=== PATIENT | male | born 1960 | race Caucasian/White ===

== ENCOUNTER 2023-01-01 00:26 | Inpatient (IN) ==
[2023-01-01] MEDS ORDERED: NITROGLYCERIN SL 0.4 MG/TAB TAB SL STA (01:04)
[2023-01-01] MEDS ORDERED: ACETAMINOPHEN 325 MG TAB PO PRN (01:05)
[2023-01-01] MEDS ORDERED: PROMETHAZINE HCL 12.5 MG in SODIUM CHLORIDE 0.9% 50 ML IV PRN (01:07)
[2023-01-01] MEDS ORDERED: NITROGLYCERIN SL 0.4 MG/TAB TAB SL PRN (01:07)
[2023-01-01] MEDS ORDERED: MoRPHine SULFATE 4 MG/ML 1 ML CARP\\VIAL IV PRN (01:07)
[2023-01-01] MEDS ORDERED: LORazepam 0.5 MG TAB PO PRN (01:07)
[2023-01-01] MEDS ORDERED: Heparin IV Adult Wt-Based Standard *NO* Bolus Protocol IV ONE ×2 (01:51→04:26)
[2023-01-01] MEDS ORDERED: METOPROLOL TARTRATE 25 MG TAB PO STA (01:52)
[2023-01-01] MEDS ORDERED: HEPARIN SODIUM/DEXTROSE 25,000 UNITS/500 ML BAG IV SCH (02:15)
[2023-01-01 03:35] LABS: Basophils # (auto) 0.07 K/uL (0-0.2); Basophils % (auto) 0.8 %; Eosinophils # (auto) 0.22 K/uL (0-0.50); Eosinophils % (auto) 2.6 %; Hematocrit (blood only) 37.1 % (42.0-52.0); Hemoglobin 12.6 g/dl (14.0-18.0); Immature Granulocytes # (auto) 0.02 K/uL (0.01-0.20); Immature Granulocytes % (auto) 0.2 %; Lymphocytes # (auto) 3.02 K/uL (1.2-3.4); Lymphocytes % (auto) 36.3 %; Mean Corpuscular Hemoglobin 29.4 pg (25.0-34.0); Mean Corpuscular Volume 86.5 fL (80.0-100.0); Monocytes # (auto) 0.67 K/uL (0.11-0.59); Neutrophils # (auto) 4.33 K/uL (1.40-6.50); Neutrophils % (auto) 52.1 %; Platelet Count 246 K/uL (130-400); RDW Coefficient of Variation 13.3 % (11.5-14.5); RDW Standard Deviation 41.2 fL (36.4-46.3); Red Blood Count 4.29 M/uL (4.70-6.10); Reticulocytes # 0.08 10^6/uL (0.02-0.10); White Blood Count 8.33 K/ul (4.8-10.8)
[2023-01-01 03:51] LABS: BUN Creatinine Ratio 14.7 (10-20); Calcium 8.7 mg/dl (8.6-10.3); Chol HDL Ratio 2.8 (0-5); Creatinine Clr Calc Pharmacy 88.1 ml/min; Est GFR (African American) 91.5 ml/min; Potassium 3.9 mmol/L (3.5-5.1)
[2023-01-01 04:03] LABS: Troponin I High Sensitivity 5445.9 pg/ml (0-20)
[2023-01-01 04:05] LABS: Partial Thromboplastin Ratio 0.9; Partial Thromboplastin Time 25.4 Seconds (21.0-31.0)
[2023-01-01 04:10] LABS: Ferritin 80.4 ng/ml (8-388)
[2023-01-01] MEDS: oxyCODONE HCL IR 5 MG TAB (IMMEDIATE RELEASE) PO PRN ×2 (04:25→10:46)
[2023-01-01] MEDS ORDERED: LACTATED RINGER'S 1,000 ML IV ONE (04:29)
--- NOTE | 2023-01-01 04:37 | History & Physical Report ---
Date of Service January 01, 2023 Assessment & Plan (1) NSTEMI (non-ST elevated myocardial infarction): Plan: hx nonobstructive CAD HTN, slightly elevated New onset anemia, FOBT done at bedside negative valvular heart disease (congenital bicuspid aortic valve/moderate , mild MR/TR from TTE 2021) hx aortic root/proximal ascending aorta enlargement hyperlipidemia, on statin Rx DM2 diet-controlled, well-controlled as of recent hemoglobin A1c of 6.3 last May 2022 GERD/Bradley's esophagus on PPI tobacco abuse PCU Continue home aspirin, statin; IV heparin initiated at [facility] Initiate beta-arnoldo TTE, Cardiology consult Re: NSTEMI N.p.o. until patient seen by Cardiology in anticipation of diagnostic cardiac catheterization. ISS BG goal 1 10-1 40, carb count coverage, update hemoglobin A1c Anemia work-up Nicotine replacement therapy as needed DVT prophylaxis with IV heparin Full code Text document was generated using [employer] voice recognition software. It may contain grammatical or spelling errors. Kindly contact undersigned for clarification of any documentation item in question. Admission and Anticipated Discharge Date Admission Date: January 01, 2023 History of Present Illness Chief Complaint: chest pain Primary Care Provider: Luciana Leung, History obtained from patient and records. Medical history significant for nonobstructive CAD, valvular heart disease (congenital bicuspid aortic valve/moderate , mild MR/TR), aortic root/proximal ascending aorta enlargement, hypertension, hyperlipidemia, DM2 diet-controlled, GERD/Bradley's esophagus, tobacco abuse. 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 Patient denies abdominal pain/black/bloody stools, hematuria. Patient took aspirin at home without improvement in symptoms. Patient brought to [facility] ER by family due to persistent symptoms. No ryder ST elevation on EKG last night as per ER provider. Abnormal labs last night as follows : troponin noted to be 1254. Hemoglobin noted to be 12.6. IV heparin started at [facility] for NSTEMI. Patient transferred [facility] for cardiology services. Patient currently complaining of chest discomfort described as heartburn-like. Chest discomfort relieved by nitroglycerin administration. Patient complaining of headache post nitro administration. 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 Allergies Allergy/AdvReac Type Severity Reaction Status Date / Time simvastatin AdvReac Severe ELEVATED Verified 01/01/23 00:22 LIVER FUNCTIONS nitroglycerin AdvReac Mild Headache Verified 01/01/23 06:37 Home Medications Medication Instructions Recorded Confirmed Type lisinopril 20 mg tablet 20 mg PO HS 07/16/21 01/01/23 History pantoprazole 40 mg tablet,delayed 40 mg PO HS 07/16/21 01/01/23 History release amlodipine 2.5 mg tablet 2.5 mg PO HS 01/01/23 01/01/23 History aspirin 81 mg tablet,delayed 81 mg PO HS 01/01/23 01/01/23 History release atorvastatin 40 mg tablet 40 mg PO HS 01/01/23 01/01/23 History multivitamin with minerals 1 tab PO HS 01/01/23 01/01/23 History Past Med/Surg History Social History Smoking Status: Current every day smoker Second Hand Exposure: No; Do You Dip or Chew Tobacco: Yes; Tobacco Cessation Education Requested by Patient: No Hx Alcohol Use: Yes Alcohol type: beer Hx Substance Use: No Preferred Language: Qatari Communication Ability: Effective Airline Radio Operator Required: No Beliefs That Will Affect Care: None Current Living Situation: Spouse Other Information That Helps Us Care for You: No Feels Safe at Home: Yes Safety Concerns: Feels Safe At This Time Assistive Devices: None Review of Systems Review of Systems: As per HPI, all other systems reviewed and negative Physical Exam Physical Exam: GENERAL: Comfortable, obese, no respiratory distress SKIN: Normal color, warm HEENT: [place] palpebral conjunctivae, no ptosis, dry buccal mucosa NECK : Supple, no tenderness CHEST : CTA, no tenderness HEART : RRR, systolic murmur ABDOMEN: Some distention, nontender RECTAL : Intact sphincter, brown stool (FOBT negative) EXTREMITIES : No LE swelling/tenderness, no other conspicuous deformities noted NEUROLOGIC : Coherent, no facial asymmetry, no other gross focality Results & Data Results & Data Vital Signs (Past 12 Hours) Vital Signs Temp Pulse Resp BP Pulse Ox O2 Del Method 01/01/23 00:42 36.5 C 67 17 160/97 H 98 Room Air Laboratory Results Laboratory Results WBC 8.33 K/ul (4.8-10.8) 01/01/23 03:10 RBC 4.29 M/uL (4.70-6.10) L 01/01/23 03:10 Hgb 12.6 g/dl (14.0-18.0) L 01/01/23 03:10 Hct 37.1 % (42.0-52.0) L 01/01/23 03:10 MCV 86.5 fL (80.0-100.0) 01/01/23 03:10 MCH 29.4 pg (25.0-34.0) 01/01/23 03:10 MCHC 34.0 g/dL (32.0-36.0) 01/01/23 03:10 RDW Std Deviation 41.2 fL (36.4-46.3) 01/01/23 03:10 RDW Coeff of Vikas 13.3 % (11.5-14.5) 01/01/23 03:10 Plt Count 246 K/uL (130-400) 01/01/23 03:10 MPV 10.0 fL (9.4-12.4) 01/01/23 03:10 Immature Gran % (Auto) 0.2 % 01/01/23 03:10 Neut % (Auto) 52.1 % 01/01/23 03:10 Lymph % (Auto) 36.3 % 01/01/23 03:10 [place] % (Auto) 8.0 % 01/01/23 03:10 Eos % (Auto) 2.6 % 01/01/23 03:10 Baso % (Auto) 0.8 % 01/01/23 03:10 Reticulocyte % (Auto) 2.0 % (0.5-2.0) 01/01/23 03:10 Neut # (Auto) 4.33 K/uL (1.40-6.50) 01/01/23 03:10 Lymph # (Auto) 3.02 K/uL (1.2-3.4) 01/01/23 03:10 [place] # (Auto) 0.67 K/uL (0.11-0.59) H 01/01/23 03:10 Eos # (Auto) 0.22 K/uL (0-0.50) 01/01/23 03:10 Baso # (Auto) 0.07 K/uL (0-0.2) 01/01/23 03:10 Reticulocyte # 0.08 10^6/uL (0.02-0.10) 01/01/23 03:10 Immature Gran # (Auto) 0.02 K/uL (0.01-0.20) 01/01/23 03:10 APTT 25.4 Seconds (21.0-31.0) 01/01/23 03:10 PTT Ratio 0.9 01/01/23 03:10 Sodium 140 mmol/L (136-145) 01/01/23 03:10 Potassium 3.9 mmol/L (3.5-5.1) 01/01/23 03:10 Chloride 108 mmol/L (98-107) H 01/01/23 03:10 Carbon Dioxide 26 mmol/L (21-32) 01/01/23 03:10 Anion Gap 6 (3-11) 01/01/23 03:10 BUN 15 mg/dl (6-23) 01/01/23 03:10 Creatinine 1.02 mg/dl (0.6-1.4) 01/01/23 03:10 Est Cr Clr Drug Dosing 88.1 ml/min 01/01/23 03:10 Est GFR ( Amer) 91.5 ml/min 01/01/23 03:10 Est GFR (Non-Af Amer) 79.0 ml/min 01/01/23 03:10 BUN/Creatinine Ratio 14.7 (10-20) 01/01/23 03:10 Glucose 96 mg/dl (70-99(Fasting)) 01/01/23 03:10 Calcium 8.7 mg/dl (8.6-10.3) 01/01/23 03:10 Iron 68 mcg/dl (35-175) 01/01/23 03:10 Transferrin 232 mg/dl (200-360) 01/01/23 03:10 Ferritin 80.4 ng/ml (8-388) 01/01/23 03:10 Troponin I High Sens 5445.9 pg/ml (0-20) H* 01/01/23 03:10 Triglycerides 98 mg/dl (0-150) 01/01/23 03:10 Cholesterol 129 mg/dl (0-200) 01/01/23 03:10 LDL Cholesterol, Calc 63 mg/dl 01/01/23 03:10 VLDL Cholesterol, Calc 20 mg/dl (0-30) 01/01/23 03:10 HDL Cholesterol 46 mg/dl 01/01/23 03:10 Cholesterol/HDL Ratio 2.8 (0-5) 01/01/23 03:10 TSH 0.801 uIu/ml (0.300-4.500) 01/01/23 03:10 Blood Type AB Positive 01/01/23 03:10 Antibody Screen NEGATIVE 01/01/23 03:10 Diagnostic Findings Chest x-ray (done at [facility] 12/31/22 and scanned into [facility] Synapse) as per my interpretation: Cardiomegaly, atelectasis EKG as per my interpretation : Rate 55, sinus bradycardia, normal axis, 1 AVB, T wave abnormalities inferior leads
[2023-01-01 04:45] LABS: Vitamin B12 338 pg/ml (180-914)
[2023-01-01] MEDS: HEPARIN SODIUM/DEXTROSE 25,000 UNITS/500 ML BAG IV SCH (05:29)
[2023-01-01] MEDS: ATORVASTATIN 40 MG TAB PO SCH ×2 (05:51→20:19)
[2023-01-01] MEDS: PANTOprazole 40 MG TAB PO SCH ×2 (05:51→20:19)
[2023-01-01] MEDS ORDERED: CARBOHYDRATES FOR HYPOGLYCEMIA PO PRN (06:27)
[2023-01-01] MEDS ORDERED: GLUCAGON FOR INJ 1 MG VIAL SQ PRN (06:27)
[2023-01-01] MEDS ORDERED: GLUCOSE 40% GEL 15 GM TUBE PO PRN (06:27)
[2023-01-01] MEDS ORDERED: DEXTROSE 50% 50 ML SYRINGE IV PRN (06:27)
[2023-01-01] MEDS ORDERED: GLUCOSE 10 TAB/TUBE PO PRN (06:27)
[2023-01-01] MEDS ORDERED: Nursing to Pharmacy Communication SCH (07:00)
[2023-01-01 07:39] LABS: Estimated Average Glucose 140 mg/dl; Hemoglobin A1C 6.5 % (4.5-5.6)
[2023-01-01] MEDS: INSULIN ASPART PER UNIT CHARGE SC SCH ×2 (08:32→12:38)
--- NOTE | 2023-01-01 10:51 | Cardiology Consultation ---
Date of Consultation January 01, 2023 Assessment & Plan (1) NSTEMI (non-ST elevated myocardial infarction): (2) Bicuspid aortic valve: (3) Aortic stenosis: (4) Familial hyperlipidemia: (5) Tobacco abuse: (6) Ascending aorta enlargement: (7) Anemia: (8) HTN (hypertension): Plan 62-year-old patient presents with NSTEMI. Currently pain-free. Echocardiogram demonstrating small apical wall motion abnormality. Prior cardiac catheterization images reviewed demonstrating moderate nonobstructive coronary disease, however, distal coronary arteries, particular the LAD, are small caliber vessels. Continue IV heparin at this time. Recommend cardiac catheterization. Risk, benefits, and alternatives to procedure discussed. Patient agreeable. Continue other medications including amlodipine, aspirin, atorvastatin, metoprolol, and lisinopril. Further evaluation of anemia as per internal medicine. History of Present Illness Reason for Consultation: ACS Requesting Physician: Dr. Ching Attending Physician: Teresa Seals MD History of Present Illness 62-year-old male presents as a transfer from [facility] due to NSTEMI. 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 Discomfort initially 8/10. He did not immediately seek medical attention. Discomfort gradually reduced to 3/10 after drinking water. Due to persistent symptoms, he proceeded to the local emergency department for further evaluation. Due to elevated troponin, patient transferred to [facility] for cardiac evaluation. Currently chest pain free. Carries history of moderate nonobstructive coronary disease with small coronary vessels and presumed underlying vasospasm. Intolerant to long-acting nitrates. Also carries history of a bicuspid aortic valve with moderate aortic valve stenosis, mild aortic root and ascending aortic enlargement, and familial dyslipidemia with LDL 63 mg/dL on admission. Prior to the current event patient denies any exertional chest pain or unusual shortness of breath. Lungs capacity is stable. Unfortunately, continues to smoke 2-3 cigarettes daily and chews snuff. Denies any orthopnea, PND, or lower extremity edema. No palpitations, lightheadedness, dizziness, syncope, or near syncope. Allergies Allergy/AdvReac Type Severity Reaction Status Date / Time simvastatin AdvReac Severe ELEVATED Verified 01/01/23 00:22 LIVER FUNCTIONS nitroglycerin AdvReac Mild Headache Verified 01/01/23 06:37 Home Medications Medication Instructions Recorded Confirmed Type lisinopril 20 mg tablet 20 mg PO HS 07/16/21 01/01/23 History pantoprazole 40 mg tablet,delayed 40 mg PO HS 07/16/21 01/01/23 History release amlodipine 2.5 mg tablet 2.5 mg PO HS 01/01/23 01/01/23 History aspirin 81 mg tablet,delayed 81 mg PO HS 01/01/23 01/01/23 History release atorvastatin 40 mg tablet 40 mg PO HS 01/01/23 01/01/23 History multivitamin with minerals 1 tab PO HS 01/01/23 01/01/23 History Patient History Social History Smoking Status: Current every day smoker Second Hand Exposure: No; Do You Dip or Chew Tobacco: Yes; Tobacco Cessation Education Requested by Patient: No Hx Alcohol Use: Yes Alcohol type: beer Hx Substance Use: No Preferred Language: Georgian Communication Ability: Effective 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 Beliefs That Will Affect Care: None Current Living Situation: Spouse Other Information That Helps Us Care for You: No Feels Safe at Home: Yes Safety Concerns: Feels Safe At This Time Assistive Devices: None Review of Systems Review of Systems: All systems reviewed & are unremarkable except as noted in Subjective Physical Exam Constitutional: well nourished; no acute distress Respiratory: no respiratory distress, no labored breathing and no retractions Auscultation: no crackles, no rales, no rhonchi and no wheezes Cardiovascular: Rate/Rhythm: regular rate and regular rhythm Heart Sounds: normal S1, normal S2 and + murmur (3/6 mid to late peaking systolic ejection murmur heard best at the base) Vessels: radial pulses present; no JVD and no carotid bruit Extremities: no edema Gastrointestinal (Abdomen): Inspection/Auscultation: normal bowel sounds; abdomen not distended Percussion/Palpation: abdomen soft; abdomen nontender, no guarding and abdomen not rigid Neurologic: CN's II-XI intact bilaterally and moves all extremities; no focal motor deficits Psychiatric: A+Ox3, euthymic affect Results & Data Vital Signs (Past 12 Hours) Vital Signs Temp Pulse Pulse Resp BP Pulse Ox O2 Del Method 01/01/23 08:18 36.3 C L 58 L 18 148/90 H 97 Room Air 01/01/23 07:05 64 05/12/23 03:33 36.5 C 61 20 148/79 H 96 Room Air 01/01/23 02:23 64 01/01/23 01:28 36.5 C 67 20 160/97 H 98 Room Air 01/01/23 00:56 36.5 C 67 20 160/97 H 98 Room Air 01/01/23 00:42 36.5 C 67 17 160/97 H 98 Room Air Laboratory Results Cardiac Enzymes 01/01/23 Range/Units 03:10 Troponin I High Sens 5445.9 H* (0-20) pg/ml Coagulation 01/01/23 Range/Units 03:10 APTT 25.4 (21.0-31.0) Seconds Lipids 01/01/23 Range/Units 03:10 Triglycerides 98 (0-150) mg/dl Cholesterol 129 (0-200) mg/dl HDL Cholesterol 46 mg/dl Cholesterol/HDL Ratio 2.8 (0-5) CBC 01/01/23 Range/Units 03:10 WBC 8.33 (4.8-10.8) K/ul RBC 4.29 L (4.70-6.10) M/uL Hgb 12.6 L (14.0-18.0) g/dl Hct 37.1 L (42.0-52.0) % Plt Count 246 (130-400) K/uL Neut # (Auto) 4.33 (1.40-6.50) K/uL Lymph # (Auto) 3.02 (1.2-3.4) K/uL [place] # (Auto) 0.67 H (0.11-0.59) K/uL Eos # (Auto) 0.22 (0-0.50) K/uL Baso # (Auto) 0.07 (0-0.2) K/uL Comprehensive Metabolic Panel 01/01/23 Range/Units 03:10 Sodium 140 (136-145) mmol/L Potassium 3.9 (3.5-5.1) mmol/L Chloride 108 H (98-107) mmol/L Carbon Dioxide 26 (21-32) mmol/L BUN 15 (6-23) mg/dl Creatinine 1.02 (0.6-1.4) mg/dl Glucose 96 (70-99(Fasting)) mg/dl Calcium 8.7 (8.6-10.3) mg/dl Intake and Output 12/31/22 01/01/23 01/01/23 22:59 06:59 14:59 Intake Total 45.433 / 45.433 Balance 45.433 / 45.433 Intake: IV 45.433 / 45.433 Heparin Sodium/Dextrose 25,000 45.433 / 45.433 units In 500 ml @ 1,450 UNITS/ HR 29 mls/hr IV .[id number] [facility] Rx #:[id number] Other: Other Intake Source NPO # Unmeasured Voids 1 Weight 95.2 kg Weight Measurement Method Built in [facility] Diagnostic Findings Preliminary review of 2D transthoracic echocardiogram: Preserved LV systolic function, left ventricular ejection fraction 60-65%. There is a small apical anterior, and apical septal wall motion abnormality. Aortic valve is calcified and bicuspid. There is moderate aortic valve stenosis.
[2023-01-01 12:59] LABS: Partial Thromboplastin Ratio 1.8
[2023-01-01 13:06] LABS: Partial Thromboplastin Time 51.2 Seconds (21.0-31.0)
--- NOTE | 2023-01-01 13:21 | Pre Anesthesia Assessment ---
Date of Service January 01, 2023 Pre Sedation Assessment Vital Signs Temp Pulse Pulse Resp BP BP Pulse Ox 01/01/23 16:04 62 01/01/23 15:37 49 L 20 125/81 92 01/01/23 15:07 56 L 20 150/85 H 95 01/01/23 14:52 59 L 18 143/93 H 96 01/01/23 14:51 36.8 C 55 L 18 149/92 H 95 01/01/23 13:17 57 L 18 149/92 H 97 01/01/23 12:00 36.9 C 63 18 149/93 H 96 01/01/23 08:18 36.3 C L 58 L 18 148/90 H 97 01/01/23 07:05 64 01/01/23 03:33 36.5 C 61 20 148/79 H 96 01/01/23 02:23 64 01/01/23 01:28 36.5 C 67 20 160/97 H 98 01/01/23 00:56 36.5 C 67 20 160/97 H 98 01/01/23 00:42 36.5 C 67 17 160/97 H 98 O2 Del Method 01/01/23 16:04 01/01/23 15:37 Room Air 01/01/23 15:07 Room Air 01/01/23 14:52 Room Air 01/01/23 14:51 Room Air 01/01/23 13:17 Room Air 01/01/23 12:00 Room Air 01/01/23 08:18 Room Air 01/01/23 07:05 01/01/23 03:33 Room Air 01/01/23 02:23 01/01/23 01:28 Room Air 01/01/23 00:56 Room Air 01/01/23 00:42 Room Air Cardiovascular + regular rate and + regular rhythm + S1 normal, + S2 normal and + murmur + femoral pulses present and + radial pulses present; no JVD and no carotid bruit no edema Respiratory + respiratory effort normal; no respiratory distress and no labored breathing no crackles, no rales, no rhonchi and no wheezes Pre-Sedation Airway Assessment Smoking Status: Current every day smoker Mallampati Class: III ASA: ASA4 NPO Status Date of Last Intake of Fluids: 12/31/22 Date of Last Intake of Solid Food: 12/31/22 Procedure Planning Contraindications for Sedation: none Current Medications Reviewed: Yes Notes The planned sedation has been discussed with the patient. Informed Consent was obtained. I have identified the patient, determined the appropriateness of sedation and have assessed the patient immediately prior to the procedure. All medicine(s) and interventions are by my order.
[2023-01-01] MEDS ORDERED: niCARdipine HCL INJ 2.5 MG/ML 10 ML AMP ONE (13:31)
[2023-01-01] MEDS ORDERED: fentaNYL citrate PF 100 MCG/2 ML VIAL ONE (13:31)
[2023-01-01] MEDS ORDERED: HEPARIN (PORCINE) 1000 UNIT/ML 10 ML (CATH LAB USE ONLY) ONE (13:31)
[2023-01-01] MEDS ORDERED: MIDAZOLAM HCL 1 MG/ML 2ML VIAL ONE (13:31)
[2023-01-01] MEDS ORDERED: NITROGLYCERIN/D5W 100MCG/ML 20ML SYR ONE (13:32)
--- NOTE | 2023-01-01 14:49 | Post Anesthesia Assessment ---
Date of Service January 01, 2023 Post Sedation Assessment Vital Signs Temp Pulse Pulse Resp BP BP Pulse Ox 01/01/23 16:04 62 01/01/23 15:37 49 L 20 125/81 92 01/01/23 15:07 56 L 20 150/85 H 95 01/01/23 14:52 59 L 18 143/93 H 96 01/01/23 14:51 36.8 C 55 L 18 149/92 H 95 01/01/23 13:17 57 L 18 149/92 H 97 01/01/23 12:00 36.9 C 63 18 149/93 H 96 01/01/23 08:18 36.3 C L 58 L 18 148/90 H 97 01/01/23 07:05 64 01/01/23 03:33 36.5 C 61 20 148/79 H 96 01/01/23 02:23 64 01/01/23 01:28 36.5 C 67 20 160/97 H 98 01/01/23 00:56 36.5 C 67 20 160/97 H 98 01/01/23 00:42 36.5 C 67 17 160/97 H 98 O2 Del Method 01/01/23 16:04 01/01/23 15:37 Room Air 01/01/23 15:07 Room Air 01/01/23 14:52 Room Air 01/01/23 14:51 Room Air 01/01/23 13:17 Room Air 01/01/23 12:00 Room Air 01/01/23 08:18 Room Air 01/01/23 07:05 01/01/23 03:33 Room Air 01/01/23 02:23 01/01/23 01:28 Room Air 01/01/23 00:56 Room Air 01/01/23 00:42 Room Air Recovery Score Respiration: Deep Breath/Cough Circulation: +/-20% PreAnes Value Consciousness: Arouseable (by name) Oxygen Saturation: > 92% On Room Air Discharge Sedation Level of Care: Fast Track Phase II Post Sedation Plan On clinical assessment, the patient appears to have tolerated the sedation without complications. Patient is recovering as anticipated. Patient will continue to be monitored by nursing and may be discharged when sedation discharge criteria are met per below protocol. Upon Completions of procedure up to 15 minutes continue every 5 minute vital signs and the P.A.R. score; then discharge to a Phase I or Fast Track to Phase II per the following guidelines: * Discharge Patient to appropriate Phase II area if PAR is 8 or greater or return to pre- procedure baseline. The post - procedure orders will be as directed. * If PAR score is less than 8 or not return to pre-procedure baseline then patient will follow Phase I monitoring till PAR is reached for Phase II. The Phase I may be done in procedure room or may call to secure a Phase I area. * If naloxone or flumazenil are used for reversal, hold in Phase I for continued monitoring from when last reversal dose was given for a minimum of 60 minutes or longer pending the nurse and/or physician discretion of patient condition before discharge to Phase II. Please call the Sedation Physician to re-evaluate and complete post-note for discharge to Phase II area. Do NOT discharge from procedure sedation or Phase 1 until post- sedation evaluation note is complete by procedure /sedation MD Sedation Discharge Instructions to be given to the patient at discharge to home.
--- NOTE | 2023-01-01 14:52 | Cardiac Catheterization ---
Cardiac Cath Procedure Full Procedure Date January 01, 2023 Pre-Procedure Diagnosis Pre-Procedure Diagnosis: Non STEMI AUC Score AUC Score: 7 Post-Procedure Diagnosis Post-Procedure Diagnosis: Moderate CAD Procedure(s) Performed Procedure(s) Performed: Coronary Angiography Inventory Manager Hero Monique DO Dial Mounter(s) Bartolome BERKOWITZ Estimated Blood Loss Estimated Blood Loss: 5cc Medication(s) Medication(s): Fentanyl, Heparin, Lidocaine 1% and Nicardipine Summary of Findings Nonobstructive coronary artery disease. No significant change compared to prior angiogram 07/16/2021. Right dominant coronary anatomy. The left main is a large vessel which bifurcates into the left anterior descending and left circumflex arteries. The left anterior descending artery is a type III vessel which wraps around left ventricular apex. There is mild, 20% stenosis in the proximal segment. Mild luminal irregularities, 10% noted in the mid segment. The apical segment is small, less than 1 mm with HOWARD II flow. No discrete obstruction visualized however the vessel is diffusely disease and small caliber. The LAD gives rise to 2 large caliber diagonal branch vessels that are free of obstructive disease. The left circumflex is a large nondominant vessel giving rise to a small first obtuse marginal, large second obtuse marginal, 3rd small obtuse marginal,moderate caliber left posterior lateral branch artery, and a second small posterior lateral branch artery. The right coronary artery is a large dominant vessel giving rise to acute marginal and posterior descending artery. There is a 30% proximal RCA stenosis. The posterior descending artery tapers down to a small, 1 mm vessel near the apex. There are mild luminal irregularities in the mid to distal vessel with 10% stenosis. The JR4 catheter was removed due to deep engagement. No significant epicardial coronary artery stenosis amenable to PCI, however, apical perfusion may be compromised due to coronary vasospasm and small caliber of the distal LAD and distal posterior descending artery. Hemodynamics Rest Ao:: 124/69/92 Final Ao: 135/74/99 LV: N/A Recommendations Recommendations: Medical Therapy and/or Counseling (IV heparin for an additional 24 hours, add clopidogrel) Radiation Exposure (mGy) 1786 Contrast (mls) 80 Fluids (cc crystalloids) Fluids (cc crystalloids): 100 Nss Drains Drains: N/A Anesthesia Moderate sedation. Start 1347. End 1420. Sedation monitor: Keegan VIEIRA Procedural Complication(s) None I attest to the content of the Intraoperative Record and any orders documented therein. Any exceptions are noted below. 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 Diagnosed with NSTEMI. Echocardiogram with mild apical septal, and anterior apical hypokinesis. CAD Presenation: Non STEMI Diagnostic Physicians Name: Hero Monique DO Closure Device Closure Device: Radial Band Recommendations: Medical Therapy and/or Counseling (IV heparin for an additional 24 hours, add clopidogrel) Intraprocedure Events Significant Disection: No Perforation: No
[2023-01-01] MEDS ORDERED: CLOPIDOGREL BISULFATE 300 MG TAB PO STA (14:56)
--- NOTE | 2023-01-01 15:30 | Communication Note ---
Date of Service: January 01, 2023 Patient seen on return from Cardiac cath Denied any chest pain. Reports some headache which he attributed to the nitro Denied other complaints on ROS Being managed for NSTEMI Cardiac cath noted 30% proximal RCA stenosis Continue hep gtt for another 24h per cards Started on plavix Continue ASA Counseled on smoking cessation Continue atorvastatin 40mg HS Other plans as detailed in H&P this morning
[2023-01-01] MEDS: METOPROLOL TARTRATE 25 MG TAB PO SCH (20:18)
[2023-01-01 20:59] LABS: Appearance Urine Clear (Clear); Bilirubin Urine Negative (Negative); Blood Urine Negative (Negative); Color Urine Yellow; Glucose Urine UA Negative (Negative); Ketones Urine Negative (Negative); Leukocyte Esterase Urine Negative (Negative); Nitrite Urine Negative (Negative); Protein Urine Negative (Negative); Specific Gravity Urine 1.016 (1.000-1.030); Urobilinogen Urine Negative (Negative)
[2023-01-01] MEDS ORDERED: ATORVASTATIN 40 MG TAB PO SCH (21:00)
[2023-01-01] MEDS ORDERED: ASPIRIN 81 MG ECTAB PO SCH (21:00)
[2023-01-01] MEDS ORDERED: lisinopril 20 MG TAB PO SCH (21:00)
[2023-01-01] MEDS ORDERED: CEROVITE ADV FORMULA TAB PO SCH (21:00)
[2023-01-01] MEDS ORDERED: PANTOprazole 40 MG TAB PO SCH (21:00)
[2023-01-01 23:36] LABS: Partial Thromboplastin Time 57.5 Seconds (21.0-31.0)
[2023-01-02] MEDS: HEPARIN SODIUM/DEXTROSE 25,000 UNITS/500 ML BAG IV SCH (01:05)
[2023-01-02 06:02] LABS: Hematocrit (blood only) 38.3 % (42.0-52.0); Hemoglobin 12.8 g/dl (14.0-18.0); Mean Corpuscular Hemoglobin 29.2 pg (25.0-34.0); Mean Corpuscular Hgb Conc 33.4 g/dL (32.0-36.0); Mean Corpuscular Volume 87.4 fL (80.0-100.0); Mean Platelet Volume 10.2 fL (9.4-12.4); Platelet Count 247 K/uL (130-400); RDW Coefficient of Variation 13.1 % (11.5-14.5); Red Blood Count 4.38 M/uL (4.70-6.10); White Blood Count 8.27 K/ul (4.8-10.8)
[2023-01-02 06:14] LABS: BUN Creatinine Ratio 13.8 (10-20); Calcium 8.9 mg/dl (8.6-10.3); Creatinine Clr Calc Pharmacy 82.7 ml/min; Est GFR (African American) 84.5 ml/min; Est GFR (Non-African American) 72.9 ml/min; Phosphorus 3.2 mg/dl (2.5-4.9); Potassium 4.1 mmol/L (3.5-5.1)
--- NOTE | 2023-01-02 06:26 | Electrocardiogram Report ---
Test Reason : Blood Pressure : / mmHG Vent. Rate : 056 BPM Atrial Rate : 056 BPM P-R Int : 248 ms QRS Dur : 086 ms QT Int : 414 ms P-R-T Axes : 041 -08 -10 degrees QTc Int : 399 ms Sinus bradycardia with 1st degree A-V block Possible Inferior infarct , age undetermined Abnormal ECG No previous ECGs available Confirmed by Jose Esteban ([id number]) on 01/02/2023 6:25:28 AM Referred By: Bahman Ching Confirmed By:Jose Esteban
[2023-01-02] MEDS: METOPROLOL TARTRATE 25 MG TAB PO SCH (08:06)
[2023-01-02] MEDS ORDERED: CLOPIDOGREL BISULFATE 75 MG TAB PO SCH (09:00)
--- NOTE | 2023-01-02 11:25 | Cardiology Progress Note ---
Date of Service January 02, 2023 Assessment & Plan (1) NSTEMI (non-ST elevated myocardial infarction): (2) Bicuspid aortic valve: (3) Aortic stenosis: (4) Familial hyperlipidemia: (5) Tobacco abuse: (6) Ascending aorta enlargement: (7) Anemia: (8) HTN (hypertension): Plan Switching the patient over to long-acting metoprolol. Otherwise his current medications should be continued after discharge. The patient should have follow- up with our clinic in the next 1 to 2 weeks. Admission and Anticipated Discharge Date Admission Date: January 01, 2023 Subjective The patient had an uneventful night. Review of Systems Review of Systems: Review of Systems: See HPI for pertinent positives. All other 10 point review of systems are negative. Physical Exam Physical Exam: General: no acute distress and stated age Head: normocephalic, no masses, lesions, tenderness or abnormalities Eyes: conjunctiva are pink and non-injected, sclera clear Neck: supple, no adenopathy, no bruits, normal jugular venous pulse, no hepatojugular reflux Chest: normal shape and normal respiratory effort Lungs: clear to auscultation and percussion Cardiac Exam: - regular rate & rhythm, no murmurs gallops or rubs - normal S1, normal S2 Pulses: 2(+) throughout Abdomen: abdomen soft, non-tender, no abnormal masses and no hepatosplenomegaly Musculoskeletal: no gait disturbance, no joint inflammation, no deforming arthritis Extremities: no edema and no cyanosis Neuro: grossly normal exam Results & Data Vital Signs (Past 12 Hours) Vital Signs Temp Pulse Pulse Resp BP BP Pulse Ox 01/02/23 08:19 50 L 01/02/23 08:08 36.6 C 61 18 125/77 97 01/02/23 03:41 36.7 C 68 18 108/70 98 O2 Del Method 01/02/23 08:19 01/02/23 08:08 Room Air 01/02/23 03:41 Room Air Laboratory Results Laboratory Results - last 24 hr 01/01/23 01/01/23 01/01/23 11:35 22:27 Unknown WBC RBC Hgb Hct MCV MCH MCHC RDW Std Deviation RDW Coeff of Vikas Plt Count MPV APTT 51.2 H* 57.5 H* PTT Ratio 1.8 2.0 Sodium Potassium Chloride Carbon Dioxide Anion Gap BUN Creatinine Est Cr Clr Drug Dosing Est GFR ( Amer) Est GFR (Non-Af Amer) BUN/Creatinine Ratio Glucose Calcium Phosphorus Magnesium Urine Color Yellow Urine Appearance Clear Urine pH 8.0 H Ur Specific [place] 1.016 Urine Protein Negative Urine Glucose (UA) Negative Urine Ketones Negative Urine Blood Negative Urine Nitrite Negative Urine Bilirubin Negative Urine Urobilinogen Negative Ur Leukocyte Esterase Negative 01/02/23 01/02/23 05:32 05:32 WBC 8.27 RBC 4.38 L Hgb 12.8 L Hct 38.3 L MCV 87.4 MCH 29.2 MCHC 33.4 RDW Std Deviation 42.0 RDW Coeff of Vikas 13.1 Plt Count 247 MPV 10.2 APTT PTT Ratio Sodium 138 Potassium 4.1 Chloride 105 Carbon Dioxide 26 Anion Gap 7 BUN 15 Creatinine 1.09 Est Cr Clr Drug Dosing 82.7 Est GFR ( Amer) 84.5 Est GFR (Non-Af Amer) 72.9 BUN/Creatinine Ratio 13.8 Glucose 157 H Calcium 8.9 Phosphorus 3.2 Magnesium 2.0 Urine Color Urine Appearance Urine pH Ur Specific [place] Urine Protein Urine Glucose (UA) Urine Ketones Urine Blood Urine Nitrite Urine Bilirubin Urine Urobilinogen Ur Leukocyte Esterase Medications Administered Current Inpatient Medications Acetaminophen (Acetaminophen 325 Mg Tab) 650 mg PO Q6H PRN PRN Reason: Fever/pain Stop: 01/31/23 01:04 Aspirin (Aspirin 81 Mg Ectab) 81 mg PO [facility] Stop: 01/31/23 20:59 Last Admin: 01/01/23 20:19 Dose: 81 mg Atorvastatin Calcium (Atorvastatin 40 Mg Tab) 40 mg PO [facility] Stop: 01/31/23 04:29 Last Admin: 01/01/23 20:19 Dose: 40 mg Clopidogrel Bisulfate (Clopidogrel Bisulfate 75 Mg Tab) [facility] Stop: 02/01/23 08:59 Last Admin: 01/02/23 08:06 Dose: 75 mg Promethazine HCl 12.5 mg/ (Sodium Chloride) 50.5 mls @ 202 mls/hr IV Q6H PRN PRN Reason: Nausea And Vomiting Stop: 01/31/23 01:06 Heparin Sodium/Dextrose (Heparin Sodium/Dextrose) 25,000 units in 500 mls @ 29 mls/hr IV .[id number] [facility]; Protocol Stop: 01/31/23 04:44 Last Admin: 01/02/23 01:05 Dose: 1,450 units/hr, 29 mls/hr Lisinopril (Lisinopril 20 Mg Tab) 20 mg PO [facility] Stop: 01/31/23 20:59 Last Admin: 01/01/23 20:19 Dose: 20 mg Lorazepam (Lorazepam 0.5 Mg Tab) 0.5 mg PO TID PRN PRN Reason: Anxiety Stop: 01/31/23 01:06 Metoprolol Succinate (Metoprolol Succ 25mg Ext Rel Tab) 25 mg PO [facility] Stop: 02/01/23 11:29 Morphine Sulfate (Morphine Sulfate 4 Mg/Ml 1 Ml Carp\Vial) 4 mg IV Q4H PRN PRN Reason: Pain Stop: 01/15/23 01:06 Multivitamins/Minerals (Cerovite Adv Formula Tab) 1 tab PO [facility] Stop: 01/31/23 20:59 Last Admin: 01/01/23 20:18 Dose: 1 tab Nitroglycerin (Nitroglycerin Sl 0.4 Mg/Tab Tab) 0.4 mg SL UD PRN PRN Reason: Chest Pain Stop: 01/31/23 01:06 Oxycodone HCl (Oxycodone Hcl Ir 5 Mg Tab (Immediate Release)) 5 mg PO Q4H PRN PRN Reason: Pain Stop: 01/15/23 01:04 Last Admin: 01/01/23 10:46 Dose: 5 mg Pantoprazole Sodium (Pantoprazole 40 Mg Tab) 40 mg PO [facility] Stop: 01/31/23 04:29 Last Admin: 01/01/23 20:19 Dose: 40 mg
[2023-01-02] MEDS ORDERED: METOPROLOL SUCC 25MG EXT REL TAB PO SCH (11:30)
--- NOTE | 2023-01-02 12:22 | Discharge Summary ---
Date of Service January 02, 2023 Admission HPI Per Admitting Provider History obtained from patient and records. Medical history significant for nonobstructive CAD, valvular heart disease (congenital bicuspid aortic valve/moderate , mild MR/TR), aortic root/proximal ascending aorta enlargement, hypertension, hyperlipidemia, DM2 diet-controlled, GERD/Bradley's esophagus, tobacco abuse. 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 Patient denies abdominal pain/black/bloody stools, hematuria. Patient took aspirin at home without improvement in symptoms. Patient brought to [facility] ER by family due to persistent symptoms. No ryder ST elevation on EKG last night as per ER provider. Abnormal labs last night as follows : troponin noted to be 1254. Hemoglobin noted to be 12.6. IV heparin started at [place] [facility] for NSTEMI. Patient transferred [facility] for cardiology services. Patient currently complaining of chest discomfort described as heartburn-like. Chest discomfort relieved by nitroglycerin administration. Patient complaining of headache post nitro administration. 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 Admission Exam Per Admitting Provider GENERAL: Comfortable, obese, no respiratory distress SKIN: Normal color, warm HEENT: [place] palpebral conjunctivae, no ptosis, dry buccal mucosa NECK : Supple, no tenderness CHEST : CTA, no tenderness HEART : RRR, systolic murmur ABDOMEN: Some distention, nontender RECTAL : Intact sphincter, brown stool (FOBT negative) EXTREMITIES : No LE swelling/tenderness, no other conspicuous deformities noted NEUROLOGIC : Coherent, no facial asymmetry, no other gross focality Principal Diagnosis Chest pain NSTEMI Tobacco use Discharge Exam Constitutional + well hydrated; no acute distress Eyes PERRL, conjunctivae normal, anicteric sclerae ENMT external ear and nose normal, oropharynx normal Respiratory normal respiratory effort, lungs clear to auscultation Cardiovascular Rate/Rhythm: regular rate and regular rhythm S1 S2 Gastrointestinal (Abdomen) normal bowel sounds, soft, nontender, no hepatosplenomegaly Musculoskeletal no cyanosis or clubbing, extremities motor strength 5/5 Neurologic PERRL, EOMI, accommodation nl, no face palsy, no dysarthria Psychiatric A+Ox3, euthymic affect Discharge Data Allergies Allergy/AdvReac Type Severity Reaction Status Date / Time simvastatin AdvReac Severe ELEVATED Verified 01/01/23 00:22 LIVER FUNCTIONS nitroglycerin AdvReac Mild Headache Verified 01/01/23 06:37 Consultations 01/01/23 01:07 Consult Cardiology Routine Procedures Performed Operation Date: 01/01/23 13:30 Actual Procedures s Cineradiography w/Routine Exam - Hero Monique DO p Cath, Coronaries ONLY (no LV) - Hero Monique DO Ordered Studies 01/01/23 08:54 CL Cath Imgs for PACS use only Routine Hospital Course (1) NSTEMI (non-ST elevated myocardial infarction): Has history of nonobstructive CAD, Hypertension, Valvular heart disease (congenital bicuspid aortic valve/moderate , mild MR/TR from [facility] 2021), Diabetes mellitus diet controlled, GERD 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 Troponin was elevated at 5445 Patient had cardiac catheterization which showed 30% proximal RCA stenosis Patient was treated with IV heparin gtt for 48h Chest pain resolved He was started on plavix 75mg daily in addition to his home ASA 81mg Was also started on metoprolol succinate 25mg daily Amlodipine 2.5mg was discontinued Continue atorvastatin 40mg HS and lisinopril 20mg HS Patient to follow up with Cardiology in 1-2 weeks Counseled about tobacco cessation Total Time Total Time Spent Total Time Spent (In Minutes): 40 Total Time Includes: Examination of the Patient, Discharge Planning, Medication Reconciliation and Communication With Other Providers Discharge Plan Discharge Items Patient Disposition: Home - Self-Care Reason For Visit: Chest pain Discharge Diagnosis: NSTEMI (Non ST Elevated Myocardial Infarction) Activity: Resume your previous activity Non-emergency contact: Primary Care Provider and Early Years Teacher Call non-emergency contact if: you have any medication questions Follow-up/Referrals: Luciana Leung DO [Primary Care Provider] - Diet: Heart Healthy Addtl Attending Provider Instructions: Mr Sanchez. You came to the hospital with chest pain. You were evaluated and managed for a heart attack. You had a cardiac catheterization. You are being discharged home with the following medication changes: - You were started on Clopidogrel (plavix) - Stop taking amlodipine - You were started on metoprolol succinate Please continue taking your Aspirin 81mg daily Please ensure follow up with Cardiology in 1-2 weeks Please quit smoking as we discussed It was a pleasure taking care of you. Pending Studies at Discharge: No Stand-Alone Forms: My [facility], Work/School Release, Smoking Cessation Medications and DC Order Prescriptions: New clopidogrel 75 mg Tablet 75 mg PO QAM Qty: 30 0RF metoprolol succinate 25 mg Tablet Extended Release 24 Hr 25 mg PO QAM Qty: 30 0RF Continued lisinopril 20 mg Tablet 20 mg PO HS pantoprazole 40 mg Tablet,Delayed Release (Dr/Ec) 40 mg PO HS atorvastatin 40 mg Tablet 40 mg PO HS aspirin 81 mg Tablet,Delayed Release (Dr/Ec) 81 mg PO HS multivitamin with minerals Tablet 1 tab PO HS Discontinued amlodipine 2.5 mg Tablet 2.5 mg PO HS Discharge Orders: Discharge Order (Routine); Ordered 01/02/23 Ordered By: Teresa Stiles/Other Patient Handouts: A1C, Cardiac Catheterization Dc, ED Cardiac Cath Post Bleed Admission Data Admit Date/Time: 01/01/23 00:26 Attending Provider: Teresa Seals I. Admit Provider: Bahman Ching Primary Care Provider: Luciana Leung Other Providers: Ramya Ch ; Lemuel Butler ; Igor Lunsford ; Hero Monique ; Kayode Hughes ; Sam Womack ; Joan Portillo ; May Garibay ; Ramya Ramirez ; Aroldo Galeana ; Rosio Layne Other Interventions: Discharge Summary Assessment (RN) Last Done: 01/02/23 12:28
--- NOTE | 2023-01-03 20:34 | Electrocardiogram Report ---
Test Reason : Blood Pressure : / mmHG Vent. Rate : 062 BPM Atrial Rate : 062 BPM P-R Int : 216 ms QRS Dur : 088 ms QT Int : 404 ms P-R-T Axes : 025 -15 015 degrees QTc Int : 410 ms Sinus rhythm with 1st degree A-V block Inferior infarct (cited on or before 01-JAN-2023) Abnormal ECG When compared with ECG of 01-JAN-2023 01:23, (unconfirmed) No significant change was found Confirmed by Flynn Denis ([id number]) on 01/03/2023 8:33:55 PM Referred By: Bahman Ching Confirmed By:Flynn Denis
== END 2023-01-02 13:17 | disposition home or self-care (01) | DRG 281 ==
LOC: 4W 00:26
PROC: CLB.CCO (2023-01-01 13:30)

== ENCOUNTER 2023-06-26 07:57 | Inpatient (IN) ==
[2023-06-26] MEDS ORDERED: ASPIRIN CHEW 324 MG PO STA (08:11)
[2023-06-26] MEDS ORDERED: HYDROmorphone INJ 1 MG/ML SYRINGE IV STA (08:11)
[2023-06-26] MEDS ORDERED: ONDANSETRON INJ 2 MG/ML 2 ML VIAL IV STA (08:11)
[2023-06-26 08:28] LABS: iSTAT Creatinine 1.2 mg/dl (0.6-1.3); iSTAT Hemoglobin 12.6 g/dl (14.0-18.0); iSTAT Ionized Calcium 1.2 mmol/l (1.12-1.32)
--- NOTE | 2023-06-26 08:39 | Emergency Department Note ---
History of Present Illness General Chief Complaint: Shortness of Breath/Dyspnea Stated Complaint: DIFFICULTY BREATHING, RIGHT SIDE PAIN Time Seen by Provider: 06/26/23 08:04 History of Present Illness Provider Complaint: shortness of breath and chest pain Onset (ago): day(s) (1) Maximum Pain Intensity: 10 Relieved By: + nothing Exacerbated By: + nothing Context: + other (Aortic valve repair 3 weeks ago at [facility] [address]) Associated symptoms: + chest pain; no pain with inspiration, no fever, no cough, no wheezing, no sputum production, no orthopnea, no lower extremity pain, no paresthesias, no hemoptysis, no abdominal pain or no chest congestion Treatment prior to arrival: none Home Medications Medication Instructions Recorded Confirmed Type pantoprazole 40 mg tablet,delayed 40 mg PO HS 07/16/21 06/26/23 History release aspirin 81 mg tablet,delayed 81 mg PO HS 01/01/23 06/26/23 History release atorvastatin 40 mg tablet 40 mg PO HS 01/01/23 06/26/23 History multivitamin with minerals 1 tab PO HS 01/01/23 06/26/23 History clopidogrel 75 mg tablet 75 mg PO PM 06/26/23 06/26/23 History furosemide 40 mg tablet 40 mg PO QAM 06/26/23 06/26/23 History lisinopril 2.5 mg tablet 2.5 mg PO PM 06/26/23 06/26/23 History metoprolol succinate 25 mg 25 mg PO PM 06/26/23 06/26/23 History tablet,extended release 24 hr potassium chloride 10 mEq 20 meq PO QAM 06/26/23 06/26/23 History tablet,extended release Allergies Allergy/AdvReac Type Severity Reaction Status Date / Time simvastatin AdvReac Severe ELEVATED Verified 01/01/23 00:22 LIVER FUNCTIONS nitroglycerin AdvReac Mild Headache Verified 01/01/23 06:37 Past Med/Surg History Medical History No pertinent family history HTN (hypertension) Anemia Ascending aorta enlargement Aortic stenosis Bicuspid aortic valve Surgical History H/O aortic valve repair Social History Smoking Status: Never smoker Second Hand Exposure: No; Do You Dip or Chew Tobacco: Yes; Hx Alcohol Use: Yes Alcohol type: beer Hx Substance Use: No Preferred Language: Slovak Communication Ability: Effective Fur Examiner Required: No Beliefs That Will Affect Care: None Current Living Situation: Spouse Feels Safe at Home: Yes Assistive Devices: None Physical Exam 2 Vital Signs: Vital Signs - 24 hr 06/26/23 08:01 06/26/23 08:09 06/26/23 08:22 Temperature 36.5 C Temperature Source Oral Pulse Rate 110 H 117 H Respiratory Rate 20 Blood Pressure 166/78 H Blood Pressure Isabelle n 107 Pulse Oximetry 95 Oxygen Delivery Me thod Room Air Room Air Sepsis Recent Feve r Within 48 Hours No Sepsis New/Unexpla ined Change in Men nirmal Status N/A Sepsis Action Take n by Nursing No Action Required Pulse Oximetry Pos t Tiitration 92 06/26/23 08:28 Temperature Temperature Source Pulse Rate Respiratory Rate Blood Pressure Blood Pressure Isabelle n Pulse Oximetry 93 Oxygen Delivery Me thod Room Air Sepsis Recent Feve r Within 48 Hours Sepsis New/Unexpla ined Change in Men nirmal Status Sepsis Action Take n by Nursing Pulse Oximetry Pos t Tiitration Physical Exam: Physical Exam HENT: Exam performed. - Head: Normocephalic and atraumatic. EYES: Conjunctivae and EOM are normal. Right eye exhibits no discharge. Left eye exhibits no discharge. No scleral icterus. NECK: Normal range of motion. Neck supple. No JVD present. CV: Normal rate, irregular rhythm, normal heart sounds and intact distal pulses. There is no peripheral edema. Palpable radial pulses bue. PULM/CHEST: Effort normal and breath sounds normal. No respiratory distress. No stridor. no wheezes. no rales. ABD: The abdomen is soft. There is no tenderness. NEURO: Motor and sensation grossly intact. SKIN: Skin is warm and dry. He is not diaphoretic. PSYCH: normal mood and affect. Behavior is normal. Judgment and thought content normal. Course Course 08: The patient was evaluated in room A11. A complete history and physical exam was performed Cardiac monitoring: An order was placed for continuous cardiac monitoring. The monitor shows a rate of 100 with atrial flutter rhythm interpreted by me 0945: Vital signs stable. Patient remains in atrial flutter. Labs show mildly elevated high-sensitivity troponin. CT of the chest shows multiple bilateral pulmonary emboli. Patient be started on heparin [facility] aware. Administered Medications Discontinued Medications Aspirin (Aspirin Chew 324 Mg) 324 mg PO NOW STA Stop: 06/26/23 08:12 Last Admin: 06/26/23 08:14 Dose: 324 mg Documented By: RAMSES Hydromorphone HCl (Hydromorphone Inj 1 Mg/Ml Syringe) 1 mg IV NOW STA Stop: 06/26/23 08:12 Last Admin: 06/26/23 08:13 Dose: 1 mg Documented By: RAMSES Ioversol (Optiray 320 500ml) 104 ml IV ONCE ONE Stop: 06/26/23 08:55 Last Admin: 06/26/23 08:54 Dose: 104 ml Documented By: MAGALIS Ondansetron HCl (Ondansetron Inj 2 Mg/Ml 2 Ml Vial) 4 mg IV NOW STA Stop: 06/26/23 08:12 Last Admin: 06/26/23 08:14 Dose: 4 mg Documented By: RAMSES Medical Decision Making Laboratory Data Attestation: I reviewed the patient's lab results. 06/26/23 08:11 06/26/23 08:11 Lab Results 06/26/23 06/26/23 Range/Units 08:11 08:15 WBC 16.23 H (4.8-10.8) K/ul RBC 4.23 L (4.70-6.10) M/uL Hgb 12.5 L (14.0-18.0) g/dl POC Hgb 12.6 L (14.0-18.0) g/dl Hct 38.4 L (42.0-52.0) % POC Hct 37 L (42-52) % MCV 90.8 (80.0-100.0) fL MCH 29.6 (25.0-34.0) pg MCHC 32.6 (32.0-36.0) g/dL RDW Std Deviation 46.1 (36.4-46.3) fL RDW Coeff of Vikas 13.9 (11.5-14.5) % Plt Count 364 (130-400) K/uL MPV 9.6 (9.4-12.4) fL Immature Gran % (Auto) 0.6 % Neut % (Auto) 71.7 % Lymph % (Auto) 14.9 % [place] % (Auto) 11.1 % Eos % (Auto) 1.1 % Baso % (Auto) 0.6 % Neut # (Auto) 11.63 H (1.40-6.50) K/uL Lymph # (Auto) 2.42 (1.20-3.40) K/uL [place] # (Auto) 1.80 H (0.11-0.59) K/uL Eos # (Auto) 0.18 (0.00-0.50) K/uL Baso # (Auto) 0.10 (0.00-0.20) K/uL Immature Gran # (Auto) 0.10 (0.01-0.20) K/uL PT 10.7 (9.0-12.0) Seconds INR 1.0 (0.9-1.1) APTT 25.9 (21.0-31.0) Seconds PTT Ratio 0.9 POC Sodium 136 (135-144) mmol/L Sodium 137 (136-145) mmol/L POC Potassium 5.0 (3.3-5.0) mmol/L Potassium 4.6 (3.5-5.1) mmol/L POC Chloride 104 (101-112) mmol/L Chloride 104 (98-107) mmol/L Carbon Dioxide 25 (21-32) mmol/L POC Total CO2 25 (24-31) mmol/L Anion Gap 8 (3-11) POC Anion Gap 14.0 L (16-25) mmol/L POC BUN 30 H (7-18) mg/dl BUN 27 H (6-23) mg/dl Creatinine 1.22 (0.6-1.4) mg/dl POC Creatinine 1.2 (0.6-1.3) mg/dl Est Cr Clr Drug Dosing Not Reportable Est GFR ( Amer) 73.7 ml/min Est GFR (Non-Af Amer) 63.6 ml/min BUN/Creatinine Ratio 22.1 H (10-20) Glucose 135 H (70-99(Fasting)) mg/dl POC Glucose (other) 141 H (70-99) mg/dl Calcium 10.0 (8.6-10.3) mg/dl POC Ioniz Calcium Cornelio 1.20 (1.12-1.32) mmol/l Magnesium 2.1 (1.7-2.4) mg/dl Troponin I High Sens 29.0 H (0-20) pg/ml Lipase 55 (11-82) U/L Imaging Data Attestation: I personally reviewed and interpreted this imaging study as follows: My Impression: Chest x-ray negative. Airway clear. No pneumothorax. No consolidation. No cardiomegaly or cephalization.. No free air under the diaphragm. No fractures of the skeletal structures. Radiologist's Impression: Chest CTA 06/26/23 08:08 CT angio chest PE protocol CLINICAL HISTORY: Chest Pain, eval for PE TECHNIQUE: Multidetector row helical CT of the chest was performed with angiographic protocol. Coronal and sagittal reformations were obtained. Coronal and sagittal MIPS were obtained from the axial data set and were submitted for review. Automated dose lowering techniques and/or adjustment according to patient size were utilized for this exam. CT DOSE: 860.06 mGy.cm Comparison: Comparison is made to chest radiograph 06/26/2023 FINDINGS: Lungs and pleura: Atelectasis versus scarring is seen in the dependent portions of the lungs. Calcified granulomata are seen. Heart and pericardium: Heart size is normal. No pericardial effusion. No right heart strain is seen. Vessels: Numerous filling defects are seen in the segmental and subsegmental branches, a nonocclusive filling defect is also seen in the right middle lobe artery. Mediastinum and deb: Subcentimeter lymph nodes are seen. Chest wall and lower neck: Unremarkable. Abdomen: A hiatal hernia is seen. Bones: Degenerative changes in the thoracic spine. IMPRESSION: 1. Numerous pulmonary emboli are seen, predominantly is subsegmental and subsegmental as above, without evidence of right heart strain. 2. Atelectasis. ACT 112: Negative or not required by law. Electronically signed by: Dimitrios Moser M.D. 06/26/2023 9:14 AM Chest X-Ray 06/26/23 08:08 XR chest 1V portable CLINICAL HISTORY: Chest pain, nonspecific TECHNIQUE: Single frontal radiograph of the chest was obtained. Comparison: None available at the time of this dictation. FINDINGS: Median sternotomy wires are unchanged. The cardiomediastinal silhouette is normal. Lungs are underinflated but clear. No evidence of pleural effusion or pneumothorax. IMPRESSION: No acute chest disease. ACT 112: Negative or not required by law. Electronically signed by: Dimitrios Moser M.D. 06/26/2023 9:20 AM ECG Data Attestation: I personally reviewed and interpreted this ECG as follows: Interpretation: EKG #1 at 0807: Atrial flutter with a rate of 105. QRS [address] elevation or ST depression. PVCs present. There is baseline wander and artifact secondary to patient movement. EKG #2 at 0817: Atrial flutter with a rate of 96. QRS and QTc intervals within normal limits. PVCs present. No ST elevation or ST depression. [facility] Narrative 0804: The patient was evaluated in room A11. A complete history and physical exam was performed Cardiac monitoring: An order was placed for continuous cardiac monitoring. The monitor shows a rate of 100 with atrial flutter rhythm interpreted by me 0945: Vital signs stable. Patient remains in atrial flutter. Labs show mildly elevated high-sensitivity troponin. CT of the chest shows multiple bilateral pulmonary emboli. Patient be started on heparin and [facility] team aware. Impression & Plan Pulmonary embolism, Atrial flutter, Elevated troponin Critical Care Time Critical Care Time: Yes Total Critical Care Time: 61 I have personally spent greater than 61 minutes of critical care time in the direct management of this patient. This includes bedside care, interpretation of diagnostic studies, and testing, discussion with consultants, patient, and family members, and other required patient management activities. This 61 minutes is in excess of all separately billable procedures. Discharge Plan Visit Data Chief Complaint: Shortness of Breath/Dyspnea Stated Complaint: DIFFICULTY BREATHING, RIGHT SIDE PAIN ED Provider: Geoff Del Castillo Discharge Problem: Pulmonary embolism, Atrial flutter, Elevated troponin Patient Disposition: Admitted As Inpatient Forms Stand Alone [facility] Prescriptions Prescriptions: No Action pantoprazole 40 mg Tablet,Delayed Release (Dr/Ec) 40 mg PO HS furosemide 40 mg tablet 40 mg PO QAM potassium chloride 10 mEq tablet extended release 20 meq PO QAM lisinopril 2.5 mg tablet 2.5 mg PO PM clopidogrel 75 mg tablet 75 mg PO PM metoprolol succinate 25 mg tablet extended release 24 hr 25 mg PO PM atorvastatin 40 mg Tablet 40 mg PO HS aspirin 81 mg Tablet,Delayed Release (Dr/Ec) 81 mg PO HS multivitamin with minerals Tablet 1 tab PO HS Referrals Referrals: Luciana Leung, [Primary Care Provider] -
[2023-06-26 08:45] LABS: Basophils % (auto) 0.6 %; Eosinophils # (auto) 0.18 K/uL (0.00-0.50); Eosinophils % (auto) 1.1 %; Hematocrit (blood only) 38.4 % (42.0-52.0); Hemoglobin 12.5 g/dl (14.0-18.0); Immature Granulocytes % (auto) 0.6 %; Lymphocytes # (auto) 2.42 K/uL (1.20-3.40); Lymphocytes % (auto) 14.9 %; Mean Corpuscular Hemoglobin 29.6 pg (25.0-34.0); Mean Corpuscular Hgb Conc 32.6 g/dL (32.0-36.0); Mean Corpuscular Volume 90.8 fL (80.0-100.0); Mean Platelet Volume 9.6 fL (9.4-12.4); Monocytes % (auto) 11.1 %; Neutrophils # (auto) 11.63 K/uL (1.40-6.50); Neutrophils % (auto) 71.7 %; Platelet Count 364 K/uL (130-400); RDW Coefficient of Variation 13.9 % (11.5-14.5); RDW Standard Deviation 46.1 fL (36.4-46.3); Red Blood Count 4.23 M/uL (4.70-6.10); White Blood Count 16.23 K/ul (4.8-10.8)
[2023-06-26] MEDS ORDERED: OPTIRAY 320 500ml IV ONE (08:54)
[2023-06-26 08:58] LABS: Anion Gap 8 (3-11); BUN Creatinine Ratio 22.1 (10-20); Blood Urea Nitrogen 27 mg/dl (6-23); Carbon Dioxide 25 mmol/L (21-32); Chloride 104 mmol/L (98-107); Est GFR (African American) 73.7 ml/min; Est GFR (Non-African American) 63.6 ml/min; Glucose 135 mg/dl (70-99(Fasting)); Lipase 55 U/L (11-82); Magnesium 2.1 mg/dl (1.7-2.4); Potassium 4.6 mmol/L (3.5-5.1); Sodium 137 mmol/L (136-145)
[2023-06-26 09:13] LABS: Partial Thromboplastin Ratio 0.9; Partial Thromboplastin Time 25.9 Seconds (21.0-31.0); Prothrombin Time 10.7 Seconds (9.0-12.0)
--- NOTE | 2023-06-26 09:17 | CT Scan Report ---
CT angio chest PE protocol CLINICAL HISTORY: Chest Pain, eval for PE TECHNIQUE: Multidetector row helical CT of the chest was performed with angiographic protocol. Gilbert l and sagittal reformations were obtained. Coronal and sagittal MIPS were obtained from the axial sol a set and were submitted for review. Automated dose lowering techniques and/or adjustment according to patient size were utilized for this exam. CT DOSE: 860.06 mGy.cm Comparison: Comparison is made to chest radiograph 06/26/2023 FINDINGS: Lungs and pleura: Atelectasis versus scarring is seen in the dependent portions of the lungs. Calcifi ed granulomata are seen. Heart and pericardium: Heart size is normal. No pericardial effusion. No right heart strain is seen. Vessels: Numerous filling defects are seen in the segmental and subsegmental branches, a nonocclusive filling defect is also seen in the right middle lobe artery. Mediastinum and deb: Subcentimeter lymph nodes are seen. Chest wall and lower neck: Unremarkable. Abdomen: A hiatal hernia is seen. Bones: Degenerative changes in the thoracic spine. IMPRESSION: 1. Numerous pulmonary emboli are seen, predominantly is subsegmental and subsegmental as above, with out evidence of right heart strain. 2. Atelectasis. ACT 112: Negative or not required by law. Electronically signed by: Dimitrios Moser M.D. 06/26/2023 9:14 AM
--- NOTE | 2023-06-26 09:22 | XRay Report ---
XR chest 1V portable CLINICAL HISTORY: Chest pain, nonspecific TECHNIQUE: Single frontal radiograph of the chest was obtained. Comparison: None available at the time of this dictation. FINDINGS: Median sternotomy wires are unchanged. The cardiomediastinal silhouette is normal. Lungs are underinf lated but clear. No evidence of pleural effusion or pneumothorax. IMPRESSION: No acute chest disease. ACT 112: Negative or not required by law. Electronically signed by: Dimitrios Moser M.D. 06/26/2023 9:20 AM
[2023-06-26] MEDS ORDERED: Heparin IV Adult Wt-Based Standard WITH Bolus Protocol IV STA (09:31)
[2023-06-26] MEDS ORDERED: HEPARIN SOD (PORCINE) 1000 UNIT/ML IV ONE ×2 (09:47→10:00)
[2023-06-26] MEDS: HEPARIN SODIUM/DEXTROSE 25,000 UNITS/500 ML BAG IV SCH (09:55)
--- NOTE | 2023-06-26 10:35 | History & Physical Report ---
Date of Service June 26, 2023 Assessment & Plan (1) New onset atrial flutter: (2) Pulmonary embolism: (3) S/P AVR (aortic valve replacement): (4) Elevated troponin: (5) NSTEMI (non-ST elevated myocardial infarction): (6) DM II (diabetes mellitus, type II), controlled: Plan This is a 62yo M with a PMH of bioprosthetic aortic valve replacement on 06/07/[address] Parnell at [facility] without complications, DM II, h/o NSTEMI in December 2022, HLD and other medical problems listed below who presents with pain in R side and difficulty breathing since last evening and was found to have new onset A flutter and multiple pulmonary emboli. New onset atrial flutter Presenting with a flutter with RVR, HR 90-120s in setting of recent AV replacement as above No known history of arrhythmia Continue anticoagulation with IV heparin for now Appreciate cards input - increasing Toprol 25mg to BID Echo in ED Pulmonary Emboli CTA chest with numerous pulmonary emboli are seen, predominantly is subsegmental and subsegmental as above, without evidence of right heart strain, atelectasis O2 saturation of 93 % on room air, mildly elevated HS trop 2D echo performed in ED and read by Dr. Lunsford - demonstrates moderate LVH with mild septal dyssynergy consistent with postoperative state. Subtle Lutz sign consistent with pulmonary emboli diagnosis but no evidence of RV overload Continue anticoagulation with IV heparin Pain control, supplemental O2 as needed Bicuspid AV s/p AVR S/p AVR 06/07/2023 at [facility] 2D echo today with normally functioning bioprosthetic valve Continue aspirin Hypertension Hypertensive initially with improvement following pain control. Current BP 100/68 Continue home lisinopril 2.5, given missed AM dose of Lasix given slight hypervolemic appearance, cards increased Toprol to 25mg BID as above May need to up-titrate antihypertensives during admission given recent med changes perioperatively; monitor Elevated troponin Likely demand ischemia 2/2 multiple PEs and A flutter. HS trop downtrending from 29.0 -> 26.6 DM II, diet controlled A1c 6.5 in December 2022, repeat in AM Diabetic diet Will add SSI while admitted BSG AC HS H/o NSTEMI HLD Continue aspirin, plavix, statin, beta arnoldo DVT Ppx: IV heparin Code status: FULL PCP: Xochitl Dispo: Admitted to PCU. Patient seen in collaboration with Dr. Sauceda. Please see addendum. History of Present Illness Chief Complaint: SOB Primary Care Provider: Luciana Leung DO This is a 62yo M with a PMH of bioprosthetic aortic valve replacement on 06/07/[address] Parnell at [facility] without complications, DM II, h/o NSTEMI in December 2022, HLD and other medical problems listed below who presents with pain in R side and difficulty breathing since last evening. Has felt well since AV replacement 3 weeks ago with uncomplicated recovery and went to follow up cardiothoracic surgery appt yesterday without changes. When going to sleep last evening, felt like he couldn't take a deep breath and developed pain on Right side described as aching and constant. Came into ED this morning for further evaluation. Denies any known history of arrhythmia or PEs in the past. Has been taking all medications as prescribed with exception of skipping lasix yesterday as he was driving to [place] and did not want to have to stop for the restroom. No lightheadedness, near syncope or chest pain. Denies any recent sick contacts, F/C, lightheadedness, N/V, abdominal pain, dysuria, diarrhea or constipation. Quit smoking prior to surgery, not drinking etoh, having usual cup of coffee in AM and water otherwise. Allergies Allergy/AdvReac Type Severity Reaction Status Date / Time simvastatin AdvReac Severe ELEVATED Verified 01/01/23 00:22 LIVER FUNCTIONS nitroglycerin AdvReac Mild Headache Verified 01/01/23 06:37 Home Medications Medication Instructions Recorded Confirmed Type pantoprazole 40 mg tablet,delayed 40 mg PO HS 07/16/21 06/26/23 History release aspirin 81 mg tablet,delayed 81 mg PO HS 01/01/23 06/26/23 History release atorvastatin 40 mg tablet 40 mg PO HS 01/01/23 06/26/23 History multivitamin with minerals 1 tab PO HS 01/01/23 06/26/23 History clopidogrel 75 mg tablet 75 mg PO PM 06/26/23 06/26/23 History furosemide 40 mg tablet 40 mg PO QAM 06/26/23 06/26/23 History lisinopril 2.5 mg tablet 2.5 mg PO PM 06/26/23 06/26/23 History metoprolol succinate 25 mg 25 mg PO PM 06/26/23 06/26/23 History tablet,extended release 24 hr potassium chloride 10 mEq 20 meq PO QAM 06/26/23 06/26/23 History tablet,extended release Past Med/Surg History Medical History (Updated 06/26/23 @ 12:00 by Chelsea Hsu PA-C) DM II (diabetes mellitus, type II), controlled No pertinent family history HTN (hypertension) Anemia Ascending aorta enlargement Aortic stenosis Bicuspid aortic valve Surgical History (Updated 06/26/23 @ 12:00 by Chelsea Hsu PA-C) S/P tonsillectomy H/O aortic valve repair 06/07/23 @ [facility] by Dr. Parnell Family History Other Cancer Diabetes Heart disease Social History (Updated 06/26/23 @ 11:57 by Chelsea Hsu PA-C) Smoking Status: Former smoker Second Hand Exposure: No; Do You Dip or Chew Tobacco: Yes; Hx Alcohol Use: Yes Alcohol type: beer Hx Substance Use: No Preferred Language: Venezuelan Communication Ability: Effective Gill Box Operator Required: No Beliefs That Will Affect Care: None Current Living Situation: Spouse Feels Safe at Home: Yes Assistive Devices: None Review of Systems Review of Systems: At least ten systems reviewed and negative except as noted in the HPI. Physical Exam Physical Exam: General Appearance: WD/WN, vitals as above, NAD, sitting up in bed, pleasant, conversing easily Head: normocephalic, atraumatic Eyes: normal inspection, PERRL, conjunctivae normal, anicteric sclerae ENT: external ear and nose normal, oropharynx normal Neck: normal visual inspection, trachea midline, no thyromegaly Respiratory: normal respiratory effort, bibasilar rales. No accessory muscle use Cardiovascular: tachycardic rate, normal peripheral pulses, trace BLE edema. Vessels: no JVD Chest: + healing median sternotomy incision Abdomen/GI: normal bowel sounds, soft, nontender, no hepatosplenomegaly Extremities/Musculoskeletal: no cyanosis or clubbing, extremities motor strength 5/5 Neurologic: PERRL, EOMI, accommodation nl, no face palsy, no dysarthria, CN's II-XI intact bilaterally and moves all extremities Psychiatric: A+Ox3, euthymic affect Skin: no rashes, normal color, warm/dry Results & Data Results & Data Vital Signs (Past 12 Hours) Vital Signs Temp Pulse Resp BP Pulse Ox O2 Del Method 06/26/23 08:28 93 Room Air 06/26/23 08:22 Room Air 06/26/23 08:09 117 H 06/26/23 08:01 36.5 C 110 H 20 166/78 H 95 Room Air Laboratory Results Short CBC 06/26/23 Range/Units 08:11 WBC 16.23 H (4.8-10.8) K/ul Hgb 12.5 L (14.0-18.0) g/dl Hct 38.4 L (42.0-52.0) % Plt Count 364 (130-400) K/uL BMP 06/26/23 08:11 Sodium 137 Potassium 4.6 Chloride 104 Carbon Dioxide 25 BUN 27 H Creatinine 1.22 Glucose 135 H Calcium 10.0 Diagnostic Findings Chest CTA 06/26/23 08:08 CT angio chest PE protocol CLINICAL HISTORY: Chest Pain, eval for PE TECHNIQUE: Multidetector row helical CT of the chest was performed with angiog raphic protocol. Coronal and sagittal reformations were obtained. Coronal and sagittal MIPS were obtained from the axial data set and were submitted for review. Automated dose lowering techniques and/or adjustment according to patient size were utilized for this exam. CT DOSE: 860.06 mGy.cm Comparison: Comparison is made to chest radiograph 06/26/2023 FINDINGS: Lungs and pleura: Atelectasis versus scarring is seen in the dependent portions of the lungs. Calcified granulomata are seen. Heart and pericardium: Heart size is normal. No pericardial effusion. No right heart strain is seen. Vessels: Numerous filling defects are seen in the segmental and subsegmental branches, a nonocclusive filling defect is also seen in the right middle lobe artery. Mediastinum and deb: Subcentimeter lymph nodes are seen. Chest wall and lower neck: Unremarkable. Abdomen: A hiatal hernia is seen. Bones: Degenerative changes in the thoracic spine. IMPRESSION: 1. Numerous pulmonary emboli are seen, predominantly is subsegmental and subsegmental as above, without evidence of right heart strain. 2. Atelectasis. ACT 112: Negative or not required by law. Electronically signed by: Dimitrios Moser M.D. 06/26/2023 9:14 AM Chest X-Ray 06/26/23 08:08 XR chest 1V portable CLINICAL HISTORY: Chest pain, nonspecific TECHNIQUE: Single frontal radiograph of the chest was obtained. Comparison: None available at the time of this dictation. FINDINGS: Median sternotomy wires are unchanged. The cardiomediastinal silhouette is normal. Lungs are underinflated but clear. No evidence of pleural effusion or pneumothorax. IMPRESSION: No acute chest disease. ACT 112: Negative or not required by law. Electronically signed by: Dimitrios Moser M.D. 06/26/2023 9:20 AM ECG Additional Comments: EKG reviewed: Atrial flutter with variable A-V block at 105 bpm Code Status & VTE Plan VTE Prophylaxis Plan VTE Prophylaxis will be ordered: Yes Supervising Physician Co-Signing Physician Notes 62-year-old male with PMH of bioprosthetic aortic valve replacement 06/07/2023 at [facility], T2DM, and NSTEMI December 2022, HLD presented to the ED with complaint of right outer and lower chest pain and difficulty breathing since last evening. Patient reports feeling short of breath, right lower chest pain aggravated with deep breathing and movement. Patient denies headache or dizziness or sore throat or cough or flulike illness or abdominal pain or acute changes in his bowel or bladder habits or acute changes in his appetite. Labs with leukocytosis likely secondary to acute stress. Monitor labs in AM. Patient afebrile. No signs of infection. Troponin minimally elevated at around 29, likely secondary to acute distress, likely demand ischemia. Patient with no substernal or anterior chest pain. Continue telemetry monitoring. Trend troponin. Get echo. Imaging suggestive of PE, nonocclusive filling defect is seen in right middle lobe artery. No evidence of heart strain. Heparin drip. Echo. Telemetry monitoring. Patient has right lateral and inferior chest pain, aggravated with deep breathing, patient with subjective SOB, maintaining saturation around 94% on room air. Pain management with scheduled diclofenac gel and as needed oxycodone. Use scheduled and as needed bowel regimen. Patient also noted to have a flutter which is new for him. Cardiology evaluated. Increasing metoprolol dose. Heart rate in 90s. Recent aortic valve replacement, continue home cardiac medications as able. On examination: GENERAL: Alert and oriented x3. appears in mild distress from rt lower chest pain, on RA. HEENT: No pallor, no icterus. Pupils equal, round and reactive to light. Oral mucosa moist. NECK: No JVD, no neck masses. HEART: S1 and S2 heard. irregular rate and rhythm. tachycardia. No murmur, no gallop. RESPIRATORY SYSTEM: Normal AP diameter. No accessory muscle use. No wheezing, bb crackles. Decreased chest expansion d/t rt lower chest pain w/ deep breathing. ABDOMEN: Soft, bowel sounds present, nontender, no distention. CENTRAL NERVOUS SYSTEM: No facial droop. Speech is clear. Obeys simple commands. Moves extremities. EXTREMITIES: No edema, no erythema seen. I have seen and examined the patient and have discussed the case with the provider above. I agree with the assessment and plan as stated.
--- NOTE | 2023-06-26 10:43 | Cardiology Consultation ---
Date of Consultation June 26, 2023 Assessment & Plan (1) New onset atrial flutter: (2) Elevated troponin: (3) S/P AVR (aortic valve replacement): Plan IMPRESSION: 62-year-old male with known history of bicuspid aortic valve recently underwent AVR at [facility] on 06/07/2023. Presented to the ED this morning with sudden onset of shortness of breath and chest discomfort. Found to be in new onset atrial flutter with rates into the 120s. Multiple pulmonary emboli noted on CTA of the chest HS tropinins mildly elevated-- likely in the setting of demand with new onset A flutter RVR and multiple pulmonary emboli. PLAN: New onset atrial flutter: Rates averaging between 90-120s-- increase metoprolol succinate to 25 mg twice daily Continue anticoagulation with IV heparin Patient examining mildly hypervolemic. Will await echo results prior to restarting Lasix. Pulmonary Emboli: Multiple pulmonary emboli noted on CTA of the chest-- continue AC with IV heparin. Echo pending-- will assess for right heart strain however, no evidence per CTA. Bicuspid AV s/p AVR: S/p AVR 06/07/2023-- gradients to be assess as well as for effusion on echo Continue ASA 81 mg daily Hypertension: Hypertensive on presentation-- asymptomatic. Restart home meds-- lisinopril2.5 mg daily, increasing beta arnoldo as stated above. Case discussed with Dr. Lunsford, will follow. Further recommendations pending echocardiogram results. Supervising Physician Co-Signing Physician Notes Patient was seen and personally examined with evaluation as above. 62-year-old male status post aortic valve replacement with bioprosthetic #27 Avalus with uncomplicated clinical course Last evening patient developed pleuritic pain and shortness of breath and presented to the ER where evaluation demonstrates newly observed atrial flutter and bilateral pulmonary emboli Echocardiogram today demonstrates moderate left hypertrophy with mild septal dyssynergy consistent with postoperative state. Normally functioning bioprosthetic valve. Subtle Lutz sign consistent with pulmonary emboli diagnosis but no evidence of right ventricular overload. Recommendations and plan as above. Anticoagulation initiated with IV heparin for both pulmonary emboli and atrial flutter Will increase medical Toprol all succinate to 25 mg twice per day Patient preoperatively on significantly higher doses of antihypertensive regimen including 20 mg lisinopril and amlodipine. Suspect will need to titrate antihypertensive regimen higher Analgesia warranted given patient's significant pleuritic pain We will follow History of Present Illness Reason for Consultation: Atrial flutter, new onset Requesting Physician: Ladonna mcwilliams History of Present Illness 62-year-old male with past medical history of bicuspid aortic valve who recently underwent AVR on 06/07/2023 presented to [facility] emergency department due to to sudden onset shortness of breath and chest discomfort that started last evening and continued into the morning. Described the pain as a sharp stabbing discomfort or a displaced rib. Noted shortness of breath and fatigue with minimal activity-- prior to last evening he was feeling well and had no exer tional symptoms. Upon arrival patient was found to be in new onset atrial flutter with rates in the low 100s. CTA of the chest was completed showing multiple pulmonary emboli--no evidence of right heart strain. Echocardiogram pending. Labs: CBC stable with a hemoglobin of 12.6. Renal function stable with a serum creatinine of 1.22. Potassium high normal at 5.0. Magnesium normal 2.1. High-sensitivity troponin minimally elevated at 29, repeat pending. Patient is hypertensive. But rates elevated in the 110s to 120s. Upon entrance into the room patient resting in bed. HOB elevated. at bedside. Notes ongoing pleuritic chest pain with inspiration and dyspnea. +cough. + orthopnea. No PND. Mild chest discomfort with activity. No lower extremity edema. No lightheadedness or dizziness. No syncope. Former smoker-- quit 1 week prior to his surgery. Does chew tobacco. Past medical history: Bicuspid aortic valve with severe aortic stenosis and mild aortic insufficiency status post AVR (#27 Avalus bioprosthetic valve), 06/07/[address] Parnell. 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 with prior history of coronary vasospasm per cardiac cath 12/2022--on Plavix Intolerant to long-acting nitrates Noncompliant with calcium channel arnoldo therapy Mild aortic root and ascending aortic enlargement Familial dyslipidemia Hypertension Tobacco use KELSIE, on CPAP Allergies Allergy/AdvReac Type Severity Reaction Status Date / Time simvastatin AdvReac Severe ELEVATED Verified 01/01/23 00:22 LIVER FUNCTIONS nitroglycerin AdvReac Mild Headache Verified 01/01/23 06:37 Home Medications Medication Instructions Recorded Confirmed Type pantoprazole 40 mg tablet,delayed 40 mg PO HS 07/16/21 06/26/23 History release aspirin 81 mg tablet,delayed 81 mg PO HS 01/01/23 06/26/23 History release atorvastatin 40 mg tablet 40 mg PO HS 01/01/23 06/26/23 History multivitamin with minerals 1 tab PO HS 01/01/23 06/26/23 History clopidogrel 75 mg tablet 75 mg PO PM 06/26/23 06/26/23 History furosemide 40 mg tablet 40 mg PO QAM 06/26/23 06/26/23 History lisinopril 2.5 mg tablet 2.5 mg PO PM 06/26/23 06/26/23 History metoprolol succinate 25 mg 25 mg PO PM 06/26/23 06/26/23 History tablet,extended release 24 hr potassium chloride 10 mEq 20 meq PO QAM 06/26/23 06/26/23 History tablet,extended release Patient History Medical History No pertinent family history HTN (hypertension) Anemia Ascending aorta enlargement Aortic stenosis Bicuspid aortic valve Surgical History H/O aortic valve repair Family History (Updated 06/26/23 @ 11:57 by Chelsea Hsu PA-C) Other Cancer Diabetes Heart disease Social History Smoking Status: Former smoker Second Hand Exposure: No; Do You Dip or Chew Tobacco: Yes; Hx Alcohol Use: Yes Alcohol type: beer Hx Substance Use: No Preferred Language: Uzbek Communication Ability: Effective Crew Dispatcher Required: No Beliefs That Will Affect Care: None Current Living Situation: Spouse Feels Safe at Home: Yes Assistive Devices: None Review of Systems Review of Systems: All systems reviewed & are unremarkable except as noted in HPI & below Physical Exam Constitutional: well developed and + ill appearing; no acute distress Eyes: PERRL, conjunctivae normal, anicteric sclerae Neck: normal visual inspection and trachea midline Respiratory: normal respiratory effort, + cough and + tachypneic Auscultation: + rales Cardiovascular: Rate/Rhythm: regular rate and + irregularly irregular Heart Sounds: normal S1, normal S2 and + murmur (+systolic murmur ) Vessels: no JVD Extremities: + edema (trace pedal/ankle edema ) Gastrointestinal (Abdomen): normal bowel sounds, soft, nontender, no hepatosplenomegaly Skin: no rashes, warm and dry Psychiatric: A+Ox3, euthymic affect Results & Data Vital Signs (Past 12 Hours) Vital Signs Temp Pulse Resp BP Pulse Ox O2 Del Method 06/26/23 08:28 93 Room Air 06/26/23 08:22 Room Air 06/26/23 08:09 117 H 06/26/23 08:01 36.5 C 110 H 20 166/78 H 95 Room Air Laboratory Results Cardiac Enzymes 06/26/23 06/26/23 Range/Units 08:11 10:18 Troponin I High Sens 29.0 H 26.6 H (0-20) pg/ml Coagulation 06/26/23 Range/Units 08:11 PT 10.7 (9.0-12.0) Seconds APTT 25.9 (21.0-31.0) Seconds CBC 06/26/23 Range/Units 08:11 WBC 16.23 H (4.8-10.8) K/ul RBC 4.23 L (4.70-6.10) M/uL Hgb 12.5 L (14.0-18.0) g/dl Hct 38.4 L (42.0-52.0) % Plt Count 364 (130-400) K/uL Neut # (Auto) 11.63 H (1.40-6.50) K/uL Lymph # (Auto) 2.42 (1.20-3.40) K/uL [place] # (Auto) 1.80 H (0.11-0.59) K/uL Eos # (Auto) 0.18 (0.00-0.50) K/uL Baso # (Auto) 0.10 (0.00-0.20) K/uL Comprehensive Metabolic Panel 06/26/23 Range/Units 08:11 Sodium 137 (136-145) mmol/L Potassium 4.6 (3.5-5.1) mmol/L Chloride 104 (98-107) mmol/L Carbon Dioxide 25 (21-32) mmol/L BUN 27 H (6-23) mg/dl Creatinine 1.22 (0.6-1.4) mg/dl Glucose 135 H (70-99(Fasting)) mg/dl Calcium 10.0 (8.6-10.3) mg/dl Intake and Output 06/25/23 06/26/23 06/26/23 22:59 06:59 14:59 Other: Weight 96.6 kg Patient Weight 06/27/23 05:59 Weight 96.6 kg Diagnostic Findings Inpatient echocardiogram 06/26/2023: Pending* Intra-Op CONSTANZA dated 06/07/2023 at [facility] Interpretation Summary The primary indication after review was deemed appropriate and the examination was performed. There is an aortic valve bioprosthetic present. Aortic valve prosthesis stenosis is absent. Significant aortic valve prosthesis regurgitation is absent
[2023-06-26] MEDS ORDERED: FUROSEMIDE 40 MG TAB PO ONE (11:31)
[2023-06-26] MEDS ORDERED: POLYETHYLENE (MIRALAX) 17 GM PACK PO PRN ×2 (11:32→11:52)
[2023-06-26] MEDS ORDERED: ONDANSETRON INJ 2 MG/ML 2 ML VIAL IV PRN (11:52)
[2023-06-26] MEDS: oxyCODONE HCL IR 5 MG TAB (IMMEDIATE RELEASE) PO PRN ×2 (12:03→17:56)
[2023-06-26] MEDS ORDERED: DEXTROSE 50% 50 ML SYRINGE IV PRN (12:25)
[2023-06-26] MEDS ORDERED: GLUCOSE 40% GEL 15 GM TUBE PO PRN (12:25)
[2023-06-26] MEDS ORDERED: GLUCOSE 10 TAB/TUBE PO PRN (12:25)
[2023-06-26] MEDS ORDERED: GLUCAGON FOR INJ 1 MG VIAL SQ PRN (12:25)
[2023-06-26] MEDS ORDERED: CARBOHYDRATES FOR HYPOGLYCEMIA PO PRN (12:25)
[2023-06-26] MEDS: METOPROLOL SUCC 25MG EXT REL TAB PO SCH ×2 (14:05→21:11)
[2023-06-26] MEDS: DOCUSATE SODIUM 100 MG CAP PO SCH ×2 (14:05→21:15)
[2023-06-26] MEDS: DICLOFENAC SOD 1% GEL 100 GM TUBE EXT SCH ×2 (14:06→16:59)
[2023-06-26] MEDS: INSULIN ASPART PER UNIT CHARGE SC SCH ×2 (16:58→21:50)
[2023-06-26 17:19] LABS: Partial Thromboplastin Ratio 2.2
[2023-06-26] MEDS: PANTOprazole 40 MG TAB PO SCH (21:10)
[2023-06-26] MEDS: MULTIVITAMIN TAB PO SCH (21:10)
[2023-06-26] MEDS: ASPIRIN 81 MG ECTAB PO SCH (21:10)
[2023-06-26] MEDS: CLOPIDOGREL BISULFATE 75 MG TAB PO SCH (21:11)
[2023-06-26] MEDS: lisinopril 2.5 MG TAB PO SCH (21:11)
[2023-06-26] MEDS: ATORVASTATIN 40 MG TAB PO SCH (21:11)
[2023-06-26] MEDS: ACETAMINOPHEN 500 MG TAB PO PRN (21:16)
[2023-06-27] MEDS: DICLOFENAC SOD 1% GEL 100 GM TUBE EXT SCH ×4 (00:14→18:29)
[2023-06-27] MEDS: oxyCODONE HCL IR 5 MG TAB (IMMEDIATE RELEASE) PO PRN ×3 (00:45→14:38)
[2023-06-27] MEDS: HEPARIN SODIUM/DEXTROSE 25,000 UNITS/500 ML BAG IV SCH ×2 (01:40→18:29)
[2023-06-27 06:23] LABS: Hematocrit (blood only) 33.2 % (42.0-52.0); Hemoglobin 11.1 g/dl (14.0-18.0); Mean Corpuscular Hgb Conc 33.4 g/dL (32.0-36.0); Mean Corpuscular Volume 89.7 fL (80.0-100.0); Mean Platelet Volume 9.8 fL (9.4-12.4); Platelet Count 247 K/uL (130-400); RDW Coefficient of Variation 13.8 % (11.5-14.5); RDW Standard Deviation 44.9 fL (36.4-46.3); White Blood Count 12.99 K/ul (4.8-10.8)
[2023-06-27 06:38] LABS: BUN Creatinine Ratio 29.1 (10-20); Calcium 9.5 mg/dl (8.6-10.3); Creatinine Clr Calc Pharmacy 86.8 ml/min; Est GFR (African American) 90.4 ml/min; Potassium 4.1 mmol/L (3.5-5.1)
[2023-06-27 07:02] LABS: Partial Thromboplastin Ratio 2.3
[2023-06-27 07:06] LABS: Partial Thromboplastin Time 65.5 Seconds (21.0-31.0)
[2023-06-27] MEDS: INSULIN ASPART PER UNIT CHARGE SC SCH ×2 (08:09→12:10)
[2023-06-27] MEDS: METOPROLOL SUCC 25MG EXT REL TAB PO SCH ×2 (08:11→21:55)
[2023-06-27] MEDS: FUROSEMIDE 40 MG TAB PO SCH (08:11)
[2023-06-27] MEDS: POTASSIUM CHLORIDE CRTAB 20 MEQ TABCR PO SCH (08:11)
[2023-06-27 08:15] LABS: Estimated Average Glucose 126 mg/dl
[2023-06-27] MEDS: DOCUSATE SODIUM 100 MG CAP PO SCH ×2 (09:29→22:09)
--- NOTE | 2023-06-27 09:38 | Hospitalist Progress Note ---
Date of Service June 27, 2023 Assessment & Plan (1) New onset atrial flutter: (2) Pulmonary embolism: (3) S/P AVR (aortic valve replacement): (4) Elevated troponin: Plan This is a 62yo M with a PMH of bioprosthetic aortic valve replacement on 06/07/[address] Parnell at [facility] [place] without complications, prediabetic with h/o NSTEMI in December 2022, HLD and other medical problems listed below who presents with pain in R side and difficulty breathing since last evening and was found to have new onset A flutter and multiple pulmonary emboli. New onset atrial flutter Presenting with a flutter with RVR, HR 90-120s in setting of recent AV replacement as above No known history of arrhythmia Continue anticoagulation with IV heparin for now Cont Metoprolol 25mg BID Pulmonary Emboli CTA chest with numerous pulmonary emboli are seen, predominantly is subsegmental and subsegmental as above, without evidence of right heart strain, atelectasis oxygenating well on 1LPM via nasal canula but has chest pain 2D echo performed in ED and read by Dr. Lunsford - demonstrates moderate LVH with mild septal dyssynergy consistent with postoperative state. Subtle Lutz sign consistent with pulmonary emboli diagnosis but no evidence of RV overload Continue anticoagulation with IV heparin and will transition to NOAC when pain is improved and he is off the oxygen Added Toradol for additional pain control, minimize use given bleeding risk, but may use as an alternative to narcotics which are suboptimal, especially when pain becomes severe very quickly, supplemental O2 as needed Consult pulmonology given possible pulmonary infarction Bicuspid AV s/p AVR S/p AVR 06/07/2023 at [facility] [place] 2D echo today with normally functioning bioprosthetic valve cont aspirin per cardiology Hypertension Hypertensive initially with improvement following pain control. Current BP 100/68 Continue home lisinopril 2.5, given missed AM dose of Lasix given slight hypervolemic appearance, cards increased Toprol to 25mg BID as above May need to up-titrate antihypertensives during admission given recent med changes perioperatively; monitor Elevated troponin Likely demand ischemia 2/2 multiple PEs and A flutter. HS trop downtrending from 29.0 -> 26.6 DM II, diet controlled A1c 6.5 in December 2022, repeat in AM Diabetic diet Will add SSI while admitted BSG AC HS H/o NSTEMI HLD Continue aspirin, plavix, statin, beta arnoldo DVT Ppx: IV heparin Code status: FULL PCP: Xochitl Dispo: Admitted to PCU. I spent a total of60 minutes coordinating, documenting, and providing care for this patient excluding time spent in the performance of separately billed services [facility] Admission and Anticipated Discharge Date Admission Date: June 26, 2023 Subjective 62-year-old man with history of bioprosthetic aortic valve replacement on 06/07/2023 at [facility] [place] presented with shortness of breath and chest pain found to have multi lobar pulmonary emboli. He was also found to be in new onset atrial flutter with rates into the 120s and spontaneously converted overnight. He remains on metoprolol for rate control. We discussed his diagnosis of prediabetes. Given his stability in glucose during the hospitalization so far we are stopping diabetic diet, blood sugar glucose checks and any carb coverage with insulin. Patient and were updated at bedside regarding close follow- up with primary care doctor to keep an eye on this. Lifestyle changes are recommended in an effort to decrease the hemoglobin A1c. Patient verbalized understanding with intent to comply. Patient reports his chest pain is in the lateral right lower side and feels like a rib pain. Physical Exam Physical Exam: CONSTITUTIONAL: WNWD, vitals as above, generally well-appearing, NAD EYES: normal conjunctivae, no scleral icterus ENT: external ear and nose normal, MMM NECK: trachea midline RESPIRATORY: clear to auscultation bilaterally, no crackles, rales or wheezes, normal respiratory effort CARDIOVASCULAR: regular rate and rhythm, S1 and 2 heard without murmurs, gallops or rubs, no JVD, no peripheral edema, CHEST: +vertical sternal incision, closed and healing well. GASTROINTESTINAL: soft, nontender, ND, no guarding MUSCULOSKELETAL: strength 5/5 throughout, head is normocephalic and atraumatic SKIN: warm and dry NEUROLOGIC: CN 2-12 grossly intact, no sensory deficit, normal cognition, normal speech, no tremor PSYCHIATRIC: alert cooperative and oriented to person, place and time. Euthymic mood, makes good eye contact, language grossly intact, recent and remote memory grossly intact. Results & Data Results & Data Vital Signs (Past 12 Hours) Vital Signs Temp Pulse Pulse Resp BP Pulse Ox O2 Del Method 06/27/23 07:51 36.7 C 81 18 127/80 97 Nasal Cannula 06/27/23 07:17 75 06/27/23 03:00 36.5 C 75 16 128/85 98 Nasal Cannula 06/27/23 00:00 78 06/26/23 22:41 36.6 C 85 20 113/73 95 Nasal Cannula O2 Flow Rate 06/27/23 07:51 1.0 06/27/23 07:17 06/27/23 03:00 1 06/27/23 00:00 06/26/23 22:41 1 Laboratory Results Short CBC 06/27/23 Range/Units 05:56 WBC 12.99 H (4.8-10.8) K/ul Hgb 11.1 L (14.0-18.0) g/dl Hct 33.2 L (42.0-52.0) % Plt Count 247 (130-400) K/uL [facility] 06/27/23 05:56 Sodium 133 L Potassium 4.1 Chloride 100 Carbon Dioxide 26 BUN 30 H Creatinine 1.03 Glucose 139 H Calcium 9.5 Medications Administered Short CBC 06/27/23 Range/Units 05:56 WBC 12.99 H (4.8-10.8) K/ul Hgb 11.1 L (14.0-18.0) g/dl Hct 33.2 L (42.0-52.0) % Plt Count 247 (130-400) K/uL [facility] 06/27/23 05:56 Sodium 133 L Potassium 4.1 Chloride 100 Carbon Dioxide 26 BUN 30 H Creatinine 1.03 Glucose 139 H Calcium 9.5
--- NOTE | 2023-06-27 11:33 | Cardiology Progress Note ---
Date of Service June 27, 2023 Assessment & Plan (1) New onset atrial flutter: (2) Elevated troponin: (3) S/P AVR (aortic valve replacement): Plan IMPRESSION: 62-year-old male with known history of bicuspid aortic valve recently [place] [facility] [place] Presented to the ED this morning with sudden onset of shortness of breath and chest discomfort. Found to be in new onset atrial flutter with rates into the 120s. Multiple pulmonary emboli noted on CTA of the chest HS tropinins mildly elevated-- likely in the setting of demand with new onset A flutter RVR and multiple pulmonary emboli. PLAN: New onset atrial flutter: Rates averaging between 90-120s-- increase metoprolol succinate to 25 mg twice daily Continue anticoagulation with IV heparin Pulmonary Emboli: Multiple pulmonary emboli noted on CTA of the chest-- continue AC with IV heparin. Bicuspid AV s/p AVR: S/p AVR 06/07/2023--normal prosthetic function on echo no pericardial effusion, normal heart function Continue ASA 81 mg daily Hypertension: Hypertensive on presentation-- asymptomatic. Restart home meds-- lisinopril2.5 mg daily, increasing beta arnoldo as stated above. 06/27/2023 Patient reverted back to sinus rhythm with first-degree AV block overnight. Will warrant anticoagulation from pulmonary embolus standpoint. Can reassess indications from cardiac standpoint at the end of treatment Would continue current dosing of metoprolol succinate Maintain telemetry additional 24 hours Admission and Anticipated Discharge Date Admission Date: June 26, 2023 Subjective Patient was seen and examined, chart, medications, telemetry reviewed Still with pleuritic pain but slowly improving. No hemoptysis. No fevers or chills. Converted to sinus rhythm yesterday and remains in sinus rhythm with first- degree AV block no pauses no arrhythmia Physical Exam Constitutional: well developed; no acute distress Eyes: PERRL, conjunctivae normal, anicteric sclerae Neck: normal visual inspection and trachea midline Respiratory: normal respiratory effort and + cough Auscultation: no pleural rub Cardiovascular: Rate/Rhythm: regular rate and regular rhythm Heart Sounds: normal S1, normal S2 and + murmur (+systolic murmur ) Vessels: no JVD Extremities: + edema (trace pedal/ankle edema ) Chest (Breasts): Additional Comments: Midline incision healing well Gastrointestinal (Abdomen): normal bowel sounds, soft, nontender, no hepatosplenomegaly Skin: no rashes, warm and dry Psychiatric: A+Ox3, euthymic affect Results & Data Vital Signs (Past 12 Hours) Vital Signs Temp Pulse Pulse Resp BP BP Pulse Ox 06/27/23 11:29 36.6 C 72 16 120/72 98 06/27/23 07:51 36.7 C 81 18 127/80 97 06/27/23 07:17 75 06/27/23 03:00 36.5 C 75 16 128/85 98 O2 Del Method O2 Flow Rate 06/27/23 11:29 Nasal Cannula 1 06/27/23 07:51 Nasal Cannula 1.0 06/27/23 07:17 06/27/23 03:00 Nasal Cannula 1 Laboratory Results Laboratory Results - last 24 hr 06/26/23 06/26/23 06/26/23 12:40 16:07 16:12 WBC RBC Hgb Hct MCV MCH MCHC RDW Std Deviation RDW Coeff of Vikas Plt Count MPV APTT 62.0 H* PTT Ratio 2.2 Sodium Potassium Chloride Carbon Dioxide Anion Gap BUN Creatinine Est Cr Clr Drug Dosing Est GFR ( Amer) Est GFR (Non-Af Amer) BUN/Creatinine Ratio Glucose POC Glucose 114 H 149 H Estimat Average Glucose Hemoglobin A1c Calcium Troponin I High Sens 24.0 H 06/26/23 06/27/23 06/27/23 20:11 05:56 07:22 WBC 12.99 H RBC 3.70 L Hgb 11.1 L Hct 33.2 L MCV 89.7 MCH 30.0 MCHC 33.4 RDW Std Deviation 44.9 RDW Coeff of Viksa 13.8 Plt Count 247 MPV 9.8 APTT 65.5 H* PTT Ratio 2.3 Sodium 133 L Potassium 4.1 Chloride 100 Carbon Dioxide 26 Anion Gap 7 BUN 30 H Creatinine 1.03 Est Cr Clr Drug Dosing 86.8 Est GFR ( Amer) 90.4 Est GFR (Non-Af Amer) 78.0 BUN/Creatinine Ratio 29.1 H Glucose 139 H POC Glucose 127 H 141 H Estimat Average Glucose 126 Hemoglobin A1c 6.0 H Calcium 9.5 Troponin I High Sens
--- NOTE | 2023-06-27 18:12 | Electrocardiogram Report ---
Test Reason : Blood Pressure : / mmHG Vent. Rate : 105 BPM Atrial Rate : 312 BPM P-R Int : 000 ms QRS Dur : 088 ms QT Int : 382 ms P-R-T Axes : 093 -27 -39 degrees QTc Int : 504 ms Atrial flutter with variable A-V block with premature ventricular or aberrantly conducted complexes Septal infarct , age undetermined Inferior infarct (cited on or before 01-JAN-2023) Abnormal ECG When compared with ECG of 02-JAN-2023 05:24, Atrial flutter is now Present Confirmed by Flynn Denis ([id number]) on 06/27/2023 6:11:31 PM Referred By: REFERRED SELF Confirmed By:Flynn Denis
[2023-06-27] MEDS: KETOROLAC TROMETHAMINE 15 MG/ML VIAL IV PRN (18:30)
--- NOTE | 2023-06-27 19:10 | Electrocardiogram Report ---
Test Reason : Blood Pressure : / mmHG Vent. Rate : 093 BPM Atrial Rate : 093 BPM P-R Int : 246 ms QRS Dur : 080 ms QT Int : 338 ms P-R-T Axes : 024 -19 065 degrees QTc Int : 420 ms Sinus rhythm with 1st degree A-V block Inferior infarct (cited on or before 01-JAN-2023) Abnormal ECG When compared with ECG of 26-JUN-2023 08:07, (unconfirmed) Sinus rhythm has replaced Atrial flutter Confirmed by Flynn Denis ([id number]) on 06/27/2023 7:10:24 PM Referred By: REFERRED SELF Confirmed By:Flynn Denis
[2023-06-27] MEDS: MULTIVITAMIN TAB PO SCH (21:55)
[2023-06-27] MEDS: CLOPIDOGREL BISULFATE 75 MG TAB PO SCH (21:55)
[2023-06-27] MEDS: ATORVASTATIN 40 MG TAB PO SCH (21:56)
[2023-06-27] MEDS: lisinopril 2.5 MG TAB PO SCH (21:56)
[2023-06-27] MEDS: PANTOprazole 40 MG TAB PO SCH (21:56)
[2023-06-27] MEDS: ASPIRIN 81 MG ECTAB PO SCH (21:56)
--- NOTE | 2023-06-27 22:26 | Electrocardiogram Report ---
Test Reason : Blood Pressure : / mmHG Vent. Rate : 080 BPM Atrial Rate : 080 BPM P-R Int : 250 ms QRS Dur : 092 ms QT Int : 382 ms P-R-T Axes : 032 038 047 degrees QTc Int : 440 ms Poor data quality, interpretation may be adversely affected Sinus rhythm with 1st degree A-V block Incomplete right bundle branch block Anterior infarct , age undetermined Abnormal ECG When compared with ECG of 26-JUN-2023 12:25, (unconfirmed) Incomplete right bundle branch block is now Present Anterior infarct is now Present Criteria for Inferior infarct are no longer Present Confirmed by Flynn Denis ([id number]) on 06/27/2023 10:25:40 PM Referred By: REFERRED SELF Confirmed By:Flynn Denis
[2023-06-28 07:26] LABS: Basophils # (auto) 0.05 K/uL (0.00-0.20); Basophils % (auto) 0.6 %; Eosinophils # (auto) 0.14 K/uL (0.00-0.50); Eosinophils % (auto) 1.6 %; Hemoglobin 10.3 g/dl (14.0-18.0); Immature Granulocytes # (auto) 0.05 K/uL (0.01-0.20); Immature Granulocytes % (auto) 0.6 %; Lymphocytes # (auto) 1.06 K/uL (1.20-3.40); Lymphocytes % (auto) 12.2 %; Mean Corpuscular Hemoglobin 29.5 pg (25.0-34.0); Mean Corpuscular Hgb Conc 33.2 g/dL (32.0-36.0); Mean Corpuscular Volume 88.8 fL (80.0-100.0); Mean Platelet Volume 9.9 fL (9.4-12.4); Monocytes # (auto) 1.07 K/uL (0.11-0.59); Monocytes % (auto) 12.3 %; Neutrophils # (auto) 6.31 K/uL (1.40-6.50); Neutrophils % (auto) 72.7 %; Platelet Count 243 K/uL (130-400); RDW Coefficient of Variation 13.4 % (11.5-14.5); RDW Standard Deviation 43.8 fL (36.4-46.3); Red Blood Count 3.49 M/uL (4.70-6.10); White Blood Count 8.68 K/ul (4.8-10.8)
[2023-06-28 07:46] LABS: BUN Creatinine Ratio 21.3 (10-20); Calcium 9.4 mg/dl (8.6-10.3); Creatinine Clr Calc Pharmacy 82.7 ml/min; Est GFR (African American) 85.4 ml/min; Est GFR (Non-African American) 73.7 ml/min; Potassium 4.4 mmol/L (3.5-5.1)
[2023-06-28] MEDS: POTASSIUM CHLORIDE CRTAB 20 MEQ TABCR PO SCH (08:16)
[2023-06-28] MEDS: FUROSEMIDE 40 MG TAB PO SCH (08:16)
[2023-06-28] MEDS: METOPROLOL SUCC 25MG EXT REL TAB PO SCH ×2 (08:16→20:07)
[2023-06-28] MEDS: DOCUSATE SODIUM 100 MG CAP PO SCH ×2 (08:16→20:23)
[2023-06-28] MEDS: oxyCODONE HCL IR 5 MG TAB (IMMEDIATE RELEASE) PO PRN ×2 (08:21→15:43)
--- NOTE | 2023-06-28 08:41 | Cardiology Progress Note ---
Date of Service June 28, 2023 Assessment & Plan (1) New onset atrial flutter: (2) Elevated troponin: (3) S/P AVR (aortic valve replacement): Plan IMPRESSION: 62-year-old male with known history of bicuspid aortic valve recently underwent AVR at [facility] [place] on 06/07/2023. Presented to the ED this morning with sudden onset of shortness of breath and chest discomfort. Found to be in new onset atrial flutter with rates into the 120s. Multiple pulmonary emboli noted on CTA of the chest HS troponin mildly elevated-- likely in the setting of demand with new onset A flutter RVR and multiple pulmonary emboli. PLAN: New onset atrial flutter: Rates averaging between 90-120s-- increase metoprolol succinate to 25 mg twice daily Continue anticoagulation with IV heparin Pulmonary Emboli: Multiple pulmonary emboli noted on CTA of the chest-- continue AC with IV heparin. Bicuspid AV s/p AVR: S/p AVR 06/07/2023--normal prosthetic function on echo no pericardial effusion, normal heart function Continue ASA 81 mg daily Hypertension: Hypertensive on presentation-- asymptomatic. Restart home meds-- lisinopril2.5 mg daily, increasing beta arnoldo as stated above. 06/27/2023 Patient reverted back to sinus rhythm with first-degree AV block overnight. Will warrant anticoagulation from pulmonary embolus standpoint. Can reassess indications from cardiac standpoint at the end of treatment Would continue current dosing of metoprolol succinate Maintain telemetry additional 24 hours 06/28/23: Remains in NSR overnight. Continue metoprolol succinate 25 mg BID BP remains controlled. Continue home meds and higher dose metoprolol. Will need to transition from IV heparin to Coumadin for anticoagulation. Given his newly implanted bioprosthetic valve and atrial flutter, Coumadin is anticoagulant of choice Pulmonary consult was placed by hospitalist given multiple PE's and any further recommendations. Pleuritic pain improving. When starting Coumadin, will discontinue plavix. Continue ASA 81 mg daily Case discussed with Dr. Jnon Hamm spent a total of 40 minutes on the date of service in preparation, delivery, and documentation of the care provided to this patient, excluding any time spent in the performance of separately billed services. Joan Portillo PA-C Department of Cardiology, [facility] This chart was completed in part utilizing Speech Voice Recognition Software. Grammatical errors, random word insertions, pronoun errors, and incomplete sentences are an occasional consequence of this system due to software limitations, ambient noise, and hardware issues. Any formal questions or concerns about the content, text, or information contained within the body of this dictation should be directly addressed to the provider for clarification. Admission and Anticipated Discharge Date Admission Date: June 26, 2023 Supervising Physician Co-Signing Physician Notes Patient seen and personally examined. Clinically improved from day prior less pleuritic pain. Assessment and plan as above. No audible rub. Chest incision healing well. We will require anticoagulation for pulmonary emboli. Given recent bioprosthetic aortic valve warfarin would be optimal choice Subjective Patient reprots feeling better this morning. Pleuritic pain controlled. No chest pain this morning. No SOB. Resting comfortably. Denies SOB. Review of Systems Review of Systems: All systems reviewed & are unremarkable except as noted in HPI & below Physical Exam Constitutional: well developed; no acute distress Eyes: PERRL, conjunctivae normal, anicteric sclerae Neck: normal visual inspection and trachea midline Respiratory: normal respiratory effort Auscultation: lungs clear to auscultation bilaterally; no pleural rub Cardiovascular: Rate/Rhythm: regular rate and regular rhythm Heart Sounds: normal S1, normal S2 and + murmur (+systolic murmur ) Vessels: no JVD Extremities: + edema (trace pedal/ankle edema ) Gastrointestinal (Abdomen): normal bowel sounds, soft, nontender, no hepatosp lenomegaly Skin: no rashes, warm and dry Psychiatric: A+Ox3, euthymic affect Results & Data Vital Signs (Past 12 Hours) Vital Signs Temp Pulse Pulse Resp BP BP Pulse Ox 06/28/23 08:19 37.3 C 90 20 132/83 95 06/28/23 07:00 80 06/28/23 02:45 37.1 C 83 20 104/72 97 06/28/23 00:00 84 06/27/23 23:09 36.4 C L 81 20 117/75 98 06/27/23 21:50 O2 Del Method O2 Flow Rate 06/28/23 08:19 Room Air 06/28/23 07:00 06/28/23 02:45 Nasal Cannula 1 06/28/23 00:00 06/27/23 23:09 Nasal Cannula 1 06/27/23 21:50 Nasal Cannula, CPAP 1.5 Laboratory Results Coagulation 06/28/23 Range/Units 06:31 APTT 56.0 H* (21.0-31.0) Seconds CBC 06/28/23 Range/Units 06:31 WBC 8.68 (4.8-10.8) K/ul RBC 3.49 L (4.70-6.10) M/uL Hgb 10.3 L (14.0-18.0) g/dl Hct 31.0 L (42.0-52.0) % Plt Count 243 (130-400) K/uL Neut # (Auto) 6.31 (1.40-6.50) K/uL Lymph # (Auto) 1.06 L (1.20-3.40) K/uL Dane # (Auto) 1.07 H (0.11-0.59) K/uL Eos # (Auto) 0.14 (0.00-0.50) K/uL Baso # (Auto) 0.05 (0.00-0.20) K/uL Comprehensive Metabolic Panel 06/28/23 Range/Units 06:31 Sodium 134 L (136-145) mmol/L Potassium 4.4 (3.5-5.1) mmol/L Chloride 100 (98-107) mmol/L Carbon Dioxide 28 (21-32) mmol/L BUN 23 (6-23) mg/dl Creatinine 1.08 (0.6-1.4) mg/dl Glucose 124 H (70-99(Fasting)) mg/dl Calcium 9.4 (8.6-10.3) mg/dl Intake and Output 06/27/23 06/28/23 06/28/23 22:59 06:59 14:59 Intake Total 454 / 1270 140 / 1270 382.5 / 382.5 Output Total 375 / 1150 Balance 79 / 120 140 / 120 382.5 / 382.5 Intake: IV 304 / 500 382.5 / 382.5 Heparin Sodium/Dextrose 25,000 304 / 500 382.5 / 382.5 units In 500 ml @ 1,500 UNITS/ HR 30 mls/hr IV .[id number] [facility] Rx #:[id number] Oral 150 / 770 140 / 770 Output: Urine 375 / 1150 Diagnostic Findings Telemetry reviewed: NSR in the 70-90's Medications Administered Current Inpatient Medications Acetaminophen (Acetaminophen 500 Mg Tab) 1,000 mg PO Q8H PRN PRN Reason: pain Stop: 07/26/23 11:29 Last Admin: 06/26/23 21:16 Dose: 1,000 mg Aspirin (Aspirin 81 Mg Ectab) 81 mg PO HS [facility] Stop: 07/26/23 20:59 Last Admin: 06/27/23 21:56 Dose: 81 mg Atorvastatin Calcium (Atorvastatin 40 Mg Tab) 40 mg PO HS [facility] Stop: 07/26/23 20:59 Last Admin: 06/27/23 21:56 Dose: 40 mg Clopidogrel Bisulfate (Clopidogrel Bisulfate 75 Mg Tab) 75 mg PO PM [facility] Stop: 07/26/23 20:59 Last Admin: 06/27/23 21:55 Dose: 75 mg Docusate Sodium (Docusate Sodium 100 Mg Cap) 100 mg PO BID [facility] Stop: 07/26/23 11:44 Last Admin: 06/28/23 08:16 Dose: 100 mg Furosemide (Furosemide 40 Mg Tab) 40 mg PO QAM [facility] Stop: 07/27/23 08:59 Last Admin: 06/28/23 08:16 Dose: 40 mg Heparin Sodium/Dextrose (Heparin Sodium/Dextrose) 25,000 units in 500 mls @ 30 mls/hr IV .[id number] [facility]; Protocol Stop: 07/26/23 09:59 Last Titration: 06/28/23 07:14 Dose: 1,500 units/hr, 30 mls/hr Ketorolac Tromethamine (Ketorolac Tromethamine 15 Mg/Ml Vial) 15 mg IV Q6H PRN PRN Reason: Severe Pain (Scale 7, 8, 9,10) Stop: 07/02/23 15:38 Last Admin: 06/27/23 18:30 Dose: 15 mg Lisinopril (Lisinopril 2.5 Mg Tab) 2.5 mg PO PM [facility] Stop: 07/26/23 20:59 Last Admin: 06/27/23 21:56 Dose: 2.5 mg Metoprolol Succinate (Metoprolol Succ 25mg Ext Rel Tab) 25 mg PO BID [facility] Stop: 07/26/23 10:59 Last Admin: 06/28/23 08:16 Dose: 25 mg Multivitamins (Multivitamin Tab) 1 tab PO [facility] Stop: 07/26/23 20:59 Last Admin: 06/27/23 21:55 Dose: 1 tab Ondansetron HCl (Ondansetron Inj 2 Mg/Ml 2 Ml Vial) 4 mg IV Q6H PRN PRN Reason: Nausea Stop: 07/26/23 11:51 Oxycodone HCl (Oxycodone Hcl Ir 5 Mg Tab (Immediate Release)) 5 mg PO Q6H PRN PRN Reason: Pain Stop: 07/10/23 11:28 Last Admin: 06/28/23 08:21 Dose: 5 mg Pantoprazole Sodium (Pantoprazole 40 Mg Tab) 40 mg PO HS [facility] Stop: 07/26/23 20:59 Last Admin: 06/27/23 21:56 Dose: 40 mg Polyethylene Glycol (Polyethylene (Miralax) 17 Gm Pack) 17 gm PO DAILY PRN PRN Reason: Constipation Stop: 07/26/23 11:51 Potassium Chloride (Potassium Chloride Crtab 20 Meq Tabcr) 20 [facility] [place] [place] Stop: 07/27/23 08:59 Last Admin: 06/28/23 08:16 Dose: 20 meq
--- NOTE | 2023-06-28 10:06 | Hospitalist Progress Note ---
Date of Service June 28, 2023 Assessment & Plan (1) New onset atrial flutter: (2) Pulmonary embolism: (3) S/P AVR (aortic valve replacement): (4) Elevated troponin: Plan This is a 62yo M with a PMH of bioprosthetic aortic valve replacement on 06/07/[address] [place] [facility] [place], prediabetic with h/o NSTEMI in December 2022, HLD and other medical problems listed below who presents with pain in R side and difficulty breathing since last evening and was found to have new onset A flutter and multiple pulmonary emboli. New onset atrial flutter Presenting with a flutter with RVR, HR 90-120s in setting of recent AV replacement as above No known history of arrhythmia Continue anticoagulation with IV heparin for now Cont Metoprolol 25mg BID, remains in sinus rhythm overnight on telemetry Pulmonary Emboli CTA chest with numerous pulmonary emboli are seen, predominantly is subsegmental and subsegmental as above, without evidence of right heart strain, atelectasis oxygenating well on 1LPM via nasal canula but has chest pain 2D echo performed in ED and read by Dr. Lunsford - demonstrates moderate LVH with mild septal dyssynergy consistent with postoperative state. Subtle Lutz sign consistent with pulmonary emboli diagnosis but no evidence of RV overload Continue anticoagulation with IV heparin and will transition to NOAC when pain is improved and he is off the oxygen Added Toradol for additional pain control, minimize use given bleeding risk, but may use as an alternative to narcotics which are suboptimal, especially when pain becomes severe very quickly, supplemental O2 as needed Consult pulmonology given possible pulmonary infarction Given family history of unexplained DVT/PE, outpatient hypercoagulable work-up with hematology follow-up was recommended. Ongoing anticoagulation with warfarin recommended for at least 6 months. We will start warfarin this evening and stop Plavix, continue aspirin Bicuspid AV s/p AVR S/[place]R [place]/2023 [place] [facility] [place] with normally functioning bioprosthetic valve cont aspirin per cardiology Hypertension Chronic, stable, continue current therapy Elevated troponin Likely demand ischemia 2/2 multiple PEs and A flutter. HS trop downtrending from 29.0 -> 26.6 DM II, diet controlled A1c 6.5 in December 2022, repeat in AM Diabetic diet Will add SSI while admitted BSG AC HS H/o NSTEMI HLD Continue aspirin, statin, beta arnoldo DVT Ppx: IV heparin Code status: FULL PCP: Xochitl Dispo: Admitted to PCU. I spent a total of60 minutes coordinating, documenting, and providing care for this patient excluding time spent in the performance of separately billed services DO [facility] Hospitalist Admission and Anticipated Discharge Date Admission Date: June 26, 2023 Subjective 62-year-old man with history of bioprosthetic aortic valve [place]23 [place] [facility] [place] with shortness of breath and chest pain found to have multi lobar pulmonary emboli. He was also found to be in new onset atrial flutter with rates into the 120s and spontaneously converted overnight. He remains on metoprolol for rate control and remains in sinus rhythm. He still has some right-sided chest pain but this is improving. Leukocytosis has resolved. He is oxygenating well on room air today. Coordinated with pulmonology and cardiology and will start warfarin and stop Plavix. Pulmonology recommendations noted postdischarge. Review of Systems Review of Systems: At least ten systems reviewed and negative except as noted in the HPI. Physical Exam Physical Exam: CONSTITUTIONAL: WNWD, vitals as above, generally well-appearing, NAD EYES: normal conjunctivae, no scleral icterus ENT: external ear and nose normal, MMM NECK: trachea midline RESPIRATORY: clear to auscultation bilaterally, no crackles, rales or wheezes, normal respiratory effort CARDIOVASCULAR: regular rate and rhythm, S1 and 2 heard without murmurs, gallops or rubs, no JVD, no peripheral edema, CHEST: +vertical sternal incision, closed and healing well. GASTROINTESTINAL: soft, nontender, ND, no guarding MUSCULOSKELETAL: strength 5/5 throughout, head is normocephalic and atraumatic SKIN: warm and dry NEUROLOGIC: CN 2-12 grossly intact, no sensory deficit, normal cognition, normal speech, no tremor PSYCHIATRIC: alert cooperative and oriented to person, place and time. Euthymic mood, makes good eye contact, language grossly intact, recent and remote memory grossly intact. Results & Data Results & Data Vital Signs (Past 12 Hours) Vital Signs Temp Pulse Pulse Resp BP BP Pulse Ox 06/28/23 08:19 37.3 C 90 20 132/83 95 06/28/23 07:00 80 06/28/23 02:45 37.1 C 83 20 104/72 97 06/28/23 00:00 84 06/27/23 23:09 36.4 C L 81 20 117/75 98 O2 Del Method O2 Flow Rate 06/28/23 08:19 Room Air 06/28/23 07:00 06/28/23 02:45 Nasal Cannula 1 06/28/23 00:00 06/27/23 23:09 Nasal Cannula 1 Laboratory Results Short CBC 06/28/23 Range/Units 06:31 WBC 8.68 (4.8-10.8) K/ul Hgb 10.3 L (14.0-18.0) g/dl Hct 31.0 L (42.0-52.0) % Plt Count 243 (130-400) K/uL BMP 06/28/23 06:31 Sodium 134 L Potassium 4.4 Chloride 100 Carbon Dioxide 28 BUN 23 Creatinine 1.08 Glucose 124 H Calcium 9.4 Medications Administered Current Inpatient Medications Acetaminophen (Acetaminophen 500 Mg Tab) 1,000 mg PO Q8H PRN PRN Reason: pain Stop: 07/26/23 11:29 Last Admin: 06/26/23 21:16 Dose: 1,000 mg Aspirin (Aspirin 81 Mg Ectab) 81 mg PO HS [facility] Stop: 07/26/23 20:59 Last Admin: 06/27/23 21:56 Dose: 81 mg Atorvastatin Calcium (Atorvastatin 40 Mg Tab) 40 mg PO HS [facility] Stop: 07/26/23 20:59 Last Admin: 06/27/23 21:56 Dose: 40 mg Clopidogrel Bisulfate (Clopidogrel Bisulfate 75 Mg Tab) 75 mg PO PM [facility] Stop: 07/26/23 20:59 Last Admin: 06/27/23 21:55 Dose: 75 mg Docusate Sodium (Docusate Sodium 100 Mg Cap) 100 mg PO BID [facility] Stop: 07/26/23 11:44 Last Admin: 06/28/23 08:16 Dose: 100 mg Furosemide (Furosemide 40 Mg Tab) 40 mg PO QAM [facility] Stop: 07/27/23 08:59 Last Admin: 06/28/23 08:16 Dose: 40 mg Heparin Sodium/Dextrose (Heparin Sodium/Dextrose) 25,000 units in 500 mls @ 30 mls/hr IV .[id number] [facility]; Protocol Stop: 07/26/23 09:59 Last Titration: 06/28/23 07:14 Dose: 1,500 units/hr, 30 mls/hr Ketorolac Tromethamine (Ketorolac Tromethamine 15 Mg/Ml Vial) 15 mg IV Q6H PRN PRN Reason: Severe Pain (Scale 7, 8, 9,10) Stop: 07/02/23 15:38 Last Admin: 06/27/23 18:30 Dose: 15 mg Lisinopril (Lisinopril 2.5 Mg Tab) 2.5 mg PO PM [facility] Stop: 07/26/23 20:59 Last Admin: 06/27/23 21:56 Dose: 2.5 mg Metoprolol Succinate (Metoprolol Succ 25mg Ext Rel Tab) 25 mg PO BID [facility] Stop: 07/26/23 10:59 Last Admin: 06/28/23 08:16 Dose: 25 mg Multivitamins (Multivitamin Tab) 1 tab PO HS [facility] Stop: 07/26/23 20:59 Last Admin: 06/27/23 21:55 Dose: 1 tab Ondansetron HCl (Ondansetron Inj 2 Mg/Ml 2 Ml Vial) 4 mg IV Q6H PRN PRN Reason: Nausea Stop: 07/26/23 11:51 Oxycodone HCl (Oxycodone Hcl Ir 5 Mg Tab (Immediate Release)) 5 mg PO Q6H PRN PRN Reason: Pain Stop: 07/10/23 11:28 Last Admin: 06/28/23 08:21 Dose: 5 mg Pantoprazole Sodium (Pantoprazole 40 Mg Tab) 40 mg PO HS [facility] Stop: 07/26/23 20:59 Last Admin: 06/27/23 21:56 Dose: 40 mg Polyethylene Glycol (Polyethylene (Miralax) 17 Gm Pack) 17 gm PO DAILY PRN PRN Reason: Constipation Stop: 07/26/23 11:51 Potassium Chloride (Potassium Chloride Crtab 20 Meq Tabcr) 20 meq PO QAM [facility] Stop: 07/27/23 08:59 Last Admin: 06/28/23 08:16 Dose: 20 meq
[2023-06-28] MEDS: HEPARIN SODIUM/DEXTROSE 25,000 UNITS/500 ML BAG IV SCH (10:24)
--- NOTE | 2023-06-28 13:14 | Pulmonary Consultation ---
Date of Consultation June 28, 2023 Assessment & Plan (1) New onset atrial flutter: (2) Elevated troponin: (3) Atrial flutter: (4) Pulmonary embolism: (5) S/P AVR (aortic valve replacement): Plan Tobi Sanchez is a 62 year-old male with past medical history of type 2 diabetes mellitus, hypertension, hyperlipidemia, s/p AVR who presented to the hospital due to chest/rib discomfort and was admitted for pulmonary emboli. Pulmonary Emboli -CTA: Numerous pulmonary emboli are seen, predominantly is subsegmental and subsegmental as above, without evidence of right heart strain. -Multiple pulmonary emboli, likely provoked in setting of recent AVR. Troponin mildly elevated on admission likely in the setting of demand with new onset A flutter RVR and multiple pulmonary emboli. -As above likely provoked, but could consider hypercoagulability workup as outpatient. -Continue with anticoagulation per cardiology/hospitalist Questionable Pulmonary Infarct vs. Atelectasis -No definitive infarct visualized on CTA -Normotensive and stable at 97% on RA -Treat as above for current pulmonary emboli, otherwise treat symptomatically with pain medication. Remainder of care per primary team/cardiology. Thank you for allowing us to be part of this patient's care. Please refer to Dr. Canas's documentation for any further recommendations. Supervising Physician Co-Signing Physician Notes Patient seen and examined. Agree with the assessment plan as above by the resident physician unless otherwise noted. Agree with anticoagulation for at least 6 months. Recommend transitioning to oral anticoagulation per cardiology recommendations given his aortic valve replacement. He does have a family history of unexplained DVT and PE. Recommend hypercoagulable work-up as an outpatient and hematology follow-up. With respect to the possible pulmonary infarct, recommend supportive management such as NSAIDs, warm compresses and incentive spirometer. No further recommendations at this time. Thank you for allowing me to participate in the care of the patient. Please call questions. History of Present Illness Reason for Consultation: Pulmonary Emboli, concern of pulmonary infarct Attending Physician: Jaylin Chavez, DO History of Present Illness Tobi is a 62 year-old male with past medical history of type 2 diabetes mellitus, hypertension, hyperlipidemia, s/p AVR who presented to the hospital due to chest/rib discomfort. On admission he was found to have multiple pulmonary emboli. He notes that he had his aortic valve replacement in mid May and had been doing well since his procedure- had a follow up with his surgeon on Wednesday and was told everything went well. He was anticipating starting Cardiac Rehab soon. Later on Wednesday evening he began to notice right sided rib discomfort and overall fatigue/felt "run down". These symptoms worsened overnight and he presented to the ER on Wednesday morning. This morning patient was seen and examined at bedside, his was present during the encounter. He states he is feeling better today, still has some right sided pain which worsens when laying flat however this improves with pain medication. He had 1L NC last night but states he took it off because he didn't need it and it was was uncomfortable. He denies any current chest pressure or shortness of breath, has not had a productive cough. He denies any recent lower extremity/calf pain or swelling, has no history of any prior blood clots. Allergies Allergy/AdvReac Type Severity Reaction Status Date / Time simvastatin AdvReac Severe ELEVATED Verified 01/01/23 00:22 LIVER FUNCTIONS nitroglycerin AdvReac Mild Headache Verified 01/01/23 06:37 Home Medications Medication Instructions Recorded Confirmed Type pantoprazole 40 mg tablet,delayed 40 mg PO HS 07/16/21 06/26/23 History release aspirin 81 mg tablet,delayed 81 mg PO HS 01/01/23 06/26/23 History release atorvastatin 40 mg tablet 40 mg PO HS 01/01/23 06/26/23 History multivitamin with minerals 1 tab PO HS 01/01/23 06/26/23 History clopidogrel 75 mg tablet 75 mg PO PM 06/26/23 06/26/23 History furosemide 40 mg tablet 40 mg PO QAM 06/26/23 06/26/23 History lisinopril 2.5 mg tablet 2.5 mg PO PM 06/26/23 06/26/23 History metoprolol succinate 25 mg 25 mg PO PM 06/26/23 06/26/23 History tablet,extended release 24 hr potassium chloride 10 mEq 20 meq PO QAM 06/26/23 06/26/23 History tablet,extended release Patient History Medical History (Updated 06/26/23 @ 12:00 by Chelsea Hsu PA-C) DM II (diabetes mellitus, type II), controlled No pertinent family history HTN (hypertension) Anemia Ascending aorta enlargement Aortic stenosis Bicuspid aortic valve Surgical History (Updated 06/26/23 @ 12:00 by Chelsea Hsu PA-C) S/P tonsillectomy H/O aortic valve repair 06/07/23 @ [facility] [place]. 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 Beliefs That Will Affect Care: None Current Living Situation: Spouse Feels Safe at Home: Yes Safety Concerns: Feels Safe At This Time Assistive Devices: CPAP Review of Systems Review of Systems: All systems reviewed & are unremarkable except as noted in HPI & below Physical Exam Constitutional: WD/WN, vitals as above Eyes: + anicteric sclerae; no conjunctival abn ormality ENMT: Ears: no external ear abnormality Nose: no external nose abnormality Moist mucous membranes Respiratory: normal respiratory effort, lungs clear to auscultation no respiratory distress, does not use accessory muscles and no cough Cardiovascular: Rate/Rhythm: regular rate and regular rhythm No lower extremity edema Musculoskeletal: Moves all limbs independently Skin: no rashes, warm and dry Psychiatric: A+Ox3, euthymic affect Results & Data Results & Data Vital Signs (Past 12 Hours) Vital Signs Temp Pulse Pulse Resp BP BP Pulse Ox 06/28/23 11:52 36.7 C 91 H 19 129/84 97 06/28/23 10:30 06/28/23 08:19 37.3 C 90 20 132/83 95 06/28/23 07:00 80 06/28/23 02:45 37.1 C 83 20 104/72 97 O2 Del Method O2 Flow Rate 06/28/23 11:52 Room Air 06/28/23 10:30 Room Air 06/28/23 08:19 Room Air 06/28/23 07:00 06/28/23 02:45 Nasal Cannula 1 Diagnostic Findings Chest CTA 06/26/23 08:08 CT angio chest PE protocol CLINICAL HISTORY: Chest Pain, eval for PE TECHNIQUE: Multidetector row helical CT of the chest was performed with angiogra [facility] protocol. Coronal and sagittal reformations were obtained. Coronal and sagittal MIPS were obtained from the axial data set and were submitted for review. Automated dose lowering techniques and/or adjustment according to patient size were utilized for this exam. CT DOSE: 860.06 mGy.cm Comparison: Comparison is made to chest radiograph 06/26/2023 FINDINGS: Lungs and pleura: Atelectasis versus scarring is seen in the dependent portions of the lungs. Calcified granulomata are seen. Heart and pericardium: Heart size is normal. No pericardial effusion. No right heart strain is seen. Vessels: Numerous filling defects are seen in the segmental and subsegmental branches, a nonocclusive filling defect is also seen in the right middle lobe artery. Mediastinum and deb: Subcentimeter lymph nodes are seen. Chest wall and lower neck: Unremarkable. Abdomen: A hiatal hernia is seen. Bones: Degenerative changes in the thoracic spine. IMPRESSION: 1. Numerous pulmonary emboli are seen, predominantly is subsegmental and subsegmental as above, without evidence of right heart strain. 2. Atelectasis. ACT 112: Negative or not required by law. Electronically signed by: Dimitrios Moser M.D. 06/26/2023 9:14 AM Chest X-Ray 06/26/23 08:08 XR chest 1V portable CLINICAL HISTORY: Chest pain, nonspecific TECHNIQUE: Single frontal radiograph of the chest was obtained. Comparison: None available at the time of this dictation. FINDINGS: Median sternotomy wires are unchanged. The cardiomediastinal silhouette is normal. Lungs are underinflated but clear. No evidence of pleural effusion or pneumothorax. IMPRESSION: No acute chest disease. ACT 112: Negative or not required by law. Electronically signed by: Dimitrios Moser M.D. 06/26/2023 9:20 AM Resident Activity Tracking Resident Involvement: Resident Care Provided Care Provided: Adult [facility] Medicine
--- NOTE | 2023-06-28 14:23 | Billing Data ---
Date of Service June 28, 2023 Coding Level of Care Code 47805 IN/OBS CONSULT LVL 3,45M
[2023-06-28] MEDS ORDERED: WARFARIN SOD 5 MG TAB PO STA (19:39)
[2023-06-28] MEDS: MULTIVITAMIN TAB PO SCH (20:07)
[2023-06-28] MEDS: ASPIRIN 81 MG ECTAB PO SCH (20:07)
[2023-06-28] MEDS: lisinopril 2.5 MG TAB PO SCH (20:07)
[2023-06-28] MEDS: ATORVASTATIN 40 MG TAB PO SCH (20:08)
[2023-06-28] MEDS: PANTOprazole 40 MG TAB PO SCH (20:08)
[2023-06-28] MEDS: KETOROLAC TROMETHAMINE 15 MG/ML VIAL IV PRN (21:59)
[2023-06-29] MEDS: HEPARIN SODIUM/DEXTROSE 25,000 UNITS/500 ML BAG IV SCH (03:58)
[2023-06-29 07:06] LABS: Hematocrit (blood only) 29.1 % (42.0-52.0); Hemoglobin 9.6 g/dl (14.0-18.0); Mean Corpuscular Hemoglobin 29.2 pg (25.0-34.0); Mean Corpuscular Volume 88.4 fL (80.0-100.0); Mean Platelet Volume 9.9 fL (9.4-12.4); Platelet Count 232 K/uL (130-400); RDW Coefficient of Variation 13.3 % (11.5-14.5); RDW Standard Deviation 43.8 fL (36.4-46.3); Red Blood Count 3.29 M/uL (4.70-6.10); White Blood Count 7.83 K/ul (4.8-10.8)
[2023-06-29 07:38] LABS: Calcium 9.2 mg/dl (8.6-10.3); Creatinine Clr Calc Pharmacy 73.4 ml/min; Est GFR (African American) 73.7 ml/min; Est GFR (Non-African American) 63.6 ml/min; Potassium 4.1 mmol/L (3.5-5.1)
[2023-06-29 08:02] LABS: Partial Thromboplastin Ratio 1.9; Prothrombin Time 11.4 Seconds (9.0-12.0)
[2023-06-29 08:03] LABS: Partial Thromboplastin Time 54.2 Seconds (21.0-31.0)
[2023-06-29] MEDS: FUROSEMIDE 40 MG TAB PO SCH (08:27)
[2023-06-29] MEDS: METOPROLOL SUCC 25MG EXT REL TAB PO SCH ×2 (08:27→20:12)
[2023-06-29] MEDS: POTASSIUM CHLORIDE CRTAB 20 MEQ TABCR PO SCH (08:28)
[2023-06-29] MEDS: DOCUSATE SODIUM 100 MG CAP PO SCH ×2 (08:29→20:16)
--- NOTE | 2023-06-29 09:57 | Hospitalist Progress Note ---
Date of Service June 29, 2023 Assessment & Plan (1) New onset atrial flutter: (2) Pulmonary embolism: (3) S/P AVR (aortic valve replacement): (4) Elevated troponin: Plan This is a 62yo M with a PMH of bioprosthetic aortic valve replacement on 06/07/[address] Parnell at [facility] [place] without complications, prediabetic with h/o NSTEMI in December 2022, HLD and other medical problems listed below who presents with pain in R side and difficulty breathing since last evening and was found to have new onset A flutter and multiple pulmonary emboli. New onset atrial flutter Presenting with a flutter with RVR, HR 90-120s in setting of recent AV replacement as above No known history of arrhythmia Continue anticoagulation with IV heparin for now--transition to Lovenox bridge tonight cont warfarin 5mg daily and trend INR daily for goal 2-3, coumadin clinic [place] later this week. Cont Metoprolol 25mg BID, remains in sinus rhythm overnight on telemetry Pulmonary Emboli CTA chest with numerous pulmonary emboli are seen, predominantly is subsegmental and subsegmental as above, without evidence of right heart strain, atelectasis oxygenating well on 1LPM via nasal canula but has chest pain 2D echo performed in ED and read by Dr. Lunsford - demonstrates moderate LVH with mild septal dyssynergy consistent with postoperative state. Subtle Lutz sign consistent with pulmonary emboli diagnosis but no evidence of RV overload Continue anticoagulation with IV heparin and will transition to NOAC when pain is improved and he is off the oxygen Added Toradol for additional pain control, minimize use given bleeding risk, but may use as an alternative to narcotics which are suboptimal, especially when pain becomes severe very quickly, supplemental O2 as needed Consult pulmonology given possible pulmonary infarction Given family history of unexplained DVT/PE, outpatient hypercoagulable work-up with hematology follow-up was recommended. Ongoing anticoagulation with warfarin recommended for at least 6 months. Cont warfarin/ASA, plavix was stopped Bicuspid AV s/p AVR S/p AVR 06/07/2023 at [facility] [place] 2D echo with normally functioning bioprosthetic valve cont aspirin per cardiology Hypertension Chronic, stable, continue current therapy Elevated troponin Likely demand ischemia 2/2 multiple PEs and A flutter. HS trop downtrending from 29.0 -> 26.6 DM II, diet controlled A1c 6.5 in December 2022, repeat in AM Diabetic diet Will add SSI while admitted BSG AC HS H/o NSTEMI HLD Continue aspirin, statin, beta arnoldo DVT Ppx: IV heparin Code status: FULL PCP: Xochitl Dispo: Admitted to PCU. Plan for dc to home in next 1-2 days. I spent a total of60 minutes coordinating, documenting, and providing care for this patient excluding time spent in the performance of separately billed services DO [facility] Hospitalist Admission and Anticipated Discharge Date Admission Date: June 26, 2023 Subjective 62-year-old man with history of bioprosthetic aortic valve replacement on 06/07/2023 at [facility] [place] presented with shortness of breath and chest pain found to have multi lobar pulmonary emboli. He was also found to be in new onset atrial flutter with rates into the 120s and spontaneously converted overnight. He remains on metoprolol for rate control and remains in sinus rhythm. today pain is almost completely gone he is breathing well at baseline and with minimal ambulation in the room encouraged to walk the hallways with assistance we discussed his AC regimen and that we would transition him to bridge with [facility] outpatient followup [facility] coumadin clinic. Physical Exam Physical Exam: CONSTITUTIONAL: WNWD, vitals as above, generally well-appearing, NAD EYES: normal conjunctivae, no scleral icterus ENT: external ear and nose normal, MMM NECK: trachea midline RESPIRATORY: clear to auscultation bilaterally, no crackles, rales or wheezes, normal respiratory effort CARDIOVASCULAR: regular rate and rhythm, S1 and 2 heard without murmurs, gallops or rubs, no JVD, no peripheral edema, CHEST: +vertical sternal incision, closed and healing well. GASTROINTESTINAL: soft, nontender, ND, no guarding MUSCULOSKELETAL: strength 5/5 throughout, head is normocephalic and atraumatic SKIN: warm and dry NEUROLOGIC: CN 2-12 grossly intact, no sensory deficit, normal cognition, normal speech, no tremor PSYCHIATRIC: alert cooperative and oriented to person, place and time. Euthymic mood, makes good eye contact, language grossly intact, recent and remote memory grossly intact. Results & Data Results & Data Vital Signs (Past 12 Hours) Vital Signs Temp Pulse Pulse Resp BP Pulse Ox O2 Del Method 06/29/23 07:53 Room Air 06/29/23 07:45 36.7 C 82 16 132/84 95 Room Air 06/29/23 03:00 36.6 C 78 14 109/76 94 Room Air 06/28/23 22:20 37.3 C 86 20 134/75 93 Room Air 06/28/23 21:58 98 H Laboratory Results Short CBC 06/29/23 Range/Units 06:35 WBC 7.83 (4.8-10.8) K/ul Hgb 9.6 L (14.0-18.0) g/dl Hct 29.1 L (42.0-52.0) % Plt Count 232 (130-400) K/uL BMP 06/29/23 06:35 Sodium 134 L Potassium 4.1 Chloride 98 Carbon Dioxide 28 BUN 22 Creatinine 1.22 Glucose 142 H Calcium 9.2 Medications Administered Current Inpatient Medications Acetaminophen (Acetaminophen 500 Mg Tab) 1,000 mg PO Q8H PRN PRN Reason: pain Stop: 07/26/23 11:29 Last Admin: 06/26/23 21:16 Dose: 1,000 mg Aspirin (Aspirin 81 Mg Ectab) 81 mg PO HS [facility] Stop: 07/26/23 20:59 Last Admin: 06/28/23 20:07 Dose: 81 mg Atorvastatin Calcium (Atorvastatin 40 Mg Tab) 40 mg PO HS [facility] Stop: 07/26/23 20:59 Last Admin: 06/28/23 20:08 Dose: 40 mg Docusate Sodium (Docusate Sodium 100 Mg Cap) 100 mg PO BID [facility] Stop: 07/26/23 11:44 Last Admin: 06/29/23 08:29 Dose: 100 mg Furosemide (Furosemide 40 Mg Tab) 40 mg PO QAM [facility] Stop: 07/27/23 08:59 Last Admin: 06/29/23 08:27 Dose: 40 mg Heparin Sodium/Dextrose (Heparin Sodium/Dextrose) 25,000 units in 500 mls @ 30 mls/hr IV .[id number] [facility]; Protocol Stop: 07/26/23 09:59 Last Titration: 06/29/23 07:15 Dose: 1,500 units/hr, 30 mls/hr Ketorolac Tromethamine (Ketorolac Tromethamine 15 Mg/Ml Vial) 15 mg IV Q6H PRN PRN Reason: Severe Pain (Scale 7, 8, 9,10) Stop: 07/02/23 15:38 Last Admin: 06/28/23 21:59 Dose: 15 mg Lisinopril (Lisinopril 2.5 Mg Tab) 2.5 mg PO PM [facility] Stop: 07/26/23 20:59 Last Admin: 06/28/23 20:07 Dose: 2.5 mg Metoprolol Succinate (Metoprolol Succ 25mg Ext Rel Tab) 25 mg PO BID [facility] Stop: 07/26/23 10:59 Last Admin: 06/29/23 08:27 Dose: 25 mg Multivitamins (Multivitamin Tab) 1 tab PO HS [facility] Stop: 07/26/23 20:59 Last Admin: 06/28/23 20:07 Dose: 1 tab Ondansetron HCl (Ondansetron Inj 2 Mg/Ml 2 Ml Vial) 4 mg IV Q6H PRN PRN Reason: Nausea Stop: 07/26/23 11:51 Oxycodone HCl (Oxycodone Hcl Ir 5 Mg Tab (Immediate Release)) 5 mg PO Q6H PRN PRN Reason: Pain Stop: 07/10/23 11:28 Last Admin: 06/28/23 15:43 Dose: 5 mg Pantoprazole Sodium (Pantoprazole 40 Mg Tab) 40 mg PO HS [facility] Stop: 07/26/23 20:59 Last Admin: 06/28/23 20:08 Dose: 40 mg Polyethylene Glycol (Polyethylene (Miralax) 17 Gm Pack) 17 gm PO DAILY PRN PRN Reason: Constipation Stop: 07/26/23 11:51 Potassium Chloride (Potassium Chloride Crtab 20 Meq Tabcr) 20 meq PO QAM [facility] Stop: 07/27/23 08:59 Last Admin: 06/29/23 08:28 Dose: 20 meq Warfarin Sodium (Warfarin Sod 5 Mg Tab) 5 mg PO DAILY@1600 [facility] Stop: 07/29/23 15:59
--- NOTE | 2023-06-29 10:56 | Cardiology Progress Note ---
Date of Service June 29, 2023 Assessment & Plan (1) New onset atrial flutter: (2) Elevated troponin: (3) S/P AVR (aortic valve replacement): (4) Pulmonary embolism: Plan IMPRESSION: 62-year-old male with known history of bicuspid aortic valve recently underwent AVR at [facility] on 06/07/2023. Presented to the ED this morning with sudden onset of shortness of breath and chest discomfort. Found to be in new onset atrial flutter with rates into the 120s. Multiple pulmonary emboli noted on CTA of the chest HS troponin mildly elevated-- likely in the setting of demand with new onset A flutter RVR and multiple pulmonary emboli. PLAN: New onset atrial flutter: Rates averaging between 90-120s-- increase metoprolol succinate to 25 mg twice daily Continue anticoagulation with IV heparin Pulmonary Emboli: Multiple pulmonary emboli noted on CTA of the chest-- continue AC with IV heparin. Bicuspid AV s/p AVR: S/p AVR 06/07/2023--normal prosthetic function on echo no pericardial effusion, normal heart function Continue ASA 81 mg daily Hypertension: Hypertensive on presentation-- asymptomatic. Restart home meds-- lisinopril2.5 mg daily, increasing beta arnoldo as stated above. 06/27/2023 Patient reverted back to sinus rhythm with first-degree AV block overnight. Will warrant anticoagulation from pulmonary embolus standpoint. Can reassess indications from cardiac standpoint at the end of treatment Would continue current dosing of metoprolol succinate Maintain telemetry additional 24 hours 06/28/23: Remains in NSR overnight. Continue metoprolol succinate 25 mg BID BP remains controlled. Continue home meds and higher dose metoprolol. Will need to transition from IV heparin to Coumadin for anticoagulation. Given his newly implanted bioprosthetic valve and atrial flutter, Coumadin is anticoagulant of choice Pulmonary consult was placed by hospitalist given multiple PE's and any further recommendations. Pleuritic pain improving. When starting Coumadin, will discontinue plavix. Continue ASA 81 mg daily 06/29/23: Improved pleuritic chest pain. Remains NSR Continue metoprolol succinate 25 mg BID Coumadin initiated last night. Continue IV heparin until INR >2.0. Plavix discontinued. Continue ASA. Continue statin, furosemide, lisinopril. BP controlled. room to titrate lisinopril if needed. Case discussed with Dr. Jonn Hamm spent a total of 30 minutes on the date of service in preparation, delivery, and documentation of the care provided to this patient, excluding any time spent in the performance of separately billed services. Joan Portillo PA-C Department of Cardiology, [facility] This chart was completed in part utilizing Speech Voice Recognition Software. Grammatical errors, random word insertions, pronoun errors, and incomplete sentences are an occasional consequence of this system due to software limitations, ambient noise, and hardware issues. Any formal questions or concerns about the content, text, or information contained within the body of this dictation should be directly addressed to the provider for clarification. Admission and Anticipated Discharge Date Admission Date: June 26, 2023 Supervising Physician Co-Signing Physician Notes Patient seen and examined, chart, telemetry reviewed. Clinically improved less dyspneic and less pleuritic pain Plan as outlined above Transition from IV heparin to oral warfarin No other changes or medication adjustments made Patient tolerated increased dose of metoprolol succinate and no further atrial flutter arrhythmias likely incited by recent surgery and pulmonary emboli Subjective Patient resting in bed comfortably. Denies acute complaints. No recurrent chest pain or pleuritic pain. No SOB. Remains NSR on telemetry. Ambulating in room/hallways without issues. Review of Systems Review of Systems: All systems reviewed & are unremarkable except as noted in HPI & below Physical Exam Constitutional: well developed; no acute distress Eyes: PERRL, conjunctivae normal, anicteric sclerae Neck: normal visual inspection and trachea midline Respiratory: normal respiratory effort and + cough Auscultation: lungs clear to auscultation bilaterally; no pleural rub Cardiovascular: Rate/Rhythm: regular rate and regular rhythm Heart Sounds: normal S1, normal S2 and + murmur (+systolic murmur ) Vessels: no JVD Extremities: no edema (trace pedal/ankle edema ) Gastrointestinal (Abdomen): normal bowel sounds, soft, nontender, no hepatosplenomegaly Skin: no rashes, warm and dry Psychiatric: A+Ox3, euthymic affect Results & Data Vital Signs (Past 12 Hours) Vital Signs Temp Pulse Pulse Resp BP Pulse Ox O2 Del Method 06/29/23 09:57 69 06/29/23 07:53 Room Air 06/29/23 07:45 36.7 C 82 16 132/84 95 Room Air 06/29/23 03:00 36.6 C 78 14 109/76 94 Room Air Laboratory Results Coagulation 06/29/23 Range/Units 06:35 PT 11.4 (9.0-12.0) Seconds APTT 54.2 H* (21.0-31.0) Seconds CBC 06/29/23 Range/Units 06:35 WBC 7.83 (4.8-10.8) K/ul RBC 3.29 L (4.70-6.10) M/uL Hgb 9.6 L (14.0-18.0) g/dl Hct 29.1 L (42.0-52.0) % Plt Count 232 (130-400) K/uL Comprehensive Metabolic Panel 06/29/23 Range/Units 06:35 Sodium 134 L (136-145) mmol/L Potassium 4.1 (3.5-5.1) mmol/L Chloride 98 (98-107) mmol/L Carbon Dioxide 28 (21-32) mmol/L BUN 22 (6-23) mg/dl Creatinine 1.22 (0.6-1.4) mg/dl Glucose 142 H (70-99(Fasting)) mg/dl Calcium 9.2 (8.6-10.3) mg/dl Intake and Output 06/28/23 06/29/23 06/29/23 22:59 06:59 14:59 Intake Total 361 / 1927.5 239 / 1927.5 98.5 / 98.5 Output Total 650 / 1775 200 / 1775 125 / 125 Balance -289 / 152.5 39 / 152.5 -26.5 / -26.5 Intake: IV 261 / 977.5 239 / 977.5 98.5 / 98.5 Heparin Sodium/Dextrose 25,000 261 / 977.5 239 / 977.5 98.5 / 98.5 units In 500 ml @ 1,500 UNITS/ HR 30 mls/hr IV .[id number] [facility] Rx #:[id number] Oral 100 / 950 Output: Urine 650 / 1775 200 / 1775 125 / 125 Other: Weight 94.6 kg Weight Measurement Method Built in [facility] Diagnostic Findings Telemetry reviewed: NSR, in the 70-90 bmp range. No atrial fib/flutter. Medications Administered Current Inpatient Medications Acetaminophen (Acetaminophen 500 Mg Tab) 1,000 mg PO Q8H PRN PRN Reason: pain Stop: 07/26/23 11:29 Last Admin: 06/26/23 21:16 Dose: 1,000 mg Aspirin (Aspirin 81 Mg Ectab) 81 mg PO HS [facility] Stop: 07/26/23 20:59 Last Admin: 06/28/23 20:07 Dose: 81 mg Atorvastatin Calcium (Atorvastatin 40 Mg Tab) 40 mg PO HS [facility] Stop: 07/26/23 20:59 Last Admin: 06/28/23 20:08 Dose: 40 mg Docusate Sodium (Docusate Sodium 100 Mg Cap) 100 mg PO BID [facility] Stop: 07/26/23 11:44 Last Admin: 06/29/23 08:29 Dose: 100 mg Furosemide (Furosemide 40 Mg Tab) 40 mg PO QAM [facility] Stop: 07/27/23 08:59 Last Admin: 06/29/23 08:27 Dose: 40 mg Heparin Sodium/Dextrose (Heparin Sodium/Dextrose) 25,000 units in 500 mls @ 30 mls/hr IV .[id number] [facility]; Protocol Stop: 07/26/23 09:59 Last Titration: 06/29/23 07:15 Dose: 1,500 units/hr, 30 mls/hr Ketorolac Tromethamine (Ketorolac Tromethamine 15 Mg/Ml Vial) 15 mg IV Q6H PRN PRN Reason: Severe Pain (Scale 7, 8, 9,10) Stop: 07/02/23 15:38 Last Admin: 06/28/23 21:59 Dose: 15 mg Lisinopril (Lisinopril 2.5 Mg Tab) 2.5 mg PO PM [facility] Stop: 07/26/23 20:59 Last Admin: 06/28/23 20:07 Dose: 2.5 mg Metoprolol Succinate (Metoprolol Succ 25mg Ext Rel Tab) 25 mg PO BID [facility] Stop: 07/26/23 10:59 Last Admin: 06/29/23 08:27 Dose: 25 mg Multivitamins (Multivitamin Tab) 1 tab PO HS [facility] Stop: 07/26/23 20:59 Last Admin: 06/28/23 20:07 Dose: 1 tab Ondansetron HCl (Ondansetron Inj 2 Mg/Ml 2 Ml Vial) 4 mg IV Q6H PRN PRN Reason: Nausea Stop: 07/26/23 11:51 Oxycodone HCl (Oxycodone Hcl Ir 5 Mg Tab (Immediate Release)) 5 mg PO Q6H PRN PRN Reason: Pain Stop: 07/10/23 11:28 Last Admin: 06/28/23 15:43 Dose: 5 mg Pantoprazole Sodium (Pantoprazole 40 Mg Tab) 40 mg PO HS [facility] Stop: 07/26/23 20:59 Last Admin: 06/28/23 20:08 Dose: 40 mg Polyethylene Glycol (Polyethylene (Miralax) 17 Gm Pack) 17 gm PO DAILY PRN PRN Reason: Constipation Stop: 07/26/23 11:51 Potassium Chloride (Potassium Chloride Crtab 20 Meq Tabcr) 20 meq PO QAM [facility] Stop: 07/27/23 08:59 Last Admin: 06/29/23 08:28 Dose: 20 meq Warfarin Sodium (Warfarin Sod 5 Mg Tab) 5 mg PO DAILY@1600 [facility] Stop: 07/29/23 15:59
[2023-06-29] MEDS: ACETAMINOPHEN 500 MG TAB PO PRN (14:10)
[2023-06-29] MEDS ORDERED: WARFARIN SOD 5 MG TAB PO SCH (16:00)
[2023-06-29] MEDS: ASPIRIN 81 MG ECTAB PO SCH (20:12)
[2023-06-29] MEDS: ATORVASTATIN 40 MG TAB PO SCH (20:12)
[2023-06-29] MEDS: lisinopril 2.5 MG TAB PO SCH (20:12)
[2023-06-29] MEDS: PANTOprazole 40 MG TAB PO SCH (20:12)
[2023-06-29] MEDS: MULTIVITAMIN TAB PO SCH (20:12)
[2023-06-29] MEDS: ENOXAPARIN 100 MG/1ML SYR SQ SCH (20:13)
[2023-06-29] MEDS: oxyCODONE HCL IR 5 MG TAB (IMMEDIATE RELEASE) PO PRN (20:16)
[2023-06-30 07:27] LABS: Basophils # (auto) 0.07 K/uL (0.00-0.20); Eosinophils # (auto) 0.29 K/uL (0.00-0.50); Eosinophils % (auto) 4.1 %; Hematocrit (blood only) 29.2 % (42.0-52.0); Hemoglobin 9.6 g/dl (14.0-18.0); Immature Granulocytes # (auto) 0.04 K/uL (0.01-0.20); Immature Granulocytes % (auto) 0.6 %; Lymphocytes # (auto) 1.57 K/uL (1.20-3.40); Lymphocytes % (auto) 22.1 %; Mean Corpuscular Hemoglobin 28.9 pg (25.0-34.0); Mean Corpuscular Hgb Conc 32.9 g/dL (32.0-36.0); Mean Platelet Volume 9.9 fL (9.4-12.4); Monocytes # (auto) 0.85 K/uL (0.11-0.59); Neutrophils # (auto) 4.27 K/uL (1.40-6.50); Neutrophils % (auto) 60.2 %; Platelet Count 259 K/uL (130-400); RDW Coefficient of Variation 13.4 % (11.5-14.5); RDW Standard Deviation 43.3 fL (36.4-46.3); Red Blood Count 3.32 M/uL (4.70-6.10); White Blood Count 7.09 K/ul (4.8-10.8)
[2023-06-30 08:06] LABS: Calcium 9.5 mg/dl (8.6-10.3); Potassium 4.5 mmol/L (3.5-5.1)
[2023-06-30 08:11] LABS: BUN Creatinine Ratio 17.7 (10-20); Creatinine Clr Calc Pharmacy 78.8 ml/min; Est GFR (African American) 80.9 ml/min; Est GFR (Non-African American) 69.8 ml/min
[2023-06-30 08:27] LABS: Partial Thromboplastin Ratio 1.1; Partial Thromboplastin Time 30.9 Seconds (21.0-31.0); Prothrombin Time 11.4 Seconds (9.0-12.0)
[2023-06-30] MEDS: DOCUSATE SODIUM 100 MG CAP PO SCH ×2 (09:38→20:05)
[2023-06-30] MEDS: ENOXAPARIN 100 MG/1ML SYR SQ SCH ×2 (09:38→20:06)
[2023-06-30] MEDS: ACETAMINOPHEN 500 MG TAB PO PRN ×2 (09:39→20:07)
[2023-06-30] MEDS: POTASSIUM CHLORIDE CRTAB 20 MEQ TABCR PO SCH (09:39)
[2023-06-30] MEDS: FUROSEMIDE 40 MG TAB PO SCH (09:39)
[2023-06-30] MEDS: METOPROLOL SUCC 25MG EXT REL TAB PO SCH ×2 (09:39→20:06)
--- NOTE | 2023-06-30 09:40 | Cardiology Progress Note ---
Date of Service June 30, 2023 Assessment & Plan (1) New onset atrial flutter: (2) Elevated troponin: (3) S/P AVR (aortic valve replacement): (4) Pulmonary embolism: Plan IMPRESSION: 62-year-old male with known history of bicuspid aortic valve recently underwent AVR at [facility] on 06/07/2023. Presented to the ED this morning with sudden onset of shortness of breath and chest discomfort. Found to be in new onset atrial flutter with rates into the 120s. Multiple pulmonary emboli noted on CTA of the chest HS troponin mildly elevated-- likely in the setting of demand with new onset A flutter RVR and multiple pulmonary emboli. PLAN: New onset atrial flutter: Rates averaging between 90-120s-- increase metoprolol succinate to 25 mg twice daily Continue anticoagulation with IV heparin Pulmonary Emboli: Multiple pulmonary emboli noted on CTA of the chest-- continue AC with IV heparin. Bicuspid AV s/p AVR: S/p AVR 06/07/2023--normal prosthetic function on echo no pericardial effusion, normal heart function Continue ASA 81 mg daily Hypertension: Hypertensive on presentation-- asymptomatic. Restart home meds-- lisinopril2.5 mg daily, increasing beta arnoldo as stated above. 06/27/2023 Patient reverted back to sinus rhythm with first-degree AV block overnight. Will warrant anticoagulation from pulmonary embolus standpoint. Can reassess indications from cardiac standpoint at the end of treatment Would continue current dosing of metoprolol succinate Maintain telemetry additional 24 hours 06/28/23: Remains in NSR overnight. Continue metoprolol succinate 25 mg BID BP remains controlled. Continue home meds and higher dose metoprolol. Will need to transition from IV heparin to Coumadin for anticoagulation. Given his newly implanted bioprosthetic valve and atrial flutter, Coumadin is anticoagulant of choice Pulmonary consult was placed by hospitalist given multiple PE's and any further recommendations. Pleuritic pain improving. When starting Coumadin, will discontinue plavix. Continue ASA 81 mg daily 06/29/23: Improved pleuritic chest pain. Remains NSR Continue metoprolol succinate 25 mg BID Coumadin initiated last night. Continue IV heparin until INR >2.0. Plavix discontinued. Continue ASA. Continue statin, furosemide, lisinopril. BP controlled. room to titrate lisinopril if needed. 06/30/23. Remains NSR Continue metoprolol succinate 25 mg BID Recommend keeping patient until INR therapeutic with hep to Coumadin bridge. He has limited transportation to get to [facility] clinic frequently for PT/INR as he cannot yet drive and will be working. Continue ASA, statin, lisinopril. Otherwise stable cardiac symptoms. Will sign off. Please notify labor relations teacher provider with any additional questions/concerns. Case discussed with Dr. Jonn Hamm spent a total of 30 minutes on the date of service in preparation, delivery, and documentation of the care provided to this patient, excluding any time spent in the performance of separately billed services. Joan Portillo PA-C Department of Cardiology, [facility] This chart was completed in part utilizing Speech Voice Recognition Software. Grammatical errors, random word insertions, pronoun errors, and incomplete sentences are an occasional consequence of this system due to software limitations, ambient noise, and hardware issues. Any formal questions or concerns about the content, text, or information contained within the body of this dictation should be directly addressed to the provider for clarification. Admission and Anticipated Discharge Date Admission Date: June 26, 2023 Supervising Physician Co-Signing Physician Notes Chart and assessment as above. Cardiac issues stable. Requires anticoagulation for pulmonary emboli Subjective Patient resting in bed comfortably. Only has had several "twinges" of chest discomfort, sharp in nature over night. Much improved from admission. No SOB. No palpitations, tachypalpitations. He admits he is not comfortable going home until INR is therapeutic. He is still not able to drive yet and will have difficulty getting to [facility] clinic to monitor INR frequently. He is requesting to stay for bridge therapy. Review of Systems Review of Systems: All systems reviewed & are unremarkable except as noted in HPI & below Physical Exam Constitutional: well developed; no acute distress Eyes: PERRL, conjunctivae normal, anicteric sclerae Neck: normal visual inspection and trachea midline Respiratory: normal respiratory effort and + cough Auscultation: lungs clear to auscultation bilaterally; no pleural rub Cardiovascular: Rate/Rhythm: regular rate and regular rhythm Heart Sounds: normal S1, normal S2 and + murmur (+systolic murmur ) Vessels: no JVD Extremities: no edema (trace pedal/ankle edema ) Gastrointestinal (Abdomen): normal bowel sounds, soft, nontender, no hepatosplenomegaly Skin: no rashes, warm and dry Psychiatric: A+Ox3, euthymic affect Results & Data Vital Signs (Past 12 Hours) Vital Signs Temp Pulse Pulse Resp BP Pulse Ox O2 Del Method 06/30/23 08:00 36.5 C 81 16 124/71 97 Room Air 06/30/23 07:31 82 06/30/23 03:04 36.5 C 75 18 117/74 96 Room Air 06/29/23 23:00 75 06/29/23 22:39 36.8 C 75 18 112/74 96 Room Air Laboratory Results Coagulation 06/30/23 Range/Units 06:43 PT 11.4 (9.0-12.0) Seconds APTT 30.9 (21.0-31.0) Seconds CBC 06/30/23 Range/Units 06:43 WBC 7.09 (4.8-10.8) K/ul RBC 3.32 L (4.70-6.10) M/uL Hgb 9.6 L (14.0-18.0) g/dl Hct 29.2 L (42.0-52.0) % Plt Count 259 (130-400) K/uL Neut # (Auto) 4.27 (1.40-6.50) K/uL Lymph # (Auto) 1.57 (1.20-3.40) K/uL Perry # (Auto) 0.85 H (0.11-0.59) K/uL Eos # (Auto) 0.29 (0.00-0.50) K/uL Baso # (Auto) 0.07 (0.00-0.20) K/uL Comprehensive Metabolic Panel 06/30/23 Range/Units 06:43 Sodium 136 (136-145) mmol/L Potassium 4.5 (3.5-5.1) mmol/L Chloride 100 (98-107) mmol/L Carbon Dioxide 29 (21-32) mmol/L BUN 20 (6-23) mg/dl Creatinine 1.13 (0.6-1.4) mg/dl Glucose 107 H (70-99(Fasting)) mg/dl Calcium 9.5 (8.6-10.3) mg/dl Intake and Output 06/29/23 06/30/23 06/30/23 22:59 06:59 14:59 Intake Total 593 / 1301.5 150 / 1301.5 Output Total 1450 / 3050 400 / 3050 Balance -857 / -1748.5 -250 / -1748.5 Intake: IV 393 / 491.5 Heparin Sodium/Dextrose 25,000 393 / 491.5 units In 500 ml @ 1,500 UNITS/ HR 30 mls/hr IV .[id number] [facility] Rx #:[id number] Oral 200 / 810 150 / 810 Output: Urine 1450 / 3050 400 / 3050 Other: Weight 93.3 kg Diagnostic Findings Telemetry reviewed: NSR in the 70's. No recurrent atrial arrhythmias. Medications Administered Current Inpatient Medications Acetaminophen (Acetaminophen 500 Mg Tab) 1,000 mg PO Q8H PRN PRN Reason: pain Stop: 07/26/23 11:29 Last Admin: 06/30/23 09:39 Dose: 1,000 mg Aspirin (Aspirin 81 Mg Ectab) 81 mg PO HS [facility] Stop: 07/26/23 20:59 Last Admin: 06/29/23 20:12 Dose: 81 mg Atorvastatin Calcium (Atorvastatin 40 Mg Tab) 40 mg PO HS [facility] Stop: 07/26/23 20:59 Last Admin: 06/29/23 20:12 Dose: 40 mg Docusate Sodium (Docusate Sodium 100 Mg Cap) 100 mg PO BID [facility] Stop: 07/26/23 11:44 Last Admin: 06/30/23 09:38 Dose: Not Given Enoxaparin Sodium (Enoxaparin 100 Mg/1ml Syr) 90 mg SQ Q12H [facility] Stop: 07/29/23 20:59 Last Admin: 06/30/23 09:38 Dose: 90 mg Furosemide (Furosemide 40 Mg Tab) 40 mg PO QAM [facility] Stop: 07/27/23 08:59 Last Admin: 06/30/23 09:39 Dose: 40 mg Lisinopril (Lisinopril 2.5 Mg Tab) 2.5 mg PO PM [facility] Stop: 07/26/23 20:59 Last Admin: 06/29/23 20:12 Dose: 2.5 mg Metoprolol Succinate (Metoprolol Succ 25mg Ext Rel Tab) 25 mg PO BID [facility] Stop: 07/26/23 10:59 Last Admin: 06/30/23 09:39 Dose: 25 mg Multivitamins (Multivitamin Tab) 1 tab PO HS [facility] Stop: 07/26/23 20:59 Last Admin: 06/29/23 20:12 Dose: 1 tab Ondansetron HCl (Ondansetron Inj 2 Mg/Ml 2 Ml Vial) 4 mg IV Q6H PRN PRN Reason: Nausea Stop: 07/26/23 11:51 Oxycodone HCl (Oxycodone Hcl Ir 5 Mg Tab (Immediate Release)) 5 mg PO Q6H PRN PRN Reason: Pain Stop: 07/10/23 11:28 Last Admin: 06/29/23 20:16 Dose: 5 mg Pantoprazole Sodium (Pantoprazole 40 Mg Tab) 40 mg PO HS [facility] Stop: 07/26/23 20:59 Last Admin: 06/29/23 20:12 Dose: 40 mg Polyethylene Glycol (Polyethylene (Miralax) 17 Gm Pack) 17 gm PO DAILY PRN PRN Reason: Constipation Stop: 07/26/23 11:51 Last Admin: 06/30/23 09:40 Dose: 17 gm Potassium Chloride (Potassium Chloride Crtab 20 Meq Tabcr) 20 meq PO QAM [facility] Stop: 07/27/23 08:59 Last Admin: 06/30/23 09:39 Dose: 20 meq Warfarin Sodium (Warfarin Sod 5 Mg Tab) 5 mg PO DAILY@1600 [facility] Stop: 07/29/23 15:59 Last Admin: 06/29/23 16:20 Dose: 5 mg
--- NOTE | 2023-06-30 13:57 | Hospitalist Progress Note ---
Date of Service June 30, 2023 Assessment & Plan (1) New onset atrial flutter: (2) Pulmonary embolism: (3) S/P AVR (aortic valve replacement): (4) Elevated troponin: Plan This is a 62yo M with a PMH of bioprosthetic aortic valve replacement on 06/07/[address] Parnell [place] [facility] [place], prediabetic with h/o NSTEMI in December 2022, HLD and other medical problems listed below who presents with pain in R side and difficulty breathing since last evening and was found to have new onset A flutter and multiple pulmonary emboli. #New onset atrial flutter Presenting with a flutter with RVR, HR 90-120s in setting of recent AV replacement as above No known history of arrhythmia Continue anticoagulation with IV heparin for now--transition to Lovenox bridge tonight cont warfarin 5mg daily and trend INR daily for goal 2-3, coumadin clinic followup later this week. Cont Metoprolol 25mg BID, remains in sinus rhythm overnight on telemetry #Multiple Pulmonary Emboli CTA chest with numerous pulmonary emboli are seen, predominantly is subsegmental and subsegmental as above, without evidence of right heart strain, atelectasis oxygenating well on 1LPM via nasal canula but has chest pain 2D echo performed in ED and read by Dr. Lunsford - demonstrates moderate LVH with mild septal dyssynergy consistent with postoperative state. Subtle Lutz sign consistent with pulmonary emboli diagnosis but no evidence of RV overload Continue anticoagulation with IV heparin and will transition to NOAC when pain is improved and he is off the oxygen Added Toradol for additional pain control, minimize use given bleeding risk, but may use as an alternative to narcotics which are suboptimal, especially when pain becomes severe very quickly, supplemental O2 as needed Consult pulmonology given possible pulmonary infarction Given family history of unexplained DVT/PE, outpatient hypercoagulable work-up with hematology follow-up was recommended. Ongoing anticoagulation with warfarin recommended for at least 6 months. Cont warfarin/ASA Discontinue plavix #Bicuspid AV s/p AVR S/p AVR 06/07/2023 [place] [facility] 2[place] with normally functioning bioprosthetic valve cont aspirin per cardiology #Hypertension Chronic, stable, continue current therapy #Elevated troponin Likely demand ischemia 2/2 multiple PEs and A flutter. HS trop downtrending from 29.0 -> 26.6 #DM II, diet controlled A1c 6.5 in December 2022, repeat in AM Diabetic diet Will add SSI while admitted BSG AC HS #H/o NSTEMI HLD Continue aspirin, statin, beta arnoldo DVT Ppx: IV heparin Code status: FULL PCP: Xochitl Dispo: Admitted to PCU. Plan for dc to home in next 1-2 days. I spent a total of60 minutes coordinating, documenting, and providing care for this patient excluding time spent in the performance of separately billed services Admission and Anticipated Discharge Date Admission Date: June 26, 2023 Subjective Patient reports hesitancy to leaving with bridge and would like to trial a "couple" more doses of warfarin and uptrend in INR prior to dispo Review of Systems Review of Systems: All systems reviewed & are unremarkable except as noted in Subjective Physical Exam Constitutional: WD/WN, vitals as above Respiratory: normal respiratory effort, lungs clear to auscultation Cardiovascular: RRR, no murmur, no edema Results & Data Results & Data Vital Signs (Past 12 Hours) Vital Signs Temp Pulse Pulse Resp BP Pulse Ox O2 Del Method 06/30/23 12:00 36.8 C 70 18 134/69 97 Room Air 06/30/23 10:37 Room Air 06/30/23 08:00 36.5 C 81 16 124/71 97 Room Air 06/30/23 07:31 82 06/30/23 03:04 36.5 C 75 18 117/74 96 Room Air Laboratory Results Short CBC 06/30/23 Range/Units 06:43 WBC 7.09 (4.8-10.8) K/ul Hgb 9.6 L (14.0-18.0) g/dl Hct 29.2 L (42.0-52.0) % Plt Count 259 (130-400) K/uL BMP 06/30/23 06:43 Sodium 136 Potassium 4.5 Chloride 100 Carbon Dioxide 29 BUN 20 Creatinine 1.13 Glucose 107 H Calcium 9.5 Medications Administered Home Medications Medication Instructions Recorded Confirmed Last Taken pantoprazole 40 mg tablet,delayed 40 mg PO HS 07/16/21 06/26/23 06/25/23 release aspirin 81 mg tablet,delayed 81 mg PO HS 01/01/23 06/26/23 06/25/23 release atorvastatin 40 mg tablet 40 mg PO HS 01/01/23 06/26/23 06/25/23 multivitamin with minerals 1 tab PO HS 01/01/23 06/26/23 06/25/23 furosemide 40 mg tablet 40 mg PO QAM 06/26/23 06/26/23 06/25/23 lisinopril 2.5 mg tablet 2.5 mg PO PM 06/26/23 06/26/23 06/25/23 potassium chloride 10 mEq 20 meq PO QAM 06/26/23 06/26/23 06/25/23 tablet,extended release enoxaparin 100 mg/mL subcutaneous 90 mg (0.9 mL) subcut Q12H 4 days 06/30/23 Unknown syringe #7.2 mL metoprolol succinate 25 mg 25 mg PO BID 30 days #60 tabs 06/30/23 Unknown tablet,extended release 24 hr warfarin 5 mg tablet 5 mg PO DAILY@1600 30 days #30 tabs 06/30/23 Unknown Active Medications Generic Name Dose Route Start Last Admin Trade Name Freq PRN Reason Stop Dose Admin Acetaminophen 1,000 mg 06/26/23 11:30 06/30/23 09:39 Acetaminophen 500 Mg Tab PO 07/26/23 11:29 1,000 mg Q8H PRN Administration pain Aspirin 81 mg 06/26/23 21:00 06/29/23 20:12 Aspirin 81 Mg Ectab PO 07/26/23 20:59 81 mg HS [facility] Administration Atorvastatin Calcium 40 mg 06/26/23 21:00 06/29/23 20:12 Atorvastatin 40 Mg Tab PO 07/26/23 20:59 40 mg HS [facility] Administration Docusate Sodium 100 mg 06/26/23 11:45 06/30/23 09:38 Docusate Sodium 100 Mg Cap PO 07/26/23 11:44 Not Given BID [facility] Enoxaparin Sodium 90 mg 06/29/23 21:00 06/30/23 09:38 Enoxaparin 100 Mg/1ml Syr SQ 07/29/23 20:59 90 mg Q12H [facility] Administration Furosemide 40 mg 06/27/23 09:00 06/30/23 09:39 Furosemide 40 Mg Tab PO 07/27/23 08:59 40 mg QAM [facility] Administration Lisinopril 2.5 mg 06/26/23 21:00 06/29/23 20:12 Lisinopril 2.5 Mg Tab PO 07/26/23 20:59 2.5 mg PM [facility] Administration Metoprolol Succinate 25 mg 06/26/23 11:00 06/30/23 09:39 Metoprolol Succ 25mg Ext Rel Tab PO 07/26/23 10:59 25 mg BID [facility] Administration Multivitamins 1 tab 06/26/23 21:00 06/29/23 20:12 Multivitamin Tab PO 07/26/23 20:59 1 tab HS [facility] Administration Oxycodone HCl 5 mg 06/26/23 11:29 06/29/23 20:16 Oxycodone Hcl Ir 5 Mg Tab (Immediate Release) PO 07/10/23 11:28 5 mg Q6H PRN Administration Pain Pantoprazole Sodium 40 mg 06/26/23 21:00 06/29/23 20:12 Pantoprazole 40 Mg Tab PO 07/26/23 20:59 40 mg HS [facility] Administration Polyethylene Glycol 17 gm 06/26/23 11:52 06/30/23 09:40 Polyethylene (Miralax) 17 Gm Pack PO 07/26/23 11:51 17 gm DAILY PRN Administration Constipation Potassium Chloride 20 meq 06/27/23 09:00 06/30/23 09:39 Potassium Chloride Crtab 20 Meq Tabcr PO 07/27/23 08:59 20 meq QAM [facility] Administration
[2023-06-30] MEDS ORDERED: WARFARIN SOD 10 MG TAB PO SCH (16:00)
[2023-06-30] MEDS ORDERED: WARFARIN SOD 5 MG TAB PO SCH (16:00)
[2023-06-30] MEDS: ASPIRIN 81 MG ECTAB PO SCH (20:05)
[2023-06-30] MEDS: PANTOprazole 40 MG TAB PO SCH (20:05)
[2023-06-30] MEDS: MULTIVITAMIN TAB PO SCH (20:05)
[2023-06-30] MEDS: lisinopril 2.5 MG TAB PO SCH (20:06)
[2023-06-30] MEDS: ATORVASTATIN 40 MG TAB PO SCH (20:06)
[2023-07-01 07:15] LABS: INR 1.2 (0.9-1.1); Partial Thromboplastin Ratio 1.1; Partial Thromboplastin Time 31.9 Seconds (21.0-31.0); Prothrombin Time 12.6 Seconds (9.0-12.0)
[2023-07-01] MEDS: POTASSIUM CHLORIDE CRTAB 20 MEQ TABCR PO SCH (08:14)
[2023-07-01] MEDS: ENOXAPARIN 100 MG/1ML SYR SQ SCH (08:14)
[2023-07-01] MEDS: METOPROLOL SUCC 25MG EXT REL TAB PO SCH (08:14)
[2023-07-01] MEDS: FUROSEMIDE 40 MG TAB PO SCH (08:15)
[2023-07-01] MEDS: ACETAMINOPHEN 500 MG TAB PO PRN (08:21)
[2023-07-01] MEDS: DOCUSATE SODIUM 100 MG CAP PO SCH (10:11)
[2023-07-01] MEDS: oxyCODONE HCL IR 5 MG TAB (IMMEDIATE RELEASE) PO PRN (10:40)
[2023-07-01] MEDS ORDERED: HYDROCORTISONE HC 2.5% CRM 30GM TUBE EXT ONE (12:45)
[2023-07-01] MEDS ORDERED: WARFARIN SOD 10 MG TAB PO SCH (16:00)
--- NOTE | 2023-07-01 17:37 | Discharge Summary ---
Discharge Summary Date of Service July 01, 2023 Notes For Next Care Provider Medication Changes From Visit -Lovenox bridge with plans for AC clinic on 07/05 -Warfarin 5mg daily -Oxycodone prn pain Admission HPI Per Admitting Provider This is a 62yo M with a PMH of bioprosthetic aortic valve replacement on 06/07/[address] Parnell [place] [facility] [place] complications, DM II, h/o NSTEMI in December 2022, HLD and other medical problems listed below who presents with pain in R side and difficulty breathing since last evening. Has felt well since AV replacement 3 weeks ago with uncomplicated recovery and went to follow up cardiothoracic surgery appt yesterday without changes. When going to sleep last evening, felt like he couldn't take a deep breath and developed pain on Right side described as aching and constant. Came into ED this morning for further evaluation. Denies any known history of arrhythmia or PEs in the past. Has been taking all medications as prescribed with exception of skipping lasix yesterday as he was driving to [place] and did not want to have to stop for the restroom. No lightheadedness, near syncope or chest pain. Denies any recent sick contacts, F/C, lightheadedness, N/V, abdominal pain, dysuria, diarrhea or constipation. Quit smoking prior to surgery, not drinking etoh, having usual cup of coffee in AM and water otherwise. Admission Exam Per Admitting Provider General Appearance: WD/WN, vitals as above, NAD, sitting up in bed, pleasant, conversing easily Head: normocephalic, atraumatic Eyes: normal inspection, PERRL, conjunctivae normal, anicteric sclerae ENT: external ear and nose normal, oropharynx normal Neck: normal visual inspection, trachea midline, no thyromegaly Respiratory: normal respiratory effort, bibasilar rales. No accessory muscle use Cardiovascular: tachycardic rate, normal peripheral pulses, trace BLE edema. Vessels: no JVD Chest: + healing median sternotomy incision Abdomen/GI: normal bowel sounds, soft, nontender, no hepatosplenomegaly Extremities/Musculoskeletal: no cyanosis or clubbing, extremities motor strength 5/5 Neurologic: PERRL, EOMI, accommodation nl, no face palsy, no dysarthria, CN's II-XI intact bilaterally and moves all extremities Psychiatric: A+Ox3, euthymic affect Skin: no rashes, normal color, warm/dry Principal Dx & Hospital Course #1 = Principal Diagnosis (1) New onset atrial flutter: (2) Pulmonary embolism: (3) S/P AVR (aortic valve replacement): (4) Elevated troponin: Plan This is a 62yo M with a PMH of bioprosthetic aortic valve replacement on 06/07/[address] Parnell [place] [facility] [place] complications, prediabetic with h/o NSTEMI in December 2022, HLD and other medical problems listed below who presents with pain in R side and difficulty breathing since last evening and was found to have new onset A flutter and multiple pulmonary emboli. #New onset atrial flutter Presenting with a flutter with RVR, HR 90-120s in setting of recent AV replacement as above No known history of arrhythmia , NSR on discharge Home lovenox bridge with warfarin 5mg Cont Metoprolol 25mg BID #Multiple Pulmonary Emboli CTA chest with numerous pulmonary emboli are seen, predominantly is subsegmental and subsegmental as above, without evidence of right heart strain, atelectasis oxygenating well on 1LPM via nasal canula but has chest pain 2D echo performed in ED and read by Dr. Lunsford - demonstrates moderate LVH with mild septal dyssynergy consistent with postoperative state. Subtle Lutz sign consistent with pulmonary emboli diagnosis but no evidence of RV overload Continue anticoagulation with IV heparin and will transition to NOAC when pain is improved and he is off the oxygen Added Toradol for additional pain control, minimize use given bleeding risk, but may use as an alternative to narcotics which are suboptimal, especially when pain becomes severe very quickly, supplemental O2 as needed Consult pulmonology given possible pulmonary infarction Given family history of unexplained DVT/PE, outpatient hypercoagulable work-up with hematology follow-up was recommended. Ongoing anticoagulation with warfarin recommended for at least 6 months. Cont warfarin/ASA Discontinue plavix #Bicuspid AV s/p AVR S/p AVR 06/07/2023 [place] [facility] [place] 2[place] echo with normally functioning bioprosthetic valve cont aspirin per cardiology #Hemorrhoids -Discussed home care and bowel regimen for hemorrhoids #Hypertension Chronic, stable, continue current therapy #Elevated troponin *downtrended Likely demand ischemia 2/2 multiple PEs and A flutter. HS trop downtrending from 29.0 -> 26.6 #DM II, diet controlled A1c 6.5 in December 2022, repeat in AM Diabetic diet Will add SSI while admitted BSG AC HS #H/o NSTEMI HLD Continue aspirin, statin, beta arnoldo On day of discharge, patient was ambulating without difficuly, endorsed pain well controlled, and denied any chest pain or acute concerns. Discharge Exam Constitutional WD/WN, vitals as above Respiratory normal respiratory effort, lungs clear to auscultation Cardiovascular RRR, no murmur, no edema Updated Medication List Medication Instructions Recorded Confirmed Type pantoprazole 40 mg tablet,delayed 40 mg PO HS 07/16/21 06/26/23 History release aspirin 81 mg tablet,delayed 81 mg PO HS 01/01/23 06/26/23 History release atorvastatin 40 mg tablet 40 mg PO HS 01/01/23 06/26/23 History multivitamin with minerals 1 tab PO HS 01/01/23 06/26/23 History furosemide 40 mg tablet 40 mg PO QAM 06/26/23 06/26/23 History lisinopril 2.5 mg tablet 2.5 mg PO PM 06/26/23 06/26/23 History potassium chloride 10 mEq 20 meq PO QAM 06/26/23 06/26/23 History tablet,extended release enoxaparin 100 mg/mL subcutaneous 90 mg (0.9 mL) subcut Q12H 4 days 06/30/23 Rx syringe #7.2 mL metoprolol succinate 25 mg 25 mg PO BID 30 days #60 tabs 06/30/23 Rx tablet,extended release 24 hr warfarin 5 mg tablet 5 mg PO DAILY@1600 30 days #30 tabs 06/30/23 Rx oxycodone 5 mg capsule 5 mg PO Q8H #20 caps 07/01/23 Rx Hospital Stay Data Consultations 06/26/23 09:33 ED Decision to Admit Stat 06/26/23 10:58 Consult Cardiology Routine 06/27/23 19:21 Consult Pulmonology Routine Diagnostic Imagining Performed 06/26/23 08:08 CT angio chest PE protocol Stat Pending Results Patient Have Any Pending Studies at Discharge: No Discharge Instructions Given to Patient (Per Discharging Provider) You were admitted due to chest pain and difficulty breathing. Work up discovered that you experienced multiple lung clots (pulmonary emboli), as well as an abnormal heart rhythm called atrial flutter. Here are the following changes and updates to your regimen: #New onset atrial flutter You converted back into a normal sinus rhythm, but there is always a risk of going back into the abnormal rhythm You will go home with a prescription for Lovenox at home, please given subcutaneous injection every 12 hours (ex: 8am and 8pm) Continue warfarin 5mg daily at home, plan to establish with the Anticoagulation clinic on 07/05/2023 to discuss warfarin plan Continue Metoprolol 25mg twice a day, this medication will help keep your heart rates in a normal range #Multiple Pulmonary Emboli Given family history of unexplained DVT/PE, outpatient hypercoagulable work-up with hematology follow-up is recommended. Ongoing anticoagulation with warfarin recommended for at least 6 months. Continue your daily aspirin Discontinue plavix Continue all other medications as prescribed Total Time Total Time Spent Total Time Spent (In Minutes): 35
--- OUTSIDE RECORDS SUMMARY | 2023-07-02 09:06 | External Medical Summary | Summary of Care ---
Author Name Unknown Organization [facility] Address [address] [place] [address] Phone [phone] Care Team Providers Care Cnc Manager Name Role Phone Luciana Leung DO Primary Care Provider [phone] Reason for Visit * Reason Comments Hospital Follow-Up Encounter Details Date Type Department Care Team (Late st Contact Info) Description 06/25/2023 9:30 AM EDT Office Visit Cardiothoracic Surg [facility] [address] [place] [address] Jonah Chacon PA-C [address] [place] [address] S/P AVR (aortic valve replacement)* Allergies Active Allergy Reactions Criticality Noted Date Comments Simvastatin 11/01/2018 Elevated liver functions documented as of this encounter (statuses as of 06/25/2023) Medications Medication Sig Dispensed Refills Start Date End Date Status aspirin enteric coated 81 MG TBEC Take 1 Tablet by mouth at bedtime. 0 Active metronidazole (METROGEL) 0.75 % gel Apply topically to affected area 2 times a day. Apply to affected area 45 g 11 11/07/2019 Active Pantoprazole Sodium 40 MG Oral Tablet Delayed Release (Protonix)Indications :Bradley's esophagus with dysplasia TAKE 1 TABLET DAILY 90 Tablet 3 09/21/2022 Active Multi-Vitamin Daily Oral Tablet Take 1 Tablet by mouth in the morning. 0 Active Clopidogrel Bisulfate 75 MG Oral Tablet (pLAVix) Take 1 Tablet by mouth in the morning. 100 Tablet 6 01/11/2023 Active Metoprolol Succinate ER 25 MG Oral Tablet Extended Release 24 Hour (toPROL XL)Indications:NSTEMI (non-ST elevation myocardial infarction) (HCC) Take 1 Tablet by mouth in the morning. In the morning.. 90 Tablet 4 01/12/2023 Active Atorvastatin Calcium 40 MG Oral Tablet (Lipitor)Indications: Well adult exam,Familial hypercholesterolemia, HTN, goal below 140/90,Unequal pupils,Bicuspid aortic valve,Aortic stenosis due to bicuspid aortic valve,Overweight (BMI 25.0-29.9) TAKE 1 TABLET IN THE MORNING 90 Tablet 1 02/12/2023 Active CPAP every night at bedtime. 0 Active Lisinopril 2.5 MG Oral Tablet (Prinivil) Take 1 Tablet by mouth in the morning. 30 Tablet 1 06/11/2023 Active Furosemide 40 MG Oral Tablet (Lasix) Take 1 Tablet by mouth in the morning. 30 Tablet 0 06/11/2023 Active oxyCODONE HCl 5 MG Oral Tablet (Oxy IR) Take 1 Tablet by mouth every 4 hours as needed for Pain, Moderate. 30 Tablet 0 06/11/2023 Active Potassium Chloride ER 10 MEQ Oral Tablet Extended Release Take 2 Tablets by mouth in the morning. 30 Tablet 0 06/11/2023 Active Zoster Vac Recomb Adjuvanted 50 MCG/0.5ML Intramuscular Suspension Reconstituted (Shingrix) Inject 0.5 mL into a large muscle now and repeat dose in 60 to 180 days 1 Each 1 06/16/2023 Active amLODIPine Besylate 2.5 MG Oral Tablet (Norvasc) 0 06/11/2023 Active Acetaminophen 500 MG Oral Tablet (Tylenol Extra Strength) Take 1 Tablet by mouth every 6 hours as needed. 0 Active documented as of this encounter (statuses as of 06/25/2023) Active Problems Problem Noted Date Diagnosed Date NSTEMI (non-ST elevation myocardial infarction) 06/07/2023 Overview: NSTEMI in December 2022, suspected coronary spasm Type 2 diabetes mellitus with diabetic neuropath y 09/24/2021 Carpal tunnel syndrome 08/25/2021 Coronary vasospasm 08/25/2021 Dyslipidemia, goal LDL below 70 08/07/2021 Coronary artery disease invo lving prairie band coronary artery of prairie band heart without angina pectoris 08/07/2021 COVID-19 vaccination refused 07/04/2021 Diabetes mellitus without complication 1 Bone cyst of right femur 02/26/2020 Dilated aortic root 10/25/2018 Bradley's esophagus with dysplasia 08/02/2017 Familial hypercholesterolemia 10/03/2016 HTN, goal below 140/90 10/03/2016 Unequal pupils 10/03/2016 Aortic valve stenosis 10/03/2016 Overweight (BMI 25.0-29.9) 10/03/2016 Absent kidney, congenital 10/03/2016 Benign neoplasm of adrenal gland 10/03/2016 Cervical disc herniation 10/03/2016 H/O cervical spine surgery 10/03/2016 Tobacco use disorder 10/03/2016 Chews tobacco 10/03/2016 documented as of this encounter (statuses as of 06/25/2023) Resolved Problems Problem Noted Date Diagnosed Date Resolved Date Trochanteric bursitis of left hip 05/09/2020 06/16/2023 Acute pancreatitis 11/01/2018 9 Bicuspid aortic valve 10/03/20162018 Need for hepatitis C screening test 10/03/2016 08/02/2017 documented as of this encounter (statuses as of 06/25/2023) Immunizations Name Administration Dates Next Due PPD 10/17/2018 Pneumococcal Polysaccharide PPV23 (Pneumovax) 05/09/2020 SEASONAL INFLUENZA, PF, 6 M & Above, IM , (FLULAVAL or FLUZONE) 05/06/2023,05/24/2021,05/09/2020 Seasonal Influenza, Quadriva lent, No Preserve, Mdck 05/26/2019 Seasonal Influenza, Split, I IV3, With Preserve, Inj 06/09/2018,06/06/2017,06/03/2016,06/12 TDAP (age 11 and older)(Adacel) 06/12/2015 Zoster Vaccine Recombinant (Shingrix) 05/09/2020 documented as of this encounter Social History Tobacco Use Types Packs/Day Years Used Date Smoking Tobacco: Former Cigarettes 20 Smokeless Tobacco: Current Chew Comments:1 cigarette a day x 20 years; 1 can/week x 40 years Hasn't had any cigarettes since the surgery and has had 1 chew since the surgery Alcohol Use Standard Drinks/Week Comments Yes 0 (1 standard drink = 0.6 oz pure alcohol) Occassional - 1 beer every 4 months or so PHQ-2 Answer Date Recorded PHQ-2 Score 0 05/09/2020 Hunger Vital Sign Answer Date Recorded Worried About Running Out of Food in the Last Ye ar Never true 12/07/2019 Ran Out of Food in the Last Year Never true 12/07/2019 Sex and Gender Information Value Date Recorded Sex Assigned at Male 05/01/2023 8:53 PM EDT Gender Identity Male 05/01/2023 8:53 PM EDT Sexual Orientation Straight 05/01/2023 8: 53 PM EDT Job Start Date Occupation Industry Not on file Not on file Not on file documented as of this encounter Last Filed Vital Signs Vital Sign Reading Time Taken Comments Blood Pressure 114/74 06/25/2023 9:13 AM EDT Pulse 84 06/25/2023 9:13 AM EDT Temperature - - Respiratory Rate - - Oxygen Saturation 96% 06/25/2023 9:13 AM EDT Inhaled Oxygen Concentration - - Weight 95.4 kg (210 lb 6.4 oz) 06/25/2023 9:13 A M EDT Height 177.8 cm (5' 10") 06/25/2023 9:13 AM EDT Body Mass Index 30.19 06/25/2023 9:13 AM EDT documented in this encounter Functional Status Functional Status Response Date of Assess ment Are you deaf or do you have serious difficulty h earing? No 06/07/2023 Are you blind or do you have serious difficulty seeing, even when wearing glasses? No 06/07/2023 Do you have serious difficul ty walking or climbing stairs? (5 years old or older) No 06/08/2023 Do you have difficulty dress ing or bathing? (5 years old or older) No 06/07/2023 Because of a physical, menta l, or emotional condition, do you have difficulty doing errands alone such as visiting a doctor s office or shopping? (15 years old or older) No 06/07/20 23 Cognitive Status Response Date of Assessm ent Because of a physical, menta l, or emotional condition, do you have serious difficulty concentrating, remembering, or making decisions? (5 years old or older No 06/07/2023 documented as of this encounter Plan of Treatment Upcoming Encounters Date Type Department Care Team (Late st Contact Info) Description 07/06/2023 10:00 AM EST Office Visit Nephrology, [facility] [address] [facility] [place], [place] [address] Tavo Kuo MD [address] [facility] [place] [address] 07/12/2023 3:00 PM EST Office Visit Cardiology, [facility] [address] [place] [address] Joan Portillo PA-C [address] [place] [address] 07/22/2023 11:45 AM EST Office Visit [facility] [place] [address], [place] [id number] Kayode Parnell MD [address], [place] [id number] 07/29/2023 9:00 AM EST Telemedicine Endocrinology, [place] [address] [place] [address] Hailey Peña MD [address], [place] [id number] 09/21/2023 2:30 PM EST Office Visit Cardiology, [place] [address] [place] [address] [place] [address] Hero Monique, DO [address] [place] [address] 09/30/2023 8:00 AM EST Office Visit Gastroenterology, [facility] [address] [place] [address] Stacey Bland CRNP [address] [place] [address] Health Maintenance Due Date Last Done Comments Bradley's Esophagus Surveilance 1961 COVID-19 Vaccine (#1) 03/11/1962 Diabetic Eye Exam 1979 Diabetic Foot Exam 1979 Cologuard 2006 Fecal Occult Blood Test 2006 Sigmoidoscopy 2006 Zoster Vaccines (2 of 2) 07/04/2020 05/09/2020 Depression Screening 05/09/2021 05/09/2020 Pneumococcal Vaccine: Pediatrics (0 to 5 Years) and At-Risk Patients (6 to 64 Years) (2 - PCV) 05/09/2021 05/09/2020 Hepatitis B (1 of 3 - Risk 3-dose series) 2021 HbA1c 11/04/2023 05/06/2023, 05/23, 07/04/2021, Additional history exists Albumin/Creatinine Ratio 06/16/2024 023, 06/01/2022, 07/04/2021 GFR 06/16/2024 06/16/2023, 05/24, 06/10/2023, Additional history exists DTaP,Tdap,and Td Vaccines (2 - Td or Tdap) 06/12/2025 06/12/2015 Colonoscopy 10/21/2028 10/21/2018, 06/26/2015 Colorectal Cancer Screening 10/21/2028 Influenza Vaccine (FLU shot) Completed , 05/24/2021, 05/09/2020, Additional history exists GARDASIL-HPV IMMUNIZATION SERIES Aged Out No longer eligible based on patient's age to complete this topic MENINGOCOCCAL (MENACTRA/MENVEO) Aged Out No longer eligible based on patient's age to complete this topic documented as of this encounter Medical Devices Implanted Type Area Nib Adjuster Device Identifier Shelf Expiration Date Model / Serial / Lot Valve Aortic Avalus 27mm - [id number] - [id number] Implanted:Qty: 1 on 06/07/2023 by Kayode Parnell MD at OR [facility] N/A: [employer] 01/19/2026 [id number] / [id number] / [id number] documented as of this encounter Visit Diagnoses Diagnosis S/P AVR (aortic valve replacement)- Primary Heart valve replaced by other means documented in this encounter Advance Directives Latest Code Status on File Code Status Date Activated Date Inactivated Comments Full Code 06/07/2023 12:13 PM 06/11/2023 2:31 PM Th is order reflects the patients wishes and were consensually agreed upon. Question Answer Comments Discussion of Advance Directives occurred with: Patient Care Teams Cnc Manager Relationship Specialty Start Date End Date Luciana Leung DO [address] [facility] [place] [address] PCP - General Family Medicine 10/02/16 documented as of this encounter
--- OUTSIDE RECORDS SUMMARY | 2023-07-02 09:06 | External Medical Summary | Summary of Care ---
Author Name Unknown Organization [facility] Address [address] [place] [place] [address] Phone [phone] Care Team Providers Care Spouting Installer Name Role Phone Luciana Leung DO Primary Care Provider [phone] [phone] Reason for Visit * Reason Comments Outpatient Testing Encounter Details Date Type Department Care Team (Late st Contact Info) Description 06/16/2023 1:20 PM EDT [facility] [address] [place] [address] [place] [address] [place] [address] Type 2 diabetes mellitus with diabetic neuropathy, unspecified whether jail insulin use (HCC); Familial hypercholesterolemia; Dyslipidemia, goal LDL below 70; Diabetes mellitus without complication (HCC); Dilated aortic root (HCC); NSTEMI (non-ST elevation myocardial infarction) ([facility]); Aortic valve stenosis, etiology of cardiac valve disease unspecified; Coronary artery disease involving [place] coronary artery of [place] heart without angina pectoris; Absent kidney, congenital; Unequal pupils; Overweight (BMI 25.0-29.9); H/O cervical spine surgery; Tobacco use disorder; Chews tobacco; COVID-19 vaccination refused; Coronary vasospasm (HCC); Bradley's esophagus with dysplasia; Scrotal pain Allergies Active Allergy Reactions Criticality Noted Date Comments Simvastatin 11/01/2018 Elevated liver functions documented as of this encounter (statuses as of 06/16/2023) Medications Medication Sig Dispensed Refills Start Date End Date Status aspirin enteric coated 81 MG TBEC Take 1 Tablet by mouth in the morning. 0 Active metronidazole (METROGEL) 0.75 % gel [...] 180 days 1 Each 1 06/16/2023 Active documented as of this encounter (statuses as of 06/16/2023) Active Problems Problem Noted Date Diagnosed Date NSTEMI (non-ST elevation myocardial infarction) 06/07/2023 Overview: NSTEMI in December 2022, suspected coronary spasm Type 2 diabetes mellitus with diabetic neuropath y 09/24/2021 Carpal tunnel syndrome 08/25/2021 Coronary vasospasm 08/25/2021 Dyslipidemia, goal LDL below 70 08/07/2021 Coronary artery disease invo lving [place] coronary artery of [place] heart without angina pectoris 08/07/2021 COVID-19 vaccination [...] as of this encounter (statuses as of 06/16/2023) Resolved Problems Problem Noted Date Diagnosed Date Resolved Date Trochanteric bursitis of left hip 05/09/2020 06/16/2023 Acute pancreatitis 11/01/2018 9 Bicuspid aortic valve 10/03/20162018 Need for hepatitis C screening test 10/03/2016 08/02/2017 documented as of this encounter (statuses as of 06/16/2023) Immunizations Name Administration Dates Next Due PPD [...] Types Packs/Day Years Used Date Smoking Tobacco: Every Day Cigarettes 20 Smokeless Tobacco: Current Chew Comments:1 cigarette a day x 20 years; 1 can/week x 40 years Alcohol Use Standard Drinks/Week Comments Yes 0 (1 standard drink = 0.6 oz pur e alcohol) occ PHQ-2 Answer Date Recorded PHQ-2 Score 0 [...] on file documented as of this encounter Functional Status Functional Status Response [...] 9:30 AM EDT Office Visit Cardiothoracic Surg [facility] [address] [place] [address] Jonah Chacon PA-C [address] [place] [address] 07/06/2023 10:00 AM EST Office Visit Nephrology, [facility] [address] [facility] [place] [address] Tavo Kuo MD [address] [facility] [place] [address] 07/12/2023 3:00 PM EST Office Visit Cardiology, [facility] [address] [facility] [place] [address] Joan Portillo PA-C [address] [facility] [place] [address] 07/22/2023 11:45 AM EST Office Visit [facility] [place] [address], [place] [id number] Kayode Parnell MD [address], [place] [id number] 07/29/2023 9:00 AM EST Telemedicine Endocrinology, [place] [address], [place] [id number] Hailey Peña MD [address] [place] [address] 09/21/2023 2:30 PM EST Office Visit Cardiology, [place] [address] [place] [address] [place] [address] Hero Monique, DO [address] [facility] [place] [address] 09/30/2023 8:00 AM EST Office Visit Gastroenterology, [facility] [address] [facility] [place] [address] Stacey Bland CRNP [address] [place] [address] Pending Results Name Type Priority Associated Diagnoses Date /Time CBC WITH WBC DIFFERENTIAL Lab Routine Type 2 diabetes mellitus with diabetic neuropathy, unspecified whether termite treater insulin use (HCC) Familial hypercholesterolemia Dyslipidemia, goal LDL below 70 Diabetes mellitus without complication (HCC) Dilated aortic root (HCC) NSTEMI (non-ST elevation myocardial infarction) (HCC) Aortic valve stenosis, etiology of cardiac valve disease unspecified Coronary artery disease involving [place] coronary artery of [place] heart without angina pectoris Absent kidney, congenital Unequal pupils Overweight (BMI 25.0-29.9) H/O cervical spine surgery Tobacco use disorder Chews tobacco COVID-19 vaccination refused Coronary vasospasm (HCC) Bradley's esophagus with dysplasia 06/16/2023 12:18 PM EDT COMPREHENSIVE METABOLIC PANEL Lab Routine Type 2 diabetes mellitus with diabetic neuropathy, unspecified whether termite treater insulin use (HCC) Familial hypercholesterolemia Dyslipidemia, goal LDL below 70 Diabetes mellitus without complication (HCC) Dilated aortic root (HCC) NSTEMI (non-ST elevation myocardial infarction) (HCC) Aortic valve stenosis, etiology of cardiac valve disease unspecified Coronary artery disease involving [place] coronary artery of [place] heart without angina pectoris Absent kidney, congenital Unequal pupils Overweight (BMI 25.0-29.9) H/O cervical spine surgery Tobacco use disorder Chews tobacco COVID-19 vaccination refused Coronary vasospasm (HCC) Bradley's esophagus with dysplasia 06/16/2023 12:18 PM EDT LIPID PANEL WITH DIRECT LDL IF TG IS HIGH Lab Routine Type 2 diabetes mellitus with diabetic neuropathy, unspecified whether termite treater insulin use (HCC) Familial hypercholesterolemia Dyslipidemia, goal LDL below 70 Diabetes mellitus without complication (HCC) Dilated aortic root (HCC) NSTEMI (non-ST elevation myocardial infarction) (HCC) Aortic valve stenosis, etiology of cardiac valve disease unspecified Coronary artery disease involving [place] coronary artery of [place] heart without angina pectoris Absent kidney, congenital Unequal pupils Overweight (BMI 25.0-29.9) H/O cervical spine surgery Tobacco use disorder Chews tobacco COVID-19 vaccination refused Coronary vasospasm (HCC) Bradley's esophagus with dysplasia 06/16/2023 12:18 PM EDT TSH WITH FREE T4 IF INDICATED Lab Routine Type 2 diabetes mellitus with diabetic neuropathy, unspecified whether termite treater insulin use (HCC) Familial hypercholesterolemia Dyslipidemia, goal LDL below 70 Diabetes mellitus without complication (HCC) Dilated aortic root (HCC) NSTEMI (non-ST elevation myocardial infarction) (HCC) Aortic valve stenosis, etiology of cardiac valve disease unspecified Coronary artery disease involving [place] coronary artery of [place] heart without angina pectoris Absent kidney, congenital Unequal pupils Overweight (BMI 25.0-29.9) H/O cervical spine surgery Tobacco use disorder Chews tobacco COVID-19 vaccination refused Coronary vasospasm (HCC) Bradley's esophagus with dysplasia 06/16/2023 12:18 PM EDT ALBUMIN / CREATININE RATIO, URINE Lab Routine Type 2 diabetes mellitus with diabetic neuropathy, unspecified whether jail insulin use (HCC) Familial hypercholesterolemia Dyslipidemia, goal LDL below 70 Diabetes mellitus without complication (HCC) Dilated aortic root (HCC) NSTEMI (non-ST elevation myocardial infarction) (HCC) Aortic valve stenosis, etiology of cardiac valve disease unspecified Coronary artery disease involving [place] coronary artery of [place] heart without angina pectoris Absent kidney, congenital Unequal pupils Overweight (BMI 25.0-29.9) H/O cervical spine surgery Tobacco use disorder Chews tobacco COVID-19 vaccination refused Coronary vasospasm (HCC) Bradley's esophagus with dysplasia 06/16/2023 12:18 PM EDT PSA Lab Routine Type 2 diabetes mellitus with diabetic neuropathy, unspecified whether termite treater insulin use (HCC) Familial hypercholesterolemia Dyslipidemia, goal LDL below 70 Diabetes mellitus without complication (HCC) Dilated aortic root (HCC) NSTEMI (non-ST elevation myocardial infarction) (HCC) Aortic valve stenosis, etiology of cardiac valve disease unspecified Coronary artery disease involving [place] coronary artery of [place] heart without angina pectoris Absent kidney, congenital Unequal pupils Overweight (BMI 25.0-29.9) H/O cervical spine surgery Tobacco use disorder Chews tobacco COVID-19 vaccination refused Coronary vasospasm (HCC) Bradley's esophagus with dysplasia 06/16/2023 12:18 PM EDT URINALYSIS, REFLEX TO CULTURE (NOT FOR NEUTROPENIC PATIENTS) Lab Routine Scrotal pain 06/16/2023 12:18 PM EDT CHLAMYDIA TRACHOMATIS AND NEISSERIA GONORRHOEAE, AMPLIFIED PROBE Lab Routine Scrotal pain 06/16/2023 12:18 PM EDT CBC Lab Routine Type 2 diabetes mellitus with diabetic neuropathy, unspecified whether jail insulin use (HCC) Familial hypercholesterolemia Dyslipidemia, goal LDL below 70 Diabetes mellitus without complication (HCC) Dilated aortic root (HCC) NSTEMI (non-ST elevation myocardial infarction) (HCC) Aortic valve stenosis, etiology of cardiac valve disease unspecified Coronary artery disease involving [place] coronary artery of [place] heart without angina pectoris Absent kidney, congenital Unequal pupils Overweight (BMI 25.0-29.9) H/O cervical spine surgery Tobacco use disorder Chews tobacco COVID-19 vaccination refused Coronary vasospasm (HCC) Bradley's esophagus with dysplasia 06/16/2023 12:18 PM EDT DIFFERENTIAL, AUTOMATED Lab Routine Type 2 diabetes mellitus with diabetic neuropathy, unspecified whether jail insulin use (HCC) Familial hypercholesterolemia Dyslipidemia, goal LDL below 70 Diabetes mellitus without complication (HCC) Dilated aortic root (HCC) NSTEMI (non-ST elevation myocardial infarction) (HCC) Aortic valve stenosis, etiology of cardiac valve disease unspecified Coronary artery disease involving [place] coronary artery of [place] heart without angina pectoris Absent kidney, congenital Unequal pupils Overweight (BMI 25.0-29.9) H/O cervical spine surgery Tobacco use disorder Chews tobacco COVID-19 vaccination refused Coronary vasospasm (HCC) Bradley's esophagus with dysplasia 06/16/2023 12:18 PM EDT URINALYSIS, REFLEX TO CULTURE (CUP ONLY) Lab Routine Scrotal pain 06/16/2023 12:18 PM EDT URINALYSIS, REFLEX TO CULTURE Lab Routine Scrotal pain 06/16/2023 12:18 PM EDT Health Maintenance Due Date Last Done Comments Bradley's Esophagus Surveilance 1960 DISCUSS TOBACCO CESSATION (REFER TO SMARTSET #3291) 1960 COVID-19 Vaccine (#1) 03/11/1962 DIABETES-EYE EXAM 1979 Diabetic Foot Exam 1979 Cologuard 2006 Fecal Occult Blood Test 2006 Sigmoidoscopy 2006 Zoster Vaccines (2 of 2) 07/04/2020 05/09/2020 Depression Screening 05/09/2021 05/09/2020 Pneumococcal Vaccine: Pediatrics (0 to 5 Years) and At-Risk Patients (6 to 64 Years) (2 - PCV) 05/09/2021 05/09/2020 Hepatitis B (1 of 3 - Risk 3-dose series) 2021 Albumin/Creatinine Ratio 06/01/2023 06/01/2022, 06/23 HbA1c 11/04/2023 05/06/2023, 05/23, 07/04/2021, Additional history exists GFR 06/11/2024 06/11/2023, 05/23, 06/09/2023, Additional history exists DTaP,Tdap,and Td Vaccines (2 [...] this encounter Medical Devices Implanted Type Area Dentofacial Orthopedics Dentist Device Identifier Shelf Expiration Date Model / Serial / Lot Valve Aortic Avalus 27mm - [id number] - [id number] Implanted:Qty: 1 on 06/07/2023 by Kayode Parnell MD at [place] [facility] [place]/A: Aorta [employer] 01/19/2026 [id number] / [id number] / [id number] documented as of this encounter Visit Diagnoses Diagnosis Type 2 diabetes mellitus with diabetic neuropathy, unspecified whether jail insulin use (HCC) Familial hypercholesterolemia Pure hypercholesterolemia Dyslipidemia, goal LDL below 70 Other and unspecified hyperlipidemia Diabetes mellitus without complication (HCC) Type II or unspecified type diabetes mellitus without mention of complication, not stated as uncontrolled Dilated aortic root (HCC) Thoracic aortic ectasia NSTEMI (non-ST elevation myocardial infarction) (HCC) Acute myocardial infarction, subendocardial infarction, episode of care unspecified Aortic valve stenosis, etiology of cardiac valve disease unspecified Coronary artery disease involving [place] coronary artery of [place] heart without angina pectoris Absent kidney, congenital 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 Question Answer Comments Discussion of Advance Directives occurred with: Patient Care Teams Spouting Installer Relationship Specialty Start Date End Date Luciana Leung DO [address] [facility] [place] [address] PCP - General Family Medicine 10/02/16 documented as of this encounter
--- OUTSIDE RECORDS SUMMARY | 2023-07-02 09:06 | External Medical Summary | Summary of Care ---
Author Name Unknown Organization [facility] Address [address] [place] [address] Phone [phone] Care Team Providers Care Monitor Technician Name Role Phone Luciana Leung DO Primary Care Provider [phone] Reason for Visit * Reason Comments Hospital Follow-Up Encounter Details Date Type Department Care Team (Late st Contact Info) Description 06/25/2023 9:30 AM EDT Office Visit Cardiothoracic Surg [facility] [address] [place] [address] Jonah Chacon PA-C [address] [place] [address] S/P AVR (aortic valve replacement)* [...] 70 08/07/2021 Coronary artery disease invo lving [place] coronary artery of [place] heart without angina pectoris 08/07/2021 COVID-19 vaccination [...] 07/06/2023 10:00 AM EST Office Visit Nephrology, [facility] [address] [facility] [place], [place] [address] Tavo Kuo MD [address] [facility] [place] [address] 07/12/2023 3:00 PM EST Office Visit Cardiology, [facility] [address] [place] [address] Joan Portillo PA-C [address] [place] [address] 07/22/2023 11:45 AM EST Office Visit [facility] [place] [address] [place], [place] [phone] Kayode Parnell MD [address] [place], [place] [phone] 07/29/2023 9:00 AM EST Telemedicine Endocrinology, [place] [address] [place] [address] Hailey Peña MD [address] [place], [place] [id number] 09/21/2023 2:30 PM EST Office Visit Cardiology, [place] [address] [place] [address] [place] [address] Hero Monique, DO [address] [place] [address] 09/30/2023 8:00 AM EST Office Visit Gastroenterology, [facility] [address] [place] [address] Stacey Bland CRNP [address] [place] [address] Health Maintenance Due Date Last Done Comments [...] this encounter Medical Devices Implanted Type Area Operations And Intelligence Assistant Device Identifier Shelf Expiration Date Model / Serial / Lot Valve Aortic Avalus 27mm - [id number] - [id number] Implanted:Qty: 1 on 06/07/2023 by Kayode Parnell MD at [place] [facility] [place] N/A: Aorta [employer] 01/19/2026 [id number] / [id number] / [id number] documented as of this encounter Visit Diagnoses [...] Advance Directives occurred with: Patient Care Teams Monitor Technician Relationship Specialty Start Date End Date Luciana Leung DO [address] [facility] [place] [address] PCP - General Family Medicine 10/02/16 documented as of this encounter
--- OUTSIDE RECORDS SUMMARY | 2023-07-02 09:06 | External Medical Summary | Summary of Care ---
Author Name Unknown Organization [facility] Address [address] [facility] [place] [address] Phone [phone] Care Team Providers Care Drill Operator Automatic Name Role Phone Luciana Leung DO Primary Care Provider [phone] [phone] Encounter Details Date Type Department Care Team (Late st Contact Info) Description 06/21/2023 [facility] [address] [place] [address] Luciana Leung DO [address] [place] [address] Allergies Active Allergy Reactions Criticality Noted Date Comments Simvastatin 11/01/2018 Elevated liver functions documented as of this encounter (statuses as of 06/21/2023) Medications Medication Sig Dispensed Refills Start Date [...] as of this encounter (statuses as of 06/21/2023) Active Problems Problem Noted Date Diagnosed Date NSTEMI (non-ST elevation myocardial infarction) 06/07/2023 Overview: NSTEMI in December 2022, suspected coronary spasm Type 2 diabetes mellitus with diabetic neuropath y 09/24/2021 Carpal tunnel syndrome 08/25/2021 Coronary vasospasm 08/25/2021 Dyslipidemia, goal LDL below 70 08/07/2021 Coronary artery disease invo lving [place] coronary artery of [place] heart without angina pectoris 08/07/2021 COVID-19 vaccination [...] as of this encounter (statuses as of 06/21/2023) Resolved Problems Problem Noted Date Diagnosed Date Resolved Date Trochanteric bursitis of left hip 05/09/2020 06/16/2023 Acute pancreatitis 11/01/2018 9 Bicuspid aortic valve 10/03/20162018 Need for hepatitis C screening test 10/03/2016 08/02/2017 documented as of this encounter (statuses as of 06/21/2023) Immunizations Name Administration Dates Next Due PPD [...] (15 years old or older) No 06/07/20 Cognitive Status Response Date of Assessm ent Because of a physical, menta l, or emotional condition, do you have serious difficulty concentrating, remembering, or making decisions? (5 years old or older No 06/07/2023 documented as of this encounter Miscellaneous Notes * Telephone Encounter - Luciana Leung DO - 06/21/2023 10:10 PM EDT Blood work reviewed Cholesterol controlled. White blood cell count still elevated with mild anemia that is improving. Concern for the elevated white blood cell count with the testicular issues. See how patient is doing. Liver enzymes elevated and alkaline phosphatase elevated. Could be secondary to recent sternotomy. PSA elevated and would like to get patient set up with Urology. Could be secondary to recent surgery? . See how patient is feeling. See if he has any signs of infection with the elevated white blood cell count. Would like to repeat liver enzymes in 1-2 weeks. documented in this encounter Plan of Treatment Upcoming Encounters Date Type Department Care Team (Late st Contact Info) Description 06/25/2023 9:30 AM EDT Office Visit Cardiothoracic Surg [facility] [address] [facility] [id number] Jonah Chacon PA-C [address] [place] [address] 07/06/2023 10:00 AM EST Office Visit [facility]phrology, [facility] [address] [facility] [place] [address] Tavo Kuo MD [address] [place] [address] 07/12/2023 3:00 PM EST Office Visit Cardiology, [facility] [address] [facility] [place] [address] Joan Portillo PA-C [address] [place] [address] 07/22/2023 11:45 AM EST Office [facility] [place] [address] [place] [address] Kayode Parnell MD [address] [place] [address] 07/29/2023 9:00 AM EST Telemedicine Endocrinology, [place] [address] [place] [address] Hailey Peña MD [address] [place] [address] 09/21/2023 2:30 PM EST Office Visit Cardiology, [place] [address] [place] [address] [place] [address] Hero Monique, DO [address] [place] [address] 09/30/2023 8:00 AM EST Office Visit Gastroenterology, [facility] [address] [place] [address] Stacey Bland CRNP [address] [place] [address] Scheduled Orders Name Type Priority Associated Diagnoses Orde r Schedule CBC WITH WBC DIFFERENTIAL AND ANEMIA REFLEX WORKUP Lab Routine Anemia, unspecified type Elevated liver enzymes Expected: 06/21/2023 (Approximate), Expires: 06/21/2024 HEPATIC FUNCTION PANEL Lab Routine Anemia, unspecified type Elevated liver enzymes Expected: 06/21/2023 (Approximate), Expires: 06/20/2024 Health Maintenance Due Date Last Done Comments Bradley's Esophagus Surveilance 1960 DISCUSS TOBACCO CESSATION (REFER TO SMARTSET #8781) 1960 COVID-19 Vaccine (#1) 03/11/1962 Diabetic Eye [...] this encounter Medical Devices Implanted Type Area Conservation Scientist Device Identifier Shelf Expiration Date Model / Serial / Lot Valve Aortic Avalus 27mm - [id number] - [id number] Implanted:Qty: 1 on 06/07/2023 by Kayode Parnell MD at [place] [facility] [place] N/A: Aorta [employer] 01/19/2026 [id number] / [id number] / [id number] documented as of this encounter Visit Diagnoses Diagnosis Anemia, unspecified type- Primary Elevated liver enzymes Nonspecific elevation of levels of transaminase or lactic acid dehydrogenase (LDH) documented in this encounter Advance Directives Latest Code Status on File Code Status Date Activated Date Inactivated Comments Full Code 06/07/2023 12:13 PM 06/11/2023 2:31 PM Th is order reflects the patients wishes and were consensually agreed upon. Question Answer Comments Discussion of Advance Directives occurred with: Patient Care Teams Drill Operator Automatic Relationship Specialty Start Date End Date Luciana Leung DO [address] [facility] [place] [address] PCP - General Family Medicine 10/02/16 documented as of this encounter
--- OUTSIDE RECORDS SUMMARY | 2023-07-02 09:06 | External Medical Summary | Summary of Care ---
Author Name Unknown Organization [facility] Address [address] [facility] [place] [address] Phone [phone] Care Team Providers Care Supervisor Joiners Name Role Phone Luciana Leung DO Primary Care Provider [phone] Reason for Visit * Reason Onset Date Comments Test Results 06/21/202306/25 Encounter Details Date Type Department Care Team (Late st Contact Info) Description 06/21/2023 [facility] [address] [place] [address] Luciana Leung DO [address] [place] [address] Test Results (06/25) Allergies Active Allergy Reactions Criticality Noted Date [...] 70 08/07/2021 Coronary artery disease invo lving [place] coronary artery of [place] heart without angina pectoris 08/07/2021 COVID-19 vaccination refused 07/04/2021 Diabetes mellitus without complication Bone cyst of right femur 02/26/2020 Dilated [...] encounter Miscellaneous Notes * Telephone Encounter - Sherie Klein LPN - 06/25/2023 11:52 AM EDT MyG sent to patient * Telephone Encounter - Luciana Leung DO [...] 07/06/2023 10:00 AM EST Office Visit Nephrology, [facility] [address] [facility] [place] [address] Tavo Kuo MD [address] [facility] [place] [address] 07/12/2023 3:00 PM EST Office Visit Cardiology, [facility] [place] [address] [place] [address] Joan Portillo PA-C [address] [place] [address] 07/22/2023 11:45 AM EST Office Visit [facility] [place] [address] [place] [address] Kayode Parnell MD [address] [place] [address] 07/29/2023 9:00 AM EST Telemedicine Endocrinology, [place] [address] [place], [place] [id number] Hailey Peña MD [address] [place] [address] 09/21/2023 2:30 PM EST Office Visit Cardiology, [place] [address] [place] [address] [place] [address] Hero Monique DO [address] [place] [address] 09/30/2023 8:00 AM EST Office Visit Gastroenterology, [facility] [place] [address] [place] [address] Stacey Bland CRNP [address] [place] [address] Scheduled Orders Name Type Priority Associated Diagnoses [...] this encounter Medical Devices Implanted Type Area Corrosion Prevention Metal Sprayer Device Identifier Shelf Expiration Date Model / Serial / Lot Valve Aortic Avalus 27mm - [id number] - [id number] Implanted:Qty: 1 on 06/07/2023 by Kayode Parnell MD [place] [facility] [place]/A: Aorta [employer] 01/19/2026 [id number] / [id number] / [id number] documented as of this encounter Visit Diagnoses [...] Advance Directives occurred with: Patient Care Teams Supervisor Joiners Relationship Specialty Start Date End Date Luciana Leung DO [address] [facility] [place] [address] PCP - General Family Medicine 10/02/16 documented as of this encounter
--- OUTSIDE RECORDS SUMMARY | 2023-07-02 09:07 | External Medical Summary | Summary of Care ---
Author Name Unknown Organization [facility] Address [address] [facility] [place] [address] Phone [phone] Care Team Providers Care Efficiency Miner Blasting Name Role Phone Luciana Leung DO Primary Care Provider [phone] Reason for Visit * Reason Onset Date Comments Hospital Follow-Up 06/14/2023 Encounter Details Date Type Department Care Team (Late st Contact Info) Description 06/14/2023 Telephone Family Practice [place] [address] [facility] [place] [address] Luciana Leung DO [address] [place] [address] Hospital Follow-Up Allergies Active Allergy Reactions Criticality Noted Date Comments Simvastatin 11/01/2018 Elevated liver functions documented as of this encounter (statuses as of 06/15/2023) Medications Medication Sig Dispensed Refills Start Date End Date Status aspirin enteric coated 81 MG TBEC Take 1 Tablet by mouth in the morning. 0 Active metronidazole (METROGEL) 0.75 % gel Apply topically to affected area 2 times a day. Apply to affected area 45 g 11 11/07/2019 Active Pantoprazole Sodium 40 MG Oral Tablet Delayed Release (Protonix)Indicatio ns:Bradley's esophagus with dysplasia TAKE 1 TABLET DAILY 90 Tablet 3 09/21/2022 Active Multi-Vitamin Daily Oral Tablet Take 1 Tablet by mouth in the morning. 0 Active Clopidogrel Bisulfate 75 MG Oral Tablet (pLAVix) Take 1 Tablet by mouth in the morning. 100 Tablet 6 01/11/2023 Active Metoprolol Succinate ER 25 MG Oral Tablet Extended Release 24 Hour (toPROL XL)Indications:NSTE OR (non-ST elevation myocardial infarction) (HCC) Take 1 Tablet by mouth in the morning. In the morning.. 90 Tablet 4 01/12/2023 Active Atorvastatin Calcium 40 MG Oral Tablet (Lipitor)Indication s:Well adult exam,Familial hypercholesterolemi a,HTN, goal below 140/90,Unequal pupils,Bicuspid aortic valve,Aortic stenosis [...] the morning. 30 Tablet 0 06/11/2023 Active documented as of this encounter (statuses as of 06/15/2023) Active Problems Problem Noted Date Diagnosed Date NSTEMI (non-ST elevation myocardial infarction) 06/07/2023 Overview: NSTEMI in December 2022, suspected coronary spasm Type 2 diabetes mellitus with diabetic neuropath y 09/24/2021 Carpal tunnel syndrome 08/25/2021 Coronary vasospasm 08/25/2021 Dyslipidemia, goal LDL below 70 08/07/2021 Coronary artery disease invo lving [place] coronary artery of [place] heart without angina pectoris 08/07/2021 COVID-19 vaccination refused 07/04/2021 Diabetes mellitus without complication Trochanteric bursitis of left hip 05/09/2020 Bone cyst of right femur 02/26/2020 Dilated [...] as of this encounter (statuses as of 06/15/2023) Resolved Problems Problem Noted Date Diagnosed Date Resolved Date Acute pancreatitis 11/01/2018 9 Bicuspid aortic valve 10/03/20162018 Need for hepatitis C screening test 10/03/2016 08/02/2017 documented as of this encounter (statuses as of 06/15/2023) Immunizations Name Administration Dates Next Due PPD [...] encounter Miscellaneous Notes * Telephone Encounter - Tracy St RN - 06/15/2023 2:01 PM EDT Transitions of Care Note Reason for Referral:Recent Admission Phone visit for follow up: STAN Admitted to: [facility], Date: 06/07/23 Discharged to: Home, Date: 06/11/23 Diagnosis driving hospitalization: Aortic Valve Stenosis Source/Contact: Patient SUBJECTIVE Consent: Verbal consent for review of hospital discharge: Yes REVIEW OF SYSTEMS Patient/Other Reports: Current patient/caregiver problems or concerns: patient doing well at home, states he misses all the [place] people he met during hospital stay CV: Denies problems Pulmonary: Denies problems Chills/Sweats/Fever:Denies chills/sweats Denies fever Appetite:Denies problems such as nausea, vomiting, burning, decreased appetite Current diet: Normal Bowel: hasn't gone "in a while", encouraged use of stool softeners so he doesn't strain Bladder: denies problems Wound (If applicable): chest incision without redness/swelling/drainage per patient Pain:Denies Sleep:Denies problems FUNCTIONAL STATUS: ADL'S: Needs Assistance With:N/A as pt is independent IADL'S: Needs Assistance With:N/A as pt is independent Cognitive and Mental Health: denies problems, alert and oriented x 3, and able to communicate, understand instructions, process information. MEDICATION RECONCILIATION Medications: Discharge med list reviewed with patient or caregiver Reviewed and updated all prescription and OTC medications in Epic New medication(s) filled since hospitalization- lasix, oxy IR, potassium chloride Changed medication(s) since hospitalization lisinopril 2.5 mg Discontinued [facility]) [facility] Reports all medications taken as prescribed. Denies side effects ASSESSMENT Medication Risk Assessment: Taking sedatives/hypnotics/narcotic analgesics and increased fall risk Did patient fail outpatient treatment? No Discharge instructions available for review? Yes PLAN Symptom Monitoring Interventions:Member/caregiver education - signs and symptoms to contact PrimaryCare (DO NOT DELETE-Three johnson symptoms patient is to report to PCP) 1. Uncontrolled pain 2. Fever/Chills 3. Nausea/Vomiting Otm ConsultantWebsite Designer of Care interventions/Action Plan: Medication reconciliation, Develop/confirm action plan for acute exacerbation, and 5 - 7 day follow-up with PCP in place - Date: 06/16/23 Educated on role of STAN completed with patient/caregiver. Educated patient/caregiver on patient right to have input on STAN plan of care. Verification of Home Health/DME if indicated: NO N/A Identified Care Gaps: Yes Care Gaps closed this call: Appointment made or confirmed, Medication adherence, Plan of care optimization, Post discharge appointment, and Transition of Care follow-up communication Re-evaluation of Plan of Care and progress towards goals achievement: Patient education this visit: Verbal, see above Plan to follow-up as previously scheduled, instructed to call Primary Care Provider with change in symptoms or as needed before next follow-up, discharge needs met, verbalizes understanding and agrees with plan. Tracy St RN * Telephone Encounter - Tracy St RN - 06/14/2023 3:22 PM EDT Transitions of Care Note Reason for Referral:Recent Admission Phone visit for follow up: STAN Admitted to: [facility], Date: 06/07/23 Discharged to: Home, Date: 06/11/23 Diagnosis driving hospitalization: Aortic Valve Stenosis Attempted contact for STAN call, no answer. Left message with reason for call and call back number. Will attempt to contact again > 4 hours from now. documented in this encounter Plan of Treatment Upcoming Encounters Date Type Department Care Team (Late st Contact Info) Description 06/16/2023 10:40 AM EDT [facility] Visit [facility] [place] [address] [place] [address] Luciana Leung DO [address] [place] [address] 06/25/2023 9:30 AM EDT Office Visit [facility] [place] [address] [place] [address] Jonah Chacon PA-C [address] [place] [address] 07/12/2023 3:00 PM EST Office Visit Cardiology, [facility] [address] [facility] [address] Joan Portillo PA-C [address] [facility] [place] [address] 07/22/2023 11:45 AM EST Office Visit [facility], [place] [address] [place] [address] Kayode Parnell MD [address] [place] [address] 09/21/2023 2:30 PM EST Office Visit Cardiology [place] [address] [facility] [place] [address] Hero Monique DO [address] [place] [address] Health Maintenance Due Date Last Done Comments Bradley's Esophagus Surveilance 1960 DISCUSS TOBACCO CESSATION (REFER TO SMARTSET #9109) 1960 COVID-19 Vaccine (#1) 03/11/1962 DIABETES-EYE EXAM [...] this encounter Medical Devices Implanted Type Area Medical Assistant Internal Medicine Device Identifier Shelf Expiration Date Model / Serial / Lot Valve Aortic Avalus 27mm - [id number] - [id number] Implanted:Qty: 1 on 06/07/2023 by Kayode Parnell MD at OR [facility] N/A: Aorta [employer] 01/19/2026 [id number] / [id number] / [id number] documented as of this encounter Advance Directives Latest Code Status on File Code Status Date Activated Date Inactivated Comments Full Code 06/07/2023 12:13 PM 06/11/2023 2:31 PM Th is order reflects the patients wishes and were consensually agreed upon. Question Answer Comments Discussion of Advance Directives occurred with: Patient Care Teams Efficiency Miner Blasting Relationship Specialty Start Date End Date Luciana Leung DO [address] [facility] [place] [address] PCP - General Family Medicine 10/02/16 documented as of this encounter
--- OUTSIDE RECORDS SUMMARY | 2023-07-02 09:07 | External Medical Summary ---
Author Name Unknown Address Unknown Organization [id number]:[facility] [place] [address] [facility] [address] Laboratory Report Ordering Provider Test Date Status OSCAR PRICE 06/16/2023 12:18:29 Final Observation Date Value Abnormality Reference (Units ) Status Color of Urine by Auto 06/16/2023 12:18:29 Light Yellow Colorless, Light Yellow, Yellow, Dark Yellow Final Clarity, Urine 06/16/2023 12:18:29 Clear Clear Final Glucose [Mass/volume] in Urine by Automated test strip 06/16/2023 12:18:29 Negative Negative (mg/dL) Final Bilirubin.total [Presence] in Urine by Automated test strip 06/16/2023 12:18:29 Negative Negative Final Ketones [Mass/volume] in Urine by Automated test strip 06/16/2023 12:18:29 Negative Negative (mg/dL) Final Specific gravity, Urine 06/16/2023 12:18:29 1.018 1.003-1.030 Final Hemoglobin [Presence] in Urine by Automated test strip 06/16/2023 12:18:29 Negative Negative Final pH, Urine 06/16/2023 12:18:29 6.5 5.0-7.5 (Units) Final Protein [Mass/volume] in Urine by Automated test strip 06/16/2023 12:18:29 Negative Negative (mg/dL) Final Urobilinogen [Mass/volume] in Urine by Automated test strip 06/16/2023 12:18:29 Normal Normal (mg/dL) Final Nitrite [Presence] in Urine by Automated test strip 06/16/2023 12:18:29 Negative Negative Final Leukocyte esterase [Presence] in Urine by Automated test strip 06/16/2023 12:18:29 Negative Negative Final RBC, Urine 06/16/2023 12:18:29 0-2 0-2 (/HPF) Final WBC, Urine 06/16/2023 12:18:29 0-2 0-2 (/HPF) Final Bacteria [#/area] in Urine sediment by Microscopy high power field 06/16/2023 12:18:29 0-25 0-25 (/HPF) Final CULTURE, URINE - ISINGER 06/16/2023 12:18:29 Final Culture not indicated by uri nalysis results\X09\ Performing Location [facility] [place] [address] [facility] [address]
--- OUTSIDE RECORDS SUMMARY | 2023-07-02 09:07 | External Medical Summary ---
Author Name Unknown Address Unknown Organization [id number]:[facility] [facility] [place] [address] [facility] [address] Laboratory Report Ordering Provider Test Date Status OSCAR PRICE 06/16/2023 12:18:29 Final Observation Date Value Abnormality Reference (Units ) Status BUN 06/16/2023 12:18:29 23 Above high normal 6-20 (mg/dL) Final Creatinine 06/16/2023 12:18:29 1.1 0.6-1.2 (mg/dL) Final Glomerular filtration rate/1.73 sq M.predicted [Volume Rate/Area] in Serum, Plasma or Blood by Creatinine-based formula (CKD-EPI) 06/16/2023 12:18:29 79 >=60 (mL/min) Final eGFR is calculated based on the CKD-EPI 2020 equation SODIUM 06/16/2023 12:18:29 138 135-146 (m mol/L) Final Potassium 06/16/2023 12:18:29 5.1 3.5-5.1 (m mol/L) Final Cl 06/16/2023 12:18:29 99 98-107 (mm ol/L) Final CO2 06/16/2023 12:18:29 24 22-32 (mmo l/L) Final Anion gap 06/16/2023 12:18:29 15 7-15 (mmol /L) Final Glucose 06/16/2023 12:18:29 83 70-120 (mg /dL) Final Albumin 06/16/2023 12:18:29 4.1 3.8-5.0 (g /dL) Final AST (Aspartate aminotransferase) 06/16/2023 12:18:29 38 10-50 (U/L) Fin al Alk Phos 06/16/2023 12:18:29 201 Above high normal 35 -130 (U/L) Final Bilirubin, Total 06/16/2023 12:18:29 0.4 <=1 .2 (mg/dL) Final Calcium 06/16/2023 12:18:29 9.6 8.4-10.2 ( mg/dL) Final Protein 06/16/2023 12:18:29 6.5 6.0-8.3 (g /dL) Final ALT (Alanine aminotransferase) 06/16/2023 12:18:29 89 Above high normal 10-50 (U/L) Final Performing Location [facility] [place] [facility] [place] [address]
--- OUTSIDE RECORDS SUMMARY | 2023-07-02 09:07 | External Medical Summary ---
Author Name Unknown Address Unknown Organization K01:LABORATORY [facility] - [address] [place] [address] Laboratory Report Ordering Provider Test Date Status OSCAR PRICE 06/16/2023 12:18:29 Final Observation Date Value Abnormality Reference (Units ) Status PSA 06/16/2023 12:18:29 4.84 Above high normal <4 .10 (ng/mL) Final Performing Location LABORATORY [facility] - [address] [place] [address]
--- OUTSIDE RECORDS SUMMARY | 2023-07-02 09:07 | External Medical Summary ---
Author Name Unknown Address Unknown Organization K01:LABORATORY [facility] [place] - [facility] [address] [facility] [address] [facility] [address] Laboratory Report Ordering Provider Test Date Status OSCAR PRICE 06/16/2023 12:18:29 Final Observation Date Value Abnormality Reference (Units ) Status TSH 06/16/2023 12:18:29 1.86 0.27-4.20 (uIU/mL) Final Performing Location LABORATORY [facility] [place] - [address] [facility] [address]
--- OUTSIDE RECORDS SUMMARY | 2023-07-02 09:07 | External Medical Summary ---
Author Name Unknown Address Unknown Organization K01:[facility] [place] [address] [place] [address] Laboratory Report Ordering Provider Test Date Status OSCAR PRICE 06/16/2023 12:18:29 Final Normal: <30 mg/g creatinine< br/>High: 30-300 mg/g creatinine
Very High: >300 mg/g creatinine
Nephrotic: >2200 mg/g creatinine Observation Date Value Abnormality Reference (Units ) Status Albumin, Urine 06/16/2023 12:18:29 <1.20 (mg/dL) Final Creatinine, Urine 06/16/2023 12:18:29 88 (mg/dL) Final Albumin/Creatinine [Mass Ratio] in Urine 06/16/2023 12:18:29 <14 <30 (mg/g Creat) Final Performing Location [facility] [place] [address] [place] [address]
--- OUTSIDE RECORDS SUMMARY | 2023-07-02 09:07 | External Medical Summary ---
Author Name Unknown Address Unknown Organization K01:LABORATORY [facility] [place] - [address] [facility] [address] Laboratory Report Ordering Provider Test Date Status OSCAR PRICE 06/16/2023 12:18:29 Final Observation Date Value Abnormality Reference (Units ) Status Triglyceride 06/16/2023 12:18:29 152 <=174 ( mg/dL) Final Triglyceride Reference Range s (mg/dL):
<150 Acceptable
150-174 Borderline high
175-499 High
>=500 Very high Cholesterol 06/16/2023 12:18:29 150 <200 (mg /dL) Final Total Cholesterol Reference Ranges (mg/dL):
<200 Desirable
200-239 Borderline high
>=240 High HDL 06/16/2023 12:18:29 41 >39 (mg/dL ) Final HDL Cholesterol Reference Ra nges (mg/dL):
>=60 High (Desirable)
<50 Low (Undesirable) For Females
<40 Low (Undesirable) For Males NON-HDL CHOLESTEROL 06/16/2023 12:18:29 109 <=159 (mg/dL) Final Non-HDL Cholesterol Referenc e Range (mg/dL):
<100 Target level for high risk ASCVD patient
<130 Optimal for general population
130-159 Near optimal for general population
160-189 Borderline High
190-219 High
>=220 Very High LDL, (calculated) 06/16/2023 12:18:29 79 <= 129 (mg/dL) Final LDL Cholesterol Reference Ra nges (mg/dL):
<70 Target level for high risk ASCVD patient
<100 Optimal for general population
100-129 Near optimal for general population
130-159 Borderline high
160-189 High
>=190 Very high Performing Location LABORATORY [facility] [place] - [address] [facility] [address]
--- OUTSIDE RECORDS SUMMARY | 2023-07-02 09:07 | External Medical Summary ---
Author Name Unknown Address Unknown Organization K01:LABORATORY [place] [address] [address] [place] [facility] [address] Laboratory Report Ordering Provider Test Date Status OSCAR PRICE 06/16/2023 12:18:29 Final Observation Date Value Abnormality Reference (Units ) Status Chlamydia trachomatis rRNA [Presence] in Specimen by LIZ with probe detection 06/16/2023 12:18:29 Negative Negative Final No Chlamydia trachomatis det ected by senior technical business analyst-mediated nucleic acid amplification. Neisseria gonorrhoeae rRNA [ Presence] in Specimen by LIZ with probe detection 06/16/2023 12:18:29 Negative Negative Final No Neisseria gonorrhoeae det ected by senior technical business analyst-mediated nucleic acid amplification. Performing Location [facility]ORY [facility] [place] - [address] [facility] [address]
--- OUTSIDE RECORDS SUMMARY | 2023-07-02 09:07 | External Medical Summary ---
Author Name Unknown Address Unknown Organization K01:LABORATORY [facility] - [address] [facility] [address] Laboratory Report Ordering Provider Test Date Status ALBERTCATMOORE 06/16/2023 12:18:29 Final Observation Date Value Abnormality Reference (Units ) Status SYNC LEUKOCYTES IN BLOOD BY AUTOMATED COUNT 06/16/2023 12:18:29 12.05 Above high normal 4.00-10.80 (K/uL) Final Neutrophils/100 leukocytes in Blood by Manual count 06/16/2023 12:18:29 64.0 40.0-75.0 (%) Final Lymphocytes/100 leukocytes in Blood by Manual count 06/16/2023 12:18:29 19.0 18.0-42.0 (%) Final Monocytes/100 leukocytes in Blood by Manual count 06/16/2023 12:18:29 9.0 1.0-11.0 (%) Final Eosinophils/100 leukocytes in Blood by Manual count 06/16/2023 12:18:29 4.0 0.0-6.0 (%) Final Basophils/100 leukocytes in Blood by Manual count 06/16/2023 12:18:29 1.0 0.0-2.0 (%) Final Metamyelocytes/100 leukocytes in Blood by Manual count 06/16/2023 12:18:29 1.0 Above high normal <=0.0 (%) Final Myelocytes/100 leukocytes in Blood by Manual count 06/16/2023 12:18:29 2.0 Above high normal <=0.0 (%) Final Neutrophils [#/volume] in Blood by Manual count 06/16/2023 12:18:29 7.71 Above high normal 1.80-7.70 (K/uL) Final Lymphocytes [#/volume] in Blood by Manual count 06/16/2023 12:18:29 2.29 1.00-4.80 (K/uL) Final Monocytes [#/volume] in Blood by Manual count 06/16/2023 12:18:29 1.08 0.00-1.10 (K/uL) Final Eosinophils [#/volume] in Blood by Manual count 06/16/2023 12:18:29 0.48 0.00-0.70 (K/uL) Final Basophils [#/volume] in Blood by Manual count 06/16/2023 12:18:29 0.12 0.00-0.20 (K/uL) Final Metamyelocytes [#/volume] in Blood by Manual count 06/16/2023 12:18:29 0.12 Above high normal <=0.00 (K/uL) Final Myelocytes [#/volume] in Blood by Manual count 06/16/2023 12:18:29 0.24 Above high normal <=0.00 (K/uL) Final Ovalocytes [Presence] in Blood by Light microscopy 06/16/2023 12:18:29 Moderate Abnormal None Seen Final Schistocytes 06/16/2023 12:18:29 Few Abnormal None Seen Final Performing Location [place] [facility] [place] [address] [facility] [address]
--- OUTSIDE RECORDS SUMMARY | 2023-07-02 09:07 | External Medical Summary ---
Author Name Unknown Address Unknown Organization K01:LABORATORY [address] [address] Laboratory Report Ordering Provider Test Date Status OSCAR PRICE 06/16/2023 12:18:29 Final Observation Date Value Abnormality Reference (Units ) Status WBC, Total 06/16/2023 12:18:29 12.05 Above high normal 4.00-10.80 (K/uL) Final RBC 06/16/2023 12:18:29 3.57 4.50-5.25 (M/uL) Final Hemoglobin 06/16/2023 12:18:29 10.7 Below low normal 14.0-16.8 (g/dL) Final HCT 06/16/2023 12:18:29 34.6 Below low normal 40.0-48.4 (%) Final MCV 06/16/2023 12:18:29 96.9 82.0-99.5 (fL) Final MCH 06/16/2023 12:18:29 30.0 27.0-34.0 (pg) Final MCHC 06/16/2023 12:18:29 30.9 32.0-36.0 (g/dL) Final RDW 06/16/2023 12:18:29 14.3 11.5-15.5 (%) Final Platelets 06/16/2023 12:18:29 365 140-400 (K/uL) Final MPV 06/16/2023 12:18:29 9.9 6.6-11.1 (fL) Final Nucleated erythrocytes/100 leukocytes [Ratio] in Blood by Automated count 06/16/2023 12:18:29 0 <=0 (/100 WBCs) Final Performing Location LABORATORY [facility] [place] - [facility] [address] [place] [facility] [address]
--- OUTSIDE RECORDS SUMMARY | 2023-07-02 09:07 | External Medical Summary | Summary of Care ---
Author Name Unknown Organization [facility] Address [address] [facility] [place] [address] Phone [phone] Care Team Providers Care Caterers Helper Name Role Phone Luciana Leung DO Primary Care Provider [phone] Reason for Referral * Evaluate & Treat - Unlimited Visits (Within 10 days (routine)) - Pending Review Specialty Diagnoses / Procedures Referred By Etta gill Referred To Contact Urology Diagnoses Scrotal pain Luciana Leung DO [address] [place] [address] Referral ID Status Reason Start Date Expiration Date Visits Requested Visits Authorized [id number] Pending Review Specialty Services Required [phone] Question Answer Referral Priority Within 10 days (routine) Where should this appointment be scheduled? [facility] What is the patient being referred for? Other conditions * Evaluate & Treat - Unlimited Visits (Within 30 days (routine)) - Pending Review Specialty Diagnoses / Procedures Referred By Etta igll Referred To Contact Endocrinology/Metabolism / Endocrinology Diagnoses Benign neoplasm of left adrenal gland Luciana Leung DO [address] [place] [address] Referral ID Status Reason Start Date Expiration Date Visits Requested Visits Authorized [id number] Pending Review Specialty Services Required [phone] Question Answer Referral Priority Within 30 days (routine) Where should this appointment be scheduled? [facility] For what condition is the patient being referred? Adrenal Gland * Evaluate & Treat - Unlimited Visits (Within 30 days (routine)) - Pending Review Specialty Diagnoses / Procedures Referred By Etta gill Referred To Contact Gastroenterology Diagnoses Bradley's esophagus with dysplasia Luciana Leung DO [address] [facility] [place] [address] Referral ID Status Reason Start Date Expiration Date Visits Requested Visits Authorized [id number] Pending Review Specialty Services Required [phone] Question Answer Referral Priority Within 30 days (routine) Where should this appointment be scheduled? [facility] For what condition is the patient being referred? All Gastro Conditions * Evaluate & Treat - Unlimited Visits (Within 30 days (routine)) - Pending Review Specialty Diagnoses / Procedures Referred By Etta gill Referred To Contact Nephrology Diagnoses Absent kidney, congenital Luciana Leung DO [address] [facility] [place] [address] Referral ID Status Reason Start Date Expiration Date Visits Requested Visits Authorized [id number] Pending Review Specialty Services Required [phone] Question Answer Referral Priority Within 30 days (routine) Where should this appointment be scheduled? [facility] What condition is this patient being seen for? Other (please specify) Reason for Visit * Reason Comments Hospital Follow-Up Was admitted to [facility] from 06/07-06/13 for Replacement of Aortic Valve, bypass with prosthetic valve. He has a follow up appt with Cardiology scheduled. He would like to discuss some concerns with Dr Leung Encounter Details Date Type Department Care Team (Late st Contact Info) Description 06/16/2023 10:40 AM EDT Office Visit Family [facility] Disha Meek [address] [place] [address] Luciana Leung DO [address] [facility] [place] [address] Hospital discharge follow-up*; Type 2 diabetes mellitus with diabetic neuropathy, unspecified whether long term care phlebotomist insulin use (HCC); Familial hypercholesterolemia; Dyslipidemia, goal LDL below 70; Diabetes mellitus without complication (HCC); Dilated aortic root (HCC); NSTEMI (non-ST elevation myocardial infarction) (HCC); Aortic valve stenosis, etiology of cardiac valve disease unspecified; Coronary artery disease involving grand ronde tribes coronary artery of grand [place] tribes heart without angina pectoris; Absent kidney, congenital; Unequal pupils; Overweight (BMI 25.0-29.9); H/O cervical spine surgery; Tobacco use disorder; Chews tobacco; COVID-19 vaccination refused; Coronary vasospasm (HCC); Bradley's esophagus with dysplasia; Benign neoplasm of left adrenal gland; Bone cyst of right femur; Carpal tunnel syndrome of left wrist; Cervical disc herniation; HTN, goal below 140/90; Scrotal pain Allergies Active Allergy Reactions Criticality [...] 70 08/07/2021 Coronary artery disease invo lving grand ronde tribes coronary artery of grand [place] tribes heart without angina pectoris 08/07/2021 COVID-19 vaccination [...] Day Cigarettes 20 Smokeless Tobacco: Current Chew Tobacco Cessation:Ready to Q uit: Not Asked; Counseling Given: Not Answered Comments:1 cigarette a day x 20 years; [...] Sign Reading Time Taken Comments Blood Pressure 122/76 06/16/2023 11:02 AM EDT Pulse 80 06/16/2023 11:02 AM EDT Temperature 36.9 C (98.5 F) 06/16/2023 11:02 AM E DT Respiratory Rate 20 06/16/2023 11:02 AM EDT Oxygen Saturation 98% 06/16/2023 11:02 AM EDT Inhaled Oxygen Concentration - - Weight 96 kg (211 lb 9.6 oz) 06/16/2023 11:02 AM EDT Height 177.8 cm (5' 10") 06/16/2023 11:02 AM EDT Body Mass Index 30.36 06/16/2023 11:02 AM EDT documented in this encounter Functional [...] No 06/07/2023 documented as of this encounter Progress Notes * Luciana Leung, DO - 06/16/2023 11:25 AM EDT Images from the original note were not included. Subjective: Tobi Sanchez is a 62 year old male. Chief Complaint Patient presents with Hospital Follow-Up Was admitted to [facility] from 06/07-06/13 for Replacement of Aortic Valve, bypass with prosthetic valve.He has a follow up appt with Cardiology scheduled. He would like to discuss some concerns with Dr Leung HPI: Patient is a 62-year-old male who presents to the office for a hospital follow-up. Patient recently had a hospital stay at [facility] for aortic valve stenosis replacement. He was admitted June 07 and discharged on June 11. He has a history of an NSTEMI in December and he was hospitalized at [facility]. He was started on Plavix. Patient underwent aortic valve replacement with a bioprosthetic valve on June 10. He did well postop. Lisinopril was at a lower dose and Toprol was restarted. Plavix was resumed. They did not restart his amlodipine. He was discharged on Lasix daily for 1 month. He is a follow-up with cardiology pending. He is due for fasting blood work. He had a mild anemia postop in May. He is due for PSA. He hasa history of diabetes and he had wish to try diet and exercise changes. He is overdue for follow-up with Gastroenterology. He has a history of Bradley's esophagus and is due for an EGD. He was referred to sleep medicine for obstructive sleep apnea. He has been complaint with CPAP. He has been referred to Nephrology in the past and has not followed up. Would still encouraged follow-up. He presents to the office with his girlfriend. He declines LDCT screening test. He had been referred to Endcorinology in the past for an adrenal adenoma and thryoid issues. He hasnot follow up. He complains today of right-sided scrotal pain, he feels that he had a piece of glue on the area and it is causing pain? . He does have some swelling in the scrotal area. No epididymal pain. Small looks like blood vessel. PMH: Patient Active Problem List Diagnosis Code Familial hypercholesterolemia E78.01 HTN, goal below 140/90 I10 Unequal pupils H57.02 Aortic valve stenosis I35.0 Overweight (BMI 25.0-29.9) E66.3 Absent kidney, congenital Q60.2 Benign neoplasm of adrenal gland D35.00 Cervical disc herniation M50.20 H/O cervical spine surgery Z98.890 Tobacco use disorder F17.200 Chews tobacco Z72.0 Bradley's esophagus with dysplasia K22.719 Dilated aortic root (HCC) I77.810 Bone cyst of right femur M85.651 Diabetes mellitus without complication (HCC) E11.9 COVID-19 vaccination refused Z28.21 Dyslipidemia, goal LDL below 70 E78.5 Coronary artery disease involving grand ronde tribes coronary artery of grand ronde tribes heart without angina pectoris I25.10 Carpal tunnel syndrome G56.00 Coronary vasospasm (HCC) I20.1 Type 2 diabetes mellitus with diabetic neuropathy (HCC) E11.40 NSTEMI (non-ST elevation myocardial infarction) ([facility]) I21.4 Current Outpatient Medications Medication Sig Dispense Refill aspirin enteric coated 81 MG TBEC Take 1 Tablet by mouth in the morning. metronidazole (METROGEL) 0.75 % gel Apply topically to affected area 2 times a day. Apply to affected area 45 g 11 Pantoprazole Sodium 40 MG Oral Tablet Delayed Release (Protonix) TAKE 1 TABLET DAILY 90 Tablet 3 Multi-Vitamin Daily Oral Tablet Take 1 Tablet by mouth in the morning. Clopidogrel Bisulfate 75 MG Oral Tablet (pLAVix) Take 1 Tablet by mouth in the morning. 100 Tablet 6 Metoprolol Succinate ER 25 MG Oral Tablet Extended Release 24 Hour (toPROL XL) Take 1 Tablet by mouth in the morning. In the morning.. 90 Tablet 4 Atorvastatin Calcium 40 MG Oral Tablet (Lipitor) TAKE 1 TABLET IN THE MORNING 90 Tablet 1 CPAP every night at bedtime. Lisinopril 2.5 MG Oral Tablet (Prinivil) Take 1 Tablet by mouth in the morning. 30 Tablet 1 Furosemide 40 MG Oral Tablet (Lasix) Take 1 Tablet by mouth in the morning. 30 Tablet 0 oxyCODONE HCl 5 MG Oral Tablet (Oxy IR) Take 1 Tablet by mouth every 4 hours as needed for Pain, Moderate. 30 Tablet 0 Potassium Chloride ER 10 MEQ Oral Tablet Extended Release Take 2 Tablets by mouth in the morning. 30 Tablet 0 Zoster Vac Recomb Adjuvanted 50 MCG/0.5ML Intramuscular Suspension Reconstituted (Shingrix) Inject 0.5 mL into a large muscle now and repeat dose in 60 to 180 days 1 Each 1 No current facility-administered medications for this visit. Past Medical History: Diagnosis Date Bradley's esophagus with dysplasia 08/02/2017 Past Surgical History: Procedure Laterality Date DRAIN SKIN ABSCESS, SIMPLE/SINGLE LASIK SURGERY REMOVE TONSILS & ADENOIDS, UNDER 12 REPLACEMENT AORTIC VALVE, BYPASS WITH PROSTHETIC VALVE N/A 06/07/2023 REPLACEMENT AORTIC VALVE, BYPASS WITH PROSTHETIC VALVE performed by Kayode Parnell MD at OR [facility] VASECTOMY Review of patient's allergies indicates: Allergen Reactions Simvastatin Elevated liver functions Family History Problem Relation Age of Onset Heart Disorder Mother Hypertension Mother Hypertension Father Heart Disorder Father Diabetes Father Heart Disorder Brother Diabetes Brother Cancer Grandfather (Maternal) No Known Problems Son Family Status Relation Status Mo Alive Fa Bro MGFA (Not Specified) Bro Alive Blanquita Alive Blanquita Son Alive Social History Socioeconomic History Marital status: Spouse name: Not on file Number of children: Not on file Years of education: Not on file Highest education level: Not on file Occupational History Not on file Tobacco Use Smoking status: Every Day Years: 20 Types: Cigarettes Smokeless tobacco: Current Types: Chew Tobacco comments: 1 cigarette a day x 20 years; 1 can/week x 40 years Vaping Use Vaping Use: Never used Substance and Sexual Activity Alcohol use: Yes Comment: occ Drug use: No Sexual activity: Not on file Other Topics Concern Not on file Social History Narrative Not on file Social Determinants of Health Financial Resource Strain: Not on file Food Insecurity: No Food Insecurity (12/07/2019) Hunger Vital Sign Worried About Running Out of Food in the Last Year: Never true Ran Out of Food in the Last Year: Never true Transportation Needs: Not on file Physical Activity: Not on file Stress: Not on file Social Connections: Not on file Intimate Partner Violence: Not on file Housing Stability: Not on file Review of Systems Constitutional: Negative. HENT: Negative. Eyes: Negative. Respiratory: Negative. Cardiovascular: Negative. Gastrointestinal: Negative. Endocrine: Negative. Genitourinary: Negative. Musculoskeletal: Negative. Skin: Negative. Allergic/Immunologic: Negative. Neurological: Negative. Hematological: Negative. Psychiatric/Behavioral: Negative. Objective: BP 122/76 | Pulse 80 | Temp 36.9 C (98.5 F) (Tympanic) | Resp 20 | Ht 1.778 m (5' 10") | Wt 96 kg (211 lb 9.6 oz) | SpO2 98% | BMI 30.36 kg/m | BSA 2.18 m Physical Exam Vitals and nursing note reviewed. Exam conducted with a day care provider present. Constitutional: Appearance: He is well-developed. HENT: Right Ear: External ear normal. Left Ear: External ear normal. Nose: Nose normal. Eyes: Conjunctiva/sclera: Conjunctivae normal. Pupils: Pupils are equal, round, and reactive to light. Cardiovascular: Rate and Rhythm: Normal rate and regular rhythm. Heart sounds: Normal heart sounds. Pulmonary: Effort: Pulmonary effort is normal. Breath sounds: Normal breath sounds. Abdominal: General: Bowel sounds are normal. Palpations: Abdomen is soft. Genitourinary: Pubic Area: No rash. Testes: Right: Tenderness, swelling and testicular hydrocele present. Mass not present. Left: Testicular hydrocele not present. Epididymis: Right: Tenderness present. Musculoskeletal: General: Normal range of motion. Cervical back: Neck supple. Skin: General: Skin is warm and dry. Neurological: Mental Status: He is alert and oriented to person, place, and time. Psychiatric: Behavior: Behavior normal. Thought Content: Thought content normal. Judgment: Judgment normal. ASSESSMENT: Hospital discharge follow-up (Primary) Type 2 diabetes mellitus with diabetic neuropathy, unspecified whether care home insulin use (HCC) - CBC WITH WBC DIFFERENTIAL; Future; Expected date: 06/16/2023 - COMPREHENSIVE METABOLIC PANEL; Future; Expected date: 06/16/2023 - LIPID PANEL WITH DIRECT LDL IF TG IS HIGH; Future; Expected date: 06/16/2023 - TSH WITH FREE T4 IF INDICATED; Future; Expected date: 06/16/2023 - ALBUMIN / CREATININE RATIO, URINE; Future; Expected date: 06/16/2023 - URINALYSIS, REFLEX TO MICROSCOPIC - PSA; Future; Expected date: 06/16/2023 Familial hypercholesterolemia - CBC WITH WBC DIFFERENTIAL; Future; Expected date: 06/16/2023 - COMPREHENSIVE METABOLIC PANEL; Future; Expected date: 06/16/2023 - LIPID PANEL WITH DIRECT LDL IF TG IS HIGH; Future; Expected date: 06/16/2023 - TSH WITH FREE T4 IF INDICATED; Future; Expected date: 06/16/2023 - ALBUMIN / CREATININE RATIO, URINE; Future; Expected date: 06/16/2023 - URINALYSIS, REFLEX TO MICROSCOPIC - PSA; Future; Expected date: 06/16/2023 Dyslipidemia, goal LDL below 70 - CBC WITH WBC DIFFERENTIAL; Future; Expected date: 06/16/2023 - COMPREHENSIVE METABOLIC PANEL; Future; Expected date: 06/16/2023 - LIPID PANEL WITH DIRECT LDL IF TG IS HIGH; Future; Expected date: 06/16/2023 - TSH WITH FREE T4 IF INDICATED; Future; Expected date: 06/16/2023 - ALBUMIN / CREATININE RATIO, URINE; Future; Expected date: 06/16/2023 - URINALYSIS, REFLEX TO MICROSCOPIC - PSA; Future; Expected date: 06/16/2023 Diabetes mellitus without complication (HCC) - CBC WITH WBC DIFFERENTIAL; Future; Expected date: 06/16/2023 - COMPREHENSIVE METABOLIC PANEL; Future; Expected date: 06/16/2023 - LIPID PANEL WITH DIRECT LDL IF TG IS HIGH; Future; Expected date: 06/16/2023 - TSH WITH FREE T4 IF INDICATED; Future; Expected date: 06/16/2023 - ALBUMIN / CREATININE RATIO, URINE; Future; Expected date: 06/16/2023 - URINALYSIS, REFLEX TO MICROSCOPIC - PSA; Future; Expected date: 06/16/2023 Dilated aortic root (HCC) - CBC WITH WBC DIFFERENTIAL; Future; Expected date: 06/16/2023 - COMPREHENSIVE METABOLIC PANEL; Future; Expected date: 06/16/2023 - LIPID PANEL WITH DIRECT LDL IF TG IS HIGH; Future; Expected date: 06/16/2023 - TSH WITH FREE T4 IF INDICATED; Future; Expected date: 06/16/2023 - ALBUMIN / CREATININE RATIO, URINE; Future; Expected date: 06/16/2023 - URINALYSIS, REFLEX TO MICROSCOPIC - PSA; Future; Expected date: 06/16/2023 NSTEMI (non-ST elevation myocardial infarction) (HCC) - CBC WITH WBC DIFFERENTIAL; Future; Expected date: 06/16/2023 - COMPREHENSIVE METABOLIC PANEL; Future; Expected date: 06/16/2023 - LIPID PANEL WITH DIRECT LDL IF TG IS HIGH; Future; Expected date: 06/16/2023 - TSH WITH FREE T4 IF INDICATED; Future; Expected date: 06/16/2023 - ALBUMIN / CREATININE RATIO, URINE; Future; Expected date: 06/16/2023 - URINALYSIS, REFLEX TO MICROSCOPIC - PSA; Future; Expected date: 06/16/2023 Aortic valve stenosis, etiology of cardiac valve disease unspecified - CBC WITH WBC DIFFERENTIAL; Future; Expected date: 06/16/2023 - COMPREHENSIVE METABOLIC PANEL; Future; Expected date: 06/16/2023 - LIPID PANEL WITH DIRECT LDL IF TG IS HIGH; Future; Expected date: 06/16/2023 - TSH WITH FREE T4 IF INDICATED; Future; Expected date: 06/16/2023 - ALBUMIN / CREATININE RATIO, URINE; Future; Expected date: 06/16/2023 - URINALYSIS, REFLEX TO MICROSCOPIC - PSA; Future; Expected date: 06/16/2023 Coronary artery disease involving grand ronde tribes coronary artery of grand ronde tribes heart without angina pectoris - CBC WITH WBC DIFFERENTIAL; Future; Expected date: 06/16/2023 - COMPREHENSIVE METABOLIC PANEL; Future; Expected date: 06/16/2023 - LIPID PANEL WITH DIRECT LDL IF TG IS HIGH; Future; Expected date: 06/16/2023 - TSH WITH FREE T4 IF INDICATED; Future; Expected date: 06/16/2023 - ALBUMIN / CREATININE RATIO, URINE; Future; Expected date: 06/16/2023 - URINALYSIS, REFLEX TO MICROSCOPIC - PSA; Future; Expected date: 06/16/2023 Absent kidney, congenital - CBC WITH WBC DIFFERENTIAL; Future; Expected date: 06/16/2023 - COMPREHENSIVE METABOLIC PANEL; Future; Expected date: 06/16/2023 - LIPID PANEL WITH DIRECT LDL IF TG IS HIGH; Future; Expected date: 06/16/2023 - TSH WITH FREE T4 IF INDICATED; Future; Expected date: 06/16/2023 - ALBUMIN / CREATININE RATIO, URINE; Future; Expected date: 06/16/2023 - URINALYSIS, REFLEX TO MICROSCOPIC - PSA; Future; Expected date: 06/16/2023 - NEPHROLOGY REFERRAL OP Unequal pupils - CBC WITH WBC DIFFERENTIAL; Future; Expected date: 06/16/2023 - COMPREHENSIVE METABOLIC PANEL; Future; Expected date: 06/16/2023 - LIPID PANEL WITH DIRECT LDL IF TG IS HIGH; Future; Expected date: 06/16/2023 - TSH WITH FREE T4 IF INDICATED; Future; Expected date: 06/16/2023 - ALBUMIN / CREATININE RATIO, URINE; Future; Expected date: 06/16/2023 - URINALYSIS, REFLEX TO MICROSCOPIC - PSA; Future; Expected date: 06/16/2023 Overweight (BMI 25.0-29.9) - CBC WITH WBC DIFFERENTIAL; Future; Expected date: 06/16/2023 - COMPREHENSIVE METABOLIC PANEL; Future; Expected date: 06/16/2023 - LIPID PANEL WITH DIRECT LDL IF TG IS HIGH; Future; Expected date: 06/16/2023 - TSH WITH FREE T4 IF INDICATED; Future; Expected date: 06/16/2023 - ALBUMIN / CREATININE RATIO, URINE; Future; Expected date: 06/16/2023 - URINALYSIS, REFLEX TO MICROSCOPIC - PSA; Future; Expected date: 06/16/2023 H/O cervical spine surgery - CBC WITH WBC DIFFERENTIAL; Future; Expected date: 06/16/2023 - COMPREHENSIVE METABOLIC PANEL; Future; Expected date: 06/16/2023 - LIPID PANEL WITH DIRECT LDL IF TG IS HIGH; Future; Expected date: 06/16/2023 - TSH WITH FREE T4 IF INDICATED; Future; Expected date: 06/16/2023 - ALBUMIN / CREATININE RATIO, URINE; Future; Expected date: 06/16/2023 - URINALYSIS, REFLEX TO MICROSCOPIC - PSA; Future; Expected date: 06/16/2023 Tobacco use disorder - CBC WITH WBC DIFFERENTIAL; Future; Expected date: 06/16/2023 - COMPREHENSIVE METABOLIC PANEL; Future; Expected date: 06/16/2023 - LIPID PANEL WITH DIRECT LDL IF TG IS HIGH; Future; Expected date: 06/16/2023 - TSH WITH FREE T4 IF INDICATED; Future; Expected date: 06/16/2023 - ALBUMIN / CREATININE RATIO, URINE; Future; Expected date: 06/16/2023 - URINALYSIS, REFLEX TO MICROSCOPIC - PSA; Future; Expected date: 06/16/2023 Chews tobacco - CBC WITH WBC DIFFERENTIAL; Future; Expected date: 06/16/2023 - COMPREHENSIVE METABOLIC PANEL; Future; Expected date: 06/16/2023 - LIPID PANEL WITH DIRECT LDL IF TG IS HIGH; Future; Expected date: 06/16/2023 - TSH WITH FREE T4 IF INDICATED; Future; Expected date: 06/16/2023 - ALBUMIN / CREATININE RATIO, URINE; Future; Expected date: 06/16/2023 - URINALYSIS, REFLEX TO MICROSCOPIC - PSA; Future; Expected date: 06/16/2023 COVID-19 vaccination refused - CBC WITH WBC DIFFERENTIAL; Future; Expected date: 06/16/2023 - COMPREHENSIVE METABOLIC PANEL; Future; Expected date: 06/16/2023 - LIPID PANEL WITH DIRECT LDL IF TG IS HIGH; Future; Expected date: 06/16/2023 - TSH WITH FREE T4 IF INDICATED; Future; Expected date: 06/16/2023 - ALBUMIN / CREATININE RATIO, URINE; Future; Expected date: 06/16/2023 - URINALYSIS, REFLEX TO MICROSCOPIC - PSA; Future; Expected date: 06/16/2023 Coronary vasospasm (HCC) - CBC WITH WBC DIFFERENTIAL; Future; Expected date: 06/16/2023 - COMPREHENSIVE METABOLIC PANEL; Future; Expected date: 06/16/2023 - LIPID PANEL WITH DIRECT LDL IF TG IS HIGH; Future; Expected date: 06/16/2023 - TSH WITH FREE T4 IF INDICATED; Future; Expected date: 06/16/2023 - ALBUMIN / CREATININE RATIO, URINE; Future; Expected date: 06/16/2023 - URINALYSIS, REFLEX TO MICROSCOPIC - PSA; Future; Expected date: 06/16/2023 Bradley's esophagus with dysplasia - CBC WITH WBC DIFFERENTIAL; Future; Expected date: 06/16/2023 - COMPREHENSIVE METABOLIC PANEL; Future; Expected date: 06/16/2023 - LIPID PANEL WITH DIRECT LDL IF TG IS HIGH; Future; Expected date: 06/16/2023 - TSH WITH FREE T4 IF INDICATED; Future; Expected date: 06/16/2023 - ALBUMIN / CREATININE RATIO, URINE; Future; Expected date: 06/16/2023 - URINALYSIS, REFLEX TO MICROSCOPIC - PSA; Future; Expected date: 06/16/2023 - GASTROENTEROLOGY REFERRAL OP Benign neoplasm of left adrenal gland - ENDOCRINOLOGY REFERRAL OP Bone cyst of right femur Carpal tunnel syndrome of left wrist Cervical disc herniation HTN, goal below 140/90 Scrotal pain - US SCROTUM/TESTES; Future; Expected date: 06/16/2023 - UROLOGY REFERRAL OP - URINALYSIS, REFLEX TO CULTURE (NOT FOR NEUTROPENIC PATIENTS); Future; Expected date: 06/16/2023 - CHLAMYDIA TRACHOMATIS AND NEISSERIA GONORRHOEAE, AMPLIFIED PROBE; Future; Expected date: 06/16/2023 Other orders - Zoster Vac Recomb Adjuvanted 50 MCG/0.5ML Intramuscular Suspension Reconstituted (Shingrix); Inject 0.5 mL into a large muscle now and repeat dose in 60 to 180 days Follow Up: Return in about 4 months (around 10/17/2023), or if symptoms worsen or fail to improve, for Blood work today. | For: Blood work today Plan CBC with WBC Differential Comprehensive Metabolic Panel Lipid Panel with Direct LDL if TG is High TSH with Free T4 if indicated Albumin / Creatinine Ratio, Urine Urinalysis, Reflex to Microscopic Exam PSA Urinalysis, Reflex to Culture (Not for Neutropenic Patients) Chlamydia Trachomatis and Neisseria Gonorrhoeae, Amplified Probe US Scrotum/Testes NEPHROLOGY REFERRAL OP GASTROENTEROLOGY REFERRAL OP ENDOCRINOLOGY REFERRAL OP UROLOGY REFERRAL OP Zoster Vac Recomb Adjuvanted 50 MCG/0.5ML Intramuscular Suspension Reconstituted (Shingrix) Stable 62-year-old male, but encouraged ER today for scrotal pain for further workup/ultrasound. Risks discussed. He is declining. Recommend follow-up with Nephrology and Gastroenterology. He is overdue for EGD for his Bradley's esophagus para follow up with Urology for scrotal pain. Strongly encouraged the ER. Blood work today. Encouraged follow-up with endocrinology for history of thyroid disease and incidental finding of adrenal adenoma. He is declined in the past. He declines low-dose CT scan of the chest. Return to the office in 4 months or sooner as needed. Follow Up: Return in about 4 months (around 10/17/2023), or if symptoms worsen or fail to improve, for Blood work today. | For: Blood work today Luciana Leung DO documented in this encounter Nursing Notes * Sherie Klein LPN - 06/16/2023 11:02 AM EDT Chief Complaint Patient presents with Hospital Follow-Up Was admitted to [facility] from 06/07-06/13 for Replacement of Aortic Valve, bypass with prosthetic valve.He has a follow up appt with Cardiology scheduled. He would like to discuss some concerns with Dr Leung documented in this encounter Plan of Treatment Upcoming Encounters Date Type Department Care Team (Late st Contact Info) Description 06/16/2023 1:20 PM EDT Laboratory Laboratory [address] [place] [id number] [place] [address] [place] [address] Arrived 06/25/2023 9:30 AM EDT Office Visit Cardiothoracic [facility] [place] [facility] [place] [address] [place] [address] Jonah Chacon PA-C [address] [place] [address] 07/06/2023 10:00 AM EST Office Visit Nephrology, [facility] [address] [place] [address] Tavo Kuo MD [address] [place] [address] 07/12/2023 3:00 PM EST Office Visit Cardiology, [facility] [address] [facility] [place] [address] Joan Portillo PA-C [address] [place] [address] 07/22/2023 11:45 AM EST Office Visit [facility] [place] [address] [place] [address] Kayode Parnell MD [address] [place] [address] 07/29/2023 9:00 AM EST Telemedicine Endocrinology, [place] [address] [place] [address] Hailey Peña MD [address] [place] [address] 09/21/2023 2:30 PM EST Office Visit Cardiology, [place] [address] [place] [address] [place] [address] Hero Monique, DO [address] [place] [address] 09/30/2023 8:00 AM EST Office Visit Gastroenterology, [facility] [address] [place] [address] Stacey Bland CRNP [address] [place] [address] Scheduled Orders Name Type Priority Associated Diagnoses Orde r Schedule CBC WITH WBC DIFFERENTIAL Lab Routine Type 2 diabetes mellitus with diabetic neuropathy, unspecified whether long term care phlebotomist insulin use (HCC) Familial hypercholesterolemia Dyslipidemia, goal LDL below 70 Diabetes mellitus without complication (HCC) Dilated aortic root (HCC) NSTEMI (non-ST elevation myocardial infarction) (HCC) Aortic valve stenosis, etiology of cardiac valve disease unspecified Coronary artery disease involving grand ronde tribes coronary artery of grand r[place] tribes heart without angina pectoris Absent kidney, congenital Unequal pupils Overweight (BMI 25.0-29.9) H/O cervical spine surgery Tobacco use disorder Chews tobacco COVID-19 vaccination refused Coronary vasospasm (HCC) Bradley's esophagus with dysplasia Expected: 06/16/2023 (Approximate), Expires: 06/16/2024 COMPREHENSIVE METABOLIC PANEL Lab Routine Type 2 diabetes mellitus with diabetic neuropathy, unspecified whether long term care phlebotomist insulin use (HCC) Familial hypercholesterolemia Dyslipidemia, goal LDL below 70 Diabetes mellitus without complication (HCC) Dilated aortic root (HCC) NSTEMI (non-ST elevation myocardial infarction) (HCC) Aortic valve stenosis, etiology of cardiac valve disease unspecified Coronary artery disease involving grand [place] tribes coronary artery of grand [place] tribes heart without angina pectoris Absent kidney, congenital Unequal pupils Overweight (BMI 25.0-29.9) H/O cervical spine surgery Tobacco use disorder Chews tobacco COVID-19 vaccination refused Coronary vasospasm (HCC) Bradley's esophagus with dysplasia Expected: 06/16/2023 (Approximate), Expires: 06/15/2024 LIPID PANEL WITH DIRECT LDL IF TG IS HIGH Lab Routine Type 2 diabetes mellitus with diabetic neuropathy, unspecified whether care home insulin use (HCC) Familial hypercholesterolemia Dyslipidemia, goal LDL below 70 Diabetes mellitus without complication (HCC) Dilated aortic root (HCC) NSTEMI (non-ST elevation myocardial infarction) (HCC) Aortic valve stenosis, etiology of cardiac valve disease unspecified Coronary artery disease involving grand [place] tribes coronary artery of grand [place] tribes heart without angina pectoris Absent kidney, congenital Unequal pupils Overweight (BMI 25.0-29.9) H/O cervical spine surgery Tobacco use disorder Chews tobacco COVID-19 vaccination refused Coronary vasospasm (HCC) Bradley's esophagus with dysplasia Expected: 06/16/2023, Expires: 06/16/2024 TSH WITH FREE T4 IF INDICATED Lab Routine Type 2 diabetes mellitus with diabetic neuropathy, unspecified whether care home insulin use (HCC) Familial hypercholesterolemia Dyslipidemia, goal LDL below 70 Diabetes mellitus without complication (HCC) Dilated aortic root (HCC) NSTEMI (non-ST elevation myocardial infarction) (HCC) Aortic valve stenosis, etiology of cardiac valve disease unspecified Coronary artery disease involving grand [place] tribes coronary artery of grand [place] tribes heart without angina pectoris Absent kidney, congenital Unequal pupils Overweight (BMI 25.0-29.9) H/O cervical spine surgery Tobacco use disorder Chews tobacco COVID-19 vaccination refused Coronary vasospasm (HCC) Bradley's esophagus with dysplasia Expected: 06/16/2023 (Approximate), Expires: 06/15/2024 ALBUMIN / CREATININE RATIO, URINE Lab Routine Type 2 diabetes mellitus with diabetic neuropathy, unspecified whether care home insulin use (HCC) Familial hypercholesterolemia Dyslipidemia, goal LDL below 70 Diabetes mellitus without complication (HCC) Dilated aortic root (HCC) NSTEMI (non-ST elevation myocardial infarction) (HCC) Aortic valve stenosis, etiology of cardiac valve disease unspecified Coronary artery disease involving grand [place] tribes coronary artery of grand [place] tribes heart without angina pectoris Absent kidney, congenital Unequal pupils Overweight (BMI 25.0-29.9) H/O cervical spine surgery Tobacco use disorder Chews tobacco COVID-19 vaccination refused Coronary vasospasm (HCC) Bradley's esophagus with dysplasia Expected: 06/16/2023 (Approximate), Expires: 06/15/2024 URINALYSIS, REFLEX TO MICROSCOPIC Lab Routine Type 2 diabetes mellitus with diabetic neuropathy, unspecified whether care home insulin use (HCC) Familial hypercholesterolemia Dyslipidemia, goal LDL below 70 Diabetes mellitus without complication (HCC) Dilated aortic root (HCC) NSTEMI (non-ST elevation myocardial infarction) (HCC) Aortic valve stenosis, etiology of cardiac valve disease unspecified Coronary artery disease involving grand [place] tribes coronary artery of grand [place] tribes heart without angina pectoris Absent kidney, congenital Unequal pupils Overweight (BMI 25.0-29.9) H/O cervical spine surgery Tobacco use disorder Chews tobacco COVID-19 vaccination refused Coronary vasospasm (HCC) Bradley's esophagus with dysplasia Ordered: 06/16/2023 PSA Lab Routine Type 2 diabetes mellitus with diabetic neuropathy, unspecified whether long term care phlebotomist insulin use (HCC) Familial hypercholesterolemia Dyslipidemia, goal LDL below 70 Diabetes mellitus without complication (HCC) Dilated aortic root (HCC) NSTEMI (non-ST elevation myocardial infarction) (HCC) Aortic valve stenosis, etiology of cardiac valve disease unspecified Coronary artery disease involving grand [place] tribes coronary artery of grand [place] tribes heart without angina pectoris Absent kidney, congenital Unequal pupils Overweight (BMI 25.0-29.9) H/O cervical spine surgery Tobacco use disorder Chews tobacco COVID-19 vaccination refused Coronary vasospasm (HCC) Bradley's esophagus with dysplasia Expected: 06/16/2023 (Approximate), Expires: 06/15/2024 US SCROTUM/TESTES Medical Imaging STAT Scrotal pain Expected: 06/16/2023, Expires: 07/17/2024 URINALYSIS, REFLEX TO CULTURE (NOT FOR NEUTROPENIC PATIENTS) Lab Routine Scrotal pain Expected: 06/16/2023, Expires: 06/16/2024 CHLAMYDIA TRACHOMATIS AND NEISSERIA GONORRHOEAE, AMPLIFIED PROBE Lab Routine Scrotal pain Expected: 06/16/2023, Expires: 06/16/2024 Scheduled Referrals Name Type Priority Associated Diagnoses Order Schedule NEPHROLOGY REFERRAL OP Referral Within 30 days (routine) Absent kidney, congenital Ordered: 06/16/2023 GASTROENTEROLOGY REFERRAL OP Referral Within 30 days (routine) Bradley's esophagus with dysplasia Ordered: 06/16/2023 ENDOCRINOLOGY REFERRAL OP Referral Within 30 days (routine) Benign neoplasm of left adrenal gland Ordered: 06/16/2023 UROLOGY REFERRAL OP Referral Within 10 da ys (routine) Scrotal pain Ordered: 06/16/2023 Health Maintenance Due Date Last Done Comments Bradley's Esophagus Surveilance 1960 DISCUSS TOBACCO CESSATION (REFER TO SMARTSET #1951) 1960 COVID-19 Vaccine (#1) 03/11/1962 DIABETES-EYE EXAM [...] this encounter Medical Devices Implanted Type Area Insulation Board Head Saw Operator Device Identifier Shelf Expiration Date Model / Serial / Lot Valve Aortic Avalus 27mm - [id number] - [id number] Implanted:Qty: 1 on 06/07/2023 by Kayode Parnell MD at OR [facility] N/A: Aorta [employer] 01/19/2026 [id number] / [id number] / [id number] documented as of this encounter Visit Diagnoses Diagnosis Hospital discharge follow-up- Primary Other follow-up examination Type 2 diabetes mellitus with diabetic neuropathy, unspecified whether care home insulin use (HCC) Familial hypercholesterolemia Pure hypercholesterolemia [...] valve disease unspecified Coronary artery disease involving grand ronde tribes coronary artery of grand ronde tribes heart without angina pectoris Absent kidney, congenital 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 Anisocoria Overweight (BMI 25.0-29.9) Overweight H/O cervical spine surgery Other postprocedural status Tobacco use disorder Chews tobacco Tobacco use disorder COVID-19 vaccination refused Coronary vasospasm (HCC) Prinzmetal angina Bradley's esophagus with dysplasia Bradley's esophagus Benign neoplasm of left adrenal gland Benign neoplasm of adrenal gland Bone cyst of right femur Carpal tunnel syndrome of left wrist Carpal tunnel syndrome 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 Question Answer Comments Discussion of Advance Directives occurred with: Patient Care Teams Caterers Helper Relationship Specialty Start Date End Date Luciana Leung DO [address] [facility] [place] [address] PCP - General Family Medicine 10/02/16 documented as of this encounter
--- OUTSIDE RECORDS SUMMARY | 2023-07-02 09:08 | External Medical Summary ---
Author Name Unknown Address Unknown Organization K01:LABORATORY [facility] - [address] [place] [address] Laboratory Report Ordering Provider Test Date Status JACINTO VARNER 06/10/2023 04:49:00 Final Observation Date Value Abnormality Reference (Units ) Status BUN 06/10/2023 04:49:00 17 6-20 (mg/dL) Final Creatinine 06/10/2023 04:49:00 1.1 0.6-1.2 (mg/dL) Final Glomerular filtration rate/1.73 sq M.predicted [Volume Rate/Area] in Serum, Plasma or Blood by Creatinine-based formula (CKD-EPI) 06/10/2023 04:49:00 74 >=60 (mL/min) Final eGFR is calculated based on the CKD-EPI 2020 equation SODIUM 06/10/2023 04:49:00 135 135-146 (m mol/L) Final Potassium 06/10/2023 04:49:00 4.2 3.5-5.1 (m mol/L) Final Cl 06/10/2023 04:49:00 99 98-107 (mm ol/L) Final CO2 06/10/2023 04:49:00 29 22-32 (mmo l/L) Final Anion gap 06/10/2023 04:49:00 7 7-15 (mmol /L) Final Glucose 06/10/2023 04:49:00 117 70-120 (mg /dL) Final Calcium 06/10/2023 04:49:00 8.8 8.4-10.2 ( mg/dL) Final Performing Location LABORATORY [facility] - [address] [place] [address]
--- OUTSIDE RECORDS SUMMARY | 2023-07-02 09:08 | External Medical Summary ---
Author Name Unknown Address Unknown Organization K01:[facility]ATORY [facility] [place] - [address] [facility] [address] Laboratory Report Ordering Provider Test Date Status JACINTO VARNER 06/09/2023 05:04:00 Final Observation Date Value Abnormality Reference (Units ) Status WBC, Total 06/09/2023 05:04:00 16.83 Above high normal 4.00-10.80 (K/uL) Final RBC 06/09/2023 05:04:00 3.25 4.50-5.25 (M/uL) Final Hemoglobin 06/09/2023 05:04:00 9.9 Below low normal 14.0-16.8 (g/dL) Final HCT 06/09/2023 05:04:00 30.5 Below low normal 40.0-48.4 (%) Final MCV 06/09/2023 05:04:00 93.8 82.0-99.5 (fL) Final MCH 06/09/2023 05:04:00 30.5 27.0-34.0 (pg) Final MCHC 06/09/2023 05:04:00 32.5 32.0-36.0 (g/dL) Final RDW 06/09/2023 05:04:00 13.2 11.5-15.5 (%) Final Platelets 06/09/2023 05:04:00 131 Below low normal 140-400 (K/uL) Final MPV 06/09/2023 05:04:00 10.2 6.6-11.1 (fL) Final Nucleated erythrocytes/100 leukocytes [Ratio] in Blood by Automated count 06/09/2023 05:04:00 0 <=0 (/100 WBCs) Final Performing Location LABORATORY C - [address] [place] [address]
--- OUTSIDE RECORDS SUMMARY | 2023-07-02 09:08 | External Medical Summary ---
Author Name Unknown Address Unknown Organization K01:LABORATORY [facility] - [address] [place] [address] Laboratory Report Ordering Provider Test Date Status JACINTO VARNER 06/10/2023 04:49:00 Final Observation Date Value Abnormality Reference (Units ) Status Magnesium 06/10/2023 04:49:00 2.2 1.5-2.6 (m g/dL) Final Performing Location [facility]ATORY [facility] - [address] [place] [address]
--- OUTSIDE RECORDS SUMMARY | 2023-07-02 09:08 | External Medical Summary ---
Author Name Unknown Address Unknown Organization K01:LABORATORY [facility] [place] - [address] [place] [address] Laboratory Report Ordering Provider Test Date Status JACINTO VARNER 06/11/2023 04:53:00 Final Observation Date Value Abnormality Reference (Units ) Status BUN 06/11/2023 04:53:00 20 6-20 (mg/dL) Final Creatinine 06/11/2023 04:53:00 1.2 0.6-1.2 (mg/dL) Final Glomerular filtration rate/1.73 sq M.predicted [Volume Rate/Area] in Serum, Plasma or Blood by Creatinine-based formula (CKD-EPI) 06/11/2023 04:53:00 71 >=60 (mL/min) Final eGFR is calculated based on the CKD-EPI 2020 equation SODIUM 06/11/2023 04:53:00 137 135-146 (m mol/L) Final Potassium 06/11/2023 04:53:00 4.3 3.5-5.1 (m mol/L) Final Cl 06/11/2023 04:53:00 101 98-107 (mm ol/L) Final CO2 06/11/2023 04:53:00 27 22-32 (mmo l/L) Final Anion gap 06/11/2023 04:53:00 9 7-15 (mmol /L) Final Glucose 06/11/2023 04:53:00 123 Above high normal 70 -120 (mg/dL) Final Calcium 06/11/2023 04:53:00 9.0 8.4-10.2 ( mg/dL) Final Performing Location LABORATORY [facility] [place] - [address] [place] [address]
--- OUTSIDE RECORDS SUMMARY | 2023-07-02 09:08 | External Medical Summary ---
Author Name Unknown Address Unknown Organization : Laboratory Report Ordering Provider Test Date Status SIMON ORANTES 06/08/2023 12:35:42 Final Observation Date Value Abnormality Reference (Units ) Status Glucose Point of Care 06/08/2023 12:35:42 93 70-120 (mg/dL) Final Performing Location
--- OUTSIDE RECORDS SUMMARY | 2023-07-02 09:08 | External Medical Summary ---
Author Name Unknown Address Unknown Organization K01:[facility]ORY [facility] [place] [address] [address] Laboratory Report Ordering Provider Test Date Status JACINTO VARNER 06/11/2023 04:53:00 Final Observation Date Value Abnormality Reference (Units ) Status SYNC LEUKOCYTES IN BLOOD BY AUTOMATED COUNT 06/11/2023 04:53:00 11.41 Above high normal 4.00-10.80 (K/uL) Final Segs 06/11/2023 04:53:00 65.8 40.0-75.0 (%) Final Lymphs % 06/11/2023 04:53:00 18.6 18.0-42.0 (%) Final Monos 06/11/2023 04:53:00 11.5 Above high normal 1.0-11.0 (%) Final Eosinophils 06/11/2023 04:53:00 1.9 0.0-6.0 (%) Final Basos 06/11/2023 04:53:00 0.4 0.0-2.0 (%) Final Immature Granulocyte, Percent 06/11/2023 04:53:00 1.8 0.0-2.0 (%) Final Absolute Segs 06/11/2023 04:53:00 7.50 1.80-7.70 (K/uL) Final Lymphs, absolute 06/11/2023 04:53:00 2.12 1.00-4.80 (K/ul) Final Monos, Abs 06/11/2023 04:53:00 1.31 Above high normal 0.00-1.10 (K/uL) Final Eos, Abs 06/11/2023 04:53:00 0.22 0.00-0.70 (K/uL) Final Basos, Abs 06/11/2023 04:53:00 0.05 0.00-0.20 (K/uL) Final Immature Granulocytes, Number 06/11/2023 04:53:00 0.21 Above high normal 0.00-0.20 (K/uL) Final Performing Location LABORATORY [facility] - [address] [facility] [address]
--- OUTSIDE RECORDS SUMMARY | 2023-07-02 09:08 | External Medical Summary | Summary of Care ---
Author Name Unknown Organization [facility] Address [address] [place] [address] Phone [phone] Care Team Providers Care Manager Customs Name Role Phone Luciana Leung DO Primary Care Provider [phone] Reason for Visit * Auth/Cert Specialty Diagnoses / Procedures Referred By Etta t Referred To Contact Diagnoses Aortic valve stenosis Aortic valve stenosis [I35.0] Procedures REPLACEMENT AORTIC VALVE, BYPASS WITH PROSTHETIC VALVE REPLACEMENT AORTIC VALVE, BYPASS WITH PROSTHETIC VALVE Referral ID Status Reason Start Date Expiration Date Visits Re quested Visits Authorized [id number] Encounter Details Date Type Department Care Team Description 06/07/2023 Hospital Encounter Cardiac Studies [facility] [address] [place] [address] Allergies Active Allergy Reactions Severity Noted Date Comments Simvastatin 11/01/2018 Elevated liver functions documented as of this encounter (statuses as of 06/08/2023) Medications Medication Sig Dispensed Refills Start Date End Date Status aspirin enteric coated 81 MG TBEC Take 1 Tablet by mouth in the morning. 0 Suspended metronidazole (METROGEL) 0.75 % gel Apply topically to affected area 2 times a day. Apply to affected area 45 g 11 11/07/2019 Suspended Additional Information amLODIPine Besylate 2.5 MG Oral Tablet (Norvasc) TAKE 1 TABLET DAILY 90 Tablet 3 09/14/2022 Suspended Additional Information Pantoprazole Sodium 40 MG Oral Tablet Delayed Release (Protonix)Indicat ions:Bradley's esophagus with dysplasia TAKE 1 TABLET DAILY 90 Tablet 3 09/21/2022 Suspended Additional Information Multi-Vitamin Daily Oral Tablet Take 1 Tablet by mouth in the morning. 0 Suspended Clopidogrel Bisulfate 75 MG Oral Tablet (pLAVix) Take 1 Tablet by mouth in the morning. 100 Tablet 6 01/11/2023 Suspended Additional Information Metoprolol Succinate ER 25 MG Oral Tablet Extended Release 24 Hour (toPROL XL)Indications:NS JOSSELIN (non-ST elevation myocardial infarction) (HCC) Take 1 Tablet by mouth in the morning. In the morning.. 90 Tablet 4 01/12/2023 Suspended Additional Information Atorvastatin Calcium 40 MG Oral Tablet (Lipitor)Indicati ons:Well adult exam,Familial hypercholesterole hollie,HTN, goal below 140/90,Unequal pupils,Bicuspid aortic valve,Aortic stenosis due to bicuspid aortic valve,Overweight (BMI 25.0-29.9) TAKE 1 TABLET IN THE MORNING 90 Tablet 1 02/12/2023 Suspended Additional Information Chlorhexidine Gluconate 0.12 % Mouth/Throat Solution (Periogard) Use 2 times a day Use 1/2 oz. after brushing and flossing. Swish for 30 seconds and spit. 473 mL 6 05/07/2023 Suspended Additional Information Patient not taking.Reported on 06/07/2023 Lisinopril 20 MG Oral Tablet (Prinivil)Indicat ions:HTN, goal below 140/90 TAKE 1 TABLET DAILY 90 Tablet 3 05/24/2023 Suspended Additional Information Mupirocin 2 % External Ointment (Bactroban) Apply to both nostrils twice per day 22 g 0 05/31/2023 Suspended Additional Information documented as of this encounter (statuses as of 06/08/2023) Active Problems Problem Noted Date NSTEMI (non-ST elevation myocardial infa rction) 06/07/2023 Overview: NSTEMI in December 2022, suspected coronary spasm 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 09/24/2021 Carpal tunnel syndrome 08/25/2021 Coronary vasospasm 08/25/2021 Dyslipidemia, goal LDL below 70 08/07/20 21 Coronary artery disease invo lving nooksack coronary artery of [place]oksack heart without angina pectoris 08/07/2021 COVID-19 vaccination refused 07/04/2021 Diabetes mellitus without complication 0 11/06/2020 Trochanteric bursitis of left hip 2019 Bone cyst of right femur 02/26/2020 Dilated aortic root 10/25/2018 Bradley's esophagus with dysplasia 08/02 Familial hypercholesterolemia 10/03/2016 HTN, goal below 140/90 10/03/2016 Unequal pupils 10/03/2016 Aortic valve stenosis 10/03/2016 Overweight (BMI 25.0-29.9) 10/03/2016 Absent kidney, congenital 10/03/2016 Benign neoplasm of adrenal gland 017 Cervical disc herniation 10/03/2016 H/O cervical spine surgery 10/03/2016 Tobacco use disorder 10/03/2016 Chews tobacco 10/03/2016 documented as of this encounter (statuses as of 06/08/2023) Resolved Problems Problem Noted Date Resolved Date Acute pancreatitis 11/01/2018 01/26/2019 Bicuspid aortic valve 10/03/2016 01/26/2019 Need for hepatitis C screening test 10/03/2016 08/02/2017 documented as of this encounter (statuses as of 06/08/2023) Immunizations Name Administration Dates Next Due PPD [...] = 0.6 oz pur e alcohol) occ Food Insecurity Answer Date Recorded Within the past 12 months, y ou worried that your food would run out before you got money to buy more. Never true 12/07/2019 Within the past 12 months, t he food you bought just didn't last and you didn't have money to get more. Never true 12/07/2019 Sex Assigned at Date Recorded Male 05/01/2023 8:53 PM E DT Job Start Date Occupation Industry Not on [...] stairs? (5 years old or older) No 06/07/2023 Do you have difficulty dress ing or [...] Plan of Treatment Upcoming Encounters Date Type Specialty Care Team Description 07/12/2023 Office Visit Cardiology Joan Portillo PA-C [address] [place] [address] 07/22/2023 Office Visit Cardiothoracic Surgery Kayode Parnell MD [address], [place] [id number] 09/21/2023 Office Visit Cardiology Hero Monique DO [address] [place] [address] Health Maintenance Due Date Last Done Comments [...] 64 Years) (2 - PCV) 05/09/2021 05/09/2020 Albumin/Creatinine Ratio 06/01/2023 06/01/2022, 06/23 HbA1c 11/04/2023 05/06/2023, 05/23, 07/04/2021, Additional history exists GFR 06/08/2024 06/08/2023, 05/23, 06/07/2023, Additional history exists DTaP,Tdap,and Td Vaccines (2 - Td or Tdap) 06/12/2025 06/12/2015 Colonoscopy 10/21/2028 10/21/2018, 06/26/2015 Colorectal Cancer Screening 10/21/2028 Influenza Vaccine (FLU shot) Completed , 05/24/2021, 05/09/2020, Additional history exists GARDASIL-HPV IMMUNIZATION SERIES Aged Out No longer eligible based on patient's age to complete this topic Hepatitis B Aged Out No longer eligi ble based on patient's age to complete this topic MENINGOCOCCAL (MENACTRA/MENVEO) Aged Out No longer eligible based on patient's age to complete this topic documented as of this encounter Medical Devices Implanted Type Area Mash Preparatory Operator Device Identifier Shelf Expiration Date Model / Serial / Lot Valve Aortic Avalus 27mm - [id number] - [id number] Implanted:Qty: 1 on 06/07/2023 [place]ode P[place] [facility] [place]A: Aorta [employer] 01/19/2026 [id number] / [id number] / [id number] documented as of this encounter Procedures Procedure Name Priority Date/Time Associated Diagnosis Comments HC DOPPLER ECHO COMPLETE Routine 06/07/2023 10:00 AM EDT Valvular heart disease documented in this encounter Results * CV ECHO, CONSTANZA INTRAOPERATIVE (06/07/2023 10:00 AM EDT) LEFT VENTRICULAR EJECTION FRACTION 60 % [facility] 06/07/2023 6:40 AM EDT Lidya Espino PA-C ECHOCARDIOLO [facility] documented in this encounter Advance Directives Latest Code Status on File Code Status Date Activated Date Inactivated Comments Full Code 06/07/2023 12:13 PM This ord er reflects the patients wishes and were consensually agreed upon. Question Answer Comments Discussion of Advance Directives occurred with: Patient Care Teams Manager Customs Relationship Specialty Start Date End Date Luciana Leung DO [address] [facility] [place] [address] PCP - General Family Medicine 10/02/16 documented as of this encounter
--- OUTSIDE RECORDS SUMMARY | 2023-07-02 09:08 | External Medical Summary ---
Author Name Unknown Address Unknown Organization [id number]:LABORATORY [facility] [place] - [address] [facility] [place]. [place] [address] Laboratory Report Ordering Provider Test Date Status JACINTO VARNER 06/09/2023 05:04:00 Final Observation Date Value Abnormality Reference (Units ) Status BUN 06/09/2023 05:04:00 16 6-20 (mg/dL) Final Creatinine 06/09/2023 05:04:00 1.2 0.6-1.2 (mg/dL) Final Glomerular filtration rate/1.73 sq M.predicted [Volume Rate/Area] in Serum, Plasma or Blood by Creatinine-based formula (CKD-EPI) 06/09/2023 05:04:00 71 >=60 (mL/min) Final eGFR is calculated based on the CKD-EPI 2020 equation SODIUM 06/09/2023 05:04:00 136 135-146 (m mol/L) Final Potassium 06/09/2023 05:04:00 4.8 3.5-5.1 (m mol/L) Final Cl 06/09/2023 05:04:00 99 98-107 (mm ol/L) Final CO2 06/09/2023 05:04:00 28 22-32 (mmo l/L) Final Anion gap 06/09/2023 05:04:00 9 7-15 (mmol /L) Final Glucose 06/09/2023 05:04:00 146 Above high normal 70 -120 (mg/dL) Final Calcium 06/09/2023 05:04:00 8.7 8.4-10.2 ( mg/dL) Final Performing Location LABORATORY [facility] [place] - [address] [place] [address]
--- OUTSIDE RECORDS SUMMARY | 2023-07-02 09:08 | External Medical Summary ---
Author Name Unknown Address Unknown Organization [id number]:LABORATORY [facility] [place] - [address] [address] Laboratory Report Ordering Provider Test Date Status JACINTO VARNER 06/09/2023 05:04:00 Final Observation Date Value Abnormality Reference (Units ) Status SYNC LEUKOCYTES IN BLOOD BY AUTOMATED COUNT 06/09/2023 05:04:00 16.83 Above high normal 4.00-10.80 (K/uL) Final Segs 06/09/2023 05:04:00 75.3 Above high normal 40.0-75.0 (%) Final Lymphs % 06/09/2023 05:04:00 9.2 Below low normal 18.0-42.0 (%) Final Monos 06/09/2023 05:04:00 14.0 Above high normal 1.0-11.0 (%) Final Eosinophils 06/09/2023 05:04:00 0.4 0.0-6.0 (%) Final Basos 06/09/2023 05:04:00 0.3 0.0-2.0 (%) Final Immature Granulocyte, Percent 06/09/2023 05:04:00 0.8 0.0-2.0 (%) Final Absolute Segs 06/09/2023 05:04:00 12.68 Above high normal 1.80-7.70 (K/uL) Final Lymphs, absolute 06/09/2023 05:04:00 1.54 1.00-4.80 (K/ul) Final Monos, Abs 06/09/2023 05:04:00 2.35 Above high normal 0.00-1.10 (K/uL) Final Eos, Abs 06/09/2023 05:04:00 0.07 0.00-0.70 (K/uL) Final Basos, Abs 06/09/2023 05:04:00 0.05 0.00-0.20 (K/uL) Final Immature Granulocytes, Number 06/09/2023 05:04:00 0.14 0.00-0.20 (K/uL) Final Performing Location LABORATORY [facility] [place] - [facility] [address] [facility] [id number]
--- OUTSIDE RECORDS SUMMARY | 2023-07-02 09:08 | External Medical Summary | Summary of Care ---
Author Name Unknown Organization [facility] Address [address] [place] [address] Phone [phone] Care Team Providers Care Supervisor Paint Department Name Role Phone Luciana Leung DO Primary Care Provider [phone] Reason for Referral * Evaluate & Treat - Unlimited Visits (Within 30 days (routine)) - Pending Review Specialty Diagnoses / Procedures Referred By Etta igll Referred To Contact CARDIAC REHAB / Cardiology Diagnoses Aortic valve stenosis, etiology of cardiac valve disease unspecified S/P AVR (aortic valve replacement) Rebeca Samaniego PA-C [address] [place] [address] Referral ID Status Reason Start Date Expiration Date Visits Requested Visits Authorized [id number] Pending Review Specialty Services Required 3 [phone] Question Answer Referral Priority Within 30 days (routine) Where should this appointment be scheduled? [facility] Comments Discharge Order Reason for Visit * Auth/Cert Specialty Diagnoses / Procedures Referred By Etta gill Referred To Contact Diagnoses Aortic valve stenosis Aortic valve stenosis [I35.0] Procedures REPLACEMENT AORTIC VALVE, BYPASS WITH PROSTHETIC VALVE REPLACEMENT AORTIC VALVE, BYPASS WITH PROSTHETIC VALVE Referral ID Status Reason Start Date Expiration Date Visits Re quested Visits Authorized [id number] [phone] Encounter Details Date Type Department Care Team Description 06/07/2023 - 06/11/2023 Hospital Encounter CICU, Cardiac Intensive Care Unit [facility] 7TH Floor [address] [facility] [place], [place] [id number] Kayode Parnell MD [address] [place] [address] Diagnostic Clarification Allergies Active Allergy Reactions Severity Noted Date Comments Simvastatin 11/01/2018 Elevated liver functions documented as of this encounter (statuses as of 06/11/2023) Medications Medication Sig Dispensed Refills Start Date End Date Status aspirin enteric coated 81 MG TBEC Take 1 Tablet by mouth in the morning. 0 Active metronidazole (METROGEL) 0.75 % gel Apply topically to affected area 2 times a day. Apply to affected area 45 g 11 11/07/2019 Active Pantoprazole Sodium 40 MG Oral Tablet Delayed Release (Protonix)Indica tions:Bradley's esophagus with dysplasia TAKE 1 TABLET DAILY 90 Tablet 3 09/21/2022 Active Multi-Vitamin Daily Oral Tablet Take 1 Tablet by mouth in the morning. 0 Active Clopidogrel Bisulfate 75 MG Oral Tablet (pLAVix) Take 1 Tablet by mouth in the morning. 100 Tablet 6 01/11/2023 Active Metoprolol Succinate ER 25 MG Oral Tablet Extended Release 24 Hour (toPROL XL)Indications:N STEMI (non-ST elevation myocardial infarction) (HCC) Take 1 Tablet by mouth in the morning. In the morning.. 90 Tablet 4 01/12/2023 Active Atorvastatin Calcium 40 MG Oral Tablet (Lipitor)Indicat ions:Well adult exam,Familial hypercholesterol emia,HTN, goal below 140/90,Unequal pupils,Bicuspid aortic valve,Aortic stenosis [...] the morning. 30 Tablet 0 06/11/2023 Active amLODIPine Besylate 2.5 MG Oral Tablet (Norvasc) TAKE 1 TABLET DAILY 90 Tablet 3 09/14/2022 3 Discontinued Mupirocin 2 % External Ointment (Bactroban) Apply to both nostrils twice per day 22 g 0 05/31/2023 3 Discontinued documented as of this encounter (statuses as of 06/11/2023) Active Problems Problem Noted Date NSTEMI (non-ST elevation myocardial infa rction) 06/07/2023 Overview: NSTEMI in December 2022, suspected coronary spasm 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 09/24/2021 Carpal tunnel syndrome 08/25/2021 Coronary vasospasm 08/25/2021 Dyslipidemia, goal LDL below 70 08/07/20 21 Coronary artery disease invo lving [place] coronary artery of [place] heart without angina pectoris 08/07/2021 COVID-19 vaccination [...] as of this encounter (statuses as of 06/11/2023) Resolved Problems Problem Noted Date Resolved Date Acute pancreatitis 11/01/2018 01/26/2019 Bicuspid aortic valve 10/03/2016 01/26/2019 Need for hepatitis C screening test 10/03/2016 08/02/2017 documented as of this encounter (statuses as of 06/11/2023) Immunizations Name Administration Dates Next Due PPD [...] Sign Reading Time Taken Comments Blood Pressure 140/91 06/11/2023 7:00 AM EDT Pulse 81 06/11/2023 7:39 AM EDT Temperature 36.1 C (97 F) 06/11/2023 7:00 AM EDT Respiratory Rate 18 06/11/2023 7:00 AM EDT Oxygen Saturation 95% 06/11/2023 8:00 AM EDT Inhaled Oxygen Concentration - - Weight 96.4 kg (212 lb 8.4 oz) 06/11/2023 6:00 A M EDT Height 177.8 cm (5' 10") 06/07/2023 5:29 AM EDT Body Mass Index 30.49 06/07/2023 5:29 AM EDT documented in this encounter Functional [...] No 06/07/2023 documented as of this encounter Discharge Instructions * Discharge Instr - AVS* Althea Browning PA-C - 06/10/2023 7:13 AM EDT Discharge Date: 06/11/23 You may call of the department of Cardiothoracic Surgery at [phone] during businesshours for any questions or test results. After hours emergencies: Call [phone] and have the Cardiothoracic Surgery service paged. The information below provides you with the instructions and the list of medications you need to betaking following discharge from the hospital. If you have any questions, please ask before leaving.Please carry this letter with you when you see your doctor in the clinic. If you have questions, you can reach us at the numbers above. Brief summary of your inpatient care: you underwent aortic valve replacement surgery for aortic stenosis Your doctors during this hospitalization included: Your primary diagnosis at discharge was aortic stenosis. Inpatient test results pending: None Operations & Procedures: Aortic valve replacement with #27 Avalus bioprosthetic valve Complications: none significant Advance Directive Documented: Advance Directive Does the Patient have an Advance Directive? No Diet: Heart healthy diet Activity: No strenuous activity for 8 weeks and No lifting or pushing or pulling more than 10 lbs for 8 weeks Driving: Do not resume driving until after your next follow up appointment with Dr. Parnell in 1 month. Date you may return to work or school: Based on further instruction reviewed by surgeon after follow up visit. See your primary care physician (Luciana Leung DO) in 1 week Follow-up with: PCP in 1 week, cardiac surgery in 1 week and 1 month, and cardiology in 1 month Routine wound/surgical site care: Soap and water, open to air. If skin glue present, some will peeloff on its own- you may peel it off completely in 1 week. Continue to wash over it daily. Remove any Band-Aids or dressing and CHANGE daily if needed. Watch for signs of infections: including increased redness, swelling, drainage, opening of either your sternal incision or leg incision, fever or chills. If this occurs call the office number above immediately and a surgeon or PA will see you immediately. Wear your AUDRA stockings or GENE wraps during the day and remove at night. This helps to prevent tension on your incisions and prevents swelling. Weigh Yourself daily: You should SHOWER daily. Use soap and water on your incisions. DO NOT take tub baths. Medications: Prescriptions that are given without refills are only required for 30 days. Other Special Instructions: Home: No special instructions needed. You will receive a call from the Cardiac Rehab to schedule your Consultation. If not arranged by the time of your post-op follow-up visit, please let your surgical team know and this can be arranged. If you feel suicidal or homicidal, please call the crisis hotline at [phone]). documented in this encounter H&P Notes * Rebeca Samaniego PA-C - 06/07/2023 6:44 AM EDT HISTORY & PHYSICAL [place]VAL [place] [facility] [id number] History and Physical Update: Name: Tobi Sanhcez [place] [facility] [place] Date: 06/07/2023 Time: 6:45 AM DATE OF HISTORY AND PHYSICAL: 05/31/23 BP: 152 mmHg/76 mmHg (06/07/23 0600) Pulse: 59 (06/07/23 0600) Temp: 36.5 C (10/16/23 0600) Resp: 13 (06/07/23 0600) SpO2: 97 % (06/07/23 06) Does patient take a beta sebastian? Yes - medication: Metoprolol; date and time of last dose: eveningof 06/06/23 Did patient stop anticoagulants? Yes Heart Exam: regular rate and rhythm Lung Exam: clear to auscultation bilaterally Other Pertinent Physical Exam: None I have reviewed the H&P previously performed and examined the patient today. There are no new findings noted. * Lidya Espino PA-C - 05/31/2023 5:05 AM EDT HISTORY AND PHYSICAL EXAMINATION - [facility] Name: Tobi Sanchez Date: 05/06/2023 Time: 8:30AM REFERRING PHYSICIAN: Hero Monique DO PCP: Luciana Leung DO PULLER OUT: Hero Monique DO Preference [place] [facility] [place] up with telephone or video visit at one week. HPI: Tobi Sanchez is a 62 year old male who presents with progressive aortic valve disease /stenosis with bicuspid aortic valve and non obstructive CAD. He denies any shortness of breath, chest pains, palpitations, or syncope. He admits to vertigo for several years that was evaluated by ENT. 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 He states that he had an NSTEMI in December, hospitalized at [facility], and at that time was started on Plavix. He had episode of substernal chest pain radiating to the left shoulder with no other symptoms. He had no significantCAD on cath. He states that he is not taking his amlodipine since December. He reports that he only has a right kidney, but normal kidney functions. Patient has PMH of: aortic stenosis,smoking,DLD,htn [place] Heart Failure Classification: Class II (Mild) Current Outpatient Medications Medication Sig Dispense Refill aspirin enteric coated 81 MG TBEC Take 1 Tablet by mouth in the morning. metronidazole (METROGEL) 0.75 % gel Apply topically to affected area 2 times a day. Apply to affected area 45 g 11 Lisinopril 20 MG Oral Tablet (Prinivil) TAKE 1 TABLET DAILY 90 Tablet 3 Pantoprazole Sodium 40 MG Oral Tablet Delayed [...] TABLET IN THE MORNING 90 Tablet 1 amLODIPine Besylate 2.5 MG Oral Tablet (Norvasc) TAKE 1 TABLET DAILY 90 Tablet 3 No current facility-administered medications for this visit. ALLERGIES: Simvastatin PAST MEDICAL HISTORY: Past Medical History: Diagnosis Date Bradley's esophagus with dysplasia 08/02/2017 PAST SURGICAL HISTORY: Past Surgical History: Procedure Laterality Date DRAIN SKIN ABSCESS, SIMPLE/SINGLE LASIK SURGERY REMOVE TONSILS & ADENOIDS, UNDER 12 VASECTOMY Hx of vein harvest or stripping?: no SOCIAL HISTORY: Drug Use: never Social History Tobacco Use Smoking status: Every Day Types: Cigarettes Smokeless tobacco: Current Types: Chew Tobacco comments: 1 cigarette a day Substance Use Topics Alcohol use: Yes Comment: occ Drug use: No FAMILY HISTORY: Family History Problem Relation Age of Onset Heart Disorder Mother Hypertension Mother Hypertension Father Heart Disorder Father Diabetes Father Heart Disorder Brother Diabetes Brother Cancer Grandfather (Maternal) No Known Problems Son Family History of premature CAD: yes. Mother had NC in 30's. REVIEW OF SYSTEMS: Constitutional: denies weight loss, denies fever, denies shaking chills Eyes: denies double vision , denies blurred vision , denies amaurosis fugax, denies cataracts, denies visual spots Ear, nose and throat: admits to occasional vertigo, denies decreased hearing, denies trouble swallowing, denies epistaxis Dental: poor dentition Cardiac: see HPI Vascular: no claudication Respiratory: denies shortness of breath, denies dyspnea on exertion (FARIA), denies cough, denies snoring loudly, denies feeling tired, fatigued, or sleepy during daytime, denies others have observed patient stop breathing during sleep Gastrointestinal: admits to acid reflux, denies dysphagia, denies nausea, denies vomiting, denies abdominal pain, denies constipation, denies diarrhea Genitourinary: denies dysuria, denies nocturia, denies hematuria, denies diminished stream, denies frequency Musculoskeletal: admits to joint pain in his left thumb, denies joint deformities, denies chronic muscle pain Psychiatric: denies depression, denies anxiety, was never formerly hospitalized Skin: denies rash, denies non-healing ulcers, denies jaundice Neurologic: denies trouble speaking, denies amaurosis fugax, denies syncope, denies weakness, denies paralysis Endocrine: admits to having one kidney, denies constant thirst, denies constant hunger, denies constant urinating Hematologic / Lymphatic: denies blood clotting problems, denies anemia, denies bruising Immunologic: denies trouble fighting infections CARDIOTHORACIC COMPLETE PHYSICAL EXAM: Most Recent Vital Signs: BP 140/84 (BP Site: Right Arm, BP Position: Sitting, BP Cuff Size: Regular) | Pulse 63 | Ht 1.778 m(5' 10") | Wt 95.8 kg (211 lb 4.8 oz) | SpO2 98% | BMI 30.32 kg/m | BSA 2.18 m PHYSICAL EXAM: General: no acute distress and alert and oriented Head: normocephalic, no masses, lesions, tenderness or abnormalities Eyes: conjunctiva are pink and non-injected, sclera clear Nose: normal, no epistaxis, no mucosal erythema Teeth: teeth present without obvious periodontal disease Neck: supple, no adenopathy, no bruits, thyroid normal size, non-tender, without nodularity, normaljugular venous pulse, no hepatojugular reflux Chest: normal shape and normal respiratory effort Lungs: lungs clear to auscultation Cardiac Exam: regular rate & rhythm Systolic ejection murmur Pulses: The following pulses are normal: carotids, radials, dorsalis pedis pulses, and posterior tibials Abdomen: abdomen soft, non-tender, no abnormal masses, and no hepatosplenomegaly Extremities: no edema and no cyanosis Neuro: grossly normal exam Veins GSV appears adequate bilaterally STUDIES: Cardiac Cath Data: 01/01/2023 No significant CAD Echocardiogram:04/27/2023 Interpretation Summary The qualitative LV ejection fraction is 60-64% (normal). The LV wall thickness is moderately increased (concentric). The aortic valve is congenitally bicuspid. The aortic valve is severely calcified. Severe aortic valve stenosis is present. Mild mitral regurgitation is present. The aortic root is mildly enlarged. The proximal ascending thoracic aorta is mildly enlarged. Compared to last available study changes are noted as follows: Severe aortic valve stenosis now present. Ao Root 4.1 cm, Asc Ao 4 cm, AoV2 max 420.6, Ao PG max 70.7 ,LYLA 0.85 cm2 Society of Thoracic Surgeons' Risk Score: STS site Operative Mortality 0.698% Morbidity & Mortality 3.89% Stroke 0.473% Renal Failure 0.62% Reoperation 1.98% Prolonged Ventilation 1.83% Deep Sternal Wound Infection 0.077% Long Hospital Stay (>14 days) 0.998% Short Hospital Stay (<6 days)* 70.2% IMPRESSION: 62 y/o male with bicuspid aortic valve /,NSTEMI, smoking and chewing tobacco,DLD,htn PLAN: Per Dr Parnell. Pre-op studies ordered. Will need dental clearance. D/C plavix 7 days prior to surgery. Amy Peterson PA-C Pediatric and Adult Congenital Cardiac Surgery 05/06/2023 CARDIAC SURGERY I have seen and examined the patient with Amy. I am seeing Tobi Sanchez as an evaluation for aortic stenosis, referred by Dr. Monique. Tobi reports no symptoms, but admits that he gets more winded with activity this year than previously. He also notes occasional chest pressure with activity. He was hospitalized in December for NC (chestpain). There was question in 06/2021 on cath for vasospasm. No family history of aneurysm/dissection. ROS notable for no syncope or limitations of breathing. Occasional pressure when he pushes himself. Comorbidities include smoker (one cig per day in am), smokeless tobacco, solitary kidney, hypertension. PE demonstrates systolic murmur, clear lungs. STS risk is <1% for mortality for AVR. 04/27/2023 TTE reviewed, which demonstrates -- severe (velocity 4.2 m/s) -- bicuspid AV, no significant AI 12/2022 Cardiac cath images reviewed, shows no obstructive CAD 02/10/2023 CTA reviewed -- aortic root maximum dimension 43.6 mm (on echo in 2019 4.1 cm) -- ascending aorta maximum dimension 39.7 mm -- no prohibitive ascending calcification IMPRESSION Tobi Sanchez has severe with symptoms. We discussed the natural history of . We discussed therisks and benefits of both surgical and transcatheter aortic valve replacement. We discussed that complication rate is fairly similar in low/intermediate risk patients for both procedures, but recovery is faster with TAVR if there are no complications. We discussed that the rate and time to structural valve deterioration is unknown with TAVR, but performance has been generally good out to 8-10 years. We also discussed that in patient's with a life expectancy of over 20 years who are younger than 65, surgery is recommended, due to concerns about future replacement options in the setting of a failing TAVR. TAVR is recommended in patient's over 80 or with a life expectancy of less than 10 yrs and no contraindication to transfemoral approach. Surgery is preferred in the setting of bicuspid aortic valve due to increased risk of moderate paravalvular leak. Risks and benefits of TAVR, as opposed to traditional surgery, were discussed this Included, but not limited to stroke, , vascular injury, limb loss, pacemaker, and uncertainties associated withthe new technology and the possibility of accelerated valve failure. We also discussed that there are difficulties/uncertainties managing a failing TAVR because of poor performance of "TAVR in TAVR" and increased surgical risk in the TAVR population. The patient expressed understanding. The following people were present for the discussion: his The patient prefers surgical valve replacement with tissue valve, in line with the 2022 ACC/AHA guidelines. We discussed the risks, benefits, and alternatives to surgery. I discussed that the risks specifically include, but aren't limited to, , bleeding (which could require blood transfusion and we discussed risks of blood transfusion, additional incisions, or additional surgery), endocarditis, heart block requiring pacemaker, infection of the sternum, stroke, heart failure, myocardial infarction, pneumonia, arrhythmia, injury to the phrenic nerve leading to dyspnea, need for mechanical ventilation, and other imponderables associated with major surgery like renal failure, limb loss, DVT /PE, etc. We discussed the expected pain and estimated recovery time for the operation. I pointed out the effect that the various complications can have on the recovery and quoted a major complication rate of %, after reviewing the STS risk distribution estimator. All questions were answered. The patient expressed understanding, provided consent, and signed the permit. 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 We discussed the lifestyle changes associated with warfarin. He would like to have a tissue valve, which I agree with, and accepts the risk of valve deterioration and need for another surgery. We discussed that the patient has a higher than average risk of the following complications: none . PLAN AVR with tissue valve (he requests bovine) on 06/04/2023 Kayode Parnell M.D. Associate, Thoracic and Cardiac Surgery [place] [id number] Office [phone] documented in this encounter Consult Notes * Francy Ayers, OTR/L - 06/08/2023 12:00 PM EDTAssociated Order(s): ADULT OCCUPATIONAL THERAPY CONSULT IP GENERAL EVALUATION - Occupational Therapy [address] [address] Name: Tobi Sanchez [place] [facility] [id number] Date: 06/08/2023 Time: 1:00 PM Tobi Sanchez is a 62 year old male. Patient Status: Inpatient Insurance: Payor: [employer] ([employer]) Plan: SELECT GetSet Product Type: *No Product type* Patient Seen: at bedside, nursing cleared patient for therapy Patient Identified By: Name, ID Band and Date Diagnosis: s/p AVR (06/08/231199) Status of treatment: Evaluation completed (06/08/231199) Orders: OT evaluation and treatment (06/08/231199) Weight Bearing Status: Weight bearing as tolerated (06/08/231199) Precautions: Alarms;Central line;Chest tube;External pacer;Falls;Sams;Oxygen;Safety;Sternal (06/08/231199) Total Treatment Time: 16 (06/08/231199) Past Medical History: Past Medical History: Diagnosis Date Bradley's esophagus with dysplasia 08/02/2017 Past Surgical History: Past Surgical History: Procedure Laterality Date DRAIN SKIN ABSCESS, SIMPLE/SINGLE LASIK SURGERY REMOVE TONSILS & ADENOIDS, UNDER 12 REPLACEMENT AORTIC VALVE, BYPASS WITH PROSTHETIC VALVE N/A 06/07/2023 REPLACEMENT AORTIC VALVE, BYPASS WITH PROSTHETIC VALVE performed by Kayode Parnell MD [place] [facility] [place] Social History/Disposition Lives with: Spouse (06/08/231199) Assistance available: Yes (06/08/231199) Dwelling type: Single story home (06/08/231199) Entry steps: 1 (06/08/231199) Inside steps: None (06/08/231199) Bedroom location: 1st floor (06/08/231199) Bath location: 1st floor full bath (06/08/231199) Prior Level of Function Reported by: Patient (06/08/231199) Ambulation: Ambulatory without device (06/08/231199) Grooming: Independent (06/08/231199) Bathing: Independent (06/08/231199) Dressing: Independent (06/08/231199) Feeding: Independent (06/08/231199) Toileting: Independent (06/08/231199) Meal Prep: Independent (06/08/231199) Homemaking: Independent (06/08/231199) Shopping: Independent (06/08/231199) Medication Management: Independent (06/08/231199) Money Management: Independent (06/08/231199) Occupation/Leisure Skills: Employed (06/08/231199) Driving: Yes (06/08/231199) Durable Medical Equipment at home: No device (06/08/231199) Subjective: Patient met OOB in chair, agreeable to OT evaluation Pain: Patient has complaints of pain. Pain located sternum. Observations Consciousness: Alert (06/08/231199) Orientation: Oriented times 4 (06/08/231199) Psychosocial: Patient can communicate basic needs;Patient can converse in a social setting (06/08/231199) Sitting posture: Forward head;Rounded shoulders (06/08/231199) Standing posture: Forward head;Rounded shoulders (06/08/231199) Safety awareness: The Patient verbalizes insight of current deficits.;The Patient demonstrates carryover of insight during functional tasks. (06/08/231199) Other Findings Endurance: Fair (06/08/231199) Light touch sensation: LUE;RUE;Intact (06/08/231199) Current Functional Status: Bilateral Upper Extremity Range of Motion: WFL (06/08/231199) Strength Assessment: (not formally tested due to sternal precautions) (06/08/231199) Dressing Upper Body: Moderate Assistance (simulated due to lines) (06/08/231199) Lower Body: Maximal Assistance (socks) (06/08/231199) Functional Ambulation Assistive Device: Rolling walker (06/08/231199) Distance in feet:: 250 (06/08/231199) Level of Assistance: Supervision (Please Comment) (06/08/231199) OT Transfers Sit-Stand: Supervision (Please comment) (06/08/231199) Stand-Sit: Supervision (Please comment) (06/08/231199) Balance Sit (Static): Fair (06/08/231199) Sit (Dynamic): Fair (06/08/231199) Stand (Static): Fair (06/08/231199) Stand (Dynamic): Fair (06/08/231199) Alarm Status Patient positioned in: Chair (06/08/231199) With: Call grajeda in reach (no alarm present on entry) (06/08/231199) Patient and Family Goals: to get well and to return home Patient Education Education Topic: Role of OT (06/08/231199) Review of Precautions: Safety;Fall;Sternal (06/08/231199) Method of Education: Verbalized to patient (06/08/231199) Education Provided to: Patient (06/08/231199) Response to Education: Receptive and agreeable to education (06/08/231199) Barriers to learning: Medical status (06/08/231199) Preferred learning method: Combination (06/08/231199) Treatment Provided: Evaluation Moderate Complexity 16 minutes - [id number]: Patient was cooperative during treatment session. Moderate complexity evaluation performed and 3-5 activity limitations were identified, including ADL deficit, functional mobility deficit, bed mobility deficit, decreased endurance, and impaired balance. Minimal or moderate modification of the functional task was necessary to complete the evaluation. Deficits Requiring O.T. Treatment: Deficits requiring O.T. treatment needs: ADL/self-care;Balance;Endurance;Functional mobility;Safety (06/08/231199) Goals: Patient will complete UB ADLs with modified independence using appropriate AE prn Patient will complete LB ADLs with modified independence using appropriate AE prn Patient will complete toileting with modified independence using appropriate AE/DME prn Patient will complete grooming with modified independence using appropriate AE/DME prn Patient will complete bed mobility with modified independence in order to access their environment to complete ADLs Patient will complete functional transfers with modified independence using appropriate DME prn to increase independence with ADLs Patient will complete functional ambulation with modified independence using appropriate DME prn toincrease independence with ADLs Patient will increase standing endurance to 10 minutes with appropriate DME prn to increase independence with ADLs Patient will demonstrate fair+ static/dynamic standing balance with appropriate DME prn to increaseindependence with ADLs Patient will demonstrate fair+ static/dynamic sitting balance with appropriate DME prn to increase independence with ADLs Patient will increase safety with ADLs and mobility by demonstrating understanding and carryover ofprecautions without cueing Goal Time Frame: 8 visits Assessment: Patient is a 62 y.o. male admitted with aortic valve stenosis now s/p AVR. 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 Educated patient on sternal precautions; patient verbalized understanding. Patient simulated UB dressing due to lines with moderate assistance due to sternal discomfort. Patient required maximal assistance for LB dressing due to impaired functional reach towards BLEs. Patient completed sit<>stand transfers with supervision and functional ambulation with supervision with use of RW. Patient demonstrated decreased functional endurance, impaired balance, and decreased activity tole arti, impacting participation in functional tasks. They would benefit from continued skilled OT services to maximize functional independence with ADLs and functional mobility. Patient reported having assistance at home upon discharge. Please consider home with post-acute care services which may include home health or outpatient therapy. The level of care will be determined in collaboration with the patient, family/caregiver and care team members. Treatment Plan: Accuracy with Precautions, Energy Conservation, Safety, Bed mobility training, Functional Ambulation, Transfer training, Balance activities, ADL training, and Endurance Anticipated Frequency (on eval): 1 to 3 times per week (06/08/23 1200) AM-PAC Help From Another Person Eating Meals: None (06/08/231199) Help From Another Person Taking Care of Personal Grooming: A little (06/08/231199) Help From Another Person To Put On/Take Off Upper Body Clothing: A lot (06/08/231199) Help From Another Person To Put On/Take Off Lower Body Clothing: A lot (06/08/231199) Help From Another Person Toileting: A lot (06/08/231199) Help From Another Person Bathing: A lot (06/08/231199) OT AM-PAC Score: 15 (06/08/231199) OT AM-PAC t-Scale Score: 34.69 (06/08/231199) HLM (Highest Level of Mobility) Goal: Level 6 walk 10 steps or more (06/08/23 0845) A portion of this AM-PAC assessment not scored based on functional assessment; rather clinical decision making utilized based on current findings and/or prior level of function. Please refer to future AM-PAC calculations of functional ability as they become available. * DEE DEE SharifT - 06/08/2023 12:00 PM EDTAssociated Order(s): ADULT PHYSICAL THERAPY CONSULT IP GENERAL EVALUATION - Physical Therapy [address] [address] Name: Tobi Sanchez [place] [facility] [place] [facility] Date: 06/08/2023 Time: 1:49 PM Tobi Sanchez is a/an 62 year old male. Patient Status: Inpatient Insurance: Payor: [employer] ([employer]) Plan: [employer] [facility] Product Type: *No Product type* Patient Seen: at bedside, nursing cleared patient for therapy Patient Identified By: Name, ID Band and Date Subjective: Pt sitting in recliner chair upon arrival. Pt agreeable to therapy at this time. Pain: Patient has complaints of pain. Pain located chest. 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 Past Surgical History: Past Surgical History: Procedure Laterality Date DRAIN SKIN ABSCESS, SIMPLE/SINGLE LASIK SURGERY REMOVE TONSILS & ADENOIDS, UNDER 12 REPLACEMENT AORTIC VALVE, BYPASS WITH PROSTHETIC VALVE N/A 06/07/2023 REPLACEMENT AORTIC VALVE, BYPASS WITH PROSTHETIC VALVE performed by Kayode Parnell MD [place] [facility] [place] Social History/Disposition Lives with: Spouse (06/08/231199) Assistance available: Yes (06/08/231199) Dwelling type: Single story home (06/08/231199) Entry steps: 1 (06/08/231199) Inside steps: None (06/08/231199) Bedroom location: 1st floor (06/08/231199) Bath location: 1st floor full bath (06/08/231199) Prior Level of Function Reported by: Patient (06/08/231199) Ambulation: Ambulatory without device (06/08/231199) Devices at home: No device (06/08/231199) Observations Consciousness: Alert (06/08/231199) Orientation: Oriented times 4 (06/08/231199) Psychosocial: Patient can communicate basic needs;Patient can converse in a social setting (06/08/231199) Other Findings: Yes (06/08/231199) Findings: Light touch sensation (06/08/231199) Light Touch Sensation Results: Intact;LLE;RLE (06/08/231199) Sitting Posture: Rounded shoulders (06/08/231199) Standing Posture: Rounded shoulders (06/08/231199) Range of Motion Range of Motion: WFL (06/08/231199) Strength Assessment Strength Assessment: WNL (06/08/231199) Transfers Sit-Stand: Supervision (06/08/231199) Stand-Sit: Supervision (06/08/231199) Ambulation: Ambulation Assist: Supervision (06/08/231199) Distance Ambulated (feet): 250 (06/08/231199) Assistive Device: Rolling walker (06/08/231199) Noted gait deviations: decreased gait speed. (06/08/231199) Ambulatory safety: Patient verbalizes insight of current deficits (06/08/231199) Balance: Balance Sit (Static): Fair (06/08/231199) Sit (Dynamic): Fair (06/08/231199) Stand (Static): Fair (06/08/231199) Stand (Dynamic): Fair (06/08/231199) AM PAC Score with Stairs: Mobility Assessment (AM-PAC) - Completed Daily - Assess your patient "How much help do you currently need..." Turning from your back to your side while in a flat bed without using bedrails?: None (06/08/231199) Moving from lying on your back to sitting on the side of a flat bed without using bedrails?: A little (06/08/231199) Moving to and from a bed to a chair (including a wheelchair)?: A little (06/08/231199) Standing up from a chair using your arms (e.g., wheelchair, or bedside chair)?: A little (06/08/231199) To walk in hospital room?: A little (06/08/231199) Climbing 3-5 steps with a railing?: A lot (06/08/231199) AM-PAC Score With Stairs : 18 (06/08/231199) AM-PAC t-Scale Score: 43.63 (06/08/231199) JH HLM (Highest Level of Mobility) Goal: Level 6 walk 10 steps or more (06/08/231199) A portion of this AM-PAC assessment not scored based on functional assessment; rather clinical decision making utilized based on current findings and/or prior level of function. Please refer to future AM-PAC calculations of functional ability as they become available. Patient and or Family Goal(s): to get well Patient Education Review of Precautions: Safety;Sternal (06/08/231199) Safety Awareness: Patient verbalizes insight of current deficits;Patient can communicate basic needs (06/08/231199) Preferred learning method: Combination (06/08/231199) Barriers to learning: None (06/08/231199) Method of Education: Verbalized to patient (06/08/231199) Topic of Education: Safety with mobility and Goals/plan of care Method of Education: Verbal discussion and explanation provided to patient: verbalized understanding and or agreement of this information Treatment Provided: Evaluation Moderate Complexity 16 minutes - 56482: Patient was cooperative during treatment session. Moderate complexity evaluation performed and 1-2 personal factors or comorbidities were identified that will impact plan of care, including cardiac history. Patient presents withlimitations in bed mobility, transfers, gait, elevations, balance, endurance, and safety, which will impact plan of care. These limitations will be addressed by the goals set for this patient. Alarm Status Patient positioned in: Chair (06/08/231199) With: Call grajeda in reach (06/08/231199) Treatment Status: Treatment at bedside (06/08/231199) Assessment: Pt is a/an 62 y/o male who presents s/p aortic valve replacement. Pt has intact sensation through the bilateral LE and has 5/5 strength through the bilateral LE. Pt demonstrates transfersand ambulation with supervision assist and ambulates 250' with use of rolling walker. Pt has fair gait pattern with decreased gait speed. Pt returns to room and sits to recliner chair to end therapy at this time; pt understanding of current plan of care and sternal precautions. Pt is appropriate for further therapy at this time to address current deficits as listed below. Please consider home with post-acute care services which may include home health or outpatient therapy. The level of care will be determined in collaboration with the patient, family/caregiver and care team members. Deficits requiring P.T. treatment needs: Safety;Mobility;Balance;Endurance (06/08/231199) Equipment Needs: Equipment needs: No device (06/08/231199) Time Frame: 8 visits Anticipated Frequency (on eval): 1 to 3 times per week (06/08/231199) Treatment Plan: Bed mobility training, Transfer training, Gait training, Elevation training, Strengthening exercises, and Balance activities Goals: Demonstrate Bed Mobility with: Supine to Sit: modified independent (with device or slow) Sit to supine: modified independent (with device or slow) Demonstrate Transfers with: Sit to stand: modified independent (with device or slow) Stand to sit: modified independent (with device or slow) Demonstrate Ambulation: Least Restrictive Assistive Device distance in feet: 800 level of assistance on level surface: supervision (with cues) Demonstrate Stairclimbing: Number of steps: 1 Increase Strength of: 1/2 MMT grade through bilateral LE where deficits noted. Increase Balance: fair dynamic standing balance grade. * Luciana Davison RN - 06/08/2023 10:27 AM EDTAssociated Order(s): CARE MANAGEMENT CONSULT IP Please see ancillary tab for note from care management. * Porfirio St RN - 06/08/2023 8:14 AM EDTAssociated Order(s): BLOOD MANAGEMENT CONSULT IP FOLLOW UP - Patient Blood Management [address] [address] Name: Tobi Sanchez [place] [facility] [place] [facility] Date: 06/08/2023 Time: 8:15 AM Follow up inpatient - Hgb less than 10, active bleeding, or bloodless Tobi Sanchez is a 62 year old male admitted on 06/07/2023 with POD#1 AVR . Identification of patient was done by: N BLOOD PRODUCTS IN THE LAST 24 HOURS: none LABS: Labs reviewed as indicated below: Latest Reference Range & Units 06/07/23 12:22 06/07/23 13:15 06/07/23 15:56 06/07/23 18:01 06/07/23 18:27 06/08/23 03:54 HGB 14.0 - 16.8 g/dL 10.6 (L) 10.3 (L) 9.8 (L) Hemoglobin, Whole Blood 14.0 - 16.8 g/dL 10.7 (L) 11.1 (L) 10.6 (L) 10.4 (L) HCT 40.0 - 48.4 % 32.4 (L) 32.2 (L) 30.3 (L) (L): Data is abnormally low PLAN OF CARE/RECOMMENDATION: Venofer 300mg IVPB daily x 2 days B12 1mg daily Continue vitamin daily x 2 months on D/C for ABLA Spoke with Nam VASQUEZ in regards to current recommendations, agreeable to same. * Porfirio St RN - 06/07/2023 8:06 AM EDTAssociated Order(s): BLOOD MANAGEMENT CONSULT IP REQUESTING SERVICE: [facility] REASON FOR CONSULT: new evaluation inpatient, pre-op Latest Reference Range & Units 05/06/23 12:55 HGB 14.0 - 16.8 g/dL 13.9 (L) HCT 40.0 - 48.4 % 43.3 (L): Data is abnormally low Chart reviewed. In absence of severe anemia, hemorrhage, or personal beliefs that prohibit blood transfusion would not recommend urgent therapy with iron, vitamins, or erythroid stimulating agents atthis time. If no active hemorrhage, consider PRBC transfusion only for severe anemia and use a 1 unit PRBC dose followed by a repeat clinical assessment. For reversal of anticoagulation therapy, use Reversal of Anticoagulation order set. Please recommend outpatient follow up that includes repeat assessment of hemoglobin when stable fordischarge. Please call with questions. Thank you for allowing Blood Management to participate in the care of this patient. documented in this encounter Nursing Notes * Mehnaz Palmer RN - 06/11/2023 8:38 AM EDT Discharge instructions reviewed with patient. Patient verbalized understanding of instructions and all questions were answered. 06/11/23 8:39 AM Mehnaz Palmer RN * Cherry Dunlap RN - 06/07/2023 4:41 PM EDT Patient tolerated 30 min of SBT. Althea Browning PA-C in to assess pt. Order received to extubate. Myself and MALTHOUSE LABORER at bedside, positive cuff leak heard, and patient extubated to 6L NC at 1420. Pt tolerated it well and resting comfortably. * Cherry Dunlap RN - 06/07/2023 4:39 PM EDT Dual Licensed Skin Assessment completed by Cherry Dunlap RN and Jennie Luo RN. The patient is/has a N/A Skin Breakdown (includes non blanchable erythema): No * Tricia Alves RN - 06/07/2023 6:33 AM EDT Dual Licensed Skin Assessment completed by Tricia Alves RN and Ariadna Chung RN. The patient is/has a N/A Skin Breakdown (includes non blanchable erythema): No documented in this encounter OR Notes * OR Surgeon - Kayode Parnell MD - 06/07/2023 11:17 AM EDT OPERATIVE RECORD [place] [address] NAME: Tobi Sanchez MR# [id number] SERVICE: CARDIAC SURGERY DATE: 06/07/2023 PRE-OP DIAGNOSIS: Severe aortic stenosis POST-OP DIAGNOSIS: Same. SURGEON: Kayode Parnell MD. ASSISTANTS: Symone Willson and Rebeca Samaniego PA-C assisted with retraction/closure ANESTHESIA: General. OPERATION: Aortic valve replacement with #27 Avalus bioprosthetic valve FINDINGS: The aortic valve was bicuspid with fusion of the LCC/RCC and also RCC/NCC (Lenny 2). There was a very thin membrane the LVOT from the RVOT under the RCC/NCC commissure. The annulus accepted a #27 sizer and valve. The patient weaned from bypass on the following infusions: none. The rhythm was sinus. Post-op Echo demonstrated no change in LV function, normal prosthetic valve function with no paravalvular leak, and intact ventricular septum ESTIMATED BLOOD LOSS: 500 mL. DRAINS/IMPLANTS: 2 mediastinal tubes and 2 ventricular pacing wires. FLUIDS: Adequate. URINE OUTPUT: Adequate. SPECIMEN: None. COMPLICATIONS: None. CONDITION: Critical. INDICATIONS AND HISTORY: Tobi Sanchez is a 62 yo man with severe aortic stenosis by echocardiogram, who presented with dyspnea and chest pain. Risks and benefits were discussed with the patient. The patient understands and wishes to proceed with surgery. We selected a bioprosthetic valve based onpreoperative discussions. DESCRIPTION OF OPERATION: The patient was identified, and the procedure was verified. After uneventful general anesthesia obtained, the patient's abdomen, chest, and groins were prepped and draped instandard fashion. Time out performed. An incision was made and sternotomy performed. The pericardium was opened and suspended. Epiaortic ultrasound was performed with the findings noted above. Heparin was administered to an ACT over 400 seconds. Routine aortic and right atrial cannulation with an antegrade coronary cardioplegia catheter were undertaken through pursestring sutures. Cardiopulmonary bypass was begun with appropriate flow. Carbon dioxide insufflation was used in the surgical field throughout the case. The patient was cooled, and the aortic cross-clamp was applied. A left ventricular vent was placed through a 3-0 Prolene pursestring in the right superior pulmonary vein. The myocardial temperature probe was placed. Myocardial protection was 1200 ml antegrade cardioplegia to a myocardial temperature of below 10 degrees celsius. The aorta was opened obliquely and extended into the noncoronary cusp. The aortic valve was excisedsharply with scissors and the annulus was debrided of calcium. Copious irrigation was undertaken tocleanse any residual debris. Interrupted 2-0 pledgeted sutures were placed from the ventricular to the aortic side in a horizontal mattress fashion. The annulus was sized and accepted a #27 Avalus sizer. The sutures were passed through the sewing cuff and the valve was secured in place without difficulty using the Cork[place]. The right and left main coronary arteries were noted to be clear of obstruction. The aorta was closed in 2 layers with running 4-0. Thorough de-airing was performed and the cross clamp removed, restoring flow to the heart. Ventricular pacing wires were placed. Sinus rhythm resumed. The patient weaned from bypass on no infusion and decannulated. CONSTANZA was satisfactory. Protamine was administered. Hemostasis was obtained. The chest was closed in my routine fashion over 2 chest tubes. The patient tolerated procedure well, was in the operating room at this time. Kayode Parnell M.D. Associate, Thoracic and [place] [address] Office [phone] Was there a qualified resident that took part in the case? No - The skilled assistance of the advanced practitioner/physician was necessary for the successful completion of this case. Physician Compensation Analyst name: see above Physician Compensation Analyst role: The advanced practitioner/physician was essential for retraction and wound closure I understand that section 1842 (b)(7)(D) of the Social Security Act generally prohibits Medicare physician fee schedule payment for the services of [id number] in teaching hospitals when qualified residents are available to furnish such services. I certify that the services for which [facility] is claimed were medically necessary, and that no qualified resident was available to perform theservices. I further understand that these services are subject to post-payment review by the Medicare carrier. documented in this encounter Miscellaneous Notes * Ancillary Progress Note - Henry Hernandez RRT - 06/11/2023 9:24 AM EDT PDP RE-EVALUATION NOTE - Respiratory Care Services [facility] [address] Name: Tobi Sanchez [place] [facility] [place] [facility] Date: 06/11/2023 Time: 9:24 AM Patient Driven Protocol Summary: Re-evaluation . This Treatment Plan and medications will be reviewed by the Primary Care Team for any contraindications. Respiratory Care Treatment Plan Pulmonary Volume Expansion Therapy: Incentive Spirometry PRN to prevent or treat alveolar consolidation and atelectasis. . Secretion Management Treatment: Flutter TherapyPRN to enhance mobilization of secretions. .. The patient will be re-evaluated: No re-evaluation needed. Indications for treatment met. The Triage Level is: (Assessment Score = 6 -10) Level 4. Triage Level Definitions: Level 1 Severe Respiratory/Airway Compromise Level 2 Moderate Respiratory/Airway Compromise or high risk for pulmonary complications Level 3 Mild Respiratory/Airway Compromise or moderate risk for pulmonary complications Level 4 Episodic Respiratory/Airway Compromise or low risk for pulmonary complications Level 5 No Respiratory/Airway Compromise Triage 1 Triage 2 Triage 3 Triage 4 Triage 5 greater than 20 16 - 20 11 - 15 6 - 10 0 - 5 Medical Record Assessment Clinical Findings Pulmonary Status: 1 - Smoking less than 1 pack/day or quit less than 5 years ago Surgical Status: 3 - Thoracic or Upper Abdominal Chest X-Ray: 1 - CXR Pending Assessment Score: 5 Patient Assessment Clinical Findings Respiratory Pattern: 0 - RR 12 - 20; Patient only gets breathless with strenuous exercise. Breath Sounds: 0 - Clear to auscultation Cough Effectiveness: 0 - Strong non-productive Sputum Production 0 - No sputum production Level of Activity: 1 - Ambulatory with assist O2 needed to keep SpO2 greater than or equal to 92%: 0 - Room Air Assessment Score: 1 Total Assessment Score: 6 Breath Sounds: Inspiratory and expiratory diminished bilaterally.. Cough and Sputum: An ineffective cough was present.. Vital Signs: Resp: 18 (06/11/23699) Pulse: 81 (06/11/23738) Temp: 36.1 C (97 F) (06/11/23699) BP: 140/91 (06/11/23699) SpO2: 95 % (06/11/23799) Primary Service: Cardiac Surgery. Admitting Diagnosis: Aortic valve stenosis [I35.0] Aortic stenosis [I35.0] Pulmonary Diagnosis: KELSIE and Pulmonary HTN. * Ancillary Progress Note - Luciana Davison RN - 06/11/2023 8:58 AM EDT ADULT CARE MANAGEMENT - DISCHARGE NOTE [facility] [address] Name: Tobi Sanchez [place] [facility] [place] [facility] Date: 06/11/2023 Time: 8:58 AM The following coordination of care and discharge plan has been coordinated with the care team, patient, family and/or caregiver according to the patients needs and preferences. Discharge Discharge Insurance considerations verified and completed: Yes (06/11/23857) Second Notice Important Message from Medicare delivered: Not Applicable (06/11/23857) Was Caregiver/Family/Facility contacted regarding discharge: Yes (06/11/23836) Discharge Transportation: Family/Friends drive (06/11/23857) Final D/C Plan - Complete at time of D/C Final Discharge Plan (Complete only at time of Discharge): Home with Services (06/11/23857) Destination - Admitted Since 06/07/2023 No services have been selected for the patient. Home Medical Care - Admitted Since 06/07/2023 Service Provider Selected Services Address Phone Fax Patient Preferred Last Updated [facility] [address] [facility], [facility] [address] -- Luciana Davison RN 06/10/2023 0903 Narrative: Pt discharging to home. [facility] aware of pt's discharge. Family/friends anticipated to provide discharge transportation. Please contact CM with any concerns. * Care Plan - Mehnaz Palmer RN - 06/11/2023 7:41 AM EDT Clinical Goal(s): Patient will remain free from falls (06/11/23 0700) Possible barriers to meeting goal(s)/advancing plan of care: Recent surgery, Pain. Stability of the patient: Moderately stable - low risk of patient condition declining or worsening Summary regarding today's goal(s): Met: Patient remained free from falls Recommendations: Continue mobility as tolerated * Hospital Course - JOSSUE Hodgson - 06/11/2023 6:47 AM EDT {Hospital Course documentation can easily be pulled into the Discharge Summary by documenting here and using the smartlink in the Discharge Summary template:[id number]} * Care Plan - Vipul Mancuso RN - 06/11/2023 6:17 AM EDT Clinical Goal(s): Pt will remain free from falls this shift (06/10/231999) Possible barriers to meeting goal(s)/advancing plan of care: Recent cardiac surgery. Stability of the patient: Moderately stable - low risk of patient condition declining or worsening Summary regarding today's goal(s): Met: Pt remained free from falls this shift. Recommendations: Continue to use rolling walker when ambulating out of bed. * Progress Notes - Post-Op Global - Kayode Nichols MD - 06/11/2023 12:16 AM EDT PROGRESS NOTE - CARDIAC [place]GERY [facility] [address] Name: Tobi Sanchez [place] [facility] [place] [facility] Date: 06/11/2023, 12:24 AM OPERATION: Aortic valve replacement with #27 Avalus bioprosthetic valve SURGEON: Kayode Parnell MD POD#: 4 PATIENT ISSUES/EVENTS: stable interval PHYSICAL EXAM: General: no acute distress Heart Exam: regular rate and rhythm and no murmur, gallops, or rubs Lungs: normal respirations, clear to auscultation, and lungs well expanded by exam Abdominal Exam: abdomen soft, non-tender, and no abnormal masses Extremities: warm, dry, and well perfused Incision: sternotomy - clean, dry and intact and no drainage Neurological: alert and EOMI Pulses: radial and dorsalis pedis CURRENT CORE CARDIAC MEDICATIONS: Beta Sebastian: yes ASA: yes Statin: yes GENE-Inhibitor / ARB: yes POSTOPERATIVE COMPLICATIONS: acute blood loss anemia expected in setting of cardiovascular surgery. ADDITIONAL PROCEDURES: none ASSESSMENT/PLAN: Cardiovascular: Pre-op EF 60% Hx of HTN, coronary vasospasm, NSTEMI Toprol 25, lisinopril 2.5 Diltiazem gtt for previous vasospasm. - stopped Currently in SR. Central Line(s): No Pacer Wires: no Adger - no MANAGER DISASTER RECOVERY: norvasc, lisinopril, toprol. Pulmonary: CXR reviewed KELSIE on CPAP pre op. EZpap, Pulmonary toilet Chest Tubes/Rudolph Drains: No GI: Reg diet. GI prophylaxis /Renal: Creatine/BUN, stable Normal pre op renal function No electrolyte abnormalities Sams: No Hematology: Hemoglobin stable Aspirin 81mg heparin sq for DVT prophylaxis Plavix for NSTEMI in December. Neuro/P.T./O.T.: neurologically intact PT/OT consulted Infectious Disease: Vancomycin for indeterminate nasal swab Endo: No previous hx of diabetes A1C preop 6.3 Plan: Diuresis Plavix for NSTEMI Toprol 25 and lisinopril 2.5 Home soon. Stable Ambulating on room air Plavix Plan home today * Progress Notes - Post-Op Global - Kayode Parnell MD - 06/10/2023 12:16 AM EDT PROGRESS NOTE - CARDIAC [place] [facility] [address] Name: Tobi Sanchez [place] [facility] [place] [facility] Date: 06/10/2023, 12:24 AM OPERATION: Aortic valve replacement with #27 Avalus bioprosthetic valve SURGEON: Kayode Parnell MD POD#: 3 PATIENT ISSUES/EVENTS: walking, pain under control PHYSICAL EXAM: General: no acute distress Heart Exam: regular rate and rhythm and no murmur, gallops, or rubs Lungs: normal respirations, clear to auscultation, and lungs well expanded by exam Abdominal Exam: abdomen soft, non-tender, and no abnormal masses Extremities: warm, dry, and well perfused Incision: sternotomy - clean, dry and intact and no drainage Neurological: alert and EOMI Pulses: radial and dorsalis pedis CURRENT CORE CARDIAC MEDICATIONS: Beta Sebastian: yes ASA: yes Statin: yes GENE-Inhibitor / ARB: no, explain -- normal LVEF POSTOPERATIVE COMPLICATIONS: acute blood loss anemia expected in setting of cardiovascular surgery. ADDITIONAL PROCEDURES: none ASSESSMENT/PLAN: Cardiovascular: Pre-op EF 60% Hx of HTN, coronary vasospasm, NSTEMI Lopressor 25 Will transition to MANAGER DISASTER RECOVERY toprol and add lisinopril 2.5 Diltiazem gtt for previous vasospasm. - stopped Currently in SR. Central Line(s): Yes, reason: Hemodynamic monitoring Pacer Wires: no Adger - no Post op EKG with SB. MANAGER DISASTER RECOVERY: norvasc, lisinopril, toprol. Pulmonary: CXR reviewed KELSIE on CPAP pre op. EZpap, Pulmonary toilet Chest Tubes/Rudolph Drains: No GI: Reg diet. GI prophylaxis /Renal: Creatine/BUN, stable Normal pre op renal function No electrolyte abnormalities Sams: No Hematology: Hemoglobin stable Aspirin 81mg heparin sq for DVT prophylaxis Plavix for NSTEMI in December. Neuro/P.T./O.T.: neurologically intact PT/OT consulted Infectious Disease: Vancomycin for indeterminate nasal swab Endo: No previous hx of diabetes A1C preop 6.3 Plan: Diuresis Plavix for NSTEMI OOB and ambulate in AM. Toprol 25 and lisinopril 2.5 in AM. ATTENDING STAFF I have seen and examined the patient. Doing well. Remove central line. Ambulate. Home soon. * Ancillary Progress Note - JAYCEE Andre/Leticia - 06/09/2023 3:04 PM EDT PROGRESS NOTE - Occupational Therapy [facility] [address] Name: Tobi Sanchez [place] [facility] [place] [facility] Date: 06/09/2023 Time: 3:04 PM Tobi Sanchez is a 62 year old male. Patient Status: Inpatient Insurance: Payor: [employer]) Plan: SELECT GetSet Product Type: *No Product type* Patient Seen: at bedside, nursing cleared patient for therapy Patient Identified By: Name, ID Band and Date Diagnosis: s/p AVR (06/09/231348) Status of treatment: Treatment completed (06/09/231348) Orders: OT evaluation and treatment (06/09/231348) Weight Bearing Status: Weight bearing as tolerated (06/09/231348) Precautions: Central line;Falls;Safety;Sternal (06/09/231348) Total Treatment Time: 16 (06/09/231348) Subjective: agreeable Pain: Patient has complaints of pain. Pain located incision site. Did not rate Observations Consciousness: Alert (06/09/231348) Orientation: Oriented times 4 (06/09/231348) Psychosocial: Patient can communicate basic needs;Patient can converse in a social setting (06/09/231348) Sitting posture: Forward head;Rounded shoulders (06/09/231348) Standing posture: Forward head;Rounded shoulders (06/09/231348) Safety awareness: The Patient verbalizes insight of current deficits.;The Patient demonstrates carryover of insight during functional tasks. (06/09/231348) Other Findings Endurance: Fair (06/08/231199) Light touch sensation: LUE;RUE;Intact (06/08/231199) Current Functional Status: Activities of Daily Living: Self Care Grooming: Supervision (Please comment) (06/09/231348) Dressing Upper Body: supervision (06/09/231199) Lower Body: dependent (socks) (06/09/23 1200) Functional Ambulation Assistive Device: Rolling walker (06/09/231348) Distance in feet:: 150 (06/09/231348) Level of Assistance: Supervision (Please Comment) (06/09/231348) OT Transfers Sit-Stand: Contact Guard (06/09/231348) Stand-Sit: Supervision (Please comment) (06/09/231348) Toilet: Contact Guard (06/09/231348) Balance Sit (Static): Fair (06/09/231348) Sit (Dynamic): Fair (06/09/231348) Stand (Static): Fair (06/09/231348) Stand (Dynamic): Fair (06/09/231348) Patient Education Education Topic: Role of OT (06/09/231348) Review of Precautions: Safety;Cardiac;Fall;Sternal (06/09/231348) Method of Education: Verbalized to patient (06/09/231348) Education Provided to: Patient (06/09/231348) Response to Education: Receptive and agreeable to education (06/09/231348) Barriers to learning: Medical status (06/09/231348) Preferred learning method: Combination (06/09/231348) Alarm Status Patient positioned in: Bed (06/09/231348) With: Call grajeda in reach (06/09/231348) Treatment Provided: Therapeutic Activity: 16 minutes Deficits requiring O.T. treatment needs: ADL/self- care;Balance;Endurance;Functional mobility;Safety(06/08/231199) Assessment: patient in recliner upon entering room. Reviewed and educated on sternal and cardiac precautions. Contact guard assistance for functional transfer from recliner. Functional mobility with rolling walker supervision. Dependent to adams/doff socks. Please consider home with post-acute care services which may include home health or outpatient therapy. The level of care will be determined in collaboration with the patient, family/caregiver and care team members. Would benefit from continued OT to maximize functional capabilities. Plan: Continue to follow as per plan. Anticipated Frequency (on eval): 1 to 3 times per week (06/08/23 1200) Equipment Equipment used in Therapy: Rolling walker (06/09/23 134) Equipment Needs Equipment needs: Rolling walker (06/09/23 134) AM-PAC Help From Another Person Eating Meals: None (06/09/231348) Help From Another Person Taking Care of Personal Grooming: A little (06/09/231348) Help From Another Person To Put On/Take Off Upper Body Clothing: A lot (06/09/231348) Help From Another Person To Put On/Take Off Lower Body Clothing: A lot (06/09/231348) Help From Another Person Toileting: A lot (06/09/231348) Help From Another Person Bathing: A lot (06/09/23 134) OT AM-PAC Score: 15 (06/09/231348) OT AM-PAC t-Scale Score: 34.69 (06/09/231348) HLM (Highest Level of Mobility) Goal: Level 6 walk 10 steps or more (06/09/23 0800) A portion of this AM-PAC assessment not scored based on functional assessment ; rather clinical decision making utilized based on current findings and/or prior level of function. Please refer to future AM-PAC calculations of functional ability as they become available. * Ancillary Progress Note - Chuy Anthony RRT - 06/09/2023 1:42 PM EDT PATIENT DRIVEN PROTOCOL - Respiratory Care Services [address] [address] Name: Tobi Sanchez [place] [facility] [place] [facility] Date: 06/09/2023 Time: 1:42 PM Patient Driven Protocol Summary: Re-evaluation . This Treatment Plan and medications will be reviewed by the Primary Care Team for any contraindications. Respiratory Care Treatment Plan Pulmonary Volume Expansion Therapy: Incentive Spirometry PRN to prevent or treat alveolar consolidation and atelectasis. Additional Pulmonary Volume Expansions: EzPAP Treatment: BID to prevent or treat alveolar consolidation and atelectasis. Secretion Management Treatment: Flutter TherapyPRN to enhance mobilization of secretions. The patient will be re-evaluated: within 48 hours. The Triage Level is: (Assessment Score = 6 -10) Level 4. Triage Level Definitions: Level 1 Severe Respiratory/Airway Compromise Level 2 Moderate Respiratory/Airway Compromise or high risk for pulmonary complications Level 3 Mild Respiratory/Airway Compromise or moderate risk for pulmonary complications Level 4 Episodic Respiratory/Airway Compromise or low risk for pulmonary complications Level 5 No Respiratory/Airway Compromise Triage 1 Triage 2 Triage 3 Triage 4 Triage 5 greater than 20 16 - 20 11 - 15 6 - 10 0 - 5 Medical Record Assessment Clinical Findings Pulmonary Status: 1 - Smoking less than 1 pack/day or quit less than 5 years ago Surgical Status: 3 - Thoracic or Upper Abdominal Chest X-Ray: 2 - Infiltrates and/or Atelectasis Assessment Score: 6 Patient Assessment Clinical Findings Respiratory Pattern: 0 - RR 12 - 20; Patient only gets breathless with strenuous exercise. Breath Sounds: 2 - Diminished bilaterally Cough Effectiveness: 0 - Strong non-productive Sputum Production: 0 - No sputum production Level of Activity: 1 - Ambulatory with assist O2 needed to keep SpO2 greater than or equal to 92%: 0 - Room Air Assessment Score: 3 Total Assessment Score: 9 Breath Sounds: Inspiratory and expiratory diminished bilaterally.. Cough and Sputum: An effective cough produced no sputum... CXR: Scattered subsegmental atelectasis . Vital Signs: Resp: 15 (06/09/23 0600) Pulse: 88 (06/09/23 1200) Temp: 36.6 C (97.9 F) (06/09/23 1200) BP: 131/71 (06/09/23 1200) SpO2: 91 % (06/09/23 1200) PFT: Minimal Predicted IC: 1.11 L. Inspiratory capacity: 1.25L. Primary Service: Cardiac Surgery. Admitting Diagnosis: Aortic valve stenosis [I35.0] Aortic stenosis [I35.0] Pulmonary Diagnosis: Hypertension and KELSIE. Prescriptions/Home Medications/Durable Medical Equipment: none. * Ancillary Progress Note - Luciana Davison RN - 06/09/2023 11:16 AM EDT CARE MANAGEMENT - ADULT TRANSITION NOTE [facility] [address] Name: Tobi Sanchez [place] [facility] [place] [facility] Date: 06/09/2023 Time: 11:16 AM Prescription Coverage: Yes (06/08/23 1028) RX Plan and Comment[facility] [place] [facility] (06/08/23 102) Risk Stratification Risk Stratification Medical and Behavioral Health Concerns Identified: Post Intensive Care (06/08/23 102) Psycho Social/Care Gaps concerns identified upon admission:: Adjustment to illness/injury () Readmission Risk Score: 12.72 (06/09/23 08) AM-PAC Score With Stairs : 18 (06/09/23 08) Caregiver Information Patient Contacts Name Relation Home Work Mobile Marika Sanchez Spouse [phone] Transition of Care Checklist Transition of Care Checklist (aka Readmission Risk Score) Readmission Risk Score: 12.72 (06/09/23 08) Discharge Disposition: Home w/Home Health (06/08/23 1029) Home or Home w/Home Health: Moderate (12-17%) (06/08/23 1029) Outpatient Trap Puller: No, not applicable (06/08/23 102) Narrative: Chart reviewed, pt not medically ready for discharge. POD #2 Aortic valve replacement. Spoke with Peggy from [facility] - per Peggy, they will not review pt until discharge date is known. Pt will be discussed further in IDT rounds. CM will continue to follow. 1340 - Called and spoke with Peggy to give update on probable discharge Monday 06/11. [facility] will review patient and call us back. 1422 - Received call from Zoey at [facility] who states they are able to accept patient forskilled nursing and PT. Will provide start of care date closer to discharge. Anticipated Transportation at Discharge: family Patient/Family Expectations: home with home health Transition Planning Transition Planning Transition Plan/Considerations: Needs uncertain at this time - Continue monitoring for needs (06/08/23 1029) Additional Considerations: none Care Management will continue to monitor and assist with discharge planning needs * Progress Notes - Post-Op Global - Kayode Parnell MD - 06/09/2023 1:33 AM EDT PROGRESS NOTE - CARDIAC SURGERY [facility] [address] Name: Tobi Sanchez [place] [facility] [place] [facility] Date: 06/09/2023, 12:24 AM OPERATION: Aortic valve replacement with #27 Avalus bioprosthetic valve SURGEON: Kayode Parnell MD POD#: 2 PATIENT ISSUES/EVENTS: stable interval, increased ambulation. PHYSICAL EXAM: General: no acute distress Heart Exam: regular rate and rhythm and no murmur, gallops, or rubs Lungs: normal respirations, clear to auscultation, and lungs well expanded by exam Abdominal Exam: abdomen soft, non-tender, and no abnormal masses Extremities: warm, dry, and well perfused Incision: sternotomy - clean, dry and intact and no drainage Neurological: alert and EOMI Pulses: radial and dorsalis pedis CURRENT CORE CARDIAC MEDICATIONS: Beta Sebastian: yes ASA: yes Statin: yes GENE-Inhibitor / ARB: no, explain -- normal LVEF POSTOPERATIVE COMPLICATIONS: acute blood loss anemia expected in setting of cardiovascular surgery. ADDITIONAL PROCEDURES: none ASSESSMENT/PLAN: Cardiovascular: Pre-op EF 60% Hx of HTN, coronary vasospasm, NSTEMI Lopressor 12.5 Diltiazem gtt for previous vasospasm. - stopped Previous levophed. Currently in SR. Central Line(s): Yes, reason: Hemodynamic monitoring Pacer Wires: yes Adger - no Post op EKG with SB. MANAGER DISASTER RECOVERY: norvasc, lisinopril, toprol. Pulmonary: CXR reviewed KELSIE on CPAP pre op. EZpap, Pulmonary toilet Chest Tubes/Rudolph Drains: Yes: on suction and no air leak GI: Reg diet. GI prophylaxis /Renal: Creatine/BUN, stable Normal pre op renal function No electrolyte abnormalities Sams: Yes, reason: fluid monitoring Hematology: Hemoglobin stable Aspirin 81mg heparin sq for DVT prophylaxis Plavix for NSTEMI in December. Neuro/P.T./O.T.: neurologically intact PT/OT consulted Infectious Disease: Vancomycin for indeterminate nasal swab Endo: No previous hx of diabetes A1C preop 6.3 Plan: Delete chest tubes and wires in AM Plavix for NSTEMI OOB and ambulate in AM. ATTENDING STAFF I have seen and examined the patient. Doing well. Ambulating. Remove chest tubes and pacing wires. * Ancillary Progress Note - Luciana Davison RN - 06/08/2023 10:29 AM EDT CARE MANAGEMENT - ADULT INITIAL [place]CREENING [facility] [place] [address] Name: Tobi Sanchez [place] [facility] [place] [facility] Date: 06/08/2023 Time: 10:29 AM Patient Class: Inpatient (06/08/231027) Discussed patient with the interdisciplinary care team. This Technical Solutions Engineer performed a chart review and met with patient at bedside to complete admission screen and assessed needs for transition planning. The hospice home care coordinator role and services were explained and emotional support was provided. 30 Day Readmission Screening 30 Day Readmission Readmission within 30 days?: No (06/08/231027) Chief Complaint: No chief complaint on file. Prior Living Arrangements What was your living situation prior to admission/observation?: Independently;With Spouse () Do you have any children, pets, or other dependents that you are currently caring for?: No (06/08/231027) Living Quarters: House (06/08/231027) How many stories is the dwelling?: One Story (06/08/231027) Number of steps to enter living quarters:: 0 (06/08/231027) Do you have serious difficulty walking or climbing stairs? (5 years old or older): No (06/08/231027) History of falling: No (06/08/23 08) Prior Level of Functioning Describe the patient's ability prior to admission/observation to perform ADLs: Performs independently (06/08/231027) Describe the patient's mobility status prior to admission: Patient ambulates independently (06/08/231027) Patient uses assistive device: No (06/08/231027) Caregiver Information Patient Contacts Name Relation Home Work Mobile Marika Sanchez Spouse [phone] Risk Stratification/Psychosocial/Care Gaps Risk Stratification Medical and Behavioral Health Concerns Identified: Post Intensive Care (06/08/231027) Psycho Social/Care Gaps concerns identified upon admission:: Adjustment to illness/injury () Readmission Risk Score: 13 (06/08/231027) AM-PAC Score With Stairs : 20 (06/08/2313) Comments: Met with patient for CM assessment. Pt lives with his in a one story home with a ramp to enter. He is independent with ADL's and he does not use any DME equipment. 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 He uses a CPAP at night through [facility]. Pt uses [facility] or [facility]. He denies difficulty obtaining his medications. He does not have a designated POA, but wouldlike his to be his decision maker if needed. Pt is not currently active with any home health agencies and denies prior SNF stays. Pt and requesting home health at discharge. No agency preference. PT/OT consult pending. Referral sent to [facility] home health. CM will continue to follow for developing needs. Prior to Admission Services Services Prior to Admission MANAGER DISASTER RECOVERY Services (Services received within the last 30 days with exception, Psych within last two years): N/A (06/08/231027) MANAGER DISASTER RECOVERY Transportation (Services received within the last 30 days): Patient drives self (06/08/231027) Outpatient Technical Solutions Engineer: no, not applicable Patient/Family Expectations: home with home health Anticipated Disposition Plan & Post Acute Needs Anticipated Plan Anticipated Post-Acute Care needs identified: Home Care Services (06/08/231027) For further screening information, please refer to the Care Management flow document. * Ancillary Progress Note - Luciana Davison RN - 06/08/2023 10:26 AM EDT HOME HEALTH/HOSPICE REFERRAL FORM CARE MANAGEMENT [address] [address] Referred By: Luciana Davison RN Admission Date: 06/07/2023 Discharge Date: Discharge Time: Start Date: Within 24-48 hours of discharge Agency Referred To: [facility] PATIENT INFORMATION: Name: Tobi Sanchez [address]: [address] [place] [id number] : 1960 Phone: There is no home phone number on file. SSN: (Not on file) County: [place] Emergency Contacts: Extended Emergency Contact Information Primary Emergency Contact: Marika Sanchez [address]: [address] [place] [address] Relation: Spouse MEDICAL INFORMATION: Principal Diagnosis: Aortic Valve Stenosis Other Diagnosis: See attached History and Physical Surgery and Dates: Past Surgical History: Procedure Laterality Date DRAIN SKIN ABSCESS, SIMPLE/SINGLE LASIK SURGERY REMOVE TONSILS & ADENOIDS, UNDER 12 VASECTOMY Diet: Adults: As tolerated Allergies: Simvastatin Isolation Type: None Activity Restrictions: Per discharge instructions Isolation For: None HOME CARE ORDERS: (Discipline and Frequency): Overall health assessment and vital signs Medication management and teaching Disease management and teaching Home safety evaluation Assess for services PT/OT evaluation as indicated Labwork as indicated Medications Dose, Frequency, & Route: See patient copy of discharge instructions Equipment and Supplies: N/A Ordering Physician and Contact Information: Kayode Parnell MD Comments: PCP: PCP: LUCIANA LEUNG [address] [facility] [place] [address] [phone] D/C Physician: Kayode Parnell MD Insurance: See attached facesheet. * Diagnostic Clarification - Althea Browning PA-C - 06/08/2023 9:28 AM EDT The patient has been diagnosed with acute blood loss anemia expected in setting of cardiovascular surgery. * Progress Notes - Post-Op Global - Kayode Parnell MD - 06/08/2023 12:24 AM EDT PROGRESS NOTE - CARDIAC SURGERY [facility] [address] [facility] [place] [place] [address] Name: Tobi Sanchez [place] [facility] [place] [facility] Date: 06/08/2023, 12:24 AM OPERATION: Aortic valve replacement with #27 Avalus bioprosthetic valve SURGEON: Kayode Parnell MD POD#: 1 PATIENT ISSUES/EVENTS: extubated routinely, diltiazem IV for previous vasospasm. PHYSICAL EXAM: General: no acute distress Heart Exam: regular rate and rhythm and no murmur, gallops, or rubs Lungs: normal respirations, clear to auscultation, and lungs well expanded by exam Abdominal Exam: abdomen soft, non-tender, and no abnormal masses Extremities: warm, dry, and well perfused Incision: sternotomy - clean, dry and intact and no drainage Neurological: alert and EOMI Pulses: radial and dorsalis pedis CURRENT CORE CARDIAC MEDICATIONS: Beta Sebastian: no, explain -- low BP do not allow ASA: yes Statin: yes GENE-Inhibitor / ARB: no, explain -- normal LVEF POSTOPERATIVE COMPLICATIONS: none ADDITIONAL PROCEDURES: none ASSESSMENT/PLAN: Cardiovascular: Pre-op EF 60% Hx of HTN, coronary vasospasm, NSTEMI CI 2.5, SVO2 60s Diltiazem gtt for previous vasospasm. Previous levophed. Currently in SR. Central Line(s): Yes, reason: Hemodynamic monitoring Pacer Wires: yes Adger - yes Post op EKG with SB. MANAGER DISASTER RECOVERY: norvasc, lisinopril, toprol. Pulmonary: CXR reviewed KELSIE on CPAP pre op. EZpap, Pulmonary toilet Chest Tubes/Rudolph Drains: Yes: on suction and no air leak GI: Reg diet. GI prophylaxis /Renal: Creatine/BUN, stable Normal pre op renal function No electrolyte abnormalities Sams: Yes, reason: fluid monitoring Hematology: Hemoglobin stable Aspirin 81mg heparin sq for DVT prophylaxis Plavix for NSTEMI in December. Neuro/P.T./O.T.: neurologically intact PT/OT consulted Infectious Disease: Vancomycin for indeterminate nasal swab Endo: Insulin drip A1C preop 6.3 Plan: Will d/c swan and a line in AM pending labs. Plavix for NSTEMI, will consider transitioning diltiazem gtt to PO in AM. OOB and ambulate in AM. ATTENDING STAFF I have seen and examined the patient. Doing well. Hemodynamics good. Resume plavix. Stop diltiazem.Remove PA cath and art line. * Respiratory Progress Note - Lucia Garcia, MALTHOUSE LABORER - 06/07/2023 2:30 PM EDT PATIENT DRIVEN PROTOCOL - Respiratory Care Services [address] [address] Name: Tobi Sanchez [place] [facility] [place] [facility] Date: 06/07/2023 Time: 2:31 PM Patient Driven Protocol Summary: Initial evaluation performed. This Treatment Plan and medications will be reviewed by the Primary Care Team for any contraindications. Respiratory Care Treatment Plan Pulmonary Volume Expansion Therapy: Incentive Spirometry Q12H to prevent or treat alveolar consolidation and atelectasis. Additional Pulmonary Volume Expansions: EzPAP Treatment: QID Total Performed: 30 with prevent or treat alveolar consolidation and atelectasis. . Secretion Management Treatment: Flutter Therapy QID to enhance mobilization of secretions and prevent or treat alveolar consolidation and atelectasis. . The patient will be re-evaluated: within 48 hours. The Triage Level is: (Assessment Score = 6 -10) Level 4. Triage Level Definitions: Level 1 Severe Respiratory/Airway Compromise Level 2 Moderate Respiratory/Airway Compromise or high risk for pulmonary complications Level 3 Mild Respiratory/Airway Compromise or moderate risk for pulmonary complications Level 4 Episodic Respiratory/Airway Compromise or low risk for pulmonary complications Level 5 No Respiratory/Airway Compromise Triage 1 Triage 2 Triage 3 Triage 4 Triage 5 greater than 20 16 - 20 11 - 15 6 - 10 0 - 5 Medical Record Assessment Clinical Findings Pulmonary Status: 1 - Smoking less than 1 pack/day or quit less than 5 years ago Surgical Status: 3 - Thoracic or Upper Abdominal Chest X-Ray: 2 - Infiltrates and/or Atelectasis Assessment Score: 6 Patient Assessment Clinical Findings Respiratory Pattern: 0 - RR 12 - 20; Patient only gets breathless with strenuous exercise. Breath Sounds: 0 - Clear to auscultation Cough Effectiveness: 0 - Strong non-productive Sputum Production: 0 - No sputum production Level of Activity: 2 - Temporarily non-ambulatory O2 needed to keep SpO2 greater than or equal to 92%: 2 - Oxygen 4-6 LPM or FiO2 35-50% Assessment Score: 4 Total Assessment Score: 10 Breath Sounds: Inspiratory and expiratory clear bilaterally.. Cough and Sputum: No cough was present.. CXR: EXAM Chest 1 View - 06/07/2023 12:50 pm HISTORY basline initial xray after open heart surgery COMPARISON 07/10/2021 TECHNIQUE Portable semi-upright AP view of the chest was obtained. FINDINGS Lines and Tubes: Endotracheal tube terminates 4.6 cm above the jayna. NG tube terminates in the proximal stomach with side hole at GE junction. Right IJ approach Adger-Suellen catheter with tip projecting over the main pulmonary outflow tract. Mediastinal drain and thoracostomy tube projecting over lower left hemithorax. Foreign bodies: None. Left retrocardiac consolidation, likely representing atelectasis. Minimal right basilar linear atelectasis. No pneumothorax. Pulmonary vascularity and cardiomediastinal silhouette are normal. IMPRESSION IMPRESSION 1. Left retrocardiac consolidation, likely atelectasis. 2. Side hole of NG tube projects over GE junction. Recommend 2 cm of advancement for optimal placement. . Vital Signs: Resp: 17 (06/07/23 1400) Pulse: 59 (06/07/23 1400) Temp: 36.5 C (97.7 F) (06/07/23 0600) BP: 106/57 (06/07/23 1400) SpO2: 99 % (06/07/23 1420) PFT: Minimal Predicted IC: 1.11 L. Inspiratory capacity: 1.0L. Primary Service: Cardiac Surgery. Admitting Diagnosis: Aortic valve stenosis [I35.0] Aortic stenosis [I35.0] Pulmonary Diagnosis: Hypertension and KELSIE. Prescriptions/Home Medications/Durable Medical Equipment: CPAP 8. documented in this encounter Plan of Treatment Upcoming Encounters Date Type Specialty Care Team Description 06/16/2023 Office Visit Family Medicine Leung Luciana Blanche, DO [address] [place] [address] 06/25/2023 Office Visit Cardiothoracic Surgery Jonah Chacon PA-C [address] [place] [address] 07/12/2023 Office Visit Cardiology Joan Portillo PA-C [address] [place] [id number] 07/22/2023 Office Visit Cardiothoracic Surgery Kayode Parnell MD [address], [place] [id number] 09/21/2023 Office Visit Cardiology Hero Monique DO [address] [place] [address] Scheduled Orders Name Type Priority Associated Diagnoses Order Schedule CV ECHO, [facility]ZA INTRAOPERATIVE Echocardiology Routine Valvular heart disease One Time for 1 Occurrences starting 06/07/2023 until 06/07/2023 XR ABDOMEN 1 VIEW Medical Imaging STAT On e Time for 1 Occurrences starting 06/07/2023 until 06/07/2023 EKG EKG STAT Status post surgery One Time for 1 Occurrences starting 06/07/2023 until 06/07/2023 EKG EKG Routine Status post surgery One Time for 1 Occurrences starting 06/08/2023 until 06/08/2023 EXTUBATION Procedures Routine One Time for 1 Occurrences starting 06/07/2023 until 06/07/2023 Scheduled Referrals Name Type Priority Associated Diagnoses Orde r Schedule CARDIAC REHAB REFERRAL OP Referral Within 30 days (routine) Aortic valve stenosis, etiology of cardiac valve disease unspecified S/P AVR (aortic valve replacement) Ordered: 06/07/2023 Health Maintenance Due Date Last Done Comments [...] this encounter Medical Devices Implanted Type Area Affiliate Marketing Manager Device Identifier Shelf Expiration Date Model / Serial / Lot Valve Aortic Avalus 27mm - [id number] - [id number] Implanted:Qty: 1 on 06/07/2023 by [place]ode P[place]ell [place] [facility] [place] Aorta [id number] 01/19/2026 [id number] / [id number] / [id number] documented as of this encounter Procedures Procedure Name Priority Date/Time Associated Diagnosis Comments XR CHEST 1 VIEW Routine 06/11/2023 5:59 AM EDT DIFFERENTIAL, AUTOMATED STAT 06/11/20 4:53 AM EDT BASIC METABOLIC PANEL STAT 06/11/2023 4:53 AM EDT CBC STAT 06/11/2023 4:53 AM EDT CBC STAT 06/11/2023 4:53 AM EDT MAGNESIUM STAT 06/11/2023 4:53 AM EDT XR CHEST 1 VIEW Routine 06/10/2023 5:27 AM EDT DIFFERENTIAL, AUTOMATED STAT 06/10/20 4:49 AM EDT BASIC METABOLIC PANEL STAT 06/10/2023 4:49 AM EDT CBC STAT 06/10/2023 4:49 AM EDT CBC STAT 06/10/2023 4:49 AM EDT MAGNESIUM STAT 06/10/2023 4:49 AM EDT XR CHEST 1 VIEW Routine 06/09/2023 5:33 AM EDT DIFFERENTIAL, AUTOMATED STAT 06/09/20 5:04 AM EDT BASIC METABOLIC PANEL STAT 06/09/2023 5:04 AM EDT CBC STAT 06/09/2023 5:04 AM EDT CBC STAT 06/09/2023 5:04 AM EDT MAGNESIUM STAT 06/09/2023 5:04 AM EDT GLUCOSE METER, POINT OF CARE [facility] 06/08/2023 12:35 PM EDT GLUCOSE METER, POINT OF CARE [facility] 06/08/2023 10:40 AM EDT GLUCOSE METER, POINT OF CARE [facility] 06/08/2023 8:15 AM EDT GLUCOSE METER, POINT OF CARE [facility] 06/08/2023 6:07 AM EDT XR CHEST 1 VIEW Routine 06/08/2023 5:43 AM EDT GLUCOSE METER, POINT OF CARE [facility] 06/08/2023 3:57 AM EDT DIFFERENTIAL, AUTOMATED STAT 06/08/20 3:54 AM EDT BASIC METABOLIC PANEL STAT 06/08/2023 3:54 AM EDT O2 SATURATION, VENOUS STAT 06/08/2023 3:54 AM EDT CBC STAT 06/08/2023 3:54 AM EDT CBC STAT 06/08/2023 3:54 AM EDT MAGNESIUM STAT 06/08/2023 3:54 AM EDT GLUCOSE METER, POINT OF CARE [facility] 06/08/2023 2:12 AM EDT GLUCOSE METER, POINT OF CARE [facility] 06/08/2023 12:13 AM EDT GLUCOSE METER, POINT OF CARE [facility] 06/07/2023 10:11 PM EDT GLUCOSE METER, POINT OF CARE [facility] 06/07/2023 7:52 PM EDT WHOLE BLOOD PROFILE, ARTERIAL STAT 06/07/2023 6:27 PM EDT BASIC METABOLIC PANEL STAT 06/07/2023 6:01 PM EDT CBC STAT 06/07/2023 6:01 PM EDT MAGNESIUM STAT 06/07/2023 6:01 PM EDT GLUCOSE METER, POINT OF CARE [facility] 06/07/2023 6:00 PM EDT GLUCOSE METER, POINT OF CARE [facility] 06/07/2023 4:00 PM EDT WHOLE BLOOD PROFILE, ARTERIAL STAT 06/07/2023 3:56 PM EDT GLUCOSE METER, POINT OF CARE [facility] 06/07/2023 2:04 PM EDT WHOLE BLOOD PROFILE, ARTERIAL STAT 06/07/2023 1:15 PM EDT XR CHEST 1 VIEW STAT 06/07/2023 12:50 PM EDT TEG (THOMROBOELASTOGRAPH) PANEL STAT 06/07/2023 12:22 PM EDT TEG (THROMBOELASTOGRAPH), HEPARINASE STAT 06/07/2023 12:22 PM EDT WHOLE BLOOD PROFILE, ARTERIAL STAT 06/07/2023 12:22 PM EDT TEG (THROMBOELASTOGRAPH) STAT 06/07/2023 12:22 PM EDT BASIC METABOLIC PANEL STAT 06/07/2023 12:22 PM EDT HEPARIN, UNFRACTIONATED STAT 06/07/20 12:22 PM EDT ANTITHROMBIN III ACTIVITY STAT 06/07/2023 12:22 PM EDT O2 SATURATION, VENOUS STAT 06/07/2023 12:22 PM EDT PT INR STAT 06/07/2023 12:22 PM EDT APTT STAT 06/07/2023 12:22 PM EDT FIBRINOGEN STAT 06/07/2023 12:22 PM EDT CBC STAT 06/07/2023 12:22 PM EDT MAGNESIUM STAT 06/07/2023 12:22 PM EDT GLUCOSE METER, POINT OF CARE [facility] 06/07/2023 12:06 PM EDT BLOOD GAS WITH CHEMISTRY, POINT OF CARE [facility] 06/07/2023 12:02 PM EDT BLOOD GAS WITH CHEMISTRY, POINT OF CARE [facility] 06/07/2023 10:58 AM EDT ACT, POINT OF CARE [facility] 06/07/2023 10 :58 AM EDT WHOLE BLOOD PROFILE, ARTERIAL STAT 06/07/2023 10:52 AM EDT BLOOD GAS WITH CHEMISTRY, POINT OF CARE [facility] 06/07/2023 10:27 AM EDT ACT, POINT OF CARE [facility] 06/07/2023 10 :26 AM EDT TEG (THOMROBOELASTOGRAPH) PANEL STAT 06/07/2023 10:22 AM EDT TEG (THROMBOELASTOGRAPH), HEPARINASE STAT 06/07/2023 10:22 AM EDT TEG (THROMBOELASTOGRAPH) STAT 06/07/2023 10:22 AM EDT ANTITHROMBIN III ACTIVITY STAT 06/07/2023 10:22 AM EDT PT INR STAT 06/07/2023 10:22 AM EDT FIBRINOGEN STAT 06/07/2023 10:22 AM EDT CBC STAT 06/07/2023 10:22 AM EDT ACT, POINT OF CARE [facility] 06/07/2023 10 :08 AM EDT HC DOPPLER ECHO COMPLETE Routine 06/07/2023 10:00 AM EDT Valvular heart disease ACT, POINT OF CARE [facility] 06/07/2023 9: 52 AM EDT TEG (THOMROBOELASTOGRAPH) PANEL STAT 06/07/2023 9:50 AM EDT TEG (THROMBOELASTOGRAPH), HEPARINASE STAT 06/07/2023 9:50 AM EDT WHOLE BLOOD PROFILE, VENOUS STAT 06/07/2023 9:50 AM EDT BLOOD GAS, ARTERIAL STAT 06/07/2023 9 :50 AM EDT TEG (THROMBOELASTOGRAPH) STAT 06/07/2023 9:50 AM EDT PLT STAT 06/07/2023 9:50 AM EDT FIBRINOGEN STAT 06/07/2023 9:50 AM EDT BLOOD GAS WITH CHEMISTRY, POINT OF CARE [facility] 06/07/2023 9:43 AM EDT ACT, POINT OF CARE [facility] 06/07/2023 9: 42 AM EDT ACT, POINT OF CARE [facility] 06/07/2023 9: 24 AM EDT ACT, POINT OF CARE [facility] 06/07/2023 9: 24 AM EDT BLOOD GAS WITH CHEMISTRY, POINT OF CARE [facility] 06/07/2023 7:56 AM EDT ACT, POINT OF CARE [facility] 06/07/2023 7: 55 AM EDT REPLACEMENT AORTIC VALVE, BYPASS WITH PROSTHETIC VALVE 06/07/2023 6:30 AM EDT Aortic valve stenosis GLUCOSE METER, POINT OF CARE [facility] 06/07/2023 6:23 AM EDT HC COMPATIBILITY ELECTRONIC CROSSMATCH STAT 06/07/2023 6:15 AM EDT documented in this encounter Results * XR CHEST 1 VIEW (06/11/2023 5:59 AM EDT) Anatomical Region Laterality Modality Chest Computed Radiogr aphy 06/11/2023 10:1 9 AM EDT Impressions 06/11/2023 10:16 AM EDT IMPRESSION Linear bibasilar atelectasis. Narrative 06/11/2023 10:16 AM EDT EXAM XR CHEST 1 VIEW- 06/11/2023 5:59 am HISTORY follow up postop open heart COMPARISON Portable chest from 06/10/2023 TECHNIQUE A single portable semi-upright AP view of the chest was obtained at 0547 hours. FINDINGS Catheters: None Tubes: None Foreign bodies: No radiopaque foreign bodies are identified. The chest wall and cardiomediastinal structures are stable in appearance. There is no significant pleural effusion. There is bibasilar atelectasis. Procedure Note Ronny Dixon MD - 06/11/2023 EXAM XR CHEST 1 VIEW- 06/11/2023 5:59 am HISTORY follow up postop open heart COMPARISON Portable chest from 06/10/2023 TECHNIQUE A single portable semi-upright AP view of the chest was obtained at 0547hours. FINDINGS Catheters: None Tubes: None Foreign bodies: No radiopaque foreign bodies are identified. The chest wall and cardiomediastinal structures are stable in appearance.There is no significant pleural effusion. There is bibasilaratelectasis. IMPRESSION IMPRESSION Linear bibasilar atelectasis. Rebeca Samaniego PA-C RADIOLOGY (RAD GENERAL) * (ABNORMAL) DIFFERENTIAL, AUTOMATED (06/11/2023 4:53 AM EDT) WBC 11.41(H) 4.00 - 10.80 K/uL 06/11/2023 5:17 AM EDT LAB[facility]ATORY [facility] Neutrophils % 65.8 40.0 - 75.0 % 06/11/2023 5:17 AM EDT LAB[facility]ATORY [facility] Lymphocytes % 18.6 18.0 - 42.0 % 06/11/2023 5:17 AM EDT LAB[facility]ATORY [facility] Monocytes % 11.5(H) 1.0 - 11.0 % 06/11/2023 5:17 AM EDT LAB[facility]ATORY [facility] Eosinophils % 1.9 0.0 - 6.0 % 06/11/2023 5:17 AM EDT LAB[facility]ATORY [facility] Basophils % 0.4 0.0 - 2.0 % 06/11/2023 5:17 AM EDT LAB[facility]ATORY [facility] Immature Granulocytes % 1.8 0.0 - 2.0 % 06/11/2023 5:17 AM EDT LABORATORY [facility] Absolute Neutrophils 7.50 1.80 - 7.70 K/uL 06/11/2023 5:17 AM EDT LABORATORY [facility] Absolute Lymphocytes 2.12 1.00 - 4.80 K/ul 06/11/2023 5:17 AM EDT LABORATORY [facility] Absolute Monocytes 1.31(H) 0.00 - 1.10 K/uL 06/11/2023 5:17 AM EDT LABORATORY [facility] Absolute Eosinophils 0.22 0.00 - 0.70 K/uL 06/11/2023 5:17 AM EDT LAB[facility]ATORY [facility] Absolute Basophils 0.05 0.00 - 0.20 K/uL 06/11/2023 5:17 AM EDT LAB[facility]ATORY [facility] Absolute Immature Granulocytes 0.21(H) 0.00 - 0.20 K/uL 06/11/2023 5:17 AM EDT LAB[facility] Blood Venous blood specimen / Unknown Venipuncture / Unknown 06/11/2023 4:53 AM EDT 06/11/2023 5:02 AM EDT Rebeca Samaniego PA-C LAB BLOOD ORDERABLES LABORATORY [facility] [address] [place] [address] * (ABNORMAL) CBC (06/11/2023 4:53 AM EDT) [facility] WBC 11.41(H) 4.00 - 10.80 K/uL 06/11/2023 5:17 AM EDT LAB[facility]ATORY [facility] RBC 3.11 4.50 - 5.25 M/uL 06/11/2023 5:17 AM EDT LAB[facility]ATORY [facility] HGB 9.4(L) 14.0 - 16.8 g/dL 06/11/2023 5:17 AM EDT LAB[facility]ATORY [facility] HCT 29.6(L) 40.0 - 48.4 % 06/11/2023 5:17 AM EDT LAB[facility]ATORY [facility] MCV 95.2 82.0 - 99.5 fL 06/11/2023 5:17 AM EDT LABORATORY [facility] MCH 30.2 27.0 - 34.0 pg 06/11/2023 5:17 AM EDT LABORATORY [facility] MCHC 31.8 32.0 - 36.0 g/dL 06/11/2023 5:17 AM EDT LABORATORY [facility] RDW 13.5 11.5 - 15.5 % 06/11/2023 5:17 AM EDT LABORATORY [facility] PLT 140 140 - 400 K/uL 06/11/2023 5:17 AM EDT LAB[facility]ATORY [facility] MPV 9.8 6.6 - 11.1 fL 06/11/2023 5:17 AM EDT LABORATORY [facility] nRBCs 0 <=0 /100 WBCs 06/11/2023 5:17 AM EDT [facility] Venous blood specimen / Unknown Venipuncture / Unknown 06/11/2023 4:53 AM EDT 06/11/2023 5:02 AM EDT Rebeca Samaniego PA-C LAB BLOOD ORDERABLES [facility] [address] [place] [address] * MAGNESIUM (06/11/2023 4:53 AM EDT) [facility] Magnesium 2.3 1.5 - 2.6 mg/dL 06/11/2023 5:36 AM EDT LABORATORY [facility] Blood Venous blood specimen / Unknown Venipuncture / Unknown 06/11/2023 4:53 AM EDT 06/11/2023 5:02 AM EDT Rebeca Samaniego PA-C LAB BLOOD ORDERABLES [facility] [address] [place] [address] * (ABNORMAL) BASIC METABOLIC PANEL (06/11/2023 4:53 AM EDT) BUN 20 6 - 20 mg/dL 06/11/2023 5:36 AM EDT LABORATORY C Creatinine 1.2 0.6 - 1.2 mg/dL 06/11/2023 5:36 AM EDT LAB[facility]ATORY [facility] Estimated Glomerular Filtration Rate 71 >=60 mL/min 06/11/2023 5:36 AM EDT LAB[facility]ATORY [facility] Comment:eGFR is calculated b ased on the CKD-EPI 2020 equation Sodium 137 135 - 146 mmol/L 06/11/2023 5:36 AM EDT LAB[facility]ATORY [facility] Potassium 4.3 3.5 - 5.1 mmol/L 06/11/2023 5:36 AM EDT LAB[facility]ATORY [facility] Chloride 101 98 - 107 mmol/L 06/11/2023 5:36 AM EDT LAB[facility]ATORY [facility] CO2 27 22 - 32 mmol/L 06/11/2023 5:36 AM EDT LAB[facility]ATORY [facility] Anion Gap 9 7 - 15 mmol/L 06/11/2023 5:36 AM EDT LAB[facility]ATORY [facility] Glucose 123(H) 70 - 120 mg/dL 06/11/2023 5:36 AM EDT LAB[facility]ATORY [facility] Calcium 9.0 8.4 - 10.2 mg/dL 06/11/2023 5:36 AM EDT LABORATORY C Blood Venous blood specimen / Unknown Venipuncture / Unknown 06/11/2023 4:53 AM EDT 06/11/2023 5:02 AM EDT Rebeca Samaniego PA-C LAB BLOOD ORDERABLES [facility] [address] [place] [address] * XR CHEST 1 VIEW (06/10/2023 5:27 AM EDT) Anatomical Region Laterality Modality Chest Computed Radiogr aphy 06/10/2023 10:0 5 AM EDT Impressions 06/10/2023 10:03 AM EDT IMPRESSION Bilateral lower lobe opacities, left side greater than right, likely subsegmental atelectasis and/or small effusion. Narrative 06/10/2023 10:03 AM EDT EXAM XR CHEST 1 VIEW- 06/10/2023 5:27 am HISTORY follow up postop open heart COMPARISON Chest x-ray 06/09/2023 TECHNIQUE Portable semi-upright AP view of the chest was obtained. FINDINGS Catheters: Right internal jugular vascular sheath present Tubes: Status post removal of mediastinal drainage catheter Foreign bodies: Mediastinal sutures present The cardiac silhouette is prominent. Atherosclerotic changes of the aorta are noted. There is linear density in the right lung base likely subsegmental atelectasis. Opacities noted at the left base with blunting of the left costophrenic angle and small left effusion. The appearance is relatively stable from prior examination. Procedure Note Estefanía Lara MD - 06/10/2023 EXAM XR CHEST 1 VIEW- 06/10/2023 5:27 am HISTORY follow up postop open heart COMPARISON Chest x-ray 06/09/2023 TECHNIQUE Portable semi-upright AP view of the chest was obtained. FINDINGS Catheters: Right internal jugular vascular sheath present Tubes: Status post removal of mediastinal drainage catheter Foreign bodies: Mediastinal sutures present The cardiac silhouette is prominent. Atherosclerotic changes of the aortaare noted. There is linear density in the right lung base likelysubsegmental atelectasis. Opacities noted at the left base with bluntingof the left costophrenic angle and small left effusion. The appearance isrelatively stable from prior examination. IMPRESSION IMPRESSION Bilateral lower lobe opacities, left side greater than right, likelysubsegmental atelectasis and/or small effusion. Rebeca Steve Samaniego PA-C RADIOLOGY (RAD GENERAL) * (ABNORMAL) DIFFERENTIAL, AUTOMATED (06/10/2023 4:49 AM EDT) WBC 13.36(H) 4.00 - 10.80 K/uL 06/10/2023 5:03 AM EDT LABORATORY [facility] Neutrophils % 68.8 40.0 - 75.0 % 06/10/2023 5:03 AM EDT LABORATORY [facility] Lymphocytes % 16.9(L) 18.0 - 42.0 % 06/10/2023 5:03 AM EDT LAB[facility]ATORY [facility] Monocytes % 11.9(H) 1.0 - 11.0 % 06/10/2023 5:03 AM EDT LABORATORY [facility] Eosinophils % 1.2 0.0 - 6.0 % 06/10/2023 5:03 AM EDT LAB[facility]ATORY [facility] Basophils % 0.2 0.0 - 2.0 % 06/10/2023 5:03 AM EDT LABORATORY [facility] Immature Granulocytes % 1.0 0.0 - 2.0 % 06/10/2023 5:03 AM EDT LABORATORY [facility] Absolute Neutrophils 9.19(H) 1.80 - 7.70 K/uL 06/10/2023 5:03 AM EDT LABORATORY [facility] Absolute Lymphocytes 2.26 1.00 - 4.80 K/ul 06/10/2023 5:03 AM EDT LABORATORY [facility] Absolute Monocytes 1.59(H) 0.00 - 1.10 K/uL 06/10/2023 5:03 AM EDT LABORATORY [facility] Absolute Eosinophils 0.16 0.00 - 0.70 K/uL 06/10/2023 5:03 AM EDT LABORATORY [facility] Absolute Basophils 0.03 0.00 - 0.20 K/uL 06/10/2023 5:03 AM EDT LABORATORY [facility] Absolute Immature Granulocytes 0.13 0.00 - 0.20 K/uL 06/10/2023 5:03 AM EDT LAB[facility]ATORY [facility] Blood Venous blood specimen / Unknown Venipuncture / Unknown 06/10/2023 4:49 AM EDT 06/10/2023 4:53 AM EDT Rebeca Samaniego PA-C LAB BLOOD ORDERABLES LABORATORY [facility] [address] [place] [address] * (ABNORMAL) CBC (06/10/2023 4:49 AM EDT) [facility] Signature WBC 13.36(H) 4.00 - 10.80 K/uL 06/10/2023 5:03 AM EDT LABORATORY [facility] RBC 3.11 4.50 - 5.25 M/uL 06/10/2023 5:03 AM EDT LABORATORY [facility] HGB 9.4(L) 14.0 - 16.8 g/dL 06/10/2023 5:03 AM EDT LABORATORY [facility] HCT 28.6(L) 40.0 - 48.4 % 06/10/2023 5:03 AM EDT LABORATORY [facility] MCV 92.0 82.0 - 99.5 fL 06/10/2023 5:03 AM EDT LABORATORY [facility] MCH 30.2 27.0 - 34.0 pg 06/10/2023 5:03 AM EDT LABORATORY [facility] MCHC 32.9 32.0 - 36.0 g/dL 06/10/2023 5:03 AM EDT LABORATORY [facility] RDW 13.5 11.5 - 15.5 % 06/10/2023 5:03 AM EDT LABORATORY GM PLT 121(L) 140 - 400 K/uL 06/10/2023 5:03 AM EDT LABORATORY GM MPV 10.1 6.6 - 11.1 fL 06/10/2023 5:03 AM EDT LABORATORY GM nRBCs 0 <=0 /100 WBCs 06/10/2023 5:03 AM EDT LABORATORY GM Blood Venous blood specimen / Unknown Venipuncture / Unknown 06/10/2023 4:49 AM EDT 06/10/2023 4:53 AM EDT Rebeca Samaniego PA-C LAB BLOOD ORDERABLES Performing Organization Address City/[facility]/ZIP Co de Phone Number LABORATORY [facility] [address] [place] [address] * MAGNESIUM (06/10/2023 4:49 AM EDT) Magnesium 2.2 1.5 - 2.6 mg/dL 06/10/2023 5:34 AM EDT LABORATORY [facility] Blood Venous blood specimen / Unknown Venipuncture / Unknown 06/10/2023 4:49 AM EDT 06/10/2023 4:53 AM EDT Rebeca Samaniego PA-C LAB BLOOD ORDERABLES Performing Organization Address City/State/[facility] Co de Phone Number [facility]ATORY [facility] [address] [place] [address] * BASIC METABOLIC PANEL (06/10/2023 4:49 AM EDT) BUN 17 6 - 20 mg/dL 06/10/2023 5:34 AM EDT LABORATORY C Creatinine 1.1 0.6 - 1.2 mg/dL 06/10/2023 5:34 AM EDT LABORATORY [facility] Estimated Glomerular Filtration Rate 74 >=60 mL/min 06/10/2023 5:34 AM EDT LABORATORY [facility] Comment:eGFR is calculated b ased on the CKD-EPI 2020 equation Sodium 135 135 - 146 mmol/L 06/10/2023 5:34 AM EDT LABORATORY [facility] Potassium 4.2 3.5 - 5.1 mmol/L 06/10/2023 5:34 AM EDT LABORATORY [facility] Chloride 99 98 - 107 mmol/L 06/10/2023 5:34 AM EDT LABORATORY [facility] CO2 29 22 - 32 mmol/L 06/10/2023 5:34 AM EDT LABORATORY [facility] Anion Gap 7 7 - 15 mmol/L 06/10/2023 5:34 AM EDT LABORATORY [facility] Glucose 117 70 - 120 mg/dL 06/10/2023 5:34 AM EDT LAB[facility]ATORY [facility] Calcium 8.8 8.4 - 10.2 mg/dL 06/10/2023 5:34 AM EDT LAB[facility]ATORY [facility] Blood Venous blood specimen / Unknown Venipuncture / Unknown 06/10/2023 4:49 AM EDT 06/10/2023 4:53 AM EDT Rebeca Samaniego PA-C LAB BLOOD ORDERABLES LABORATORY [facility] [address] [place] [address] * XR CHEST 1 VIEW (06/09/2023 5:33 AM EDT) Anatomical Region Laterality Modality Chest Computed Radiogr aphy 06/09/2023 7:26 AM EDT Impressions 06/09/2023 7:23 AM EDT IMPRESSION Scattered subsegmental atelectasis Narrative 06/09/2023 7:23 AM EDT EXAM XR CHEST 1 VIEW-06/09/2023 5:33 am HISTORY follow up postop open heart COMPARISON Prior study from yesterday FINDINGS Lines and tubes: Right IJ introducer sheath Scattered subsegmental atelectasis No large pleural effusion or pneumothorax. Cardiomediastinal silhouette is within normal limits. The osseous structures are intact. Procedure Note Renan Day MD - 06/09/2023 EXAM XR CHEST 1 VIEW-06/09/2023 5:33 am HISTORY follow up postop open heart COMPARISON Prior study from yesterday FINDINGS Lines and tubes: Right IJ introducer sheath Scattered subsegmental atelectasis No large pleural effusion or pneumothorax. Cardiomediastinal silhouette is within normal limits. The osseous structures are intact. IMPRESSION IMPRESSION Scattered subsegmental atelectasis Rebeca Samaniego PA-C RADIOLOGY (RAD GENERAL) * (ABNORMAL) DIFFERENTIAL, AUTOMATED (06/09/2023 5:04 AM EDT) WBC 16.83(H) 4.00 - 10.80 K/uL 06/09/2023 5:46 AM EDT LABORATORY [facility] Neutrophils % 75.3(H) 40.0 - 75.0 % 06/09/2023 5:46 AM EDT LABORATORY [facility] Lymphocytes % 9.2(L) 18.0 - 42.0 % 06/09/2023 5:46 AM EDT LABORATORY [facility] Monocytes % 14.0(H) 1.0 - 11.0 % 06/09/2023 5:46 AM EDT LABORATORY [facility] Eosinophils % 0.4 0.0 - 6.0 % 06/09/2023 5:46 AM EDT LABORATORY [facility] Basophils % 0.3 0.0 - 2.0 % 06/09/2023 5:46 AM EDT LABORATORY [facility] Immature Granulocytes % 0.8 0.0 - 2.0 % 06/09/2023 5:46 AM EDT LABORATORY [facility] Absolute Neutrophils 12.68(H) 1.80 - 7.70 K/uL 06/09/2023 5:46 AM EDT LABORATORY [facility] Absolute Lymphocytes 1.54 1.00 - 4.80 K/ul 06/09/2023 5:46 AM EDT LABORATORY [facility] Absolute Monocytes 2.35(H) 0.00 - 1.10 K/uL 06/09/2023 5:46 AM EDT LABORATORY [facility] Absolute Eosinophils 0.07 0.00 - 0.70 K/uL 06/09/2023 5:46 AM EDT LABORATORY [facility] Absolute Basophils 0.05 0.00 - 0.20 K/uL 06/09/2023 5:46 AM EDT LABORATORY [facility] Absolute Immature Granulocytes 0.14 0.00 - 0.20 K/uL 06/09/2023 5:46 AM EDT LABORATORY [facility] Blood Venous blood specimen / Unknown Venipuncture / Unknown 06/09/2023 5:04 AM EDT 06/09/2023 5:18 AM EDT Rebeca Samaniego PA-C LAB BLOOD ORDERABLES Performing Organization Address City/State/[facility] Co de Phone Number LAB[facility]ATORY [facility] [address] [place] [address] * (ABNORMAL) CBC (06/09/2023 5:04 AM EDT) [facility] WBC 16.83(H) 4.00 - 10.80 K/uL 06/09/2023 5:46 AM EDT LABORATORY [facility] RBC 3.25 4.50 - 5.25 M/uL 06/09/2023 5:46 AM EDT LABORATORY [facility] HGB 9.9(L) 14.0 - 16.8 g/dL 06/09/2023 5:46 AM EDT LABORATORY [facility] HCT 30.5(L) 40.0 - 48.4 % 06/09/2023 5:46 AM EDT LABORATORY [facility] MCV 93.8 82.0 - 99.5 fL 06/09/2023 5:46 AM EDT LABORATORY [facility] MCH 30.5 27.0 - 34.0 pg 06/09/2023 5:46 AM EDT LABORATORY [facility] MCHC 32.5 32.0 - 36.0 g/dL 06/09/2023 5:46 AM EDT LABORATORY [facility] RDW 13.2 11.5 - 15.5 % 06/09/2023 5:46 AM EDT LABORATORY [facility] PLT 131(L) 140 - 400 K/uL 06/09/2023 5:46 AM EDT LABORATORY [facility] MPV 10.2 6.6 - 11.1 fL 06/09/2023 5:46 AM EDT LABORATORY [facility] nRBCs 0 <=0 /100 WBCs 06/09/2023 5:46 AM EDT LABORATORY [facility] Blood Venous blood specimen / Unknown Venipuncture / Unknown 06/09/2023 5:04 AM EDT 06/09/2023 5:18 AM EDT Rebeca Samaniego PA-C LAB BLOOD ORDERABLES [facility]AT[facility] [address] [place] [address] * MAGNESIUM (06/09/2023 5:04 AM EDT) Magnesium 2.0 1.5 - 2.6 mg/dL 06/09/2023 5:59 AM EDT [facility] Venous blood specimen / Unknown Venipuncture / Unknown 06/09/2023 5:04 AM EDT 06/09/2023 5:18 AM EDT Rebeca Samaniego PA-C LAB BLOOD ORDERABLES LAB[facility]AT[facility] [place] [address] [place] [address] * (ABNORMAL) BASIC METABOLIC PANEL (06/09/2023 5:04 AM EDT) BUN 16 6 - 20 mg/dL 06/09/2023 5:59 AM EDT LABORATORY [facility] Creatinine 1.2 0.6 - 1.2 mg/dL 06/09/2023 5:59 AM EDT LABORATORY [facility] Estimated Glomerular Filtration Rate 71 >=60 mL/min 06/09/2023 5:59 AM EDT LABORATORY [facility] Comment:eGFR is calculated b ased on the CKD-EPI 2020 equation Sodium 136 135 - 146 mmol/L 06/09/2023 5:59 AM EDT LAB[facility] Potassium 4.8 3.5 - 5.1 mmol/L 06/09/2023 5:59 AM EDT [facility] Chloride 99 98 - 107 mmol/L 06/09/2023 5:59 AM EDT [facility] CO2 28 22 - 32 mmol/L 06/09/2023 5:59 AM EDT LAB[facility]ATORY [facility] Anion Gap 9 7 - 15 mmol/L 06/09/2023 5:59 AM EDT LABORATORY C Glucose 146(H) 70 - 120 mg/dL 06/09/2023 5:59 AM EDT LABORATORY C Calcium 8.7 8.4 - 10.2 mg/dL 06/09/2023 5:59 AM EDT [facility] [place] Venous blood specimen / Unknown Venipuncture / Unknown 06/09/2023 5:04 AM EDT 06/09/2023 5:18 AM EDT Rebeca Samaniego PA-C LAB BLOOD ORDERABLES Performing Organization Address City/State/[facility] Co de Phone Number [facility]ATORY [facility] [address] [place] [address] * GLUCOSE METER, POINT OF CARE (06/08/2023 12:35 PM EDT) Glucose Meter 93 70 - 120 mg/dL 06/08/2023 12:38 PM EDT [employer] Blood Whole blood specimen / Unknown 06/08/2023 12:35 PM EDT 06/08/2023 12:38 PM EDT Kayode Parnell MD LAB POINT OF CARE T EST DOCKED DEVICE UNSOLICITED RESULTS Performing Organization Address City/[facility]/ZIP Co de Phone Number [facility] [address] [place] [address] * (ABNORMAL) GLUCOSE METER, POINT OF CARE (06/08/2023 10:40 AM EDT) Glucose Meter 124(H) 70 - 120 mg/dL 06/08/2023 12:38 PM EDT [employer] Blood Whole blood specimen / Unknown 06/08/2023 10:40 AM EDT 06/08/2023 12:38 PM EDT Kayode Parnell MD LAB POINT OF CARE T EST DOCKED DEVICE UNSOLICITED RESULTS Performing Organization Address [facility] Co de Phone Number [facility] [address] [place] [address] * (ABNORMAL) GLUCOSE METER, POINT OF CARE (06/08/2023 8:15 AM EDT) Glucose Meter 135(H) 70 - 120 mg/dL 06/08/2023 8:59 AM EDT [employer] Blood Whole blood specimen / Unknown 06/08/2023 8:15 AM EDT 06/08/2023 8:58 AM EDT Kayode Parnell MD LAB POINT OF CARE T EST DOCKED DEVICE UNSOLICITED RESULTS Performing Organization Address City/[facility]/ZIP Co de Phone Number [facility] [address] [place] [address] * GLUCOSE METER, POINT OF CARE (06/08/2023 6:07 AM EDT) Glucose Meter 119 70 - 120 mg/dL 06/08/2023 8:58 AM EDT [employer] Blood Whole blood specimen / Unknown 06/08/2023 6:07 AM EDT 06/08/2023 8:58 AM EDT Kayode Parnell MD LAB POINT OF CARE T EST DOCKED DEVICE UNSOLICITED RESULTS [facility] [address] [place] [address] * XR CHEST 1 VIEW (06/08/2023 5:43 AM EDT) Anatomical Region Laterality Modality Chest Computed Radiogr aphy 06/08/2023 9:54 AM EDT Impressions 06/08/2023 9:52 AM EDT IMPRESSION Persistent bibasilar atelectasis status post extubation. Narrative 06/08/2023 9:52 AM EDT EXAM XR CHEST 1 VIEW-06/08/2023 5:43 am HISTORY follow up postop open heart COMPARISON Chest radiograph 06/07/2023. TECHNIQUE Semi-upright AP view of the chest. FINDINGS Lines/Tubes/Devices: Interval extubation and enteric tube removal. Mediastinal drains and right IJ Adger-Suellen catheter in stable position. Prosthetic heart valve. Lungs/Pleura: Stable patchy bibasilar opacities favoring atelectasis. No pleural effusion or discernible pneumothorax. Heart/Mediastinum: Size and contours are stable. Bones/Soft Tissues: No acute osseous finding. Degenerative osseous changes. Median sternotomy. Upper Abdomen: Visualized portions are unremarkable. Procedure Note Segun Powell MD - 06/08/2023 EXAM XR CHEST 1 VIEW-06/08/2023 5:43 am HISTORY follow up postop open heart COMPARISON Chest radiograph 06/07/2023. TECHNIQUE Semi-upright AP view of the chest. FINDINGS Lines/Tubes/Devices: Interval extubation and enteric tube removal.Mediastinal drains and right IJ Adger-Suellen catheter in stable position.Prosthetic heart valve. Lungs/Pleura: Stable patchy bibasilar opacities favoring atelectasis. Nopleural effusion or discernible pneumothorax. Heart/Mediastinum: Size and contours are stable. Bones/Soft Tissues: No acute osseous finding. Degenerative osseouschanges. Median sternotomy. Upper Abdomen: Visualized portions are unremarkable. IMPRESSION IMPRESSION Persistent bibasilar atelectasis status post extubation. Rebeca Samaniego PA-C RADIOLOGY (RAD GENERAL) * GLUCOSE METER, POINT OF CARE (06/08/2023 3:57 AM EDT) [facility] Glucose Meter 90 70 - 120 mg/dL 06/08/2023 8:58 AM EDT [facility] [employer] Blood Whole blood specimen / Unknown 06/08/2023 3:57 AM EDT 06/08/2023 8:58 AM EDT Kayode Parnell MD LAB POINT OF CARE T EST DOCKED DEVICE UNSOLICITED RESULTS [facility] [address] [place] [address] * (ABNORMAL) DIFFERENTIAL, AUTOMATED (06/08/2023 3:54 AM EDT) [facility] WBC 13.16(H) 4.00 - 10.80 K/uL 06/08/2023 4:20 AM EDT LAB[facility]ATORY [facility] Neutrophils % 78.9(H) 40.0 - 75.0 % 06/08/2023 4:20 AM EDT LAB[facility] Lymphocytes % 7.1(L) 18.0 - 42.0 % 06/08/2023 4:20 AM EDT LAB[facility] Monocytes % 13.4(H) 1.0 - 11.0 % 06/08/2023 4:20 AM EDT LAB[facility] Eosinophils % 0.0 0.0 - 6.0 % 06/08/2023 4:20 AM EDT [facility] Basophils % 0.2 0.0 - 2.0 % 06/08/2023 4:20 AM EDT LAB[facility] Immature Granulocytes % 0.4 0.0 - 2.0 % 06/08/2023 4:20 AM EDT LAB[facility] Absolute Neutrophils 10.40(H) 1.80 - 7.70 K/uL 06/08/2023 4:20 AM EDT LAB[facility]AT[facility] Absolute Lymphocytes 0.93(L) 1.00 - 4.80 K/ul 06/08/2023 4:20 AM EDT LAB[facility]ATORY [facility] Absolute Monocytes 1.76(H) 0.00 - 1.10 K/uL 06/08/2023 4:20 AM EDT LAB[facility]ATORY [facility] Absolute Eosinophils 0.00 0.00 - 0.70 K/uL 06/08/2023 4:20 AM EDT LAB[facility]ORY [facility] Absolute Basophils 0.02 0.00 - 0.20 K/uL 06/08/2023 4:20 AM EDT LAB[facility]ATORY [facility] Absolute Immature Granulocytes 0.05 0.00 - 0.20 K/uL 06/08/2023 4:20 AM EDT [facility] Blood Arterial blood specimen / Unknown Arterial Line / Unknown 06/08/2023 3:54 AM EDT 06/08/2023 4:03 AM EDT Rbeeca Samaniego PA-C LAB BLOOD ORDERABLES [facility] [address] [place] [address] * (ABNORMAL) CBC (06/08/2023 3:54 AM EDT) WBC 13.16(H) 4.00 - 10.80 K/uL 06/08/2023 4:20 AM EDT LAB[facility]ATORY [facility] RBC 3.28 4.50 - 5.25 M/uL 06/08/2023 4:20 AM EDT LAB[facility] HGB 9.8(L) 14.0 - 16.8 g/dL 06/08/2023 4:20 AM EDT LAB[facility] HCT 30.3(L) 40.0 - 48.4 % 06/08/2023 4:20 AM EDT LAB[facility] MCV 92.4 82.0 - 99.5 fL 06/08/2023 4:20 AM EDT LAB[facility]ORY [facility] MCH 29.9 27.0 - 34.0 pg 06/08/2023 4:20 AM EDT LAB[facility] MCHC 32.3 32.0 - 36.0 g/dL 06/08/2023 4:20 AM EDT LAB[facility]ORY [facility] RDW 13.3 11.5 - 15.5 % 06/08/2023 4:20 AM EDT LAB[facility] PLT 161 140 - 400 K/uL 06/08/2023 4:20 AM EDT LAB[facility] MPV 9.7 6.6 - 11.1 fL 06/08/2023 4:20 AM EDT LAB[facility]ATORY [facility] nRBCs 0 <=0 /100 WBCs 06/08/2023 4:20 AM EDT [facility] [place] Arterial blood specimen / Unknown Arterial Line / Unknown 06/08/2023 3:54 AM EDT 06/08/2023 4:03 AM EDT Rebeca SEGOVIA-C LAB BLOOD ORDERABLES Performing Organization Address City/[facility] Co de Phone Number [facility]ATORY [facility] [address] [place] [address] * O2 SATURATION, VENOUS (06/08/2023 3:54 AM EDT) O2, Saturation, Venous 62.7 40.0 - 85.0 % 06/08/2023 4:09 AM EDT [facility]ORY [facility] Blood Venous blood specimen / Unknown Central Line / Unknown 06/08/2023 3:54 AM EDT 06/08/2023 4:03 AM EDT Rebeca SEGOVIA-C LAB BLOOD ORDERABLES Performing Organization Address [facility] de Phone Number LAB[facility]ATORY [facility] [address] [place] [address] * MAGNESIUM (06/08/2023 3:54 AM EDT) Magnesium 2.3 1.5 - 2.6 mg/dL 06/08/2023 4:36 AM EDT LAB[facility]ORY [facility] Blood Arterial blood specimen / Unknown Arterial Line / Unknown 06/08/2023 3:54 AM EDT 06/08/2023 4:03 AM EDT Rbeeca SEGOVIA-C LAB BLOOD ORDERABLES Performing Organization Address [facility] de Phone Number LAB[facility]ATORY [facility] [address] [place] [address] * BASIC METABOLIC PANEL (06/08/2023 3:54 AM EDT) BUN 16 6 - 20 mg/dL 06/08/2023 4:36 AM EDT [facility] Creatinine 1.1 0.6 - 1.2 mg/dL 06/08/2023 4:36 AM EDT LAB[facility]ATORY [facility] Estimated Glomerular Filtration Rate 79 >=60 mL/min 06/08/2023 4:36 AM EDT LAB[facility]ATORY [facility] Comment:eGFR is calculated b ased on the CKD-EPI 2020 equation Sodium 139 135 - 146 mmol/L 06/08/2023 4:36 AM EDT LAB[facility] Potassium 4.1 3.5 - 5.1 mmol/L 06/08/2023 4:36 AM EDT LAB[facility]ATORY [facility] Chloride 107 98 - 107 mmol/L 06/08/2023 4:36 AM EDT LAB[facility] CO2 24 22 - 32 mmol/L 06/08/2023 4:36 AM EDT LAB[facility] Anion Gap 8 7 - 15 mmol/L 06/08/2023 4:36 AM EDT LAB[facility]ATORY [facility] Glucose 107 70 - 120 mg/dL 06/08/2023 4:36 AM EDT LAB[facility] Calcium 8.5 8.4 - 10.2 mg/dL 06/08/2023 4:36 AM EDT [facility] Blood Arterial blood specimen / Unknown Arterial Line / Unknown 06/08/2023 3:54 AM EDT 06/08/2023 4:03 AM EDT Rebeca Samaniego PA-C LAB BLOOD ORDERABLES [facility] [address] [place] [address] * GLUCOSE METER, POINT OF CARE (06/08/2023 2:12 AM EDT) [facility] Glucose Meter 116 70 - 120 mg/dL 06/08/2023 1:20 PM EDT [facility] [employer] [facility] Blood Whole blood specimen / Unknown 06/08/2023 2:12 AM EDT 06/08/2023 1:20 PM EDT Kayode Parnell MD LAB POINT OF CARE T EST DOCKED DEVICE UNSOLICITED RESULTS [facility] [employer] [facility] [address] [place] [address] * GLUCOSE METER, POINT OF CARE (06/08/2023 12:13 AM EDT) Glucose Meter 108 70 - 120 mg/dL 06/08/2023 1:20 PM EDT [facility] [employer] [facility] Blood Whole blood specimen / Unknown 06/08/2023 12:13 AM EDT 06/08/2023 1:20 PM EDT Kayode Parnell MD LAB POINT OF CARE T EST DOCKED DEVICE UNSOLICITED RESULTS [facility] [address] [place] [address] * (ABNORMAL) GLUCOSE METER, POINT OF CARE (06/07/2023 10:11 PM EDT) Glucose Meter 126(H) 70 - 120 mg/dL 06/08/2023 1:20 PM EDT [facility] [employer] [facility] Blood Whole blood specimen / Unknown 06/07/2023 10:11 PM EDT 06/08/2023 1:20 PM EDT Kayode Parnell MD LAB POINT OF CARE T EST DOCKED DEVICE UNSOLICITED RESULTS Performing Organization Address City/[facility]/ZIP Co de Phone Number [facility] [address] [place] [address] * GLUCOSE METER, POINT OF CARE (06/07/2023 7:52 PM EDT) Glucose Meter 106 70 - 120 mg/dL 06/08/2023 1:20 PM EDT [facility] [employer] [facility] Blood Whole blood specimen / Unknown 06/07/2023 7:52 PM EDT 06/08/2023 1:20 PM EDT Kayode Parnell MD LAB POINT OF CARE T EST DOCKED DEVICE UNSOLICITED RESULTS [facility] [address] [place] [address] * (ABNORMAL) WHOLE BLOOD PROFILE, ARTERIAL (06/07/2023 6:27 PM EDT) Temperature 37.0 C 06/07/2023 6:37 PM EDT LAB[facility] pH, Arterial 7.383 7.350 - 7.450 units 06/07/2023 6:37 PM EDT LAB[facility]ATORY [facility] pCO2, Arterial 38.9 35.0 - 45.0 mmHg 06/07/2023 6:37 PM EDT LAB[facility]ATORY [facility] pO2, Arterial 98.4 75.0 - 100.0 mmHg 06/07/2023 6:37 PM EDT LAB[facility]ATORY [facility] Base Excess, Arterial -1.6 -2.0 - 2.0 mmol/L 06/07/2023 6:37 PM EDT LAB[facility] Hemoglobin, Whole Blood 10.4(L) 14.0 - 16.8 g/dL 06/07/2023 6:37 PM EDT LAB[facility] Hematocrit, Whole Blood 32.0(L) 40.0 - 48.4 % 06/07/2023 6:37 PM EDT LABORATORY C Comment: The Hematocrit reference interval is based on adult population. This method is intended for trending and screening purposes only. A "Complete Blood Count" is more accurate and should be ordered if clinically indicated. Oxyhemoglobin, Arterial 96.0 94.0 - 99.0 % total Hgb 06/07/2023 6:37 PM EDT LAB[facility]ATORY [facility] Carboxyhemoglob in, Whole Blood 1.0 <=1.5 % total Hgb 06/07/2023 6:37 PM EDT LABORATORY C Comment:Smokers: 0-9.0 % Methemoglobin, Whole Blood 0.9 <=1.5 % total Hgb 06/07/2023 6:37 PM EDT LAB[facility] Reduced Hemoglobin, Arterial 2.1 0.0 - 5.0 % total Hgb 06/07/2023 6:37 PM EDT LAB[facility] O2 Content, Arterial 14.1(L) 15.0 - 24.0 %vol 06/07/2023 6:37 PM EDT LAB[facility] Potassium, Whole Blood 4.3 3.5 - 5.1 mmol/L 06/07/2023 6:37 PM EDT LAB[facility] Sodium, Whole Blood 138 135 - 146 mmol/L 06/07/2023 6:37 PM EDT LABORATORY C Chloride, Whole Blood 110(H) 98 - 107 mmol/L 06/07/2023 6:37 PM EDT LABORATORY C Calcium, Ionized, Whole Blood 1.18 1.13 - 1.32 mmol/L 06/07/2023 6:37 PM EDT LABORATORY C Anion Gap, Whole Blood 5.0(L) 7.0 - 15.0 mmol/L 06/07/2023 6:37 PM EDT LABORATORY C Glucose, Whole Blood 127(H) 70 - 120 mg/dL 06/07/2023 6:37 PM EDT LABORATORY C FiO2 Not Provided % 06/07/2023 6:37 PM EDT LABORATORY C O2 Flow, Arterial 6 L/min 06/07/2023 6:37 PM EDT [facility]ORY [facility] Bicarbonate, Whole Blood 22.7(L) 23.0 - 31.0 mmol/L 06/07/2023 6:37 PM EDT LABORATORY C Blood Arterial blood specimen / Unknown Arterial Puncture / Unknown 06/07/2023 6:27 PM EDT 06/07/2023 6:32 PM EDT Rebeca Samaniego PA-C LAB BLOOD ORDERABLES Performing Organization Address City/[facility]/ZIP Co de Phone Number LABORATORY [place] [address] [place] [address] * MAGNESIUM (06/07/2023 6:01 PM EDT) Magnesium 2.5 1.5 - 2.6 mg/dL 06/07/2023 6:52 PM EDT LAB[facility]ORY [facility] Blood Arterial blood specimen / Unknown Arterial Puncture / Unknown 06/07/2023 6:01 PM EDT 06/07/2023 6:06 PM EDT Rebeca Samaniego PA-C LAB BLOOD ORDERABLES Performing Organization Address City/[facility]/ZIP Co de Phone Number LABORATORY [facility] [address] [place] [address] * (ABNORMAL) CBC (06/07/2023 6:01 PM EDT) Pathologist [facility] WBC 14.26(H) 4.00 - 10.80 K/uL 06/07/2023 6:30 PM EDT LABORATORY GM RBC 3.47 4.50 - 5.25 M/uL 06/07/2023 6:30 PM EDT LABORATORY [facility] HGB 10.3(L) 14.0 - 16.8 g/dL 06/07/2023 6:30 PM EDT LABORATORY GM HCT 32.2(L) 40.0 - 48.4 % 06/07/2023 6:30 PM EDT LABORATORY [facility] MCV 92.8 82.0 - 99.5 fL 06/07/2023 6:30 PM EDT LABOR[facility]ORY [facility] MCH 29.7 27.0 - 34.0 pg 06/07/2023 6:30 PM EDT LABORATORY [facility] MCHC 32.0 32.0 - 36.0 g/dL 06/07/2023 6:30 PM EDT LABORATORY [facility] RDW 13.1 11.5 - 15.5 % 06/07/2023 6:30 PM EDT LABORATORY [facility] PLT 195 140 - 400 K/uL 06/07/2023 6:30 PM EDT LABORATORY [facility] MPV 10.0 6.6 - 11.1 fL 06/07/2023 6:30 PM EDT LAB[facility]ORY [facility] nRBCs 0 <=0 /100 WBCs 06/07/2023 6:30 PM EDT LAB[facility]ORY [facility] Blood Arterial blood specimen / Unknown Arterial Puncture / Unknown 06/07/2023 6:01 PM EDT 06/07/2023 6:06 PM EDT Rebeca Samaniego PA-C LAB BLOOD ORDERABLES [facility] [address] [place] [address] * (ABNORMAL) BASIC METABOLIC PANEL (06/07/2023 6:01 PM EDT) [facility] BUN 15 6 - 20 mg/dL 06/07/2023 6:52 PM EDT LABORATORY [facility] Creatinine 1.2 0.6 - 1.2 mg/dL 06/07/2023 6:52 PM EDT [facility]ORY [facility] Estimated Glomerular Filtration Rate 72 >=60 mL/min 06/07/2023 6:52 PM EDT LABORATORY C Comment:eGFR is calculated b ased on the CKD-EPI 2020 equation Sodium 140 135 - 146 mmol/L 06/07/2023 6:52 PM EDT LAB[facility]AT[facility] Potassium 4.4 3.5 - 5.1 mmol/L 06/07/2023 6:52 PM EDT LAB[facility]AT[facility] Chloride 106 98 - 107 mmol/L 06/07/2023 6:52 PM EDT LABORATORY C CO2 21(L) 22 - 32 mmol/L 06/07/2023 6:52 PM EDT LAB[facility]ORY [facility] Anion Gap 13 7 - 15 mmol/L 06/07/2023 6:52 PM EDT LABORATORY C Glucose 137(H) 70 - 120 mg/dL 06/07/2023 6:52 PM EDT LABORATORY C Calcium 8.6 8.4 - 10.2 mg/dL 06/07/2023 6:52 PM EDT LAB[facility]ORY [facility] Blood Arterial blood specimen / Unknown Arterial Puncture / Unknown 06/07/2023 6:01 PM EDT 06/07/2023 6:06 PM EDT Rebeca Samaniego PA-C LAB BLOOD ORDERABLES LAB[facility]ATORY [facility] [address] [place] [address] * (ABNORMAL) GLUCOSE METER, POINT OF CARE (06/07/2023 6:00 PM EDT) [facility] Glucose Meter 143(H) 70 - 120 mg/dL 06/07/2023 6:18 PM EDT [facility] [employer] [facility] Blood Whole blood specimen / Unknown 06/07/2023 6:00 PM EDT 06/07/2023 6:18 PM EDT Kayode Parnell MD LAB POINT OF CARE T EST DOCKED DEVICE UNSOLICITED RESULTS [facility] [address] [place] [address] * (ABNORMAL) GLUCOSE METER, POINT OF CARE (06/07/2023 4:00 PM EDT) Glucose Meter 150(H) 70 - 120 mg/dL 06/07/2023 4:16 PM EDT [facility] Blood Whole blood specimen / Unknown 06/07/2023 4:00 PM EDT 06/07/2023 4:15 PM EDT Kayode Parnell MD LAB POINT OF CARE T EST DOCKED DEVICE UNSOLICITED RESULTS [facility] [address] [place] [address] * (ABNORMAL) WHOLE BLOOD PROFILE, ARTERIAL (06/07/2023 3:56 PM EDT) Temperature 37.0 C 06/07/2023 4:08 PM EDT LABORATORY [facility] pH, Arterial 7.299(L) 7.350 - 7.450 units 06/07/2023 4:08 PM EDT LABORATORY [facility] pCO2, Arterial 50.0(H) 35.0 - 45.0 mmHg 06/07/2023 4:08 PM EDT LABORATORY [facility] pO2, Arterial 96.8 75.0 - 100.0 mmHg 06/07/2023 4:08 PM EDT LABORATORY [facility] Base Excess, Arterial -2.3(L) -2.0 - 2.0 mmol/L 06/07/2023 4:08 PM EDT LABORATORY C Hemoglobin, Whole Blood 10.6(L) 14.0 - 16.8 g/dL 06/07/2023 4:08 PM EDT LABORATORY [facility] Hematocrit, Whole Blood 32.8(L) 40.0 - 48.4 % 06/07/2023 4:08 PM EDT LABORATORY C Comment: The Hematocrit reference interval is based on adult population. This method is intended for trending and screening purposes only. A "Complete Blood Count" is more accurate and should be ordered if clinically indicated. Oxyhemoglobin, Arterial 95.0 94.0 - 99.0 % total Hgb 06/07/2023 4:08 PM EDT LABORATORY C Carboxyhemoglob in, Whole Blood 0.7 <=1.5 % total Hgb 06/07/2023 4:08 PM EDT LABORATORY [facility] Comment:Smokers: 0-9.0 % Methemoglobin, Whole Blood 1.2 <=1.5 % total Hgb 06/07/2023 4:08 PM EDT LABORATORY [facility] Reduced Hemoglobin, Arterial 3.1 0.0 - 5.0 % total Hgb 06/07/2023 4:08 PM EDT LABORATORY [facility] O2 Content, Arterial 14.3(L) 15.0 - 24.0 %vol 06/07/2023 4:08 PM EDT LABORATORY [facility] Potassium, Whole Blood 4.1 3.5 - 5.1 mmol/L 06/07/2023 4:08 PM EDT LABORATORY C Sodium, Whole Blood 138 135 - 146 mmol/L 06/07/2023 4:08 PM EDT LABORATORY C Chloride, Whole Blood 107 98 - 107 mmol/L 06/07/2023 4:08 PM EDT LABORATORY C Calcium, Ionized, Whole Blood 1.22 1.13 - 1.32 mmol/L 06/07/2023 4:08 PM EDT LABORATORY C Anion Gap, Whole Blood 6.9(L) 7.0 - 15.0 mmol/L 06/07/2023 4:08 PM EDT LABORATORY C Glucose, Whole Blood 157(H) 70 - 120 mg/dL 06/07/2023 4:08 PM EDT LABORATORY C FiO2 Not Provided % 06/07/2023 4:08 PM EDT LABORATORY C O2 Flow, Arterial 6 L/min 06/07/2023 4:08 PM EDT LABORATORY C Bicarbonate, Whole Blood 23.8 23.0 - 31.0 mmol/L 06/07/2023 4:08 PM EDT LABORATORY C Blood Arterial blood specimen / Unknown Arterial Puncture / Unknown 06/07/2023 3:56 PM EDT 06/07/2023 4:04 PM EDT Rebeca Samaniego PA-C LAB BLOOD ORDERABLES [facility]ATORY [facility] [address] [place] [address] * (ABNORMAL) GLUCOSE METER, POINT OF CARE (06/07/2023 2:04 PM EDT) Glucose Meter 146(H) 70 - 120 mg/dL 06/07/2023 2:24 PM EDT [facility] Blood Whole blood specimen / Unknown 06/07/2023 2:04 PM EDT 06/07/2023 2:23 PM EDT Kayode Parnell MD LAB POINT OF CARE T EST DOCKED DEVICE UNSOLICITED RESULTS [facility] [address] [place] [address] * (ABNORMAL) WHOLE BLOOD PROFILE, ARTERIAL (06/07/2023 1:15 PM EDT) Temperature 37.0 C 06/07/2023 1:25 PM EDT LABORATORY [facility] pH, Arterial 7.445 7.350 - 7.450 units 06/07/2023 1:25 PM EDT LABORATORY [facility] pCO2, Arterial 33.3(L) 35.0 - 45.0 mmHg 06/07/2023 1:25 PM EDT LABORATORY [facility] pO2, Arterial 234.0(H) 75.0 - 100.0 mmHg 06/07/2023 1:25 PM EDT LABORATORY [facility] Base Excess, Arterial -0.5 -2.0 - 2.0 mmol/L 06/07/2023 1:25 PM EDT LABORATORY [facility] Hemoglobin, Whole Blood 11.1(L) 14.0 - 16.8 g/dL 06/07/2023 1:25 PM EDT LABORATORY [facility] Hematocrit, Whole Blood 34.4(L) 40.0 - 48.4 % 06/07/2023 1:25 PM EDT LABORATORY [facility] Comment: The Hematocrit reference interval is based on adult population. This method is intended for trending and screening purposes only. A "Complete Blood Count" is more accurate and should be ordered if clinically indicated. Oxyhemoglobin, Arterial 97.5 94.0 - 99.0 % total Hgb 06/07/2023 1:25 PM EDT LABORATORY [facility] Carboxyhemoglob in, Whole Blood 0.0 <=1.5 % total Hgb 06/07/2023 1:25 PM EDT [facility] Comment:Smokers: 0-9.0 % Methemoglobin, Whole Blood 0.6 <=1.5 % total Hgb 06/07/2023 1:25 PM EDT [facility] Reduced Hemoglobin, Arterial 2.2 0.0 - 5.0 % total Hgb 06/07/2023 1:25 PM EDT [facility] O2 Content, Arterial 06/07/2023 1:25 PM EDT [facility] Comment:Not calculated. Potassium, Whole Blood 4.3 3.5 - 5.1 mmol/L 06/07/2023 1:25 PM EDT [facility] Sodium, Whole Blood 138 135 - 146 mmol/L 06/07/2023 1:25 PM EDT [facility] Chloride, Whole Blood 108(H) 98 - 107 mmol/L 06/07/2023 1:25 PM EDT [facility] Calcium, Ionized, Whole Blood 1.06(L) 1.13 - 1.32 mmol/L 06/07/2023 1:25 PM EDT [facility] Anion Gap, Whole Blood 7.2 7.0 - 15.0 mmol/L 06/07/2023 1:25 PM EDT [facility] Glucose, Whole Blood 140(H) 70 - 120 mg/dL 06/07/2023 1:25 PM EDT [facility] FiO2 80 % 06/07/2023 1:25 PM EDT [facility] O2 Flow, Arterial Not Provided L/min 06/07/2023 1:25 PM EDT [facility] Bicarbonate, Whole Blood 22.6(L) 23.0 - 31.0 mmol/L 06/07/2023 1:25 PM EDT [facility] Blood Arterial blood specimen / Unknown Arterial Puncture / Unknown 06/07/2023 1:15 PM EDT 06/07/2023 1:21 PM EDT Rebeca Samaniego PA-C LAB BLOOD ORDERABLES [facility] [address] [place] [address] * XR CHEST 1 VIEW (06/07/2023 12:50 PM EDT) Anatomical Region Laterality Modality Chest Computed Radiogr aphy 06/07/2023 1:12 PM EDT Impressions 06/07/2023 1:09 PM EDT IMPRESSION 1. Left retrocardiac consolidation, likely atelectasis. 2. Side hole of NG tube projects over GE junction. Recommend 2 cm of advancement for optimal placement. Narrative 06/07/2023 1:09 PM EDT EXAM Chest 1 View - 06/07/2023 12:50 pm HISTORY basline initial xray after open heart surgery COMPARISON 07/10/2021 TECHNIQUE Portable semi-upright AP view of the chest was obtained. FINDINGS Lines and Tubes: Endotracheal tube terminates 4.6 cm above the jayna. NG tube terminates in the proximal stomach with side hole at GE junction. Right IJ approach Adger-Suellen catheter with tip projecting over the main pulmonary outflow tract. Mediastinal drain and thoracostomy tube projecting over lower left hemithorax. Foreign bodies: None. Left retrocardiac consolidation, likely representing atelectasis. Minimal right basilar linear atelectasis. No pneumothorax. Pulmonary vascularity and cardiomediastinal silhouette are normal. Procedure Note Harpreet Pak, DO - 06/07/2023 EXAM Chest 1 View - 06/07/2023 12:50 pm HISTORY basline initial xray after open heart surgery COMPARISON 07/10/2021 TECHNIQUE Portable semi-upright AP view of the chest was obtained. FINDINGS Lines and Tubes: Endotracheal tube terminates 4.6 cm above the jayna. NGtube terminates in the proximal stomach with side hole at GE junction.Right IJ approach Adger-Suellen catheter with tip projecting over the mainpulmonary outflow tract. Mediastinal drain and thoracostomy tubeprojecting over lower left hemithorax. Foreign bodies: None. Left retrocardiac consolidation, likely representing atelectasis. Minimalright basilar linear atelectasis. No pneumothorax. Pulmonary vascularityand cardiomediastinal silhouette are normal. IMPRESSION IMPRESSION 1. Left retrocardiac consolidation, likely atelectasis. 2. Side hole of NG tube projects over GE junction. Recommend 2 cm ofadvancement for optimal placement. Rebeca Samaniego PA-C RADIOLOGY (RAD GENERAL) * TEG (THROMBOELASTOGRAPH), HEPARINASE (06/07/2023 12:22 PM EDT) Reaction Time 4.5 2.5 - 8.3 minutes 06/07/2023 1:35 PM EDT [facility] Kinetics Time 1.1 0.5 - 3.7 minutes 06/07/2023 1:35 PM EDT [facility] Alpha Angle 73.9 46.8 - 78.4 degrees 06/07/2023 1:35 PM EDT [facility] Maximum Amplitude 67.9 50.6 - 72.5 mm 06/07/2023 1:35 PM EDT [facility] Comment:This is an appended report. These results have been appended to a previously preliminary verified report. Coagulation Index 2.8 -3.0 - 3.0 06/07/2023 1:35 PM EDT [facility] Comment:This is an appended report. These results have been appended to a previously preliminary verified report. Percent Lysis 30 0.5 0.0 - 7.5 % 023 1:35 PM EDT [facility] Comment:This is an appended report. These results have been appended to a previously preliminary verified report. Blood Venous blood specimen / Unknown Venipuncture / Unknown 06/07/2023 12:22 PM EDT 06/07/2023 12:26 PM EDT Rebeca Samaniego PA-C LAB BLOOD ORDERABLES Performing Organization Address City/State/[facility] Co de Phone Number [facility] [address] [place] [address] * TEG (THROMBOELASTOGRAPH) (06/07/2023 12:22 PM EDT) Reaction Time 4.7 2.5 - 8.3 minutes 06/07/2023 1:35 PM EDT [facility] Kinetics Time 1.1 0.5 - 3.7 minutes 06/07/2023 1:35 PM EDT [facility] Alpha Angle 72.9 46.8 - 78.4 degrees 06/07/2023 1:35 PM EDT [facility] Maximum Amplitude 67.5 50.6 - 72.5 mm 06/07/2023 1:35 PM EDT [facility] Comment:This is an appended report. These results have been appended to a previously preliminary verified report. Coagulation Index 2.6 -3.0 - 3.0 06/07/2023 1:35 PM EDT [facility] Comment:This is an appended report. These results have been appended to a previously preliminary verified report. Percent Lysis 30 0.6 0.0 - 7.5 % 023 1:35 PM EDT [facility] Comment:This is an appended report. These results have been appended to a previously preliminary verified report. Blood Venous blood specimen / Unknown Venipuncture / Unknown 06/07/2023 12:22 PM EDT 06/07/2023 12:26 PM EDT Narrative [facility] - 06/07/2023 1:35 PM EDT If R time > 20 minutes and no clot formed suggesting hypocoagulable state or interfering substance (anticoagulation). Consider resubmitting a new sample and/or checking PT/INR, aPTT, fibrinogen, and platelet count. Rebeca Samaniego PA-C LAB BLOOD ORDERABLES [facility] [address] [place] [address] * (ABNORMAL) WHOLE BLOOD PROFILE, ARTERIAL (06/07/2023 12:22 PM EDT) Temperature 37.0 C 06/07/2023 12:30 PM EDT [facility] pH, Arterial 7.434 7.350 - 7.450 units 06/07/2023 12:30 PM EDT [facility] pCO2, Arterial 34.2(L) 35.0 - 45.0 mmHg 06/07/2023 12:30 PM EDT [facility] pO2, Arterial 238.0(H) 75.0 - 100.0 mmHg 06/07/2023 12:30 PM EDT [facility] Base Excess, Arterial -0.8 -2.0 - 2.0 mmol/L 06/07/2023 12:30 PM EDT [facility] Hemoglobin, Whole Blood 10.7(L) 14.0 - 16.8 g/dL 06/07/2023 12:30 PM EDT [facility] Hematocrit, Whole Blood 32.9(L) 40.0 - 48.4 % 06/07/2023 12:30 PM EDT LABORATORY C Comment: The Hematocrit reference interval is based on adult population. This method is intended for trending and screening purposes only. A "Complete Blood Count" is more accurate and should be ordered if clinically indicated. Oxyhemoglobin, Arterial 97.6 94.0 - 99.0 % total Hgb 06/07/2023 12:30 PM EDT LABORATORY C Carboxyhemoglob in, Whole Blood 1.0 <=1.5 % total Hgb 06/07/2023 12:30 PM EDT LABORATORY C Comment:Smokers: 0-9.0 % Methemoglobin, Whole Blood 1.0 <=1.5 % total Hgb 06/07/2023 12:30 PM EDT LABORATORY C Reduced Hemoglobin, Arterial 0.4 0.0 - 5.0 % total Hgb 06/07/2023 12:30 PM EDT LABORATORY C O2 Content, Arterial 15.2 15.0 - 24.0 %vol 06/07/2023 12:30 PM EDT LABORATORY C Potassium, Whole Blood 4.6 3.5 - 5.1 mmol/L 06/07/2023 12:30 PM EDT [facility] Sodium, Whole Blood 137 135 - 146 mmol/L 06/07/2023 12:30 PM EDT LABORATORY C Chloride, Whole Blood 109(H) 98 - 107 mmol/L 06/07/2023 12:30 PM EDT LABORATORY C Calcium, Ionized, Whole Blood 1.09(L) 1.13 - 1.32 mmol/L 06/07/2023 12:30 PM EDT LABORATORY C Anion Gap, Whole Blood 5.2(L) 7.0 - 15.0 mmol/L 06/07/2023 12:30 PM EDT LABORATORY C Glucose, Whole Blood 134(H) 70 - 120 mg/dL 06/07/2023 12:30 PM EDT [facility] FiO2 80 % 06/07/2023 12:30 PM EDT [facility] O2 Flow, Arterial Not Provided L/min 06/07/2023 12:30 PM EDT [facility] Bicarbonate, Whole Blood 22.5(L) 23.0 - 31.0 mmol/L 06/07/2023 12:30 PM EDT [facility] Blood Arterial blood specimen / Unknown Arterial Puncture / Unknown 06/07/2023 12:22 PM EDT 06/07/2023 12:26 PM EDT Rebeca Samaniego PA-C LAB BLOOD ORDERABLES Performing Organization Address [facility] Co de Phone Number LABORATORY [address] [address] * (ABNORMAL) PT INR (06/07/2023 12:22 PM EDT) Prothrombin Time 15.9(H) 11.6 - 15.2 seconds 06/07/2023 12:50 PM EDT [facility] INR 1.3(H) 0.8 - 1.2 06/07/2023 12:50 PM EDT [facility] Blood Venous blood specimen / Unknown Venipuncture / Unknown 06/07/2023 12:22 PM EDT 06/07/2023 12:26 PM EDT Narrative [facility] - 06/07/2023 12:50 PM EDT Warfarin Therapy INR: 2.0-3.0 conventional anticoagulation INR: 2.5-3.5 high intensity anticoagulation Rebeca Samaniego PA-C LAB BLOOD ORDERABLES Performing Organization Address [facility] Co de Phone Number LABORATORY [address] [address] * O2 SATURATION, VENOUS (06/07/2023 12:22 PM EDT) O2, Saturation, Venous 69.9 40.0 - 85.0 % 06/07/2023 12:30 PM EDT [facility] Blood Venous blood specimen / Unknown Venipuncture / Unknown 06/07/2023 12:22 PM EDT 06/07/2023 12:26 PM EDT Rebeca Samaniego PA-C LAB BLOOD ORDERABLES Performing Organization Address City/[facility]/ZIP Co de Phone Number [facility] [address] [place] [address] * (ABNORMAL) MAGNESIUM (06/07/2023 12:22 PM EDT) Magnesium 3.0(H) 1.5 - 2.6 mg/dL 06/07/2023 12:54 PM EDT [facility] Blood Arterial blood specimen / Unknown Arterial Puncture / Unknown 06/07/2023 12:22 PM EDT 06/07/2023 12:26 PM EDT Rebeca Samaniego PA-C LAB BLOOD ORDERABLES Performing Organization Address [facility]/ZIP Co de Phone Number LABORATORY [place] [address] [place] [address] * HEPARIN, UNFRACTIONATED (06/07/2023 12:22 PM EDT) Pathologist [facility] Heparin, Unfractionated <0.10 <0.10 IU/mL 06/07/2023 1:00 PM EDT [facility] Comment:Results rechecked. Blood Venous blood specimen / Unknown Venipuncture / Unknown 06/07/2023 12:22 PM EDT 06/07/2023 12:26 PM EDT Rebeca Samaniego PA-C LAB BLOOD ORDERABLES Performing Organization Address City/[facility]/ZIP Co de Phone Number [facility] [address] [place] [address] * FIBRINOGEN (06/07/2023 12:22 PM EDT) Pathologist [facility] Fibrinogen 241 178 - 467 mg/dL 06/07/2023 12:53 PM EDT [facility] Blood Venous blood specimen / Unknown Venipuncture / Unknown 06/07/2023 12:22 PM EDT 06/07/2023 12:26 PM EDT Rebeca Samanigeo PA-C LAB BLOOD ORDERABLES [facility] [address] [place] [address] * (ABNORMAL) CBC (06/07/2023 12:22 PM EDT) WBC 15.70(H) 4.00 - 10.80 K/uL 06/07/2023 12:38 PM EDT [facility] RBC 3.54 4.50 - 5.25 M/uL 06/07/2023 12:38 PM EDT [facility] HGB 10.6(L) 14.0 - 16.8 g/dL 06/07/2023 12:38 PM EDT [facility] HCT 32.4(L) 40.0 - 48.4 % 06/07/2023 12:38 PM EDT [facility] MCV 91.5 82.0 - 99.5 fL 06/07/2023 12:38 PM EDT [facility] MCH 29.9 27.0 - 34.0 pg 06/07/2023 12:38 PM EDT [facility] MCHC 32.7 32.0 - 36.0 g/dL 06/07/2023 12:38 PM EDT [facility] RDW 13.1 11.5 - 15.5 % 06/07/2023 12:38 PM EDT [facility] PLT 194 140 - 400 K/uL 06/07/2023 12:38 PM EDT [facility] MPV 9.5 6.6 - 11.1 fL 06/07/2023 12:38 PM EDT [facility] nRBCs 0 <=0 /100 WBCs 06/07/2023 12:38 PM EDT [facility] Blood Arterial blood specimen / Unknown Arterial Puncture / Unknown 06/07/2023 12:22 PM EDT 06/07/2023 12:26 PM EDT Rebeca Samaniego PA-C LAB BLOOD ORDERABLES [facility] [address] [place] [address] * (ABNORMAL) BASIC METABOLIC PANEL (06/07/2023 12:22 PM EDT) BUN 16 6 - 20 mg/dL 06/07/2023 12:54 PM EDT [facility] Creatinine 1.2 0.6 - 1.2 mg/dL 06/07/2023 12:54 PM EDT [facility] Estimated Glomerular Filtration Rate 72 >=60 mL/min 06/07/2023 12:54 PM EDT LABORATORY C Comment:eGFR is calculated b ased on the CKD-EPI 2020 equation Sodium 139 135 - 146 mmol/L 06/07/2023 12:54 PM EDT [facility] Potassium 4.7 3.5 - 5.1 mmol/L 06/07/2023 12:54 PM EDT [facility] Chloride 105 98 - 107 mmol/L 06/07/2023 12:54 PM EDT LABORATORY C CO2 22 22 - 32 mmol/L 06/07/2023 12:54 PM EDT LABORATORY C Anion Gap 12 7 - 15 mmol/L 06/07/2023 12:54 PM EDT LABORATORY C Glucose 142(H) 70 - 120 mg/dL 06/07/2023 12:54 PM EDT [facility] Calcium 7.7(L) 8.4 - 10.2 mg/dL 06/07/2023 12:54 PM EDT LABORATORY C Blood Arterial blood specimen / Unknown Arterial Puncture / Unknown 06/07/2023 12:22 PM EDT 06/07/2023 12:26 PM EDT Rebeca Samaniego PA-C LAB BLOOD ORDERABLES [facility] [address] [place] [address] * (ABNORMAL) APTT (06/07/2023 12:22 PM EDT) aPTT 71(H) 21 - 38 seconds 06/07/2023 12:53 PM EDT [facility] Blood Venous blood specimen / Unknown Venipuncture / Unknown 06/07/2023 12:22 PM EDT 06/07/2023 12:26 PM EDT Narrative [facility] - 06/07/2023 12:53 PM EDT Anticoagulation may affect testing. Refer to [facility] Test Catalog for a list of effects. Rebeca Samaniego PA-C LAB BLOOD ORDERABLES Performing Organization Address City/[facility]/ZIP Co de Phone Number [facility] [address] [place] [address] * (ABNORMAL) ANTITHROMBIN III ACTIVITY (06/07/2023 12:22 PM EDT) Antithrombin III Activity 68(L) 80 - 120 % 06/07/2023 12:50 PM EDT [facility] Blood Venous blood specimen / Unknown Venipuncture / Unknown 06/07/2023 12:22 PM EDT 06/07/2023 12:26 PM EDT Rebeca Samaniego PA-C LAB BLOOD ORDERABLES Performing Organization Address [facility]/ZIP Co de Phone Number [facility] [address] [place] [address] * (ABNORMAL) GLUCOSE METER, POINT OF CARE (06/07/2023 12:06 PM EDT) Glucose Meter 129(H) 70 - 120 mg/dL 06/08/2023 2:32 AM EDT [facility] [employer] [facility] Blood Whole blood specimen / Unknown 06/07/2023 12:06 PM EDT 06/08/2023 2:32 AM EDT Kayode Parnell MD LAB POINT OF CARE T EST DOCKED DEVICE UNSOLICITED RESULTS Performing Organization Address City/[facility]/ZIP Co de Phone Number [facility] [address] [place] [address] * (ABNORMAL) BLOOD GAS WITH CHEMISTRY, POINT OF CARE (06/07/2023 12:02 PM EDT) Draw Site Arterial Draw 06/07/2023 12:06 PM EDT [facility] pH i-STAT 7.415 7.350 - 7.450 06/07/2023 12:06 PM EDT [facility] pCO2 i-STAT 37.4 35.0 - 45.0 mm Hg 06/07/2023 12:06 PM EDT [facility] pO2 i-STAT 221(H) 75 - 100 mm Hg 06/07/2023 12:06 PM EDT [facility] Base Excess i-STAT 0 -2 - 2 mmol/L 06/07/2023 12:06 PM EDT [facility] Bicarbonate i-STAT 24.0 23.0 - 31.0 mmol/L 06/07/2023 12:06 PM EDT [facility] O2 Saturation i-STAT 100.0(H) 94.0 - 98.0 % 06/07/2023 12:06 PM EDT [facility] Glucose i-STAT 131(H) 70 - 120 mg/dL 06/07/2023 12:06 PM EDT [facility] Potassium i-STAT 4.6 3.5 - 5.1 mmol/L 06/07/2023 12:06 PM EDT [facility] Sodium i-STAT 138 135 - 146 mmol/L 06/07/2023 12:06 PM EDT [facility] Calcium Ionized i-STAT 1.16 1.13 - 1.32 mmol/L 06/07/2023 12:06 PM EDT [facility] Hemoglobin i-STAT 10.9(L) 14.0 - 16.8 g/dL 06/07/2023 12:06 PM EDT [facility] Hematocrit i-STAT 32(L) 40 - 48 % 06/07/2023 12:06 PM EDT [facility] FiO2 100 % 06/07/2023 12:06 PM EDT [facility] Arterial Draw 06/07/2023 12: 02 PM EDT 06/07/2023 12:06 PM EDT Kayode Parnell MD LAB POINT OF CARE T EST DOCKED DEVICE UNSOLICITED RESULTS [facility] [address] [place] [address] * (ABNORMAL) BLOOD GAS WITH CHEMISTRY, POINT OF CARE (06/07/2023 10:58 AM EDT) Draw Site Arterial Draw 06/07/2023 11:17 AM EDT [employer] pH i-STAT 7.351 7.350 - 7.450 06/07/2023 11:17 AM EDT [employer] pCO2 i-STAT 43.8 35.0 - 45.0 mm Hg 06/07/2023 11:17 AM EDT [employer] pO2 i-STAT 87 75 - 100 mm Hg 06/07/2023 11:17 AM EDT [employer] Base Excess i-STAT -1 -2 - 2 mmol/L 06/07/2023 11:17 AM EDT [employer] Bicarbonate i-STAT 24.2 23.0 - 31.0 mmol/L 06/07/2023 11:17 AM EDT [employer] O2 Saturation i-STAT 96.0 94.0 - 98.0 % 06/07/2023 11:17 AM EDT [employer] Glucose i-STAT 127(H) 70 - 120 mg/dL 06/07/2023 11:17 AM EDT [employer] Potassium i-STAT 4.9 3.5 - 5.1 mmol/L 06/07/2023 11:17 AM EDT [employer] Sodium i-STAT 138 135 - 146 mmol/L 06/07/2023 11:17 AM EDT [employer] Calcium Ionized i-STAT 1.29 1.13 - 1.32 mmol/L 06/07/2023 11:17 AM EDT [employer] Hemoglobin i-STAT 11.2(L) 14.0 - 16.8 g/dL 06/07/2023 11:17 AM EDT [employer] Hematocrit i-STAT 33(L) 40 - 48 % 06/07/2023 11:17 AM EDT [employer] Arterial Draw 06/07/2023 10: 58 AM EDT 06/07/2023 11:17 AM EDT Kayode Parnell MD LAB POINT OF CARE T EST DOCKED DEVICE UNSOLICITED RESULTS Performing Organization Address [facility] Co de Phone Number [facility] [address] [place] [address] * ACT, POINT OF CARE (06/07/2023 10:58 AM EDT) [facility] ACT 89 50 - 1,000 secs 06/07/2023 11:17 AM EDT [employer] Blood 06/07/2023 10:5 8 AM EDT 06/07/2023 11:17 AM EDT Narrative [employer] - 06/07/2023 11:17 AM EDT NORMAL (NON-HEPARINIZED) 74-137 SECONDS HEPARINIZED 200+ SECONDS CRITICAL GREATER THAN 1000 SECONDS Kayode Parnell MD LAB POINT OF CARE T EST DOCKED DEVICE UNSOLICITED RESULTS Performing Organization Address [facility] Co de Phone Number [facility] [address] [place] [address] * (ABNORMAL) WHOLE BLOOD PROFILE, ARTERIAL (06/07/2023 10:52 AM EDT) [facility] Temperature 37.0 C 06/07/2023 11:02 AM EDT [facility] pH, Arterial 7.365 7.350 - 7.450 units 06/07/2023 11:02 AM EDT [facility] pCO2, Arterial 44.3 35.0 - 45.0 mmHg 06/07/2023 11:02 AM EDT [facility] pO2, Arterial 112.0(H) 75.0 - 100.0 mmHg 06/07/2023 11:02 AM EDT [facility] Base Excess, Arterial -0.3 -2.0 - 2.0 mmol/L 06/07/2023 11:02 AM EDT [facility] Hemoglobin, Whole Blood 10.8(L) 14.0 - 16.8 g/dL 06/07/2023 11:02 AM EDT [facility] Hematocrit, Whole Blood 33.3(L) 40.0 - 48.4 % 06/07/2023 11:02 AM EDT [facility] Comment: The Hematocrit reference interval is based on adult population. This method is intended for trending and screening purposes only. A "Complete Blood Count" is more accurate and should be ordered if clinically indicated. Oxyhemoglobin, Arterial 95.6 94.0 - 99.0 % total Hgb 06/07/2023 11:02 AM EDT [facility] Carboxyhemoglob in, Whole Blood 1.0 <=1.5 % total Hgb 06/07/2023 11:02 AM EDT [facility] Comment:Smokers: 0-9.0 % Methemoglobin, Whole Blood 1.3 <=1.5 % total Hgb 06/07/2023 11:02 AM EDT [facility] Reduced Hemoglobin, Arterial 2.1 0.0 - 5.0 % total Hgb 06/07/2023 11:02 AM EDT [facility] O2 Content, Arterial 14.7(L) 15.0 - 24.0 %vol 06/07/2023 11:02 AM EDT [facility] Potassium, Whole Blood 5.0 3.5 - 5.1 mmol/L 06/07/2023 11:02 AM EDT [facility] Sodium, Whole Blood 138 135 - 146 mmol/L 06/07/2023 11:02 AM EDT [facility] Chloride, Whole Blood 106 98 - 107 mmol/L 06/07/2023 11:02 AM EDT [facility] Calcium, Ionized, Whole Blood 1.27 1.13 - 1.32 mmol/L 06/07/2023 11:02 AM EDT [facility] Anion Gap, Whole Blood 7.7 7.0 - 15.0 mmol/L 06/07/2023 11:02 AM EDT [facility] Glucose, Whole Blood 131(H) 70 - 120 mg/dL 06/07/2023 11:02 AM EDT [facility] FiO2 Not Provided % 06/07/2023 11:02 AM EDT [facility] O2 Flow, Arterial Not Provided L/min 06/07/2023 11:02 AM EDT [facility] Bicarbonate, Whole Blood 24.7 23.0 - 31.0 mmol/L 06/07/2023 11:02 AM EDT [facility] Blood Arterial blood specimen / Unknown 06/07/2023 10:52 AM EDT 06/07/2023 10:58 AM EDT Sarai Peña MD LAB BLOOD ORDERABLES [facility] [address] [place] [address] * (ABNORMAL) BLOOD GAS WITH CHEMISTRY, POINT OF CARE (06/07/2023 10:27 AM EDT) Draw Site Arterial Draw 06/07/2023 11:40 AM EDT [employer] pH i-STAT 7.392 7.350 - 7.450 06/07/2023 11:40 AM EDT [facility] pCO2 i-STAT 41.3 35.0 - 45.0 mm Hg 06/07/2023 11:40 AM EDT [facility] pO2 i-STAT 336(H) 75 - 100 mm Hg 06/07/2023 11:40 AM EDT [facility] Base Excess i-STAT 0 -2 - 2 mmol/L 06/07/2023 11:40 AM EDT [employer] Bicarbonate i-STAT 25.1 23.0 - 31.0 mmol/L 06/07/2023 11:40 AM EDT [employer] O2 Saturation i-STAT 100.0(H) 94.0 - 98.0 % 06/07/2023 11:40 AM EDT [employer] Glucose i-STAT 140(H) 70 - 120 mg/dL 06/07/2023 11:40 AM EDT [facility] Potassium i-STAT 5.5(H) 3.5 - 5.1 mmol/L 06/07/2023 11:40 AM EDT [employer] Sodium i-STAT 134(L) 135 - 146 mmol/L 06/07/2023 11:40 AM EDT [employer] Calcium Ionized i-STAT >2.50(HH) 1.13 - 1.32 mmol/L 06/07/2023 11:40 AM EDT [employer] Hemoglobin i-STAT 8.8(L) 14.0 - 16.8 g/dL 06/07/2023 11:40 AM EDT [employer] Hematocrit i-STAT 26(L) 40 - 48 % 06/07/2023 11:40 AM EDT [employer] Arterial Draw 06/07/2023 10: 27 AM EDT 06/07/2023 11:40 AM EDT Kayode Parnell MD LAB POINT OF CARE T EST DOCKED DEVICE UNSOLICITED RESULTS Performing Organization Address City/[facility]/ZIP Co de Phone Number [facility] [address] [place] [address] * ACT, POINT OF CARE (06/07/2023 10:26 AM EDT) ACT 401 50 - 1,000 secs 06/07/2023 11:17 AM EDT [facility] [employer] [facility] Blood 06/07/2023 10:2 6 AM EDT 06/07/2023 11:17 AM EDT Narrative [facility] [employer] [facility] - 06/07/2023 11:17 AM EDT NORMAL (NON-HEPARINIZED) 74-137 SECONDS HEPARINIZED 200+ SECONDS CRITICAL GREATER THAN 1000 SECONDS Kayode Parnell MD LAB POINT OF CARE T EST DOCKED DEVICE UNSOLICITED RESULTS Performing Organization Address [facility] Co de Phone Number [facility] [address] [place] [address] * (ABNORMAL) TEG (THROMBOELASTOGRAPH), HEPARINASE (06/07/2023 10:22 AM EDT) Reaction Time 3.1 2.5 - 8.3 minutes 06/07/2023 12:19 PM EDT [facility] Kinetics Time 1.0 0.5 - 3.7 minutes 06/07/2023 12:19 PM EDT [facility] Alpha Angle 76.0 46.8 - 78.4 degrees 06/07/2023 12:19 PM EDT [facility] Maximum Amplitude 66.3 50.6 - 72.5 mm 06/07/2023 12:19 PM EDT [facility] Comment:This is an appended report. These results have been appended to a previously preliminary verified report. Coagulation Index 3.7(H) -3.0 - 3.0 06/07/2023 12:19 PM EDT [facility] Comment:This is an appended report. These results have been appended to a previously preliminary verified report. Percent Lysis 30 1.3 0.0 - 7.5 % 023 12:19 PM EDT [facility] Comment:This is an appended report. These results have been appended to a previously preliminary verified report. Blood Arterial blood specimen / Unknown 06/07/2023 10:22 AM EDT 06/07/2023 10:58 AM EDT Sarai Peña MD LAB BLOOD ORDERABLES [facility] [address] [place] [address] * TEG (THROMBOELASTOGRAPH) (06/07/2023 10:22 AM EDT) Reaction Time 3.3 2.5 - 8.3 minutes 06/07/2023 12:19 PM EDT [facility] Kinetics Time 1.1 0.5 - 3.7 minutes 06/07/2023 12:19 PM EDT [facility] Alpha Angle 73.5 46.8 - 78.4 degrees 06/07/2023 12:19 PM EDT [facility] Maximum Amplitude 63.8 50.6 - 72.5 mm 06/07/2023 12:19 PM EDT [facility] Comment:This is an appended report. These results have been appended to a previously preliminary verified report. Coagulation Index 3.0 -3.0 - 3.0 06/07/2023 12:19 PM EDT [facility]:This is an appended report. These results have been appended to a previously preliminary verified report. Percent Lysis 30 1.2 0.0 - 7.5 % 023 12:19 PM EDT [facility]:This is an appended report. These results have been appended to a previously preliminary verified report. Blood Arterial blood specimen / Unknown 06/07/2023 10:22 AM EDT 06/07/2023 10:58 AM EDT Narrative [facility] - 06/07/2023 12:19 PM EDT If R time > 20 minutes and no clot formed suggesting hypocoagulable state or interfering substance (anticoagulation). Consider resubmitting a new sample and/or checking PT/INR, aPTT, fibrinogen, and platelet count. Sarai Peña MD LAB BLOOD ORDERABLES Performing Organization Address [facility] de Phone Number [facility] [address] [place] [address] * (ABNORMAL) PT INR (06/07/2023 10:22 AM EDT) Prothrombin Time 16.6(H) 11.6 - 15.2 seconds 06/07/2023 11:27 AM EDT [facility] INR 1.3(H) 0.8 - 1.2 06/07/2023 11:27 AM EDT [facility] Blood Arterial blood specimen / Unknown 06/07/2023 10:22 AM EDT 06/07/2023 10:58 AM EDT Narrative LAB[facility]ATORY [facility] - 06/07/2023 11:27 AM EDT Warfarin Therapy INR: 2.0-3.0 conventional anticoagulation INR: 2.5-3.5 high intensity anticoagulation Sarai Peña MD LAB BLOOD ORDERABLES Performing Organization Address [facility] Phone Number [facility] [address] [place] [address] * (ABNORMAL) CBC (06/07/2023 10:22 AM EDT) WBC 16.88(H) 4.00 - 10.80 K/uL 06/07/2023 11:24 AM EDT [facility] RBC 3.56 4.50 - 5.25 M/uL 06/07/2023 11:24 AM EDT LAB[facility]ORY [facility] HGB 10.7(L) 14.0 - 16.8 g/dL 06/07/2023 11:24 AM EDT LAB[facility]ORY [facility] HCT 32.9(L) 40.0 - 48.4 % 06/07/2023 11:24 AM EDT LAB[facility] MCV 92.4 82.0 - 99.5 fL 06/07/2023 11:24 AM EDT [facility] MCH 30.1 27.0 - 34.0 pg 06/07/2023 11:24 AM EDT [facility] MCHC 32.5 32.0 - 36.0 g/dL 06/07/2023 11:24 AM EDT [facility] RDW 13.1 11.5 - 15.5 % 06/07/2023 11:24 AM EDT [facility] PLT 169 140 - 400 K/uL 06/07/2023 11:24 AM EDT [facility] MPV 9.9 6.6 - 11.1 fL 06/07/2023 11:24 AM EDT [facility] nRBCs 0 <=0 /100 WBCs 06/07/2023 11:24 AM EDT [facility] Blood Arterial blood specimen / Unknown 06/07/2023 10:22 AM EDT 06/07/2023 10:58 AM EDT Sarai Peña MD LAB BLOOD ORDERABLES Performing Organization Address City/[facility]/ZIP Co de Phone Number [facility] [address] [place] [address] * FIBRINOGEN (06/07/2023 10:22 AM EDT) Fibrinogen 241 178 - 467 mg/dL 06/07/2023 11:27 AM EDT [facility] Blood Arterial blood specimen / Unknown 06/07/2023 10:22 AM EDT 06/07/2023 10:58 AM EDT Sarai Peña MD LAB BLOOD ORDERABLES Performing Organization Address [facility]/ZIP Co de Phone Number [facility] [address] [place] [address] * (ABNORMAL) ANTITHROMBIN III ACTIVITY (06/07/2023 10:22 AM EDT) Antithrombin III Activity 64(L) 80 - 120 % 06/07/2023 11:27 AM EDT [facility] Blood Arterial blood specimen / Unknown 06/07/2023 10:22 AM EDT 06/07/2023 10:58 AM EDT Sarai Peña MD LAB BLOOD ORDERABLES Performing Organization Address [facility] Co de Phone Number [facility] [address] [place] [address] * ACT, POINT OF CARE (06/07/2023 10:08 AM EDT) ACT 480 50 - 1,000 secs 06/07/2023 11:17 AM EDT [employer] Blood 06/07/2023 10:0 8 AM EDT 06/07/2023 11:17 AM EDT [facility] - 06/07/2023 11:17 AM EDT NORMAL (NON-HEPARINIZED) 74-137 SECONDS HEPARINIZED 200+ SECONDS CRITICAL GREATER THAN 1000 SECONDS Kayode Parnell MD LAB POINT OF CARE T EST DOCKED DEVICE UNSOLICITED RESULTS Performing Organization Address [facility] Co de Phone Number [facility] [address] [place] [address] * CV ECHO, CONSTANZA INTRAOPERATIVE (06/07/2023 10:00 AM EDT) Pathologist [facility] LEFT VENTRICULAR EJECTION FRACTION 60 % [facility] 06/07/2023 6:40 AM EDT Lidya Espino PA-C ECHOCARDIOLO GY Performing Organization Address City/[facility] Co de Phone Number [facility] * ACT, POINT OF CARE (06/07/2023 9:52 AM EDT) ACT 486 50 - 1,000 secs 06/07/2023 11:17 AM EDT [employer] Blood 06/07/2023 9:52 AM EDT 06/07/2023 11:17 AM EDT [facility] - 06/07/2023 11:17 AM EDT NORMAL (NON-HEPARINIZED) 74-137 SECONDS HEPARINIZED 200+ SECONDS CRITICAL GREATER THAN 1000 SECONDS Kayode Parnell MD LAB POINT OF CARE T EST DOCKED DEVICE UNSOLICITED RESULTS [facility] [address] [place] [address] * TEG (THROMBOELASTOGRAPH), HEPARINASE (06/07/2023 9:50 AM EDT) Reaction Time 5.8 2.5 - 8.3 minutes 06/07/2023 11:02 AM EDT [facility] Kinetics Time 1.3 0.5 - 3.7 minutes 06/07/2023 11:02 AM EDT [facility] Alpha Angle 70.9 46.8 - 78.4 degrees 06/07/2023 11:02 AM EDT [facility] Maximum Amplitude 62.8 50.6 - 72.5 mm 06/07/2023 11:02 AM EDT [facility] Comment:This is an appended report. These results have been appended to a previously preliminary verified report. Coagulation Index 1.0 -3.0 - 3.0 06/07/2023 11:02 AM EDT [facility] Comment:This is an appended report. These results have been appended to a previously preliminary verified report. Percent Lysis 30 0.2 0.0 - 7.5 % 023 11:02 AM EDT [facility] Comment:This is an appended report. These results have been appended to a previously preliminary verified report. Blood Venous blood specimen / Unknown Venipuncture / Unknown 06/07/2023 9:50 AM EDT 06/07/2023 9:56 AM EDT Kayode Parnell MD LAB BLOOD ORDERABLE S [facility] [address], [place] [id number] * (ABNORMAL) TEG (THROMBOELASTOGRAPH) (06/07/2023 9:50 AM EDT) Reaction Time >20.0(H) 2.5 - 8.3 minutes 06/07/2023 11:02 AM EDT [facility] Blood Venous blood specimen / Unknown Venipuncture / Unknown 06/07/2023 9:50 AM EDT 06/07/2023 9:56 AM EDT Narrative [facility] - 06/07/2023 11:02 AM EDT If R time > 20 minutes and no clot formed suggesting hypocoagulable state or interfering substance (anticoagulation). Consider resubmitting a new sample and/or checking PT/INR, aPTT, fibrinogen, and platelet count. If R time > 20 minutes and no clot formed suggesting hypocoagulable state or interfering substance (anticoagulation). Consider resubmitting a new sample and/or checking PT/INR, aPTT, fibrinogen, and platelet count. Kayode Parnell MD LAB BLOOD ORDERABLE S [facility] [address] [place] [address] * (ABNORMAL) WHOLE BLOOD PROFILE, VENOUS (06/07/2023 9:50 AM EDT) Temperature 37.0 C 06/07/2023 10:03 AM EDT [facility] pH, Venous 7.367 7.320 - 7.430 units 06/07/2023 10:03 AM EDT [facility] pCO2, Venous 46.2 40.0 - 60.0 mmHg 06/07/2023 10:03 AM EDT [facility] pO2, Venous 44.7 25.0 - 50.0 mmHg 06/07/2023 10:03 AM EDT [facility] Base Excess, Venous 0.9 -2.0 - 2.0 mmol/L 06/07/2023 10:03 AM EDT [facility] Hemoglobin, Whole Blood 9.5(L) 14.0 - 16.8 g/dL 06/07/2023 10:03 AM EDT [facility] Hematocrit, Whole Blood 29.5(L) 40.0 - 48.4 % 06/07/2023 10:03 AM EDT [facility] Comment: The Hematocrit reference interval is based on adult population. This method is intended for trending and screening purposes only. A "Complete Blood Count" is more accurate and should be ordered if clinically indicated. Oxyhemoglobin, Venous 78.3 40.0 - 85.0 % total Hgb 06/07/2023 10:03 AM EDT LABORATORY C Carboxyhemoglobi n, Whole Blood 1.2 <=1.5 % total Hgb 06/07/2023 10:03 AM EDT [facility] Comment:Smokers: 0-9.0 % Methemoglobin, Whole Blood 0.8 <=1.5 % total Hgb 06/07/2023 10:03 AM EDT [facility] Reduced Hemoglobin, Venous 19.7 % total Hgb 06/07/2023 10:03 AM EDT [facility] O2 Content, Venous 10.5 7.0 - 18.0 %vol 06/07/2023 10:03 AM EDT [facility] Potassium, Whole Blood 5.0 3.5 - 5.1 mmol/L 06/07/2023 10:03 AM EDT [facility] Sodium, Whole Blood 136 135 - 146 mmol/L 06/07/2023 10:03 AM EDT LABORATORY C Chloride, Whole Blood 107 98 - 107 mmol/L 06/07/2023 10:03 AM EDT [facility] Calcium, Ionized, Whole Blood 1.07(L) 1.13 - 1.32 mmol/L 06/07/2023 10:03 AM EDT [facility] Anion Gap, Whole Blood 3.5(L) 7.0 - 15.0 mmol/L 06/07/2023 10:03 AM EDT [facility] Glucose, Whole Blood 100 70 - 120 mg/dL 06/07/2023 10:03 AM EDT [facility] Bicarbonate, Whole Blood 25.9 23.0 - 31.0 mmol/L 06/07/2023 10:03 AM EDT [facility] Blood Venous blood specimen / Unknown Venipuncture / Unknown 06/07/2023 9:50 AM EDT 06/07/2023 9:56 AM EDT Kayode Parnell MD LAB BLOOD ORDERABLE S [facility] [address] [place] [address] * (ABNORMAL) BLOOD GAS, ARTERIAL (06/07/2023 9:50 AM EDT) Temperature 37.0 C 06/07/2023 10:05 AM EDT [facility] pH, Arterial 7.389 7.350 - 7.450 units 06/07/2023 10:05 AM EDT [facility] pCO2, Arterial 42.1 35.0 - 45.0 mmHg 06/07/2023 10:05 AM EDT [facility] pO2, Arterial 223.0(H) 75.0 - 100.0 mmHg 06/07/2023 10:05 AM EDT [facility] Base Excess, Arterial 0.4 -2.0 - 2.0 mmol/L 06/07/2023 10:05 AM EDT [facility] Hemoglobin, Whole Blood 9.6(L) 14.0 - 16.8 g/dL 06/07/2023 10:05 AM EDT [facility] Oxyhemoglobin, Arterial 97.6 94.0 - 99.0 % total Hgb 06/07/2023 10:05 AM EDT [facility] Carboxyhemoglob in, Whole Blood 0.0 <=1.5 % total Hgb 06/07/2023 10:05 AM EDT [facility] Comment:Smokers: 0-9.0 % Methemoglobin, Whole Blood 0.3 <=1.5 % total Hgb 06/07/2023 10:05 AM EDT [facility] Reduced Hemoglobin, Arterial 2.2 0.0 - 5.0 % total Hgb 06/07/2023 10:05 AM EDT [facility] O2 Content, Arterial 06/07/2023 10:05 AM EDT [facility] Comment:Not calculated. FiO2 Not Provided % 06/07/2023 10:05 AM EDT [facility] O2 Flow, Arterial Not Provided L/min 06/07/2023 10:05 AM EDT [facility] Bicarbonate, Whole Blood 24.9 23.0 - 31.0 mmol/L 06/07/2023 10:05 AM EDT [facility] Blood Arterial blood specimen / Unknown Arterial Puncture / Unknown 06/07/2023 9:50 AM EDT 06/07/2023 9:56 AM EDT Kayode Parnell MD LAB BLOOD ORDERABLE S [facility] [address] [place] [address] * PLT (06/07/2023 9:50 AM EDT) [facility] PLT 213 140 - 400 K/uL 06/07/2023 10:06 AM EDT [facility] Blood Venous blood specimen / Unknown Venipuncture / Unknown 06/07/2023 9:50 AM EDT 06/07/2023 9:56 AM EDT Kayode Parnell MD LAB BLOOD ORDERABLE S Performing Organization Address [facility]/ZIP Co de Phone Number [facility] [address] [place] [address] * FIBRINOGEN (06/07/2023 9:50 AM EDT) [facility] Fibrinogen 221 178 - 467 mg/dL 06/07/2023 10:18 AM EDT [facility] Blood Venous blood specimen / Unknown Venipuncture / Unknown 06/07/2023 9:50 AM EDT 06/07/2023 9:56 AM EDT Kayode Parnell MD LAB BLOOD ORDERABLE S Performing Organization Address City/[facility]/ZIP Co de Phone Number [facility] [address] [place] [address] * (ABNORMAL) BLOOD GAS WITH CHEMISTRY, POINT OF CARE (06/07/2023 9:43 AM EDT) [facility] Draw Site Arterial Draw 06/07/2023 11:17 AM EDT [employer] pH i-STAT 7.398 7.350 - 7.450 06/07/2023 11:17 AM EDT [employer] pCO2 i-STAT 42.1 35.0 - 45.0 mm Hg 06/07/2023 11:17 AM EDT [employer] pO2 i-STAT 243(H) 75 - 100 mm Hg 06/07/2023 11:17 AM EDT [employer] Base Excess i-STAT 1 -2 - 2 mmol/L 06/07/2023 11:17 AM EDT [facility] Bicarbonate i-STAT 26.0 23.0 - 31.0 mmol/L 06/07/2023 11:17 AM EDT [facility] O2 Saturation i-STAT 100.0(H) 94.0 - 98.0 % 06/07/2023 11:17 AM EDT [facility] Glucose i-STAT 93 70 - 120 mg/dL 06/07/2023 11:17 AM EDT [facility] Potassium i-STAT 5.7(H) 3.5 - 5.1 mmol/L 06/07/2023 11:17 AM EDT [facility] Sodium i-STAT 136 135 - 146 mmol/L 06/07/2023 11:17 AM EDT [facility] Calcium Ionized i-STAT 1.01(L) 1.13 - 1.32 mmol/L 06/07/2023 11:17 AM EDT [facility] Hemoglobin i-STAT 9.2(L) 14.0 - 16.8 g/dL 06/07/2023 11:17 AM EDT [facility] Hematocrit i-STAT 27(L) 40 - 48 % 06/07/2023 11:17 AM EDT [facility] Arterial Draw 06/07/2023 9:4 3 AM EDT 06/07/2023 11:17 AM EDT Kayode Parnell MD LAB POINT OF CARE T EST DOCKED DEVICE UNSOLICITED RESULTS [facility] [address] [place] [address] * ACT, POINT OF CARE (06/07/2023 9:42 AM EDT) ACT 389 50 - 1,000 secs 06/07/2023 11:17 AM EDT [facility] Blood 06/07/2023 9:42 AM EDT 06/07/2023 11:17 AM EDT Narrative [facility] - 06/07/2023 11:17 AM EDT NORMAL (NON-HEPARINIZED) 74-137 SECONDS HEPARINIZED 200+ SECONDS CRITICAL GREATER THAN 1000 SECONDS Kayode Parnell MD LAB POINT OF CARE T EST DOCKED DEVICE UNSOLICITED RESULTS [facility] [address] [place] [address] * ACT, POINT OF CARE (06/07/2023 9:24 AM EDT) ACT 528 50 - 1,000 secs 06/07/2023 11:17 AM EDT [employer] Blood 06/07/2023 9:24 AM EDT 06/07/2023 11:17 AM EDT [facility] - 06/07/2023 11:17 AM EDT NORMAL (NON-HEPARINIZED) 74-137 SECONDS HEPARINIZED 200+ SECONDS CRITICAL GREATER THAN 1000 SECONDS Kayode Parnell MD LAB POINT OF CARE T EST DOCKED DEVICE UNSOLICITED RESULTS Performing Organization Address City/[facility]/ZIP Co de Phone Number [facility] [address] [place] [address] * ACT, POINT OF CARE (06/07/2023 9:24 AM EDT) Pathologist [facility] ACT 528 50 - 1,000 secs 06/07/2023 11:17 AM EDT [employer] Blood 06/07/2023 9:24 AM EDT 06/07/2023 11:16 AM EDT [place] - 06/07/2023 11:17 AM EDT NORMAL (NON-HEPARINIZED) 74-137 SECONDS HEPARINIZED 200+ SECONDS CRITICAL GREATER THAN 1000 SECONDS Kayode Parnell MD LAB POINT OF CARE T EST DOCKED DEVICE UNSOLICITED RESULTS [facility] [address] [place] [address] * (ABNORMAL) BLOOD GAS WITH CHEMISTRY, POINT OF CARE (06/07/2023 7:56 AM EDT) Draw Site Arterial Draw 06/07/2023 11:16 AM EDT [facility] pH i-STAT 7.409 7.350 - 7.450 06/07/2023 11:16 AM EDT [facility] pCO2 i-STAT 40.7 35.0 - 45.0 mm Hg 06/07/2023 11:16 AM EDT [facility] pO2 i-STAT 182(H) 75 - 100 mm Hg 06/07/2023 11:16 AM EDT [facility] Base Excess i-STAT 1 -2 - 2 mmol/L 06/07/2023 11:16 AM EDT [facility] Bicarbonate i-STAT 25.8 23.0 - 31.0 mmol/L 06/07/2023 11:16 AM EDT [facility] O2 Saturation i-STAT 100.0(H) 94.0 - 98.0 % 06/07/2023 11:16 AM EDT [facility] Glucose i-STAT 114 70 - 120 mg/dL 06/07/2023 11:16 AM EDT [facility] Potassium i-STAT 4.4 3.5 - 5.1 mmol/L 06/07/2023 11:16 AM EDT [facility] Sodium i-STAT 137 135 - 146 mmol/L 06/07/2023 11:16 AM EDT [facility] Calcium Ionized i-STAT 1.15 1.13 - 1.32 mmol/L 06/07/2023 11:16 AM T [facility] Hemoglobin i-STAT 12.2(L) 14.0 - 16.8 g/dL 06/07/2023 11:16 AM EDT [facility] Hematocrit i-STAT 36(L) 40 - 48 % 06/07/2023 11:16 AM T [facility] Arterial Draw 06/07/2023 7:5 6 AM EDT 06/07/2023 11:16 AM EDT Kayode Parnell MD LAB POINT OF CARE T EST DOCKED DEVICE UNSOLICITED RESULTS [facility] [address] [place] [address] * ACT, POINT OF CARE (06/07/2023 7:55 AM EDT) Pathologist [facility] ACT 113 50 - 1,000 secs 06/07/2023 11:16 AM EDT [facility] Blood 06/07/2023 7:55 AM EDT 06/07/2023 11:16 AM EDT Narrative [facility] - 06/07/2023 11:16 AM EDT NORMAL (NON-HEPARINIZED) 74-137 SECONDS HEPARINIZED 200+ SECONDS CRITICAL GREATER THAN 1000 SECONDS Kayode Parnell MD LAB POINT OF CARE T EST DOCKED DEVICE UNSOLICITED RESULTS [place] [address] [place] [address] * GLUCOSE METER, POINT OF CARE (06/07/2023 6:23 AM EDT) [facility] Glucose Meter 111 70 - 120 mg/dL 06/07/2023 6:25 AM EDT [facility] Blood Whole blood specimen / Unknown 06/07/2023 6:23 AM EDT 06/07/2023 6:25 AM EDT Kayode Parnell MD LAB POINT OF CARE T EST DOCKED DEVICE UNSOLICITED RESULTS [address] [address] * PREPARE PACKED RED BLOOD CELLS (06/07/2023 6:15 AM EDT) [facility] Unit Product Code [id number] [facility] Unit Number [id number] [facility] ABO A [facility] Rh POS [facility] Unit Crossmatch Compatible [facility] Unit Status RE [facility] RY [facility] Blood Type APOS LABOR[facility] Unit Expiration [id number] [facility] Unit Barcode 6200 LABORAT ORY [facility] Unit Product Code [id number] [facility] Unit Number [id number] LAB[facility] ABO A [facility] Rh POS [facility] Crossmatch Compatible [facility] Unit Status RE [facility] Blood Type APOS LABOR[facility] Unit Expiration [id number] [facility] Unit Barcode 6200 [facility] 06/07/2023 6:15 AM EDT Anshul Lee Conrad [employer] PROD UCT ORDERABLES [facility] [address] [place] [address] documented in this encounter Visit Diagnoses Diagnosis Aortic valve stenosis- Primary Aortic valve disorders Aortic stenosis Aortic valve disorders Valvular heart disease Endocarditis, valve unspecified, unspecified cause Aortic valve stenosis, etiology of cardiac valve disease unspecified S/P AVR (aortic valve replacement) Heart valve replaced by other means Status post surgery HTN, goal below 140/90 Unspecified essential hypertension Unequal pupils Anisocoria Tobacco use disorder NSTEMI (non-ST elevation myocardial infarction) (HCC) Acute myocardial infarction, subendocardial infarction, episode of care unspecified Coronary vasospasm (HCC) Prinzmetal angina Absent kidney, congenital Congenital renal agenesis and dysgenesis documented in this encounter Administered Medications Inactive Administered Medications - up to 3 most recent administrations Medication Order MAR Action Action Date Dose Rate Site Acetaminophen (Ofirmev) inj 1,000 mg 1,000 mg, Intravenous, ONCE, 1 dose, On 06/07/23 at 1430, Administer over 15 Minutes, Administer undiluted over 15 minutes! NOTE: Maximum of 4000 mg per 24 hours of acetaminophen from all acetaminophen containing products., Indication: Patient is strictly NPO New Bag 06/07/2023 2:36 PM EDT 1,000 mg 400 mL/hr Acetaminophen (Tylenol) tab 650 mg 650 mg, Oral, Q6H PRN Pain, Mild, Fever >38C(100.5F), Starting on 06/12/23 at 1230, Until Wed06/11/23 at 1431, Maximum of 4 grams (4000 mg) per day., Post-op Acetaminophen (Tylenol) tab 975 mg 975 mg, Oral, Q8H, First dose on Wed06/07/23 at 1400, Last dose on Wed06/12/23 at 0600, For 5 days, Maximum of 4 grams (4000 mg) per day., Post-op Given 06/11/2023 5:53 AM EDT 975 mg Given 06/10/2023 9:06 PM EDT 975 mg Given 06/10/2023 2:32 PM EDT 975 mg albumin (human) (Plasbumin-5) 5 % infusion 25 g Intravenous, Please scan shot lighter "square" 2D barcode to record Lot/ Expiration, ONCE, 1 dose, On Wed06/07/23 at 1345 New Bag 06/07/2023 1:20 PM EDT 25 g 5 00 mL/hr aspirin chew tab 81 mg 81 mg, Oral, Daily(AM), First dose on Wed06/08/23 at 0900, Until Discontinued, Start on POD#1, Post-op Given 06/11/2023 7:38 AM EDT 81 mg Given 06/10/2023 8:30 AM EDT 81 mg Given 06/09/2023 8:00 AM EDT 81 mg atorvaSTATin (Lipitor) tab 40 mg 40 mg, Oral, Q1700, First dose on Wed06/08/23 at 1700, Until Discontinued, In the morning. Given 06/10/2023 3:55 PM EDT 40 mg Given 06/09/2023 3:58 PM EDT 40 mg Given 06/08/2023 5:51 PM EDT 40 mg calcium CHLORide 1,000 mg in D5W 100 mL ivpb 1,000 mg, IV Piggyback, ONCE, 1 dose, On Wed06/07/23 at 1330, Do not run through TPN line or with any phosphate containing solution New Bag 06/07/2023 1:59 PM EDT 1,000 mg 220 mL/hr ceFAZolin in dextrose (Ancef) ivpb 2 g 2 g, IV Piggyback, Q8H, 5 doses, First dose on Wed06/07/23 at 1600, Last dose on Wed06/09/23 at 0000, Post-op New Bag 06/09/2023 12:05 AM EDT 2 g 100 mL/hr New Bag 06/08/2023 4:48 PM EDT 2 g 100 mL/hr New Bag 06/08/2023 8:06 AM EDT 2 g 100 mL/hr chlorHEXIDINE (Periogard) 0.12 % oral rinse 15 mL 15 mL, Oral mucosal membrane, BID (799,1999), First dose on Wed06/07/23 at 2000, Until Discontinued, Include oral/gum/tooth brushing with medication. Use prepackaged oral kit suction tooth brush if available. , Post-op Given 06/07/2023 8:51 PM EDT 15 mL clopidogrel (pLAVix) tab 75 mg 75 mg, Oral, Daily(AM), First dose on Wed06/08/23 at 0900, Until Discontinued Given 06/11/2023 7:38 AM EDT 75 mg Given 06/10/2023 8:30 AM EDT 75 mg Given 06/09/2023 8:00 AM EDT 75 mg CYANOCOBALAMIN (vitamin B-12) tab 1,000 mcg 1,000 mcg, Oral, Daily(AM), First dose on Wed06/08/23 at 0900, Until Discontinued Given 06/11/2023 7:38 AM EDT 1,000 mcg Given 06/10/2023 8:31 AM EDT 1,000 mcg Given 06/09/2023 8:00 AM EDT 1,000 mcg dilTIAZem (CARDIZEM) 125mg in 125ml (1mg/ml) infusion Intravenous, 5 mg/hr (5 mL/hr), Use Smart pump mode to run this medication! TOTAL VOLUME = 125 mL Final conc = ( 1mg/mL), CONTINUOUS, Starting on Wed06/07/23 at 1245, Until Wed06/08/23 at 0739, Post-op New Bag 06/08/2023 6:31 AM EDT 5 mg/ hr 5 mL/hr Nurse Change 06/07/2023 7:11 PM EDT 5 mg/hr 5 mL/hr Rate Verify 06/07/2023 12:00 PM EDT 5 mg/hr 5 mL/hr Docusate Sodium (Colace) cap 100 mg 100 mg, Oral, BID (.AM/PM), First dose on Wed06/08/23 at 0900, Until Discontinued, Hold and administer syrup formulation if not able to take this tab PO., Post-op Given 06/10/2023 9:06 PM EDT 100 mg Given 06/10/2023 8:32 AM EDT 100 mg Given 06/09/2023 9:34 PM EDT 100 mg Furosemide (Lasix) inj 40 mg 40 mg, IV Push, ONCE, On Wed06/08/23 at 1930, For 1 dose Given 06/08/2023 7:13 PM EDT 40 mg Furosemide (Lasix) inj 40 mg 40 mg, IV Push, ONCE, On Wed06/09/23 at 0245, For 1 dose Given 06/09/2023 2:07 AM EDT 40 mg Furosemide (Lasix) inj 40 mg 40 mg, IV Push, ONCE, On Wed06/09/23 at 1100, For 1 dose Given 06/09/2023 11:33 AM EDT 40 mg Furosemide (Lasix) inj 40 mg 40 mg, IV Push, ONCE, On Wed06/10/23 at 0630, For 1 dose Given 06/10/2023 6:31 AM EDT 40 mg Furosemide (Lasix) inj 40 mg 40 mg, IV Push, ONCE, On Wed06/10/23 at 1600, For 1 dose Given 06/10/2023 3:55 PM EDT 40 mg Furosemide (Lasix) tab 40 mg 40 mg, Oral, Daily(AM), First dose on Wed06/11/23 at 0900, Until Discontinued Given 06/11/2023 7:38 AM EDT 40 mg Glycopyrrolate (Robinul) inj 0.6 mg 0.6 mg, Intravenous, ONCE PRN Other, Reversal of neuromuscular sebastian, Starting on Wed06/07/23 at 1200, Until Wed06/07/23 at 1559, For 4 hours, Available in [facility]. If still chemically paralyzed after dose has been administered, contact provider for further guidance. WASTE INFO: Return waste medication to pharmacy in zip lock bag - SPC container., Post-op Given 06/07/2023 12:56 PM EDT 0.6 mg hEParin inj 5,000 Units 5,000 Units, Subcutaneous, Q8H, First dose on Wed06/08/23 at 0600, Until Discontinued, Post-op Given 06/11/2023 5:54 AM EDT 5,000 Units Abdomen Right Lower Given 06/10/2023 9:08 PM EDT 5,000 Units A bdomen Left Lower Given 06/10/2023 2:32 PM EDT 5,000 Units A bdomen Right Lower insulin REGULAR human 100 units in NSS 100 mL INFUSION Final Conc = 1 unit / mL Intravenous, at 0.5 mL/hr, Target Range for Blood Glucose = 100 to 130 mg/dl , CONTINUOUS, Starting on Wed06/07/23 at 1245, Until Wed06/08/23 at 1438, Post-op Rate Change 06/08/2023 12:35 PM EDT 1 Units/hr 1 mL/hr Rate Change 06/08/2023 10:40 AM EDT 3 Units/hr 3 mL/hr Rate Change 06/08/2023 8:15 AM EDT 4 Units/hr 4 mL/hr Iron Sucrose (Venofer) 300 mg in NSS 250 mL ivpb 300 mg, IV Piggyback, Daily(AM), 2 doses, First dose on Wed06/08/23 at 0900, Last dose on Wed06/09/23 at 0900, Administer over 90 Minutes New Bag 06/09/2023 8:02 AM EDT 300 mg 183.33 mL/hr New Bag 06/08/2023 10:35 AM EDT 300 mg 183.33 mL/hr isolyte-S pH 7.4 infusion Intravenous, at 25 mL/hr, Plasma-LYTE 148, isolyte-S, and isolyte-S pH 7.4 are considered equivalent - including for MAR barcode scanning., CONTINUOUS, Starting on Wed06/07/23 at 0615, Until Wed06/11/23 at 1431, Intra-Op Restarted 06/07/2023 7:33 AM EDT Continue from Pre-Op 06/07/2023 6:58 AM EDT 30 mL/hr New Bag 06/07/2023 6:27 AM EDT 25 mL/hr isolyte-S pH 7.4 infusion Intravenous, at 1,000 mL/hr, During 1st 12hrs postop may give Isolyte, 500ml over 30 minutes x 1. If Systolic BP less than 100 and PA diastolic less than 15: may repeat x [address] Surgeon or PA-C if not immediately effective. Plasma-LYTE 148, isolyte-S, and isolyte-S pH 7.4 are considered equivalent - including for MAR barcode scanning., PRN, 2 doses, Starting on Wed06/07/23 at 1200, Until Wed06/07/23 at 1235, Post-op New Bag 06/07/2023 12:35 PM EDT 500 mL 1000 mL/hr New Bag 06/07/2023 12:00 PM EDT 500 mL 1000 mL/hr ketorolac (Toradol) 15 MG/ML inj 15 mg 15 mg, IV Push, ONCE, On Wed06/07/23 at 1430, For 1 dose, Given 06/07/2023 2:23 PM EDT 15 mg Lisinopril (Prinivil) tab 2.5 mg 2.5 mg, Oral, Daily(AM), First dose on Emma 06/10/23 at 0900, Until Discontinued Given 06/11/2023 7:38 AM EDT 2.5 mg Given 06/10/2023 8:30 AM EDT 2.5 mg magnesium sulfate 1 g in d5w 100mL LOCKED DOSE 1 g, IV Piggyback, PRN Other, Magnesium replacement, Starting on Wed06/07/23 at 1200, Until Wed06/11/23 at 1431, For 4 doses, 1. Serum creatinine must be less than 1.5 2. Current urine output must be greater than 30 mL/hr. Magnesium level 1.5 - 2.2: Give 1 gm over 1 hour x 1 dose Magnesium level less than 1.5: Give 1 gm over 1 hour x 2 doses Repeat serum magnesium level 1 hour after completion of 2nd dose, Post-op New Bag 06/10/2023 6:31 AM EDT 1 g 100 mL/hr New Bag 06/09/2023 6:44 AM EDT 1 g 100 mL/hr metoprolol succinate XL (toPROL XL) tab 25 mg 25 mg, Oral, Daily(AM), First dose on Wed06/10/23 at 0900, Until Discontinued, Hold for HR less than 60 or SBP below 100 and notify service if dose is held This med should NOT be Crushed or Chewed. Given 06/11/2023 7:39 AM EDT 25 mg Given 06/10/2023 8:31 AM EDT 25 mg Metoprolol Tartrate (Lopressor) tab 12.5 mg 12.5 mg, Oral, Q12H, First dose on Wed06/08/23 at 2100, Until Discontinued, Hold for HR less than 60 or SBP below 100 and notify service if dose is held Given 06/09/2023 8:00 AM EDT 12.5 mg Given 06/08/2023 9:15 PM EDT 12.5 mg Metoprolol Tartrate (Lopressor) tab 25 mg 25 mg, Oral, Q12H, First dose (after last modification) on Wed06/09/23 at 2100, Until Discontinued, Hold for HR less than 60 or SBP below 100 and notify service if dose is held Given 06/09/2023 9:34 PM EDT 25 mg morphine sulfate inj 2 mg 2 mg, IV Push, Q1H PRN Pain, Severe, Starting on Wed06/07/23 at 1200, Until Wed06/11/23 at 1431, For 5 days, Post-op Given 06/09/2023 7:50 PM EDT 2 mg Given 06/09/2023 2:58 AM EDT 2 mg Given 06/08/2023 8:49 PM EDT 2 mg mupirocin calcium (BACTROBAN for NASAL) 2 % ointment 0.5 g 0.5 g, Each Nostril, BID (.AM/PM), First dose on Wed06/07/23 at 0900, Last dose on Wed06/11/23 at 2100, For 5 days, Apply a pea sized amount (0.5 g) to a clean cotton swab to each nostril. Twice a day for five day in conjunction with administration of the 5 day chlorhexidine wash., Post-op Given 06/11/2023 7:38 AM EDT 0.5 g Given 06/09/2023 9:34 PM EDT 0.5 g Given 06/09/2023 8:01 AM EDT 0.5 g neostigmine methylsulfate 10 MG/10ML inj 3 mg 3 mg, Intravenous, ONCE PRN Other, Reversal of neuromuscular sebastian, Starting on Wed06/07/23 at 1200, Until Wed06/07/23 at 1559, For 4 hours, Available in [place]. If still chemically paralyzed after dose has been administered, contact provider for further guidance., Post-op Given 06/07/2023 1:06 PM EDT 3 mg NORepinephrine (Levophed) 4 mg in 250 ml D5W STANDARD CONCENTRATION 16 mcg/ml Order Mode: Custom Provider Titration Order, Starting Rate (mcg/min): 2, Clinical Target: Custom MAP, Custom SBP, Custom Target MAP Range: Greater than 65, Custom Target SBP Range (mmHG): Less than 120, Increase or Decrease Infusion by up to (mcg/min): 1 mcg/min, Titrate no more frequently than (mins): Every 5 seconds, Maximum Dose (mcg/min): 10, Patient Transfer: Patient should be transferred to a higher level of care if rate exceeds nursing unit specific guidelines., 0-10 mcg/min (0-37.5 mL/hr), If you have reached the max rate, call for the on-call CVTS HUBER, TITRATE, Starting on Wed06/07/23 at 1245, Until Wed06/08/23 at 1438, Central IV, Post-op Rate Change 06/07/2023 8:17 PM EDT 1 mcg/min 3.75 mL/hr Nurse Change 06/07/2023 7:11 PM EDT 2 mcg/min 7.5 mL/hr Rate Change 06/07/2023 6:30 PM EDT 2 mcg/min 7.5 mL/hr ondansetron (Zofran) inj 4 mg 4 mg, IV Push, Q6H PRN Other, May use for nausea or vomiting if patient unable to take oral ondansetron, Starting on Wed06/07/23 at 1200, Until Wed06/11/23 at 1431, Post-op ondansetron ODT (Zofran) tab 4 mg 4 mg, On Tongue, Q6H PRN Nausea, Vomiting, Starting on Wed06/07/23 at 1200, Until Wed06/11/23 at 1431, Post-op Oral Hygiene: Mouth Swab with dentifrice Oral, Q4H LIMITED (00;04;12;16), First dose on Wed06/07/23 at 1600, Until Discontinued, To be used with 1.5% hydrogen peroxide solution or 0.05% cetylpyridium chloride oral rinse, Post-op Given 06/08/2023 12:0 0 AM EDT Given 06/07/2023 4:00 PM EDT oxyCODONE (Oxy IR) tab 5 mg 5 mg, Oral, Q4H PRN Pain, Moderate, Starting on Wed06/07/23 at 1200, Until Wed06/11/23 at 1431, For 5 days, Post-op Given 06/11/2023 9:58 AM EDT 5 mg Given 06/11/2023 5:52 AM EDT 5 mg Given 06/10/2023 8:06 PM EDT 5 mg oxygen GAS Inhalation, OXYGEN, First dose on Wed06/07/23 at 1600, Until Discontinued, Device/Managed by: Low Flow Device, Goal SPO2 (%): 91-95, Starting Device: Nasal Cannula, Inital Flow Rate (LPM): 2. Apply post extubation., Lowest Support: Nasal Cannula: Flow 0-6 LPM. Titrate up/down by 1 LPM., Titration Interval: Q2 minutes and as needed., Notify Provider: For sudden DECREASE in resting SPO2 to less than 85% and when escalating delivery device. Oxygen On 06/11/2023 12:00 AM EDT Oxygen On 06/10/2023 8:00 AM EDT Oxygen On 06/10/2023 12:00 AM EDT pantoprazole (Protonix) tab 40 mg 40 mg, Oral, Daily(AM), First dose on Wed06/08/23 at 0900, Until Discontinued, This med should NOT be Crushed or Chewed Given 06/11/2023 7:38 AM EDT 40 mg Given 06/10/2023 8:32 AM EDT 40 mg Given 06/09/2023 8:00 AM EDT 40 mg potassium chloride 20 mEq in 50 mL ivpb LOCKED DOSE 20 mEq, Central IV, PRN, Starting on Wed06/07/23 at 1200, Until Wed06/11/23 at 1431, Other, Potassium repletion, Administer over 60 Minutes, Patients MUST meet ALL the following criteria. IF ANY criteria are not met, Do Not Administer, and call covering provider for orders 1. Serum creatinine must be less than 1.5 2. Current urine output must be greater than 30 mL/hr. Potassium repletion based on level 4.0 - 4.2: infuse 20mEq/50mL over one hour x 1 dose 3.5 - 3.9: infuse 20mEq/50mL over one hour x 2 doses 3.0 - 3.4: infuse 20mEq/50mL over one hour x 3 doses If Potassium less than 3.0, Begin 20mEq/50mL over 30 minutes x 1 dose and Immediately call covering provider for orders., Post-op New Bag 06/08/2023 5:02 AM EDT 20 mEq 50 mL/hr potassium chloride 20 mEq in 50 mL ivpb LOCKED DOSE 20 mEq, Central IV, Q1H, 1 dose, First dose on Wed06/09/23 at 0300, Administer over 60 Minutes, Standard infusion duration is 60 minutes. New Bag 06/09/2023 2:07 AM EDT 20 mEq 50 mL/hr potassium chloride ER tab 20 mEq 20 mEq, Oral, PRN Other, Potassium repletion, Starting on Wed06/07/23 at 1200, Until Wed06/11/23 at 1431, Patients MUST meet ALL the following criteria. IF ANY criteria are not met, Do Not Administer, and call covering provider for orders 1. Serum creatinine must be less than 1.5 2. Current urine output must be greater than 30 mL/hr. 3. Patient is taking medications by mouth (PO). Potassium repletion based on level 4.0 - 4.2, Give 20mEq x 1 dose 3.5 - 3.9, Give 20mEq every 2 hours x 2 doses 3.0 - 3.4, Give 20mEq every 2 hours x 3 doses If potassium is less than 3.0, Give 20mEq x1 dose and immediately call the covering provider for orders. 4. BMP result must be no older than 24 hours., Post-op Given 06/10/2023 6:30 AM EDT 20 mEq potassium chloride ER tab 20 mEq 20 mEq, Oral, ONCE, On Wed06/09/23 at 1100, For 1 dose, This med should NOT be Crushed or Chewed Given 06/09/2023 11:32 AM EDT 20 mEq potassium chloride ER tab 20 mEq 20 mEq, Oral, ONCE, On Wed06/10/23 at 0800, For 1 dose, This med should NOT be Crushed or Chewed Given 06/10/2023 8:32 AM EDT 20 mEq potassium chloride ER tab 20 mEq 20 mEq, Oral, ONCE, On Wed06/10/23 at 1600, For 1 dose, This med should NOT be Crushed or Chewed Given 06/10/2023 3:55 PM EDT 20 mEq potassium chloride ER tab 20 mEq 20 mEq, Oral, Daily(AM), First dose on Wed06/11/23 at 0900, Until Discontinued, This med should NOT be Crushed or Chewed Given 06/11/2023 7:38 AM EDT 20 mEq vitamins plus 1 mg folic acid tab 1 Tablet 1 Tablet, Oral, DAILY NOON, First dose on Wed06/08/23 at 1200, Until Discontinued, Post-op Given 06/10/2023 11:53 AM EDT 1 Tablet Given 06/09/2023 11:10 AM EDT 1 Tablet Given 06/08/2023 12:31 PM EDT 1 Tablet Propofol 10 mg/mL (1%) infusion Intravenous, at 2.84 mL/hr, PLEASE USE SMART PUMP LIBRARY FOR THIS DRUG: Increase by 5 mcg/kg/min for RASS score between -2 to -4 and maintain MAP over 65. Contact physician for further orders once a rate of 50 mcg/kg/min is required. Once the patient meets criteria described in the Cardiac Surgery Ventilator Weaning Protocol decrease propofol 5ml every minute until the drip is off. Change IV tubing every 12 hours. Sedation Vacation Daily. Shake Well Expires 12 hours after spiking on (date) at (hour) , CONTINUOUS, Starting on Wed06/07/23 at 1245, Until Wed06/08/23 at 0028, Post-op Rate Change 06/07/2023 1:34 PM EDT 5 mcg/kg/min 2.84 mL/hr Rate Change 06/07/2023 1:32 PM EDT 10 mcg/kg/min 5.68 mL/h r Rate Change 06/07/2023 1:30 PM EDT 15 mcg/kg/min 8.51 mL/h r protamine sulfate inj 50 mg 50 mg, IV Push, ONCE, On Wed06/07/23 at 1330, For 1 dose, Administer no faster than 50 mg over 10 minutes. Given 06/07/2023 1:23 PM EDT 50 mg senna (Senokot) 1 Tablet 1 Tablet, Oral, BID (.AM/PM), First dose on Wed06/08/23 at 0900, Until Discontinued, Hold if patient develops diarrhea or has greater than 2 BMs in any one day., Post-op Given 06/10/2023 9:06 PM EDT 1 Tablet Given 06/10/2023 8:30 AM EDT 1 Tablet Given 06/09/2023 9:34 PM EDT 1 Tablet sodium chloride 0.9 % flush central line 10 mL 10 mL, IV Push, Q8H, First dose on Wed06/07/23 at 1400, Until Discontinued, Capped Central Line Ports, Post-op Given 06/10/2023 6:00 AM EDT 10 mL Given 06/09/2023 10:00 PM EDT 10 mL Given 06/09/2023 2:00 PM EDT 10 mL sodium chloride 0.9 % flush peripheral dulce 3 mL 3 mL, IV Push, QSHIFT, First dose on Wed06/07/23 at 1600, Until Discontinued, Do not flush if lock, PICC, or central line not in place; IV infusing or unable to flush., Post-op Given 06/11/2023 8 :00 AM EDT 3 mL Given 06/10/2023 11:01 PM EDT 3 mL Given 06/10/2023 4:00 PM EDT 3 mL traMADol (Ultram) tab 50 mg 50 mg, Oral, TID(AM/NOON/HS), First dose on Wed06/08/23 at 0600, Last dose on Wed06/08/23 at 2200, For 3 doses, Post-op Given 06/08/2023 9:16 PM EDT 50 mg Given 06/08/2023 12:31 PM EDT 50 mg Given 06/08/2023 5:02 AM EDT 50 mg vancomycin (Vancocin) 1,500 mg in NSS 250 mL ivpb 1,500 mg, IV Piggyback, Q12H, 3 doses, First dose on Wed06/07/23 at 2100, Last dose on Wed06/08/23 at 2100, Post-op New Bag 06/08/2023 9:16 PM EDT 1,500 mg 183.33 mL/hr New Bag 06/08/2023 8:43 AM EDT 1,500 mg 183.33 mL/hr New Bag 06/07/2023 8:51 PM EDT 1,500 mg 183.33 mL/hr documented in this encounter Active and Recently Administered Medications Times are shown in EDT. Scheduled Medication Order 06/09/2023 06/10/2023 06/11/2023 Acetaminophen (Tylenol) tab 975 mg(Linked Group 1) 975 mg, Oral, Q8H, First dose on Wed06/07/23 at 1400, Last dose on Wed06/12/23 at 0600, For 5 days, Maximum of 4 grams (4000 mg) per day., Post-op 0507 (Given - Provider: Gemini Crump, ISHA)1341 (Given - Provider: Ruyb Bautista RN)2134 (Given - Provider: Gemini Crump RN) 0631 (Given - Provider: Gemini Crump, ISHA)1432 (Given - Provider: Kayode Villa, ISHA)2106 (Given - Provider: Vipul Mancuso RN) 0553 (Given - Provider: Vipul Mancuso RN) aspirin chew tab 81 mg 81 mg, Oral, Daily(AM), First dose on Wed06/08/23 at 0900, Until Discontinued, Start on POD#1, Post-op 0800 (Given - Provider: Ruby Bautista RN) 0830 (Given - Provider: Kayode Villa RN) 0738 (Given - Provider: Mehnaz Palmer, ISHA) atorvaSTATin (Lipitor) tab 40 mg 40 mg, Oral, Q1700, First dose on Wed06/08/23 at 1700, Until Discontinued, In the morning. 1558 (Given - Provider: Ruby Bautista RN) 1555 (Given - Provider: Mehnaz Palmer, ISHA) ceFAZolin in dextrose (Ancef) ivpb 2 g (COMPLETED) 2 g, IV Piggyback, Q8H, 5 doses, First dose on Wed06/07/23 at 1600, Last dose on Wed06/09/23 at 0000, Post-op 0005 (New Bag - Provider: Gemini Crump RN) clopidogrel (pLAVix) tab 75 mg 75 mg, Oral, Daily(AM), First dose on Wed06/08/23 at 0900, Until Discontinued 0800 (Given - Provider: Ruby Bautista RN) 0830 (Given - Provider: Kayode Villa, ISHA) 0738 (Given - Provider: Mehnaz Palmer RN) CYANOCOBALAMIN (vitamin B-12) tab 1,000 mcg 1,000 mcg, Oral, Daily(AM), First dose on Wed06/08/23 at 0900, Until Discontinued 0800 (Given - Provider: Ruby Bautista RN) 0831 (Given - Provider: Kayode Villa RN) 0738 (Given - Provider: Mehnaz Palmer RN) Docusate Sodium (Colace) cap 100 mg(Linked Group 2) 100 mg, Oral, BID (.AM/PM), First dose on Wed06/08/23 at 0900, Until Discontinued, Hold and administer syrup formulation if not able to take this tab PO., Post-op 0800 (Given - Provider: Ruby Bautista RN)2133 (Given - Provider: Gemini Crump RN) 0832 (Given - Provider: Kayode Villa RN)210 (Given - Provider: Vipul Mancuso RN) 0900 (Not Given - Provider: Mehnaz Palmer RN - Reason: Refused-Notify Provider) Furosemide (Lasix) inj 40 mg (COMPLETED) 40 mg, IV Push, ONCE, On Wed06/09/23 at 0245, For 1 dose 0207 (Given - Provider: Gemini Crump RN) Furosemide (Lasix) inj 40 mg (COMPLETED) 40 mg, IV Push, ONCE, On Wed06/09/23 at 1100, For 1 dose 1133 (Given - Provider: Ruby Bautista RN) Furosemide (Lasix) inj 40 mg (COMPLETED) 40 mg, IV Push, ONCE, On Wed06/10/23 at 0630, For 1 dose 0631 (Given - Provider: Gemini Crump RN) Furosemide (Lasix) inj 40 mg (COMPLETED) 40 mg, IV Push, ONCE, On Wed06/10/23 at 1600, For 1 dose 1555 (Given - Provider: Mehnaz Palmer RN) Furosemide (Lasix) tab 40 mg 40 mg, Oral, Daily(AM), First dose on Wed06/11/23 at 0900, Until Discontinued 0738 (Given - Provider: Mehnaz Palmer, IHSA) hEParin inj 5,000 Units 5,000 Units, Subcutaneous, Q8H, First dose on Wed06/08/23 at 0600, Until Discontinued, Post-op 0507 (Given - Provider: Gemini Crump, ISHA)1341 (Given - Provider: Ruby Bautista, ISAH)2134 (Given - Provider: Gemini Crump, ISHA) 0630 (Given - Provider: Gemini Crump RN)1432 (Given - Provider: Kayode Villa RN)2108 (Given - Provider: Vipul Mancuso, RN) 0554 (Given - Provider: Vipul Mancuso, ISHA) Iron Sucrose (Venofer) 300 mg in NSS 250 mL ivpb (COMPLETED) 300 mg, IV Piggyback, Daily(AM), 2 doses, First dose on Wed06/08/23 at 0900, Last dose on Wed06/09/23 at 0900, Administer over 90 Minutes 0802 (New Bag - Provider: Ruby Bautista RN) Lisinopril (Prinivil) tab 2.5 mg 2.5 mg, Oral, Daily(AM), First dose on Wed06/10/23 at 0900, Until Discontinued 0830 (Given - Provider: Kayode Villa RN) 0738 (Given - Provider: Mehnaz Palmer, ISHA) metoprolol succinate XL (toPROL XL) tab 25 mg 25 mg, Oral, Daily(AM), First dose on Wed06/10/23 at 0900, Until Discontinued, Hold for HR less than 60 or SBP below 100 and notify service if dose is held This med should NOT be Crushed or Chewed. 0831 (Given - Provider: Kayode Villa RN) 0739 (Given - Provider: Mehnaz Palmer, ISHA) Metoprolol Tartrate (Lopressor) tab 12.5 mg (CANCELED) 12.5 mg, Oral, Q12H, First dose on Wed06/08/23 at 2100, Until Discontinued, Hold for HR less than 60 or SBP below 100 and notify service if dose is held 0800 (Given - Provider: Ruby Bautista RN) Metoprolol Tartrate (Lopressor) tab 25 mg (CANCELED) 25 mg, Oral, Q12H, First dose (after last modification) on Wed06/09/23 at 2100, Until Discontinued, Hold for HR less than 60 or SBP below 100 and notify service if dose is held 2133 (Given - Provider: Gemini Crump RN) mupirocin calcium (BACTROBAN for NASAL) 2 % ointment 0.5 g 0.5 g, Each Nostril, BID (.AM/PM), First dose on Wed06/07/23 at 0900, Last dose on Wed06/11/23 at 2100, For 5 days, Apply a pea sized amount (0.5 g) to a clean cotton swab to each nostril. Twice a day for five day in conjunction with administration of the 5 day chlorhexidine wash., Post-op 0801 (Given - Provider: Ruby Bautista RN)2133 (Given - Provider: Gemini Crump RN) 09 (Not Given - Provider: Kayode Villa RN - Reason: Parameter(s) Not Met)2099 (Not Given - Provider: Vipul Mancuso RN - Reason: Parameter(s) Not Met) 07 (Given - Provider: Mehnaz Palmer RN) oxygen GAS Inhalation, OXYGEN, First dose on Wed06/07/23 at 1600, Until Discontinued, Device/Managed by: Low Flow Device, Goal SPO2 (%): 91-95, Starting Device: Nasal Cannula, Inital Flow Rate (LPM): 2. Apply post extubation., Lowest Support: Nasal Cannula: Flow 0-6 LPM. Titrate up/down by 1 LPM., Titration Interval: Q2 minutes and as needed., Notify Provider: For sudden DECREASE in resting SPO2 to less than 85% and when escalating delivery device. 0000 (Oxygen On - Provider: Gemini Crump RN)0800 (Oxygen On - Provider: Ruby Bautista RN)1600 (Oxygen On - Provider: Ruby Bautista RN) 0000 (Oxygen On - Provider: Gemini Crump RN)0800 (Oxygen On - Provider: Kayode Villa RN)1600 (Oxygen Off - Provider: Mehnaz Palmer RN) 0000 (Oxygen On - Provider: Vipul Mancuso RN)0800 (Oxygen Off - Provider: Mehnaz Palmer RN) pantoprazole (Protonix) tab 40 mg 40 mg, Oral, Daily(AM), First dose on Wed06/08/23 at 0900, Until Discontinued, This med should NOT be Crushed or Chewed 0800 (Given - Provider: Ruby Bautista RN) 0832 (Given - Provider: Kayode Villa RN) 0738 (Given - Provider: Mehnaz Palmer RN) potassium chloride 20 mEq in 50 mL ivpb LOCKED DOSE (COMPLETED) 20 mEq, Central IV, Q1H, 1 dose, First dose on Wed06/09/23 at 0300, Administer over 60 Minutes, Standard infusion duration is 60 minutes. 0207 (New Bag - Provider: Gemini Crump RN) potassium chloride ER tab 20 mEq (COMPLETED) 20 mEq, Oral, ONCE, On Wed06/09/23 at 1100, For 1 dose, This med should NOT be Crushed or Chewed 1132 (Given - Provider: Ruby Bautista RN) potassium chloride ER tab 20 mEq (COMPLETED) 20 mEq, Oral, ONCE, On Wed06/10/23 at 0800, For 1 dose, This med should NOT be Crushed or Chewed 0832 (Given - Provider: Kayode Villa RN) potassium chloride ER tab 20 mEq (COMPLETED) 20 mEq, Oral, ONCE, On Wed06/10/23 at 1600, For 1 dose, This med should NOT be Crushed or Chewed 1555 (Given - Provider: Mehnaz Palmer RN) potassium chloride ER tab 20 mEq 20 mEq, Oral, Daily(AM), First dose on Wed06/11/23 at 0900, Until Discontinued, This med should NOT be Crushed or Chewed 0738 (Given - Provider: Mehnaz Palmer RN) vitamins plus 1 mg folic acid tab 1 Tablet 1 Tablet, Oral, DAILY NOON, First dose on Wed06/08/23 at 1200, Until Discontinued, Post-op 1110 (Given - Provider: Ruby Bautista RN) 1153 (Given - Provider: Kayode Villa RN) senna (Senokot) 1 Tablet(Linked Group 3) 1 Tablet, Oral, BID (.AM/PM), First dose on Wed06/08/23 at 0900, Until Discontinued, Hold if patient develops diarrhea or has greater than 2 BMs in any one day., Post-op 0801 (Given - Provider: Ruby Bautista RN)2134 (Given - Provider: Gemini Crump RN) 0830 (Given - Provider: Kayode Villa RN)2106 (Given - Provider: Vipul Mancuso RN) 0900 (Not Given - Provider: Mehnaz Palmer RN - Reason: Refused-Notify Provider) sodium chloride 0.9 % flush central line 10 mL 10 mL, IV Push, Q8H, First dose on Wed06/07/23 at 1400, Until Discontinued, Capped Central Line Ports, Post-op 0600 (Given - Provider: Gemini Crump RN)1400 (Given - Provider: Ruby Bautista RN)2200 (Given - Provider: Gemini Crump RN) 0600 (Given - Provider: Gemini Crump RN)1400 (Not Given - Provider: Kayode Villa RN - Reason: Parameter(s) Not Met)2200 (Not Given - Provider: Vipul Mancuso RN - Reason: Parameter(s) Not Met) 0600 (Not Given - Provider: Vipul Mancuso RN - Reason: Parameter(s) Not Met) sodium chloride 0.9 % flush peripheral dulce 3 mL 3 mL, IV Push, QSHIFT, First dose on Wed06/07/23 at 1600, Until Discontinued, Do not flush if lock, PICC, or central line not in place; IV infusing or unable to flush., Post-op 0000 (Given - Provider: Gemini Crump RN)0800 (Given - Provider: Ruby Bautista RN)1600 (Given - Provider: Ruby Bautista RN) 0000 (Given - Provider: Gemini Crump RN)0800 (Given - Provider: Kayode Villa RN)1600 (Given - Provider: Mehnaz Palmer RN)2301 (Given - Provider: Vipul Mancuso RN) 0800 (Given - Provider: Mehnaz Palmer RN) Continuous Medication Order 06/09/2023 06/10/2023 06/11/2023 isolyte-S pH 7.4 infusion Intravenous, at 25 mL/hr, Plasma-LYTE 148, isolyte-S, and isolyte-S pH 7.4 are considered equivalent - including for MAR barcode scanning., CONTINUOUS, Starting on Wed06/07/23 at 0615, Until Wed06/11/23 at 1431, Intra-Op 0750 (Entry Error - Provider: Mehnaz Palmer RN - Comment: no infusion at this time) PRN Medication Order 06/09/2023 06/10/2023 06/11/2023 Acetaminophen (Tylenol) tab 650 mg(Linked Group 1) 650 mg, Oral, Q6H PRN Pain, Mild, Fever >38C(100.5F), Starting on Wed06/12/23 at 1230, Until Wed06/11/23 at 1431, Maximum of 4 grams (4000 mg) per day., Post-op atropine sulfate inj 1 mg 1 mg, IV Push, PRN Other, X1 PRN hemodynamically significant bradydysrythmias and call CT Surgeon adán VASQUEZ, Starting on Wed06/07/23 at 1200, Until Wed06/11/23 at 1431, For 1 dose, Post-op Bisacodyl (Dulcolax) supp 10 mg 10 mg, Rectal, DAILY PRN Constipation, Starting on Wed06/09/23 at 0800, Until Wed06/11/23 at 1431, Post-op calcium CHLORide 10 % inj 1 g 1 g, IV Push, PRN Other, Calcium Replacement, Starting on Wed06/07/23 at 1200, Until Wed06/11/23 at 1431, For 1 dose, Ionized calcium is less than 1 and MAP less than 80, Post-op dextrose 50 % inj IV Push, PRN Other, Glucose less than 70 mg/dl - see administration instructions for dose, Starting on Wed06/07/23 at 1200, Until Wed06/11/23 at 1431, Glucose less than 70 mg/dl turn off insulin infusion and give D50W by the following formula: (100-blood glucose) x 0.3 to equal the total mL of D50W to be given. Recheck blood glucose in 15 minutes if blood glucose is less than 70 mg/dl give D50W by previous formula., Post-op magnesium sulfate 1 g in d5w 100mL LOCKED DOSE 1 g, IV Piggyback, PRN Other, Magnesium replacement, Starting on Wed06/07/23 at 1200, Until Wed06/11/23 at 1431, For 4 doses, 1. Serum creatinine must be less than 1.5 2. Current urine output must be greater than 30 mL/hr. Magnesium level 1.5 - 2.2: Give 1 gm over 1 hour x 1 dose Magnesium level less than 1.5: Give 1 gm over 1 hour x 2 doses Repeat serum magnesium level 1 hour after completion of 2nd dose, Post-op 0644 (New Bag - Provider: Gemini Crump, RN) 0631 (New Bag - Provider: Gemini Crump, ISHA) morphine sulfate inj 2 mg 2 mg, IV Push, Q1H PRN Pain, Severe, Starting on Wed06/07/23 at 1200, Until Wed06/11/23 at 1431, For 5 days, Post-op 0258 (Given - Provider: Gemini Crump, ISHA)1950 (Given - Provider: Gemini Crump, RN) naloxone (Narcan) 0.4 MG/ML inj 0.1 mg 0.1 mg, IV Push, PRN Other, If patient is over sedated or Respiratory Rate less than 8, Starting on Wed06/07/23 at 1200, Until Wed06/11/23 at 1431, Call provider if patient is over sedated or Respiratory Rate is less than 8, Post-op ondansetron (Zofran) inj 4 mg(Linked Group 4) 4 mg, IV Push, Q6H PRN Other, May use for nausea or vomiting if patient unable to take oral ondansetron, Starting on Wed06/07/23 at 1200, Until Wed06/11/23 at 1431, Post-op ondansetron ODT (Zofran) tab 4 mg(Linked Group 4) 4 mg, On Tongue, Q6H PRN Nausea, Vomiting, Starting on Wed06/07/23 at 1200, Until Wed06/11/23 at 1431, Post-op oxyCODONE (Oxy IR) tab 5 mg 5 mg, Oral, Q4H PRN Pain, Moderate, Starting on Wed06/07/23 at 1200, Until Wed06/11/23 at 1431, For 5 days, Post-op 0014 (Given - Provider: Gemini Crump, ISHA)2137 (Given - Provider: Gemini Crump RN) 1030 (Given - Provider: Mehnaz Palmer, ISHA)1440 (Given - Provider: Kayode Villa RN)2005 (Given - Provider: Vipul Mancuso, RN) 0552 (Given - Provider: Vipul Mancuso RN)0958 (Given - Provider: Mehnaz Palmer RN) potassium chloride 20 mEq in 50 mL ivpb LOCKED DOSE 20 mEq, Central IV, PRN, Starting on Wed06/07/23 at 1200, Until Wed06/11/23 at 1431, Other, Potassium repletion, Administer over 60 Minutes, Patients MUST meet ALL the following criteria. IF ANY criteria are not met, Do Not Administer, and call covering provider for orders 1. Serum creatinine must be less than 1.5 2. Current urine output must be greater than 30 mL/hr. Potassium repletion based on level 4.0 - 4.2: infuse 20mEq/50mL over one hour x 1 dose 3.5 - 3.9: infuse 20mEq/50mL over one hour x 2 doses 3.0 - 3.4: infuse 20mEq/50mL over one hour x 3 doses If Potassium less than 3.0, Begin 20mEq/50mL over 30 minutes x 1 dose and Immediately call covering provider for orders., Post-op potassium chloride ER tab 20 mEq 20 mEq, Oral, PRN Other, Potassium repletion, Starting on Wed06/07/23 at 1200, Until Wed06/11/23 at 1431, Patients MUST meet ALL the following criteria. IF ANY criteria are not met, Do Not Administer, and call covering provider for orders 1. Serum creatinine must be less than 1.5 2. Current urine output must be greater than 30 mL/hr. 3. Patient is taking medications by mouth (PO). Potassium repletion based on level 4.0 - 4.2, Give 20mEq x 1 dose 3.5 - 3.9, Give 20mEq every 2 hours x 2 doses 3.0 - 3.4, Give 20mEq every 2 hours x 3 doses If potassium is less than 3.0, Give 20mEq x1 dose and immediately call the covering provider for orders. 4. BMP result must be no older than 24 hours., Post-op 0630 (Given - Provider: Gemini Crump RN) Linked Groups Order Group 1: Acetaminophen (Tylenol) tab 975 mgJump to med 975 mg, Oral, Q8H
First dose on Wed06/07/23 at 1400, Last dose on Wed06/12/23 at 0600
For 5 days
Maximum of 4 grams (4000 mg) per day.
Post-op Followed by Acetaminophen (Tylenol) tab 650 mgJump to med 650 mg, Oral, Q6H PRN Pain, Mild, Fever >38C(100.5F)
Starting on Wed06/12/23 at 1230, Until Wed06/11/23 at 1431
Maximum of 4 grams (4000 mg) per day.
Post-op Group 2: Docusate Sodium (Colace) cap 100 mgJump to med 100 mg, Oral, BID (.AM/PM)
First dose on Wed06/08/23 at 0900, Until Discontinued
Hold and administer syrup formulation if not able to take this tab PO.
Post-op Or Docusate Sodium (Colace) oral liquid 100 mg (CANCELED) 100 mg, NG Tube, BID (.AM/PM)
First dose on Wed06/08/23 at 0900, Until Discontinued
Post-op Group 3: senna (Senokot) 1 TabletJump to med 1 Tablet, Oral, BID (.AM/PM)
First dose on Wed06/08/23 at 0900, Until Discontinued
Hold if patient develops diarrhea or has greater than 2 BMs in any one day.
Post-op Or senna (Senokot) 1 Tablet (CANCELED) 1 Tablet, NG Tube, BID (.AM/PM)
First dose on Wed06/08/23 at 0900, Until Discontinued
Hold if patient develops diarrhea or has greater than 2 bm's in any one day.
Post-op Group 4: ondansetron ODT (Zofran) tab 4 mgJump to med 4 mg, On Tongue, Q6H PRN Nausea, Vomiting
Starting on 06/07/23 at 1200, Until Wed06/11/23 at 1431
Post-op Or ondansetron (Zofran) inj 4 mgJump to med 4 mg, IV Push, Q6H PRN Other, May use for nausea or vomiting if patient unable to take oral ondansetron
Starting on 06/07/23 at 1200, Until Wed06/11/23 at 1431
Post-op documented in this encounter Advance Directives Latest Code Status on File Code Status Date Activated Date Inactivated Comments Full Code 06/07/2023 12:13 PM 06/11/2023 2:31 PM Th is order reflects the patients wishes and were consensually agreed upon. 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
--- OUTSIDE RECORDS SUMMARY | 2023-07-02 09:08 | External Medical Summary ---
Author Name Unknown Address Unknown Organization [id number]:LABORATORY [facility] - [address] [facility] [address] Laboratory Report Ordering Provider Test Date Status JACINTO VARNER 06/10/2023 04:49:00 Final Observation Date Value Abnormality Reference (Units ) Status SYNC LEUKOCYTES IN BLOOD BY AUTOMATED COUNT 06/10/2023 04:49:00 13.36 Above high normal 4.00-10.80 (K/uL) Final Segs 06/10/2023 04:49:00 68.8 40.0-75.0 (%) Final Lymphs % 06/10/2023 04:49:00 16.9 Below low normal 18.0-42.0 (%) Final Monos 06/10/2023 04:49:00 11.9 Above high normal 1.0-11.0 (%) Final Eosinophils 06/10/2023 04:49:00 1.2 0.0-6.0 (%) Final Basos 06/10/2023 04:49:00 0.2 0.0-2.0 (%) Final Immature Granulocyte, Percent 06/10/2023 04:49:00 1.0 0.0-2.0 (%) Final Absolute Segs 06/10/2023 04:49:00 9.19 Above high normal 1.80-7.70 (K/uL) Final Lymphs, absolute 06/10/2023 04:49:00 2.26 1.00-4.80 (K/ul) Final Monos, Abs 06/10/2023 04:49:00 1.59 Above high normal 0.00-1.10 (K/uL) Final Eos, Abs 06/10/2023 04:49:00 0.16 0.00-0.70 (K/uL) Final Basos, Abs 06/10/2023 04:49:00 0.03 0.00-0.20 (K/uL) Final Immature Granulocytes, Number 06/10/2023 04:49:00 0.13 0.00-0.20 (K/uL) Final Performing Location LABORATORY [facility] - [facility] [place] [address]
--- OUTSIDE RECORDS SUMMARY | 2023-07-02 09:08 | External Medical Summary ---
Author Name Unknown Address Unknown Organization [id number]:LABORATORY [address] [address] Laboratory Report Ordering Provider Test Date Status JACINTO VARNER 06/11/2023 04:53:00 Final Observation Date Value Abnormality Reference (Units ) Status WBC, Total 06/11/2023 04:53:00 11.41 Above high normal 4.00-10.80 (K/uL) Final RBC 06/11/2023 04:53:00 3.11 4.50-5.25 (M/uL) Final Hemoglobin 06/11/2023 04:53:00 9.4 Below low normal 14.0-16.8 (g/dL) Final HCT 06/11/2023 04:53:00 29.6 Below low normal 40.0-48.4 (%) Final MCV 06/11/2023 04:53:00 95.2 82.0-99.5 (fL) Final MCH 06/11/2023 04:53:00 30.2 27.0-34.0 (pg) Final MCHC 06/11/2023 04:53:00 31.8 32.0-36.0 (g/dL) Final RDW 06/11/2023 04:53:00 13.5 11.5-15.5 (%) Final Platelets 06/11/2023 04:53:00 140 140-400 (K/uL) Final MPV 06/11/2023 04:53:00 9.8 6.6-11.1 (fL) Final Nucleated erythrocytes/100 leukocytes [Ratio] in Blood by Automated count 06/11/2023 04:53:00 0 <=0 (/100 WBCs) Final Performing Location [place] [facility] [place] [address] [facility] [address]
--- OUTSIDE RECORDS SUMMARY | 2023-07-02 09:08 | External Medical Summary ---
Author Name Unknown Address Unknown Organization [id number]:LABORATORY [facility] [place] - [facility] [address] Laboratory Report Ordering Provider Test Date Status JACINTO VARNER 06/10/2023 04:49:00 Final Observation Date Value Abnormality Reference (Units ) Status WBC, Total 06/10/2023 04:49:00 13.36 Above high normal 4.00-10.80 (K/uL) Final RBC 06/10/2023 04:49:00 3.11 4.50-5.25 (M/uL) Final Hemoglobin 06/10/2023 04:49:00 9.4 Below low normal 14.0-16.8 (g/dL) Final HCT 06/10/2023 04:49:00 28.6 Below low normal 40.0-48.4 (%) Final MCV 06/10/2023 04:49:00 92.0 82.0-99.5 (fL) Final MCH 06/10/2023 04:49:00 30.2 27.0-34.0 (pg) Final MCHC 06/10/2023 04:49:00 32.9 32.0-36.0 (g/dL) Final RDW 06/10/2023 04:49:00 13.5 11.5-15.5 (%) Final Platelets 06/10/2023 04:49:00 121 Below low normal 140-400 (K/uL) Final MPV 06/10/2023 04:49:00 10.1 6.6-11.1 (fL) Final Nucleated erythrocytes/100 leukocytes [Ratio] in Blood by Automated count 06/10/2023 04:49:00 0 <=0 (/100 WBCs) Final Performing Location LABORATORY [facility] [place] - [address] [place] [address]
--- OUTSIDE RECORDS SUMMARY | 2023-07-02 09:08 | External Medical Summary ---
Author Name Unknown Address Unknown Organization K01:LAB[facility]ATORY [facility] - [address] [place] [address] Laboratory Report Ordering Provider Test Date Status JACINTO VARNER 06/11/2023 04:53:00 Final Observation Date Value Abnormality Reference (Units ) Status Magnesium 06/11/2023 04:53:00 2.3 1.5-2.6 (m g/dL) Final Performing Location LABORATORY [facility] - [address] [place] [address]
--- OUTSIDE RECORDS SUMMARY | 2023-07-02 09:09 | External Medical Summary ---
Author Name Unknown Address Unknown Organization K01:[place] [facility] [place] [facility] [place] [address] [place] [address] Laboratory Report Ordering Provider Test Date Status JACINTO VARNER 06/07/2023 12:22:35 Final Observation Date Value Abnormality Reference (Units ) Status Antithrombin III 06/07/2023 12:22:35 68 Below low nor mal 80-120 (%) Final Performing Location LABORATORY [facility] - [address] [place] [address]
--- OUTSIDE RECORDS SUMMARY | 2023-07-02 09:09 | External Medical Summary ---
Author Name Unknown Address Unknown Organization : Laboratory Report Ordering Provider Test Date Status SIMON ORANTES 06/08/2023 03:57:57 Final Observation Date Value Abnormality Reference (Units ) Status Glucose Point of Care 06/08/2023 03:57:57 90 70-120 (mg/dL) Final Performing Location
--- OUTSIDE RECORDS SUMMARY | 2023-07-02 09:09 | External Medical Summary ---
Author Name Unknown Address Unknown Organization [id number]:LABORATORY [facility] [place] - [address] [facility] [address] [place] [address] Laboratory Report Ordering Provider Test Date Status JACINTO VARNER 06/07/2023 12:22:35 Final Observation Date Value Abnormality Reference (Units ) Status BUN 06/07/2023 12:22:35 16 6-20 (mg/dL) Final Creatinine 06/07/2023 12:22:35 1.2 0.6-1.2 (mg/dL) Final Glomerular filtration rate/1.73 sq M.predicted [Volume Rate/Area] in Serum, Plasma or Blood by Creatinine-based formula (CKD-EPI) 06/07/2023 12:22:35 72 >=60 (mL/min) Final eGFR is calculated based on the CKD-EPI 2020 equation SODIUM 06/07/2023 12:22:35 139 135-146 (m mol/L) Final Potassium 06/07/2023 12:22:35 4.7 3.5-5.1 (m mol/L) Final Cl 06/07/2023 12:22:35 105 98-107 (mm ol/L) Final CO2 06/07/2023 12:22:35 22 22-32 (mmo l/L) Final Anion gap 06/07/2023 12:22:35 12 7-15 (mmol /L) Final Glucose 06/07/2023 12:22:35 142 Above high normal 70 -120 (mg/dL) Final Calcium 06/07/2023 12:22:35 7.7 Below low normal 8.4 -10.2 (mg/dL) Final Performing Location LABORATORY [facility] [place] - [address] [place] [address]
--- OUTSIDE RECORDS SUMMARY | 2023-07-02 09:09 | External Medical Summary ---
Author Name Unknown Address Unknown Organization : Laboratory Report Ordering Provider Test Date Status SIMON ORANTES 06/07/2023 22:11:14 Final Observation Date Value Abnormality Reference (Units ) Status Glucose Point of Care 06/07/2023 22:11:14 126 Above high normal 70-120 (mg/dL) Final Performing Location
--- OUTSIDE RECORDS SUMMARY | 2023-07-02 09:09 | External Medical Summary ---
Author Name Unknown Address Unknown Organization K01:[place] [facility] [place] [facility] [place] [address] [place] [address] Laboratory Report Ordering Provider Test Date Status JACINTO VARNER 06/07/2023 12:22:35 Final Warfarin Therapy
INR: 2 .0-3.0 conventional anticoagulation
INR: 2.5- 3.5 high intensity anticoagulation Observation Date Value Abnormality Reference (Units ) Status PT 06/07/2023 12:22:35 15.9 Above high normal 11 .6-15.2 (seconds) Final INR 06/07/2023 12:22:35 1.3 Above high normal 0. 8-1.2 Final Performing Location [place] [facility] [place] [facility] [place] [address] [place] [address]
--- OUTSIDE RECORDS SUMMARY | 2023-07-02 09:09 | External Medical Summary ---
Author Name Unknown Address Unknown Organization K01:LABORATORY [facility] [place] - [address] [place] [address] Laboratory Report Ordering Provider Test Date Status JACINTO VARNER 06/07/2023 12:22:35 Final Observation Date Value Abnormality Reference (Units ) Status WBC, Total 06/07/2023 12:22:35 15.70 Above high normal 4.00-10.80 (K/uL) Final RBC 06/07/2023 12:22:35 3.54 4.50-5.25 (M/uL) Final Hemoglobin 06/07/2023 12:22:35 10.6 Below low normal 14.0-16.8 (g/dL) Final HCT 06/07/2023 12:22:35 32.4 Below low normal 40.0-48.4 (%) Final MCV 06/07/2023 12:22:35 91.5 82.0-99.5 (fL) Final MCH 06/07/2023 12:22:35 29.9 27.0-34.0 (pg) Final MCHC 06/07/2023 12:22:35 32.7 32.0-36.0 (g/dL) Final RDW 06/07/2023 12:22:35 13.1 11.5-15.5 (%) Final Platelets 06/07/2023 12:22:35 194 140-400 (K/uL) Final MPV 06/07/2023 12:22:35 9.5 6.6-11.1 (fL) Final Nucleated erythrocytes/100 leukocytes [Ratio] in Blood by Automated count 06/07/2023 12:22:35 0 <=0 (/100 WBCs) Final Performing Location LABORATORY [facility] [place] - [address] [facility] [place] [address]
--- OUTSIDE RECORDS SUMMARY | 2023-07-02 09:09 | External Medical Summary ---
Author Name Unknown Address Unknown Organization K01:LABORATORY [facility] [place] - [address] [facility] [address] Laboratory Report Ordering Provider Test Date Status JACINTO VARNER 06/07/2023 15:56:24 Final Observation Date Value Abnormality Reference (Units ) Status Body temperature 06/07/2023 15:56:24 37.0 (C) Final pH of Arterial blood 06/07/2023 15:56:24 7.299 Below low normal 7.350-7.450 (units) Final Carbon dioxide [Partial pressure] in Arterial blood 06/07/2023 15:56:24 50.0 Above high normal 35.0-45.0 (mmHg) Final Oxygen [Partial pressure] in Arterial blood 06/07/2023 15:56:24 96.8 75.0-100.0 (mmHg) Final Base excess, Arterial 06/07/2023 15:56:24 -2.3 Below low normal -2.0-2.0 (mmol/L) Final Hemoglobin [Mass/volume] in Blood by Oximetry 06/07/2023 15:56:24 10.6 Below low normal 14.0-16.8 (g/dL) Final HCT, calc. 06/07/2023 15:56:24 32.8 Below low normal 40.0-48.4 (%) Final The Hematocrit reference int erval is based on adult population.
This method is intended for trending and screening purposes only.
A "Complete Blood Count" is more accurate and should be ordered if clinically indicated. Oxyhemoglobin, Arterial (FO2HB) 06/07/2023 15:56:24 95.0 94.0-99.0 (% total Hgb) Final Carboxyhemoglobin 06/07/2023 15:56:24 0.7 <= 1.5 (% total Hgb) Final Smokers: 0-9.0 % Methemoglobin 06/07/2023 15:56:24 1.2 <=1.5 (% total Hgb) Final Deoxyhemoglobin/Hemog lobin.total in Arterial blood 06/07/2023 15:56:24 3.1 0.0-5.0 (% total Hgb) Final Oxygen content in Arterial blood 06/07/2023 15:56:24 14.3 Below low normal 15.0-24.0 (%vol) Final Potassium, Whole Blood 06/07/2023 15:56:24 4.1 3.5-5.1 (mmol/L) Final Sodium, Whole Blood 06/07/2023 15:56:24 138 135-146 (mmol/L) Final Chloride, Whole Blood 06/07/2023 15:56:24 107 98-107 (mmol/L) Final Calcium.ionized [Moles/volume] in Blood by Ion-selective membrane electrode (ISE) 06/07/2023 15:56:24 1.22 1.13-1.32 (mmol/L) Final Anion gap, Whole Blood 06/07/2023 15:56:24 6.9 Below low normal 7.0-15.0 (mmol/L) Final Glucose, whole blood 06/07/2023 15:56:24 157 Above high normal 70-120 (mg/dL) Final Oxygen/Total gas setting [Volume Fraction] Ventilator 06/07/2023 15:56:24 Not Provided (%) Final O2 FLOW, ARTERIAL - [facility] 06/07/2023 15:56:24 6 (L/min) Final Bicarbonate, Venous, POC (i-STAT) 06/07/2023 15:56:24 23.8 23.0-31.0 (mmol/L) Final Performing Location LABORATORY [facility] [place] - [facility] [address] [facility] [address]
--- OUTSIDE RECORDS SUMMARY | 2023-07-02 09:09 | External Medical Summary ---
Author Name Unknown Address Unknown Organization K01:LABORATORY [facility] - [address] [place] [address] Laboratory Report Ordering Provider Test Date Status JACINTO VARNER 06/07/2023 12:22:35 Final Observation Date Value Abnormality Reference (Units ) Status Magnesium 06/07/2023 12:22:35 3.0 Above high normal 1. 5-2.6 (mg/dL) Final Performing Location LABORATORY [facility] - [address] [place] [address]
--- OUTSIDE RECORDS SUMMARY | 2023-07-02 09:09 | External Medical Summary ---
Author Name Unknown Address Unknown Organization : Laboratory Report Ordering Provider Test Date Status SIMON ORANTES 06/07/2023 16:00:25 Final Observation Date Value Abnormality Reference (Units ) Status Glucose Point of Care 06/07/2023 16:00:25 150 Above high normal 70-120 (mg/dL) Final Performing Location
--- OUTSIDE RECORDS SUMMARY | 2023-07-02 09:09 | External Medical Summary ---
Author Name Unknown Address Unknown Organization K01:LABORATORY [address] [address] Laboratory Report Ordering Provider Test Date Status JACINTO VARNER 06/08/2023 03:54:13 Final Observation Date Value Abnormality Reference (Units ) Status WBC, Total 06/08/2023 03:54:13 13.16 Above high normal 4.00-10.80 (K/uL) Final RBC 06/08/2023 03:54:13 3.28 4.50-5.25 (M/uL) Final Hemoglobin 06/08/2023 03:54:13 9.8 Below low normal 14.0-16.8 (g/dL) Final HCT 06/08/2023 03:54:13 30.3 Below low normal 40.0-48.4 (%) Final MCV 06/08/2023 03:54:13 92.4 82.0-99.5 (fL) Final MCH 06/08/2023 03:54:13 29.9 27.0-34.0 (pg) Final MCHC 06/08/2023 03:54:13 32.3 32.0-36.0 (g/dL) Final RDW 06/08/2023 03:54:13 13.3 11.5-15.5 (%) Final Platelets 06/08/2023 03:54:13 161 140-400 (K/uL) Final MPV 06/08/2023 03:54:13 9.7 6.6-11.1 (fL) Final Nucleated erythrocytes/100 leukocytes [Ratio] in Blood by Automated count 06/08/2023 03:54:13 0 <=0 (/100 WBCs) Final Performing Location LABORATORY [facility] [place] - [address] [facility] [address]
--- OUTSIDE RECORDS SUMMARY | 2023-07-02 09:09 | External Medical Summary ---
Author Name Unknown Address Unknown Organization : Laboratory Report Ordering Provider Test Date Status SIMON ORANTES 06/07/2023 10:58:53 Final Observation Date Value Abnormality Reference (Units) Status Blood draw [PhenX] 06/07/2023 10:58:53 Arterial Draw Final pH, POC (i-STAT) 06/07/2023 10:58:53 7.351 7.350-7.450 Final PCO2 POC (i-STAT) 06/07/2023 10:58:53 43.8 35.0-45.0 (mm Hg) Final PO2 POC (i-STAT) 06/07/2023 10:58:53 87 75-100 (mm Hg) Final Base excess standard in Arterial blood by calculation 06/07/2023 10:58:53 -1 -2-2 (mmol/L) Final Bicarbonate, Venous, POC (i-STAT) 06/07/2023 10:58:53 24.2 23.0-31.0 (mmol/L) Final O2 Sat, calculated POC (i-STAT) 06/07/2023 10:58:53 96.0 94.0-98.0 (%) Final Glucose, whole blood 06/07/2023 10:58:53 127 Above high normal 70-120 (mg/dL) Final Potassium, Whole Blood 06/07/2023 10:58:53 4.9 3.5-5.1 (mmol/L) Final Sodium, Whole Blood 06/07/2023 10:58:53 138 135-146 (mmol/L) Final Calcium, Ionized, Whole Blood 06/07/2023 10:58:53 1.29 1.13-1.32 (mmol/L) Final Hemoglobin POC (i-STAT) 06/07/2023 10:58:53 11.2 Below low normal 14.0-16.8 (g/dL) Final HCT 06/07/2023 10:58:53 33 Below low normal 40-48 (%) Final Performing Location
--- OUTSIDE RECORDS SUMMARY | 2023-07-02 09:09 | External Medical Summary ---
Author Name Unknown Address Unknown Organization K01:[place] [facility] [place] [address] [facility] [address] Laboratory Report Ordering Provider Test Date Status JACINTO VARNER 06/07/2023 12:22:17 Final Observation Date Value Abnormality Reference (Units ) Status Body temperature 06/07/2023 12:22:17 37.0 (C) Final pH of Arterial blood 06/07/2023 12:22:17 7.434 7.350-7.450 (units) Final Carbon dioxide [Partial pressure] in Arterial blood 06/07/2023 12:22:17 34.2 Below low normal 35.0-45.0 (mmHg) Final Oxygen [Partial pressure] in Arterial blood 06/07/2023 12::17 238.0 Above high normal 75.0-100.0 (mmHg) Final Base excess, Arterial 06/07/2023 12:22:17 -0.8 -2.0-2.0 (mmol/L) Final Hemoglobin [Mass/volume] in Blood by Oximetry 06/07/2023 12:22:17 10.7 Below low normal 14.0-16.8 (g/dL) Final HCT, calc. 06/07/2023 12:22:17 32.9 Below low normal 40.0-48.4 (%) Final The Hematocrit reference int erval is based on adult population.
This method is intended for trending and screening purposes only.
A "Complete Blood Count" is more accurate and should be ordered if clinically indicated. Oxyhemoglobin, Arterial (FO2HB) 06/07/2023 12:22:17 97.6 94.0-99.0 (% total Hgb) Final Carboxyhemoglobin 06/07/2023 12:22:17 1.0 <= 1.5 (% total Hgb) Final Smokers: 0-9.0 % Methemoglobin 06/07/2023 12:22:17 1.0 <=1.5 (% total Hgb) Final Deoxyhemoglobin/Hemog lobin.total in Arterial blood 06/07/2023 12:22:17 0.4 0.0-5.0 (% total Hgb) Final Oxygen content in Arterial blood 06/07/2023 12:22:17 15.2 15.0-24.0 (%vol) Final Potassium, Whole Blood 06/07/2023 12:22:17 4.6 3.5-5.1 (mmol/L) Final Sodium, Whole Blood 06/07/2023 12:22:17 137 135-146 (mmol/L) Final Chloride, Whole Blood 06/07/2023 12:22:17 109 Above high normal 98-107 (mmol/L) Final Calcium.ionized [Moles/volume] in Blood by Ion-selective membrane electrode (ISE) 06/07/2023 12:22:17 1.09 Below low normal 1.13-1.32 (mmol/L) Final Anion gap, Whole Blood 06/07/2023 12:22:17 5.2 Below low normal 7.0-15.0 (mmol/L) Final Glucose, whole blood 06/07/2023 12:22:17 134 Above high normal 70-120 (mg/dL) Final Oxygen/Total gas setting [Volume Fraction] Ventilator 06/07/2023 12:22:17 80 (%) Final O2 FLOW, ARTERIAL - [facility] 06/07/2023 12:22:17 Not Provided (L/min) Final Bicarbonate, Venous, POC (i-STAT) 06/07/2023 12:22:17 22.5 Below low normal 23.0-31.0 (mmol/L) Final Performing Location [place] [facility] [place] [facility] [address] [facility] [address]
--- OUTSIDE RECORDS SUMMARY | 2023-07-02 09:09 | External Medical Summary ---
Author Name Unknown Address Unknown Organization : Laboratory Report Ordering Provider Test Date Status SIMON ORANTES 06/08/2023 02:12:31 Final Observation Date Value Abnormality Reference (Units ) Status Glucose Point of Care 06/08/2023 02:12:31 116 70-120 (mg/dL) Final Performing Location
--- OUTSIDE RECORDS SUMMARY | 2023-07-02 09:09 | External Medical Summary ---
Author Name Unknown Address Unknown Organization K01:[place] [facility] [place] [facility] [address] [facility] [address] [address] Laboratory Report Ordering Provider Test Date Status JACINTO VARNER 06/08/2023 03:54:13 Final Observation Date Value Abnormality Reference (Units ) Status BUN 06/08/2023 03:54:13 16 6-20 (mg/dL) Final Creatinine 06/08/2023 03:54:13 1.1 0.6-1.2 (mg/dL) Final Glomerular filtration rate/1.73 sq M.predicted [Volume Rate/Area] in Serum, Plasma or Blood by Creatinine-based formula (CKD-EPI) 06/08/2023 03:54:13 79 >=60 (mL/min) Final eGFR is calculated based on the CKD-EPI 2020 equation SODIUM 06/08/2023 03:54:13 139 135-146 (m mol/L) Final Potassium 06/08/2023 03:54:13 4.1 3.5-5.1 (m mol/L) Final Cl 06/08/2023 03:54:13 107 98-107 (mm ol/L) Final CO2 06/08/2023 03:54:13 24 22-32 (mmo l/L) Final Anion gap 06/08/2023 03:54:13 8 7-15 (mmol /L) Final Glucose 06/08/2023 03:54:13 107 70-120 (mg /dL) Final Calcium 06/08/2023 03:54:13 8.5 8.4-10.2 ( mg/dL) Final Performing Location [place] [facility] [place] [facility] [place] [address]
--- OUTSIDE RECORDS SUMMARY | 2023-07-02 09:09 | External Medical Summary ---
Author Name Unknown Address Unknown Organization : Laboratory Report Ordering Provider Test Date Status SIMON ORANTES 06/07/2023 19:52:43 Final Observation Date Value Abnormality Reference (Units ) Status Glucose Point of Care 06/07/2023 19:52:43 106 70-120 (mg/dL) Final Performing Location
--- OUTSIDE RECORDS SUMMARY | 2023-07-02 09:09 | External Medical Summary ---
Author Name Unknown Address Unknown Organization : Laboratory Report Ordering Provider Test Date Status SIMON ORANTES 06/08/2023 08:15:17 Final Observation Date Value Abnormality Reference (Units ) Status Glucose Point of Care 06/08/2023 08:15:17 135 Above high normal 70-120 (mg/dL) Final Performing Location
--- OUTSIDE RECORDS SUMMARY | 2023-07-02 09:09 | External Medical Summary ---
Author Name Unknown Address Unknown Organization K01:LABORATORY [facility] [place] - [address] [facility] [address] Laboratory Report Ordering Provider Test Date Status JACINTO VARNER 06/07/2023 13:15:48 Final Observation Date Value Abnormality Reference (Units ) Status Body temperature 06/07/2023 13:15:48 37.0 (C) Final pH of Arterial blood 06/07/2023 13:15:48 7.445 7.350-7.450 (units) Final Carbon dioxide [Partial pressure] in Arterial blood 06/07/2023 13:15:48 33.3 Below low normal 35.0-45.0 (mmHg) Final Oxygen [Partial pressure] in Arterial blood 06/07/2023 13:15:48 234.0 Above high normal 75.0-100.0 (mmHg) Final Base excess, Arterial 06/07/2023 13:15:48 -0.5 -2.0-2.0 (mmol/L) Final Hemoglobin [Mass/volume] in Blood by Oximetry 06/07/2023 13:15:48 11.1 Below low normal 14.0-16.8 (g/dL) Final HCT, calc. 06/07/2023 13:15:48 34.4 Below low normal 40.0-48.4 (%) Final The Hematocrit reference int erval is based on adult population.
This method is intended for trending and screening purposes only.
A "Complete Blood Count" is more accurate and should be ordered if clinically indicated. Oxyhemoglobin, Arterial (FO2HB) 06/07/2023 13:15:48 97.5 94.0-99.0 (% total Hgb) Final Carboxyhemoglobin 06/07/2023 13:15:48 0.0 <= 1.5 (% total Hgb) Final Smokers: 0-9.0 % Methemoglobin 06/07/2023 13:15:48 0.6 <=1.5 (% total Hgb) Final Deoxyhemoglobin/Hemoglobin.t rotary shear operator l in Arterial blood 06/07/2023 13:15:48 2.2 0.0-5.0 (% tot al Hgb) Final Oxygen content in Arterial blood 06/07/2023 13:15:48 Final Not calculated. Potassium, Whole Blood 06/07/2023 13:15:48 4.3 3.5-5.1 (mmol/L) Final Sodium, Whole Blood 06/07/2023 13:15:48 138 135-146 (mmol/L) Final Chloride, Whole Blood 06/07/2023 13:15:48 108 Above high normal 98-107 (mmol/L) Final Calcium.ionized [Moles/volume] in Blood by Ion-selective membrane electrode (ISE) 06/07/2023 13:15:48 1.06 Below low normal 1.13-1.32 (mmol/L) Final Anion gap, Whole Blood 06/07/2023 13:15:48 7.2 7.0-15.0 (mmol/L) Final Glucose, whole blood 06/07/2023 13:15:48 140 Above high normal 70-120 (mg/dL) Final Oxygen/Total gas setting [Volume Fraction] Ventilator 06/07/2023 13:15:48 80 (%) Final O2 FLOW, ARTERIAL - [facility] 06/07/2023 13:15:48 Not Provided (L/min) Final Bicarbonate, Venous, POC (i-STAT) 06/07/2023 13:15:48 22.6 Below low normal 23.0-31.0 (mmol/L) Final Performing Location LABORATORY [facility] [place] - [address] [facility] [address]
--- OUTSIDE RECORDS SUMMARY | 2023-07-02 09:09 | External Medical Summary ---
Author Name Unknown Address Unknown Organization : Laboratory Report Ordering Provider Test Date Status SIMON ORANTES 06/07/2023 14:04:30 Final Observation Date Value Abnormality Reference (Units ) Status Glucose Point of Care 06/07/2023 14:04:30 146 Above high normal 70-120 (mg/dL) Final Performing Location
--- OUTSIDE RECORDS SUMMARY | 2023-07-02 09:09 | External Medical Summary ---
Author Name Unknown Address Unknown Organization K01:[place] [facility] [place] [address] [place] [address] Laboratory Report Ordering Provider Test Date Status JACINTO VARNER 06/07/2023 12:22:35 Final Observation Date Value Abnormality Reference (Units ) Status Oxygen saturation in Venous blood 06/07/2023 12:22:35 69.9 40.0-85.0 (%) Final Performing Location LABORATORY C - [address] [place] [address]
--- OUTSIDE RECORDS SUMMARY | 2023-07-02 09:09 | External Medical Summary ---
Author Name Unknown Address Unknown Organization K01:[facility] [facility] [place] [address] [facility] [address] Laboratory Report Ordering Provider Test Date Status SHIVA GARCIA 06/07/2023 10:52:49 Final Observation Date Value Abnormality Reference (Units ) Status Body temperature 06/07/2023 10:52:49 37.0 (C) Final pH of Arterial blood 06/07/2023 10:52:49 7.365 7.350-7.450 (units) Final Carbon dioxide [Partial pressure] in Arterial blood 06/07/2023 10:52:49 44.3 35.0-45.0 (mmHg) Final Oxygen [Partial pressure] in Arterial blood 06/07/2023 10:52:49 112.0 Above high normal 75.0-100.0 (mmHg) Final Base excess, Arterial 06/07/2023 10:52:49 -0.3 -2.0-2.0 (mmol/L) Final Hemoglobin [Mass/volume] in Blood by Oximetry 06/07/2023 10:52:49 10.8 Below low normal 14.0-16.8 (g/dL) Final HCT, calc. 06/07/2023 10:52:49 33.3 Below low normal 40.0-48.4 (%) Final The Hematocrit reference int erval is based on adult population.
This method is intended for trending and screening purposes only.
A "Complete Blood Count" is more accurate and should be ordered if clinically indicated. Oxyhemoglobin, Arterial (FO2HB) 06/07/2023 10:52:49 95.6 94.0-99.0 (% total Hgb) Final Carboxyhemoglobin 06/07/2023 10:52:49 1.0 <= 1.5 (% total Hgb) Final Smokers: 0-9.0 % Methemoglobin 06/07/2023 10:52:49 1.3 <=1.5 (% total Hgb) Final Deoxyhemoglobin/Hemog lobin.total in Arterial blood 06/07/2023 10:52:49 2.1 0.0-5.0 (% total Hgb) Final Oxygen content in Arterial blood 06/07/2023 10:52:49 14.7 Below low normal 15.0-24.0 (%vol) Final Potassium, Whole Blood 06/07/2023 10:52:49 5.0 3.5-5.1 (mmol/L) Final Sodium, Whole Blood 06/07/2023 10:52:49 138 135-146 (mmol/L) Final Chloride, Whole Blood 06/07/2023 10:52:49 106 98-107 (mmol/L) Final Calcium.ionized [Moles/volume] in Blood by Ion-selective membrane electrode (ISE) 06/07/2023 10:52:49 1.27 1.13-1.32 (mmol/L) Final Anion gap, Whole Blood 06/07/2023 10:52:49 7.7 7.0-15.0 (mmol/L) Final Glucose, whole blood 06/07/2023 10:52:49 131 Above high normal 70-120 (mg/dL) Final Oxygen/Total gas setting [Volume Fraction] Ventilator 06/07/2023 10:52:49 Not Provided (%) Final O2 FLOW, ARTERIAL - [facility] 06/07/2023 10:52:49 Not Provided (L/min) Final Bicarbonate, Venous, POC (i-STAT) 06/07/2023 10:52:49 24.7 23.0-31.0 (mmol/L) Final Performing Location LAB[facility]ATORY [facility] [place] - [address] [facility] [address]
--- OUTSIDE RECORDS SUMMARY | 2023-07-02 09:09 | External Medical Summary ---
Author Name Unknown Address Unknown Organization K01:[place] [facility] [place] [address] [facility] [address] Laboratory Report Ordering Provider Test Date Status JACINTO VARNER 06/07/2023 18:27:38 Final Observation Date Value Abnormality Reference (Units ) Status Body temperature 06/07/2023 18:27:38 37.0 (C) Final pH of Arterial blood 06/07/2023 18:27:38 7.383 7.350-7.450 (units) Final Carbon dioxide [Partial pressure] in Arterial blood 06/07/2023 18:27:38 38.9 35.0-45.0 (mmHg) Final Oxygen [Partial pressure] in Arterial blood 06/07/2023 18:27:38 98.4 75.0-100.0 (mmHg) Final Base excess, Arterial 06/07/2023 18:27:38 -1.6 -2.0-2.0 (mmol/L) Final Hemoglobin [Mass/volume] in Blood by Oximetry 06/07/2023 18:27:38 10.4 Below low normal 14.0-16.8 (g/dL) Final HCT, calc. 06/07/2023 18:27:38 32.0 Below low normal 40.0-48.4 (%) Final The Hematocrit reference int erval is based on adult population.
This method is intended for trending and screening purposes only.
A "Complete Blood Count" is more accurate and should be ordered if clinically indicated. Oxyhemoglobin, Arterial (FO2HB) 06/07/2023 18:27:38 96.0 94.0-99.0 (% total Hgb) Final Carboxyhemoglobin 06/07/2023 18:27:38 1.0 <= 1.5 (% total Hgb) Final Smokers: 0-9.0 % Methemoglobin 06/07/2023 18:27:38 0.9 <=1.5 (% total Hgb) Final Deoxyhemoglobin/Hemog lobin.total in Arterial blood 06/07/2023 18:27:38 2.1 0.0-5.0 (% total Hgb) Final Oxygen content in Arterial blood 06/07/2023 18:27:38 14.1 Below low normal 15.0-24.0 (%vol) Final Potassium, Whole Blood 06/07/2023 18:27:38 4.3 3.5-5.1 (mmol/L) Final Sodium, Whole Blood 06/07/2023 18:27:38 138 135-146 (mmol/L) Final Chloride, Whole Blood 06/07/2023 18:27:38 110 Above high normal 98-107 (mmol/L) Final Calcium.ionized [Moles/volume] in Blood by Ion-selective membrane electrode (ISE) 06/07/2023 18:27:38 1.18 1.13-1.32 (mmol/L) Final Anion gap, Whole Blood 06/07/2023 18:27:38 5.0 Below low normal 7.0-15.0 (mmol/L) Final Glucose, whole blood 06/07/2023 18:27:38 127 Above high normal 70-120 (mg/dL) Final Oxygen/Total gas setting [Volume Fraction] Ventilator 06/07/2023 18:27:38 Not Provided (%) Final O2 FLOW, ARTERIAL - [facility] 06/07/2023 18:27:38 6 (L/min) Final Bicarbonate, Venous, POC (i-STAT) 06/07/2023 18:27:38 22.7 Below low normal 23.0-31.0 (mmol/L) Final Performing Location [place] [facility] [place] [address] [facility] [address]
--- OUTSIDE RECORDS SUMMARY | 2023-07-02 09:09 | External Medical Summary ---
Author Name Unknown Address Unknown Organization : Laboratory Report Ordering Provider Test Date Status SIMON ORANTES 06/07/2023 10:27:17 Final Observation Date Value Abnormality Reference (Units) Status Blood draw [PhenX] 06/07/2023 10:27:17 Arterial Draw Final pH, POC (i-STAT) 06/07/2023 10:27:17 7.392 7.350-7.450 Final PCO2 POC (i-STAT) 06/07/2023 10:27:17 41.3 35.0-45.0 (mm Hg) Final PO2 POC (i-STAT) 06/07/2023 10:27:17 336 Above high normal 75-100 (mm Hg) Final Base excess standard in Arterial blood by calculation 06/07/2023 10:27:17 0 -2-2 (mmol/L) Final Bicarbonate, Venous, POC (i-STAT) 06/07/2023 10:27:17 25.1 23.0-31.0 (mmol/L) Final O2 Sat, calculated POC (i-STAT) 06/07/2023 10:27:17 100.0 Above high normal 94.0-98.0 (%) Final Glucose, whole blood 06/07/2023 10:27:17 140 Above high normal 70-120 (mg/dL) Final Potassium, Whole Blood 06/07/2023 10:27:17 5.5 Above high normal 3.5-5.1 (mmol/L) Final Sodium, Whole Blood 06/07/2023 10:27:17 134 Below low normal 135-146 (mmol/L) Final Calcium, Ionized, Whole Blood 06/07/2023 10:27:17 >2.50 Above upper panic limits 1.13-1.32 (mmol/L) Final Hemoglobin POC (i-STAT) 06/07/2023 10:27:17 8.8 Below low normal 14.0-16.8 (g/dL) Final HCT 06/07/2023 10:27:17 26 Below low normal 40-48 (%) Final Performing Location
--- OUTSIDE RECORDS SUMMARY | 2023-07-02 09:09 | External Medical Summary ---
Author Name Unknown Address Unknown Organization K01:[place] [facility] [place] [address] [place] [id number] Laboratory Report Ordering Provider Test Date Status JACINTO VARNER 06/07/2023 18:01:43 Final Observation Date Value Abnormality Reference (Units ) Status WBC, Total 06/07/2023 18:01:43 14.26 Above high normal 4.00-10.80 (K/uL) Final RBC 06/07/2023 18:01:43 3.47 4.50-5.25 (M/uL) Final Hemoglobin 06/07/2023 18:01:43 10.3 Below low normal 14.0-16.8 (g/dL) Final HCT 06/07/2023 18:01:43 32.2 Below low normal 40.0-48.4 (%) Final MCV 06/07/2023 18:01:43 92.8 82.0-99.5 (fL) Final MCH 06/07/2023 18:01:43 29.7 27.0-34.0 (pg) Final MCHC 06/07/2023 18:01:43 32.0 32.0-36.0 (g/dL) Final RDW 06/07/2023 18:01:43 13.1 11.5-15.5 (%) Final Platelets 06/07/2023 18:01:43 195 140-400 (K/uL) Final MPV 06/07/2023 18:01:43 10.0 6.6-11.1 (fL) Final Nucleated erythrocytes/100 leukocytes [Ratio] in Blood by Automated count 06/07/2023 18:01:43 0 <=0 (/100 WBCs) Final Performing Location [place] [facility] [place] [address] [place] [address]
--- OUTSIDE RECORDS SUMMARY | 2023-07-02 09:09 | External Medical Summary ---
Author Name Unknown Address Unknown Organization K01:LABORATORY [facility] [place] - [address] [place] [address] Laboratory Report Ordering Provider Test Date Status JACINTO VARNER 06/08/2023 03:54:13 Final Observation Date Value Abnormality Reference (Units ) Status Oxygen saturation in Venous blood 06/08/2023 03:54:13 62.7 40.0-85.0 (%) Final Performing Location LABORATORY C - [address] [place] [address]
--- OUTSIDE RECORDS SUMMARY | 2023-07-02 09:09 | External Medical Summary ---
Author Name Unknown Address Unknown Organization K01:LABORATORY [facility] - [address] [place] [address] Laboratory Report Ordering Provider Test Date Status JACINTO VARNER 06/08/2023 03:54:13 Final Observation Date Value Abnormality Reference (Units ) Status Magnesium 06/08/2023 03:54:13 2.3 1.5-2.6 (m g/dL) Final Performing Location LABORATORY [facility] - [address] [place] [address]
--- OUTSIDE RECORDS SUMMARY | 2023-07-02 09:09 | External Medical Summary ---
Author Name Unknown Address Unknown Organization K01:LABORATORY [place] [address] [place], [place] [address] Laboratory Report Ordering Provider Test Date Status JACINTO VARNER 06/07/2023 12:22:35 Final Observation Date Value Abnormality Reference (Units ) Status Clot formation [Time] in Blood by Thromboelastography 06/07/2023 12:22:35 4.5 2.5-8.3 (minutes) Final Clot strength in Blood by Thromboelastography 06/07/2023 12:22:35 1.1 0.5-3.7 (minutes) Final Clot angle in Blood by Thromboelastography 06/07/2023 12:22:35 73.9 46.8-78.4 (degrees) Final Maximum clot firmness [Length] in Blood by Thromboelastography 06/07/2023 12:22:35 67.9 50.6-72.5 (mm) Final This is an appended report. These results have been appended to a previously preliminary verified report. Coagulation index in Blood b y Thromboelastography 06/07/2023 12:22:35 2.8 -3.0-3.0 F inal This is an appended report. These results have been appended to a previously preliminary verified report. Clot Lysis [Length fraction] in Blood by Thromboelastography --30 minutes post maximum clot amplitude 06/07/2023 12:22:35 0.5 0.0-7.5 (%) Final This is an appended report. These results have been appended to a previously preliminary verified report. Performing Location LABORATORY [place] [address] [place], [place] [address]
--- OUTSIDE RECORDS SUMMARY | 2023-07-02 09:09 | External Medical Summary ---
Author Name Unknown Address Unknown Organization K01:[place] [facility] [place] [address] [facility] [address] Laboratory Report Ordering Provider Test Date Status JACINTO VARNER 06/08/2023 03:54:13 Final Observation Date Value Abnormality Reference (Units ) Status SYNC LEUKOCYTES IN BLOOD BY AUTOMATED COUNT 06/08/2023 03:54:13 13.16 Above high normal 4.00-10.80 (K/uL) Final Segs 06/08/2023 03:54:13 78.9 Above high normal 40.0-75.0 (%) Final Lymphs % 06/08/2023 03:54:13 7.1 Below low normal 18.0-42.0 (%) Final Monos 06/08/2023 03:54:13 13.4 Above high normal 1.0-11.0 (%) Final Eosinophils 06/08/2023 03:54:13 0.0 0.0-6.0 (%) Final Basos 06/08/2023 03:54:13 0.2 0.0-2.0 (%) Final Immature Granulocyte, Percent 06/08/2023 03:54:13 0.4 0.0-2.0 (%) Final Absolute Segs 06/08/2023 03:54:13 10.40 Above high normal 1.80-7.70 (K/uL) Final Lymphs, absolute 06/08/2023 03:54:13 0.93 Below low normal 1.00-4.80 (K/ul) Final Monos, Abs 06/08/2023 03:54:13 1.76 Above high normal 0.00-1.10 (K/uL) Final Eos, Abs 06/08/2023 03:54:13 0.00 0.00-0.70 (K/uL) Final Basos, Abs 06/08/2023 03:54:13 0.02 0.00-0.20 (K/uL) Final Immature Granulocytes, Number 06/08/2023 03:54:13 0.05 0.00-0.20 (K/uL) Final Performing Location [facility] [place] [facility] [address] [facility] [address]
--- OUTSIDE RECORDS SUMMARY | 2023-07-02 09:09 | External Medical Summary ---
Author Name Unknown Address Unknown Organization K01:LABORATORY [facility] - [address] [place] [address] Laboratory Report Ordering Provider Test Date Status JACINTO VARNER 06/07/2023 18:01:43 Final Observation Date Value Abnormality Reference (Units ) Status Magnesium 06/07/2023 18:01:43 2.5 1.5-2.6 (m g/dL) Final Performing Location LABORATORY [facility] - [address] [place] [address]
--- OUTSIDE RECORDS SUMMARY | 2023-07-02 09:09 | External Medical Summary ---
Author Name Unknown Address Unknown Organization K01:[place] [facility] [place] [address] [place] [address] Laboratory Report Ordering Provider Test Date Status JACINTO VARNER 06/07/2023 12:22:35 Final Observation Date Value Abnormality Reference (Units ) Status Heparin, unfractionated level 06/07/2023 12:22:35 <0.10 <0.10 (IU/mL) Final Results rechecked. Performing Location [place] [facility] [place] [address] [place] [address]
--- OUTSIDE RECORDS SUMMARY | 2023-07-02 09:09 | External Medical Summary ---
Author Name Unknown Address Unknown Organization : Laboratory Report Ordering Provider Test Date Status SIMON ORANTES 06/08/2023 10:40:27 Final Observation Date Value Abnormality Reference (Units ) Status Glucose Point of Care 06/08/2023 10:40:27 124 Above high normal 70-120 (mg/dL) Final Performing Location
--- OUTSIDE RECORDS SUMMARY | 2023-07-02 09:09 | External Medical Summary ---
Author Name Unknown Address Unknown Organization : Laboratory Report Ordering Provider Test Date Status SIMON ORANTES 06/07/2023 10:26:57 Final NORMAL (NON-HEPARINIZED) 74- 137 SECONDS
HEPARINIZED 200+ SECONDS
CRITICAL GREATER THAN 1000 SECONDS
null Observation Date Value Abnormality Reference (Units ) Status Kaolin activated time [Units/volume] in Blood 06/07/2023 10:26:57 401 50-1000 (secs) Final Performing Location
--- OUTSIDE RECORDS SUMMARY | 2023-07-02 09:09 | External Medical Summary ---
Author Name Unknown Address Unknown Organization : Laboratory Report Ordering Provider Test Date Status SIMON ORANTES 06/08/2023 06:07:43 Final Observation Date Value Abnormality Reference (Units ) Status Glucose Point of Care 06/08/2023 06:07:43 119 70-120 (mg/dL) Final Performing Location
--- OUTSIDE RECORDS SUMMARY | 2023-07-02 09:09 | External Medical Summary ---
Author Name Unknown Address Unknown Organization : Laboratory Report Ordering Provider Test Date Status SIMON ORANTES 06/08/2023 00:13:56 Final Observation Date Value Abnormality Reference (Units ) Status Glucose Point of Care 06/08/2023 00:13:56 108 70-120 (mg/dL) Final Performing Location
--- OUTSIDE RECORDS SUMMARY | 2023-07-02 09:09 | External Medical Summary ---
Author Name Unknown Address Unknown Organization : Laboratory Report Ordering Provider Test Date Status SIMON ORANTES 06/07/2023 12:06:15 Final Observation Date Value Abnormality Reference (Units ) Status Glucose Point of Care 06/07/2023 12:06:15 129 Above high normal 70-120 (mg/dL) Final Performing Location
--- OUTSIDE RECORDS SUMMARY | 2023-07-02 09:09 | External Medical Summary ---
Author Name Unknown Address Unknown Organization K01:[place] [facility] [place] [address] [place] [address] Laboratory Report Ordering Provider Test Date Status JACINTO VARNER 06/07/2023 18:01:43 Final 6 hours after surgery and af ter NOW BMP draw. Observation Date Value Abnormality Reference (Units ) Status BUN 06/07/2023 18:01:43 15 6-20 (mg/dL) Final Creatinine 06/07/2023 18:01:43 1.2 0.6-1.2 (mg/dL) Final Glomerular filtration rate/1.73 sq M.predicted [Volume Rate/Area] in Serum, Plasma or Blood by Creatinine-based formula (CKD-EPI) 06/07/2023 18:01:43 72 >=60 (mL/min) Final eGFR is calculated based on the CKD-EPI 2020 equation SODIUM 06/07/2023 18:01:43 140 135-146 (m mol/L) Final Potassium 06/07/2023 18:01:43 4.4 3.5-5.1 (m mol/L) Final Cl 06/07/2023 18:01:43 106 98-107 (mm ol/L) Final CO2 06/07/2023 18:01:43 21 Below low normal 22- 32 (mmol/L) Final Anion gap 06/07/2023 18:01:43 13 7-15 (mmol /L) Final Glucose 06/07/2023 18:01:43 137 Above high normal 70 -120 (mg/dL) Final Calcium 06/07/2023 18:01:43 8.6 8.4-10.2 ( mg/dL) Final Performing Location [place] [facility] [place] [address] [place] [address]
--- OUTSIDE RECORDS SUMMARY | 2023-07-02 09:09 | External Medical Summary ---
Author Name Unknown Address Unknown Organization : Laboratory Report Ordering Provider Test Date Status SIMON ORANTES 06/07/2023 18:00:51 Final Observation Date Value Abnormality Reference (Units ) Status Glucose Point of Care 06/07/2023 18:00:51 143 Above high normal 70-120 (mg/dL) Final Performing Location
--- OUTSIDE RECORDS SUMMARY | 2023-07-02 09:09 | External Medical Summary ---
Author Name Unknown Address Unknown Organization K01:LABORATORY [facility] [place] - [address] [facility] [address] Laboratory Report Ordering Provider Test Date Status JACINTO VARNER 06/07/2023 12:22:35 Final If R time > 20 minutes and n o clot formed suggesting hypocoagulable state or interfering substance (anticoagulation). Consider resubmitting a new sample and/or checking PT/INR, aPTT, fibrinogen, and platelet count. Observation Date Value Abnormality Reference (Units ) Status Clot formation [Time] in Blood by Thromboelastography 06/07/2023 12:22:35 4.7 2.5-8.3 (minutes) Final Clot strength in Blood by Thromboelastography 06/07/2023 12:22:35 1.1 0.5-3.7 (minutes) Final Clot angle in Blood by Thromboelastography 06/07/2023 12:22:35 72.9 46.8-78.4 (degrees) Final Maximum clot firmness [Length] in Blood by Thromboelastography 06/07/2023 12:22:35 67.5 50.6-72.5 (mm) Final This is an appended report. These results have been appended to a previously preliminary verified report. Coagulation index in Blood b y Thromboelastography 06/07/2023 12:22:35 2.6 -3.0-3.0 F inal This is an appended report. These results have been appended to a previously preliminary verified report. Clot Lysis [Length fraction] in Blood by Thromboelastography --30 minutes post maximum clot amplitude 06/07/2023 12:22:35 0.6 0.0-7.5 (%) Final This is an appended report. These results have been appended to a previously preliminary verified report. Performing Location LABORATORY [facility] - [address] [facility] [address]
--- OUTSIDE RECORDS SUMMARY | 2023-07-02 09:09 | External Medical Summary ---
Author Name Unknown Address Unknown Organization : Laboratory Report Ordering Provider Test Date Status SIMON ORANTES 06/07/2023 12:02:27 Final Observation Date Value Abnormality Reference (Units) Status Blood draw [PhenX] 06/07/2023 12:02:27 Arterial Draw Final pH, POC (i-STAT) 06/07/2023 12:02:27 7.415 7.350-7.450 Final PCO2 POC (i-STAT) 06/07/2023 12:02:27 37.4 35.0-45.0 (mm Hg) Final PO2 POC (i-STAT) 06/07/2023 12:02:27 221 Above high normal 75-100 (mm Hg) Final Base excess standard in Arterial blood by calculation 06/07/2023 12:02:27 0 -2-2 (mmol/L) Final Bicarbonate, Venous, POC (i-STAT) 06/07/2023 12:02:27 24.0 23.0-31.0 (mmol/L) Final O2 Sat, calculated POC (i-STAT) 06/07/2023 12:02:27 100.0 Above high normal 94.0-98.0 (%) Final Glucose, whole blood 06/07/2023 12:02:27 131 Above high normal 70-120 (mg/dL) Final Potassium, Whole Blood 06/07/2023 12:02:27 4.6 3.5-5.1 (mmol/L) Final Sodium, Whole Blood 06/07/2023 12:02:27 138 135-146 (mmol/L) Final Calcium, Ionized, Whole Blood 06/07/2023 12:02:27 1.16 1.13-1.32 (mmol/L) Final Hemoglobin POC (i-STAT) 06/07/2023 12:02:27 10.9 Below low normal 14.0-16.8 (g/dL) Final HCT 06/07/2023 12:02:27 32 Below low normal 40-48 (%) Final Oxygen/Total gas setting [Volume Fraction] Ventilator 06/07/2023 12:02:27 100 (%) Final Performing Location
--- OUTSIDE RECORDS SUMMARY | 2023-07-02 09:10 | External Medical Summary ---
Author Name Unknown Address Unknown Organization K01:LABORATORY [facility] - [address] [place] [address] Laboratory Report Ordering Provider Test Date Status SIMON ORANTES 06/07/2023 09:50:00 Final Observation Date Value Abnormality Reference (Units ) Status Fibrinogen 06/07/2023 09:50:00 221 178-467 ( mg/dL) Final Performing Location LABORATORY [facility] - [address] [place] [address]
--- OUTSIDE RECORDS SUMMARY | 2023-07-02 09:10 | External Medical Summary ---
Author Name Unknown Address Unknown Organization K01:LABORATORY [address] [facility] [address] Laboratory Report Ordering Provider Test Date Status SIMON ORANTES 06/07/2023 09:50:00 Final Observation Date Value Abnormality Reference (Units ) Status Clot formation [Time] in Blood by Thromboelastography 06/07/2023 09:50:00 5.8 2.5-8.3 (minutes) Final Clot strength in Blood by Thromboelastography 06/07/2023 09:50:00 1.3 0.5-3.7 (minutes) Final Clot angle in Blood by Thromboelastography 06/07/2023 09:50:00 70.9 46.8-78.4 (degrees) Final Maximum clot firmness [Length] in Blood by Thromboelastography 06/07/2023 09:50:00 62.8 50.6-72.5 (mm) Final This is an appended report. These results have been appended to a previously preliminary verified report. Coagulation index in Blood b y Thromboelastography 06/07/2023 09:50:00 1.0 -3.0-3.0 F inal This is an appended report. These results have been appended to a previously preliminary verified report. Clot Lysis [Length fraction] in Blood by Thromboelastography --30 minutes post maximum clot amplitude 06/07/2023 09:50:00 0.2 0.0-7.5 (%) Final This is an appended report. These results have been appended to a previously preliminary verified report. Performing Location LABORATORY [place] [address] [facility] [address]
--- OUTSIDE RECORDS SUMMARY | 2023-07-02 09:10 | External Medical Summary ---
Author Name Unknown Address Unknown Organization : Laboratory Report Ordering Provider Test Date Status SIMON ORANTES 06/07/2023 06:23:10 Final Observation Date Value Abnormality Reference (Units ) Status Glucose Point of Care 06/07/2023 06:23:10 111 70-120 (mg/dL) Final Performing Location
--- OUTSIDE RECORDS SUMMARY | 2023-07-02 09:10 | External Medical Summary ---
Author Name Unknown Address Unknown Organization : Laboratory Report Ordering Provider Test Date Status SIMON ORANTES 06/07/2023 09:52:03 Final NORMAL (NON-HEPARINIZED) 74- 137 SECONDS
HEPARINIZED 200+ SECONDS
CRITICAL GREATER THAN 1000 SECONDS
null Observation Date Value Abnormality Reference (Units ) Status Kaolin activated time [Units/volume] in Blood 06/07/2023 09:52:03 486 50-1000 (secs) Final Performing Location
--- OUTSIDE RECORDS SUMMARY | 2023-07-02 09:10 | External Medical Summary ---
Author Name Unknown Address Unknown Organization K01:LABORATORY [facility] [address] [place] [address] Laboratory Report Ordering Provider Test Date Status SHIVA GARCIA 06/07/2023 10:22:33 Final Observation Date Value Abnormality Reference (Units ) Status Fibrinogen 06/07/2023 10:22:33 241 178-467 ( mg/dL) Final Performing Location LABORATORY [facility] - [address] [place] [address]
--- OUTSIDE RECORDS SUMMARY | 2023-07-02 09:10 | External Medical Summary ---
Author Name Unknown Address Unknown Organization : Laboratory Report Ordering Provider Test Date Status SIMON ORANTES 06/07/2023 07:56:03 Final Observation Date Value Abnormality Reference (Units) Status Blood draw [PhenX] 06/07/2023 07:56:03 Arterial Draw Final pH, POC (i-STAT) 06/07/2023 07:56:03 7.409 7.350-7.450 Final PCO2 POC (i-STAT) 06/07/2023 07:56:03 40.7 35.0-45.0 (mm Hg) Final PO2 POC (i-STAT) 06/07/2023 07:56:03 182 Above high normal 75-100 (mm Hg) Final Base excess standard in Arterial blood by calculation 06/07/2023 07:56:03 1 -2-2 (mmol/L) Final Bicarbonate, Venous, POC (i-STAT) 06/07/2023 07:56:03 25.8 23.0-31.0 (mmol/L) Final O2 Sat, calculated POC (i-STAT) 06/07/2023 07:56:03 100.0 Above high normal 94.0-98.0 (%) Final Glucose, whole blood 06/07/2023 07:56:03 114 70-120 (mg/dL) Final Potassium, Whole Blood 06/07/2023 07:56:03 4.4 3.5-5.1 (mmol/L) Final Sodium, Whole Blood 06/07/2023 07:56:03 137 135-146 (mmol/L) Final Calcium, Ionized, Whole Blood 06/07/2023 07:56:03 1.15 1.13-1.32 (mmol/L) Final Hemoglobin POC (i-STAT) 06/07/2023 07:56:03 12.2 Below low normal 14.0-16.8 (g/dL) Final HCT 06/07/2023 07:56:03 36 Below low normal 40-48 (%) Final Performing Location
--- OUTSIDE RECORDS SUMMARY | 2023-07-02 09:10 | External Medical Summary ---
Author Name Unknown Address Unknown Organization : Laboratory Report Ordering Provider Test Date Status SIMON ORANTES 06/07/2023 09:43:10 Final Observation Date Value Abnormality Reference (Units) Status Blood draw [PhenX] 06/07/2023 09:43:10 Arterial Draw Final pH, POC (i-STAT) 06/07/2023 09:43:10 7.398 7.350-7.450 Final PCO2 POC (i-STAT) 06/07/2023 09:43:10 42.1 35.0-45.0 (mm Hg) Final PO2 POC (i-STAT) 06/07/2023 09:43:10 243 Above high normal 75-100 (mm Hg) Final Base excess standard in Arterial blood by calculation 06/07/2023 09:43:10 1 -2-2 (mmol/L) Final Bicarbonate, Venous, POC (i-STAT) 06/07/2023 09:43:10 26.0 23.0-31.0 (mmol/L) Final O2 Sat, calculated POC (i-STAT) 06/07/2023 09:43:10 100.0 Above high normal 94.0-98.0 (%) Final Glucose, whole blood 06/07/2023 09:43:10 93 70-120 (mg/dL) Final Potassium, Whole Blood 06/07/2023 09:43:10 5.7 Above high normal 3.5-5.1 (mmol/L) Final Sodium, Whole Blood 06/07/2023 09:43:10 136 135-146 (mmol/L) Final Calcium, Ionized, Whole Blood 06/07/2023 09:43:10 1.01 Below low normal 1.13-1.32 (mmol/L) Final Hemoglobin POC (i-STAT) 06/07/2023 09:43:10 9.2 Below low normal 14.0-16.8 (g/dL) Final HCT 06/07/2023 09:43:10 27 Below low normal 40-48 (%) Final Performing Location
--- OUTSIDE RECORDS SUMMARY | 2023-07-02 09:10 | External Medical Summary ---
Author Name Unknown Address Unknown Organization K01:LABORATORY [place] [address] [facility] [address] Laboratory Report Ordering Provider Test Date Status SIMON ORANTES 06/07/2023 09:50:00 Final If R time > 20 minutes [...] platelet count. Observation Date Value Abnormality Reference (Units) Status Clot formation [Time] in Blood by Thromboelastography 06/07/2023 09:50:00 >20.0 Above high normal 2.5-8.3 (minutes) Final Performing Location LABORATORY [facility] - [address] [place] [address]
--- OUTSIDE RECORDS SUMMARY | 2023-07-02 09:10 | External Medical Summary | Summary of Care ---
Author Name Unknown Organization [facility] Address [address] [place] [address] Phone [phone] Care Team Providers Care Sponge Maker Name Role Phone Luciana Leung DO Primary Care Provider [phone] Encounter Details Date Type Department Care Team Description 05/31/2023 Telephone [facility] Cardiac Surgery [address] [place] [address] Joe Lomeli PA-C [address] [place] [address] Allergies Active Allergy Reactions Severity Noted Date Comments Simvastatin 11/01/2018 Elevated liver functions documented as of this encounter (statuses as of 05/31/2023) Medications Medication Sig Dispensed Refills Start Date End Date Status aspirin enteric coated 81 MG TBEC Take 1 Tablet by mouth in the morning. 0 Active metronidazole (METROGEL) 0.75 % gel Apply topically to affected area 2 times a day. Apply to affected area 45 g 11 11/07/2019 Active amLODIPine Besylate 2.5 MG Oral Tablet (Norvasc) TAKE 1 TABLET DAILY 90 Tablet 3 09/14/2022 Active Pantoprazole Sodium 40 MG Oral Tablet [...] Tablet Extended Release 24 Hour (toPROL XL)Indications:NSTE CT (non-ST elevation myocardial infarction) (HCC) Take 1 Tablet by mouth in the morning. In the morning.. 90 Tablet 4 01/12/2023 Active Atorvastatin Calcium 40 MG Oral Tablet (Lipitor)Indication s:Well adult exam,Familial hypercholesterolemi a,HTN, goal below 140/90,Unequal pupils,Bicuspid aortic valve,Aortic stenosis due to bicuspid aortic valve,Overweight (BMI 25.0-29.9) TAKE 1 TABLET IN THE MORNING 90 Tablet 1 02/12/2023 Active Chlorhexidine Gluconate 0.12 % Mouth/Throat Solution (Periogard) Use 2 times a day Use 1/2 oz. after brushing and flossing. Swish for 30 seconds and spit. 473 mL 6 05/07/2023 Active Lisinopril 20 MG Oral Tablet (Prinivil)Indicatio ns:HTN, goal below 140/90 TAKE 1 TABLET DAILY 90 Tablet 3 05/24/2023 Active Mupirocin 2 % External Ointment (Bactroban) Apply to both nostrils twice per day 22 g 0 05/31/2023 Active documented as of this encounter (statuses as of 05/31/2023) Active Problems Problem Noted Date 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 09/24/2021 Carpal tunnel syndrome 08/25/2021 Coronary vasospasm 08/25/2021 Dyslipidemia, goal LDL below 70 08/07/20 21 Coronary artery disease invo lving [place] coronary artery of [place] heart without angina pectoris 08/07/2021 COVID-19 vaccination refused 07/04/2021 Diabetes mellitus without complication 0 11/06/2020 Trochanteric bursitis of left hip 2019 Bone cyst of right femur 02/26/2020 Dilated aortic root 10/25/2018 Bradley's esophagus with dysplasia 08/02 Familial hypercholesterolemia 10/03/2016 HTN, goal below 140/90 10/03/2016 Unequal pupils 10/03/2016 Aortic stenosis due to bicuspid aortic v alve 10/03/2016 Overweight (BMI 25.0-29.9) 10/03/2016 Absent kidney, congenital 10/03/2016 Benign neoplasm of adrenal gland 017 Cervical disc herniation 10/03/2016 H/O cervical spine surgery 10/03/2016 Tobacco use disorder 10/03/2016 Chews tobacco 10/03/2016 documented as of this encounter (statuses as of 05/31/2023) Resolved Problems Problem Noted Date Resolved Date Acute pancreatitis 11/01/2018 01/26/2019 Bicuspid aortic valve 10/03/2016 01/26/2019 Need for hepatitis C screening test 10/03/2016 08/02/2017 documented as of this encounter (statuses as of 05/31/2023) Immunizations Name Administration Dates Next Due PPD [...] on file documented as of this encounter Miscellaneous Notes * Telephone Encounter - Joe Lomeli PA-C - 05/31/2023 1:11 PM EDT Called patient and he states that he understands bactroban instructions. He also states that he has some congestion but denies any fevers and states that he will increase fluid intake and he will call with any worsening symptoms. Janet Lomeli PA-C Cardiothoracic Surgery [address] [facility] [address] documented in this encounter Plan of Treatment Upcoming Encounters Date Type Specialty Care Team Description 06/07/2023 Hospital Encounter Surgery Kayode Parnell MD [address] [place] [address] 06/07/2023 Anesthesia Event Surgery Anshul Araujo CRNP [address] [place], [place] [id number] 06/07/2023 Surgery Surgery Kayode Parnell MD [address] [place] [address] REPLACEMENT AORTIC VALVE, BYPASS WITH PROSTHETIC VALVE 07/12/2023 Office Visit Cardiology Joan Portillo PA-C [address] [place] [address] 09/21/2023 Office Visit Cardiology Hero Monique DO [address] [place] [address] Scheduled Procedures Name Priority Associated Diagnoses Date/Ti me REPLACEMENT AORTIC VALVE, BYPASS WITH PROSTHETIC VALVE Aortic valve stenosis 06/07/2023 7:00 AM EDT Health Maintenance Due Date Last Done Comments Bradley's Esophagus Surveilance 1960 DISCUSS TOBACCO CESSATION (REFER TO SMARTSET #3676) 1960 COVID-19 Vaccine (#1) 03/11/1961 DIABETES-EYE EXAM [...] 05/06/2023, 05/23, 07/04/2021, Additional history exists GFR 05/06/2024 05/06/2023, 01/22, 06/01/2022, Additional history exists DTaP,Tdap,and Td Vaccines (2 [...] documented as of this encounter Medical Devices Not on filedocumented as of this encounter Care Teams Sponge Maker Relationship Specialty Start Date End Date Luciana Leung DO [address] [facility] [place] [address] PCP - General Family Medicine 10/02/16 documented as of this encounter
--- OUTSIDE RECORDS SUMMARY | 2023-07-02 09:10 | External Medical Summary | Summary of Care ---
Author Name Unknown Organization [facility] Address [address] [place] [address] Phone [phone] Care Team Providers Care Radiologist Physician Name Role Phone Luciana Leung DO Primary Care Provider [phone] Encounter Details Date Type Department Care Team Description 05/07/2023 Telephone Dental Hygiene, [place] [address] [place] [address] Brianne Webster, [facility] [address] [place] [address] Allergies Active Allergy Reactions Severity Noted Date Comments Simvastatin 11/01/2018 Elevated liver functions documented as of this encounter (statuses as of 05/21/2023) Medications Medication Sig Dispensed Refills Start Date End Date Status aspirin enteric coated 81 MG TBEC Take 1 Tablet by mouth in the morning. 0 Active metronidazole (METROGEL) 0.75 % gel Apply topically to affected area 2 times a day. Apply to affected area 45 g 11 11/07/2019 Active Lisinopril 20 MG Oral Tablet (Prinivil)Indicatio ns:HTN, goal below 140/90 TAKE 1 TABLET DAILY 90 Tablet 3 05/27/2022 Active amLODIPine Besylate 2.5 MG Oral Tablet [...] Tablet Extended Release 24 Hour (toPROL XL)Indications:NSTE [place] (non-ST elevation myocardial infarction) (HCC) Take 1 [...] and spit. 473 mL 6 05/07/2023 Active documented as of this encounter (statuses as of 05/21/2023) Active Problems Problem Noted Date 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 09/24/2021 Carpal tunnel syndrome 08/25/2021 Coronary vasospasm 08/25/2021 Dyslipidemia, goal LDL below 70 08/07/20 21 Coronary artery disease invo lving [place] coronary artery of [place] heart without angina pectoris 08/07/2021 COVID-19 vaccination [...] as of this encounter (statuses as of 05/21/2023) Resolved Problems Problem Noted Date Resolved Date Acute pancreatitis 11/01/2018 01/26/2019 Bicuspid aortic valve 10/03/2016 01/26/2019 Need for hepatitis C screening test 10/03/2016 08/02/2017 documented as of this encounter (statuses as of 05/21/2023) Immunizations Name Administration Dates Next Due PPD 10/17/2018 Pneumococcal Polysaccharide PPV23 (Pneumovax) 05/09/2020 Seasonal Influenza, PF, 6 mo ns & Above, IM , (Flulaval) 05/06/2023,05/24/2021,05/09/2020 Seasonal Influenza, Quadriva lent, No Preserve, [...] encounter Miscellaneous Notes * Telephone Encounter - KELSIE Ceja - 05/07/2023 5:49 PM EDT Pt will keep the 05/12 appt as long as it is okay that he took a plavix pill this morning. Otherwisehe will need to be rescheduled. Please advise * Telephone Encounter - KELSIE Ceja - 05/07/2023 10:57 AM EDT Pt said that this appt will be too soon because it won't leave him with 5 days of not taking his Plavix. He took it today. He said it would be after 05/12 and preferably not a Wednesday * Telephone Encounter - MIGUEL ÁNGEL Gardner - 05/07/2023 9:30 AM EDT Left vm to return call to confirm d/t/l of appt * Telephone Encounter - MIGUEL ÁNGEL Gardner - 05/07/2023 9:30 AM EDT ----- Message from DEB Spicer sent at 05/07/2023 8:46 AM EDT ----- Schedule with brianne 05/12 at 12:00 ----- Message ----- From: Hero Rocha DMD Sent: 05/07/2023 8:45 AM EDT To: DEB Spicer Pt is sched with Parmjit on 06/04/23 for Aortic valve replacement. He needs a full mouth debridement in hygiene. Please let him know 5 days ahead so he can stop his plavix for 5 days THANK YOU documented in this encounter Plan of Treatment Upcoming Encounters Date Type Specialty Care Team Description 06/07/2023 Hospital Encounter Surgery Kayode Parnell MD [address] [place] [address] 06/07/2023 Anesthesia Event Surgery Anshul Araujo CRNP [address] [place] [address] 06/07/2023 Surgery Surgery aKyode Parnell MD [address] [place] [address] REPLACEMENT AORTIC VALVE, BYPASS WITH PROSTHETIC VALVE 07/12/2023 Office Visit Cardiology Joan Portillo PA-C [address] [place] [address] 09/21/2023 Office Visit Cardiology Hero Monique DO [address] [place] [address] Scheduled Procedures Name Priority Associated Diagnoses Date/Ti me REPLACEMENT AORTIC VALVE, BYPASS WITH PROSTHETIC VALVE Aortic valve stenosis 06/07/2023 7:00 AM EDT Health Maintenance Due Date Last Done Comments DISCUSS TOBACCO CESSATION (REFER TO SMARTSET #0441) 1960 COVID-19 Vaccine (#1) 03[birth year]11/1961 DIABETES-EYE EXAM [...] filedocumented as of this encounter Care Teams Radiologist Physician Relationship Specialty Start Date End Date [facility] [address] [facility] [address] PCP - General Family Medicine 10/02/16 documented as of this encounter
--- OUTSIDE RECORDS SUMMARY | 2023-07-02 09:10 | External Medical Summary ---
Author Name Unknown Address Unknown Organization : Laboratory Report Ordering Provider Test Date Status SIMON ORANTES 06/07/2023 07:55:18 Final NORMAL (NON-HEPARINIZED) 74- 137 SECONDS
HEPARINIZED 200+ SECONDS
CRITICAL GREATER THAN 1000 SECONDS
null Observation Date Value Abnormality Reference (Units ) Status Kaolin activated time [Units/volume] in Blood 06/07/2023 07:55:18 113 50-1000 (secs) Final Performing Location
--- OUTSIDE RECORDS SUMMARY | 2023-07-02 09:10 | External Medical Summary ---
Author Name Unknown Address Unknown Organization K01:LABORATORY [facility] [place] - [address] [facility] [address] Laboratory Report Ordering Provider Test Date Status SIMON ORANTES 06/07/2023 09:50:00 Final Observation Date Value Abnormality Reference (Units ) Status Body temperature 06/07/2023 09:50:00 37.0 (C) Final pH of Arterial blood 06/07/2023 09:50:00 7.389 7.350-7.450 (units) Final Carbon dioxide [Partial pressure] in Arterial blood 06/07/2023 09:50:00 42.1 35.0-45.0 (mmHg) Final Oxygen [Partial pressure] in Arterial blood 06/07/2023 09:50:00 223.0 Above high normal 75.0-100.0 (mmHg) Final Base excess, Arterial 06/07/2023 09:50:00 0.4 -2.0-2.0 (mmol/L) Final Hemoglobin [Mass/volume] in Blood by Oximetry 06/07/2023 09:50:00 9.6 Below low normal 14.0-16.8 (g/dL) Final Oxyhemoglobin, Arterial (FO2HB) 06/07/2023 09:50:00 97.6 94.0-99.0 (% total Hgb) Final Carboxyhemoglobin 06/07/2023 09:50:00 0.0 <=1.5 (% total Hgb) Final Smokers: 0-9.0 % Methemoglobin 06/07/2023 09:50:00 0.3 <=1.5 (% total Hgb) Final Deoxyhemoglobin/Hemoglobin.[employer] l in Arterial blood 06/07/2023 09:50:00 2.2 0.0-5.0 (% tot al Hgb) Final Oxygen content in Arterial blood 06/07/2023 09:50:00 Final Not calculated. Oxygen/Total gas setting [Volume Fraction] Ventilator 06/07/2023 09:50:00 Not Provided (%) Final O2 FLOW, ARTERIAL - [facility] 06/07/2023 09:50:00 Not Provided (L/min) Final Bicarbonate, Venous, POC (i-STAT) 06/07/2023 09:50:00 24.9 23.0-31.0 (mmol/L) Final Performing Location LABORATORY [facility] [place] [facility] - [address] [facility] [address]
--- OUTSIDE RECORDS SUMMARY | 2023-07-02 09:10 | External Medical Summary ---
Author Name Unknown Address Unknown Organization K01:LABORATORY [facility] - [address] [place] [address] Laboratory Report Ordering Provider Test Date Status SHIVA GARCIA 06/07/2023 10:22:33 Final Observation Date Value Abnormality Reference (Units ) Status Antithrombin III 06/07/2023 10:22:33 64 Below low nor mal 80-120 (%) Final Performing Location LABORATORY C - [address] [place] [address]
--- OUTSIDE RECORDS SUMMARY | 2023-07-02 09:10 | External Medical Summary ---
Author Name Unknown Address Unknown Organization : Laboratory Report Ordering Provider Test Date Status SIMON ORANTES 06/07/2023 09:24:42 Final NORMAL (NON-HEPARINIZED) 74- 137 SECONDS
HEPARINIZED 200+ SECONDS
CRITICAL GREATER THAN 1000 SECONDS
null Observation Date Value Abnormality Reference (Units ) Status Kaolin activated time [Units/volume] in Blood 06/07/2023 09:24:42 528 50-1000 (secs) Final Performing Location
--- OUTSIDE RECORDS SUMMARY | 2023-07-02 09:10 | External Medical Summary | Summary of Care ---
Author Name Unknown Organization [facility] Address [address] [place] [address] Phone [phone] Care Team Providers Care Casework Manager Name Role Phone Luciana Leung DO Primary Care Provider [phone] [phone] Reason for Visit * Reason Onset Date Comments Other 05/14/2023 Encounter Details Date Type Department Care Team Description 05/14/2023 Telephone Cardiothoracic Surg [facility] [address] [place] [address] Sonya Virgen RN Other (/) Allergies Active Allergy Reactions Severity Noted Date Comments Simvastatin 11/01/2018 Elevated liver functions documented as of this encounter (statuses as of 05/28/2023) Medications Medication Sig Dispensed Refills Start Date [...] 05/07/2023 Active Lisinopril 20 MG Oral Tablet (Prinivil)Indica tions:HTN, goal below 140/90 TAKE 1 TABLET DAILY 90 Tablet 3 05/27/2022 3 Discontinued documented as of this encounter (statuses as of 05/28/2023) Active Problems Problem Noted Date 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 09/24/2021 Carpal tunnel syndrome 08/25/2021 Coronary vasospasm 08/25/2021 Dyslipidemia, goal LDL below 70 08/07/20 21 Coronary artery disease invo lving [place] coronary artery of [place] heart without angina pectoris 08/07/2021 COVID-19 vaccination [...] as of this encounter (statuses as of 05/28/2023) Resolved Problems Problem Noted Date Resolved Date Acute pancreatitis 11/01/2018 01/26/2019 Bicuspid aortic valve 10/03/2016 01/26/2019 Need for hepatitis C screening test 10/03/2016 08/02/2017 documented as of this encounter (statuses as of 05/28/2023) Immunizations Name Administration Dates Next Due PPD [...] Miscellaneous Notes * Telephone Encounter - KELSIE Haas - 05/18/2023 3:42 PM EDT Letter signed, faxed & scanned into chart. Will send to pt via wali. Tian Ferguson 05/18/2023,3:47 PM * Telephone Encounter - Hajarobel LuKELSIE lal - 05/18/2023 1:29 PM EDT Letter typed, awaiting signature. Tian Ferguson 05/18/2023,1:29 PM * Telephone Encounter - Sonya Virgen RN - 05/18/2023 11:48 AM EDT Jury Summons received for Mr. Sanchez for 06/07/2023, the date of his surgery. Tian, can you please type up a letter stating that Mr. Sanchez is scheduled for open heart surgeryon 06/07/2023 and he will not be able to appear for Jury Duty? This can be faxed to [phone]. Thank you, Sonya Virgen RN 05/18/2023 11:49 AM * Telephone Encounter - Sonya Virgen RN - 05/17/2023 12:08 PM EDT Mr. Sanchez returned my call. He chose a new surgical date of 06/07/2023. Sonya Virgen RN 05/17/2023 12:09 PM * Telephone Encounter - Sonya Virgen RN - 05/14/2023 4:11 PM EDT Attempted to call patient to reschedule his surgery on 06/04/[address] Parnell. There was no answer at this time, I left a VM with my call back number. Sonya Virgen RN 05/14/2023 4:11 PM documented in this encounter Plan of Treatment Upcoming Encounters Date Type Specialty Care Team Description 06/07/2023 Hospital Encounter Surgery Kayode Parnell MD [address] [facility] [place] [address] 06/07/2023 Anesthesia Event Surgery Anshul Araujo CRNP [address] [place], [place] [id number] 06/07/2023 Surgery Surgery Kayode Parnell MD [address] [place] [address] REPLACEMENT AORTIC VALVE, BYPASS WITH PROSTHETIC VALVE 07/12/2023 Office Visit Cardiology Joan Portillo PA-C [address] [place] [address] 09/21/2023 Office Visit Cardiology Hero Monique DO [address] [place] [address] Scheduled Procedures Name Priority Associated Diagnoses Date/Ti me REPLACEMENT AORTIC VALVE, BYPASS WITH PROSTHETIC VALVE Aortic valve stenosis 06/07/2023 7:00 AM EDT Health Maintenance Due Date Last Done Comments DISCUSS TOBACCO CESSATION (REFER TO SMARTSET #4193) 1960 COVID-19 Vaccine (#1) 03/11/1961 DIABETES-EYE EXAM [...] filedocumented as of this encounter Care Teams Casework Manager Relationship Specialty Start Date End Date Luciana Leung DO [address] [facility] [place] [address] PCP - General Family Medicine 10/02/16 documented as of this encounter
--- OUTSIDE RECORDS SUMMARY | 2023-07-02 09:10 | External Medical Summary ---
Author Name Unknown Address Unknown Organization K01:LABORATORY [facility] [place] - [address] [place] [address] Laboratory Report Ordering Provider Test Date Status DAVIDFRANCESSHANNON 06/07/2023 10:22:33 Final Warfarin Therapy
INR: 2 .0-3.0 conventional anticoagulation
INR: 2.5- 3.5 high intensity anticoagulation Observation Date Value Abnormality Reference (Units ) Status PT 06/07/2023 10:22:33 16.6 Above high normal 11 .6-15.2 (seconds) Final INR 06/07/2023 10:22:33 1.3 Above high normal 0. 8-1.2 Final Performing Location LABORATORY [facility] - [address] [place] [address]
--- OUTSIDE RECORDS SUMMARY | 2023-07-02 09:10 | External Medical Summary ---
Author Name Unknown Address Unknown Organization K01:[facility] [place] [address] [facility] [address] Laboratory Report Ordering Provider Test Date Status SHIVA GARCIA 06/07/2023 10:22:33 Final Observation Date Value Abnormality Reference (Units ) Status Clot formation [Time] in Blood by Thromboelastography 06/07/2023 10:22:33 3.1 2.5-8.3 (minutes) Final Clot strength in Blood by Thromboelastography 06/07/2023 10:22:33 1.0 0.5-3.7 (minutes) Final Clot angle in Blood by Thromboelastography 06/07/2023 10:22:33 76.0 46.8-78.4 (degrees) Final Maximum clot firmness [Length] in Blood by Thromboelastography 06/07/2023 10:22:33 66.3 50.6-72.5 (mm) Final This is an appended report. These results have been appended to a previously preliminary verified report. Coagulation index in Blood b y Thromboelastography 06/07/2023 10:22:33 3.7 Above high normal -3.0-3.0 Final This is an appended report. These results have been appended to a previously preliminary verified report. Clot Lysis [Length fraction] in Blood by Thromboelastography --30 minutes post maximum clot amplitude 06/07/2023 10:22:33 1.3 0.0-7.5 (%) Final This is an appended report. These results have been appended to a previously preliminary verified report. Performing Location [facility] [place] [address] [facility] [address]
--- OUTSIDE RECORDS SUMMARY | 2023-07-02 09:10 | External Medical Summary ---
Author Name Unknown Address Unknown Organization K01:[facility] [address] [address] Laboratory Report Ordering Provider Test Date Status SHIVA GARCIA 06/07/2023 10:22:33 Final Observation Date Value Abnormality Reference (Units ) Status WBC, Total 06/07/2023 10:22:33 16.88 Above high normal 4.00-10.80 (K/uL) Final RBC 06/07/2023 10:22:33 3.56 4.50-5.25 (M/uL) Final Hemoglobin 06/07/2023 10:22:33 10.7 Below low normal 14.0-16.8 (g/dL) Final HCT 06/07/2023 10:22:33 32.9 Below low normal 40.0-48.4 (%) Final MCV 06/07/2023 10:22:33 92.4 82.0-99.5 (fL) Final MCH 06/07/2023 10:22:33 30.1 27.0-34.0 (pg) Final MCHC 06/07/2023 10:22:33 32.5 32.0-36.0 (g/dL) Final RDW 06/07/2023 10:22:33 13.1 11.5-15.5 (%) Final Platelets 06/07/2023 10:22:33 169 140-400 (K/uL) Final MPV 06/07/2023 10:22:33 9.9 6.6-11.1 (fL) Final Nucleated erythrocytes/100 leukocytes [Ratio] in Blood by Automated count 06/07/2023 10:22:33 0 <=0 (/100 WBCs) Final Performing Location [facility] [place] [address] [facility] [address]
--- OUTSIDE RECORDS SUMMARY | 2023-07-02 09:10 | External Medical Summary ---
Author Name Unknown Address Unknown Organization : Laboratory Report Ordering Provider Test Date Status SIMON ORANTES 06/07/2023 09:42:51 Final NORMAL (NON-HEPARINIZED) 74- 137 SECONDS
HEPARINIZED 200+ SECONDS
CRITICAL GREATER THAN 1000 SECONDS
null Observation Date Value Abnormality Reference (Units ) Status Kaolin activated time [Units/volume] in Blood 06/07/2023 09:42:51 389 50-1000 (secs) Final Performing Location
--- OUTSIDE RECORDS SUMMARY | 2023-07-02 09:10 | External Medical Summary ---
Author Name Unknown Address Unknown Organization : Laboratory Report Ordering Provider Test Date Status SIMON ORANTES 06/07/2023 09:24:38 Final NORMAL (NON-HEPARINIZED) 74- 137 SECONDS
HEPARINIZED 200+ SECONDS
CRITICAL GREATER THAN 1000 SECONDS
null Observation Date Value Abnormality Reference (Units ) Status Kaolin activated time [Units/volume] in Blood 06/07/2023 09:24:38 528 50-1000 (secs) Final Performing Location
--- OUTSIDE RECORDS SUMMARY | 2023-07-02 09:10 | External Medical Summary | Summary of Care ---
Author Name Unknown Organization [facility] Address [address] [place] [address] Phone [phone] Care Team Providers Care Senior Relationship Manager Name Role Phone LeungLuciana DO Primary Care Provider [phone] Reason for Visit * Reason Onset Date Comments Referral 04/29/2023 Encounter Details Date Type Department Care Team Description 04/29/2023 New Patient Triage (HOLLOW TILE PARTITION ERECTOR USE ONLY) Cardiothoracic Surg [facility] [address] [place] [address] Sonya Virgen, assisted living nursing director Allergies Active Allergy Reactions Severity Noted Date Comments Simvastatin 11/01/2018 Elevated liver functions documented as of this encounter (statuses as of 05/13/2023) Medications Medication Sig Dispensed Refills Start Date [...] Tablet Extended Release 24 Hour (toPROL XL)Indications:NSTE NC (non-ST elevation myocardial infarction) (HCC) Take 1 Tablet by mouth in the morning. In the morning.. 90 Tablet 4 01/12/2023 Active Atorvastatin Calcium 40 MG Oral Tablet (Lipitor)Indication s:Well adult exam,Familial hypercholesterolemi a,HTN, goal below 140/90,Unequal pupils,Bicuspid aortic valve,Aortic stenosis due to bicuspid aortic valve,Overweight (BMI 25.0-29.9) TAKE 1 TABLET IN THE MORNING 90 Tablet 1 02/12/2023 Active documented as of this encounter (statuses as of 05/13/2023) Active Problems Problem Noted Date 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 09/24/2021 Carpal tunnel syndrome 08/25/2021 Coronary vasospasm 08/25/2021 Dyslipidemia, goal LDL below 70 08/07/20 21 Coronary artery disease invo lving [place] coronary artery of [place] heart without angina pectoris 08/07/2021 COVID-19 vaccination [...] as of this encounter (statuses as of 05/13/2023) Resolved Problems Problem Noted Date Resolved Date Acute pancreatitis 11/01/2018 01/26/2019 Bicuspid aortic valve 10/03/2016 01/26/2019 Need for hepatitis C screening test 10/03/2016 08/02/2017 documented as of this encounter (statuses as of 05/13/2023) Immunizations Name Administration Dates Next Due PPD 10/17/2018 Pneumococcal Polysaccharide PPV23 (Pneumovax) 05/09/2020 Seasonal Influenza, PF, 6 mo ns & Above, IM , (Flulaval) 05/24/2021,05/09/2020 Seasonal Influenza, Quadriva lent, No Preserve, Mdck 05/26/2019 Seasonal Influenza, Split, I IV3, With Preserve, Inj 06/09/2018,06/06/2017,06/03/2016,06/12 TDAP (age 11 and older)(Adacel) 06/12/2015 Zoster Vaccine Recombinant (Shingrix) 05/09/2020 documented as of this encounter Social History Tobacco Use Types Packs/Day Years Used Date Smoking Tobacco: Some Days Cigarettes Smokeless Tobacco: Current Chew Alcohol Use Standard Drinks/Week Comments Yes 0 [...] on file documented as of this encounter Progress Notes * Sonya Virgen RN - 04/29/2023 2:24 PM EDT New Patient Triage What is the diagnosis/reason for referral?: severe Enter order ID here: [id number] Specialty specific documentation: Cardiac and Thoracic Surgery Echo 04/27/2023: Interpretation Summary The qualitative LV ejection fraction [...] follows: Severe aortic valve stenosis now present. Cath 01/01/[address] [facility]: Nonobstructive coronary artery disease Patient can be scheduled in next available new patient slot with any surgeon. Discussed care plan with patient or proxy?: No Attempted to call patient. No answer at this time, Ileft josé miguel with call back number. Sonya Virgen RN 04/29/2023 2:34 PM documented in this encounter Plan of Treatment Upcoming Encounters Date Type Specialty Care Team Description 06/04/2023 Hospital Encounter Surgery Kayode Parnell MD [address] [place] [address] 06/04/2023 Anesthesia Event Surgery Anshul Araujo CRNP [address], [place] [id number] 06/04/2023 Surgery Surgery Kayode Parnell MD [address], [place] [id number] REPLACEMENT AORTIC VALVE, BYPASS WITH PROSTHETIC VALVE 07/12/2023 Office Visit Cardiology Joan Portillo PA-C [address] [place] [address] 09/21/2023 Office Visit Cardiology Hero Monique DO [address] [place] [address] Scheduled Procedures Name Priority Associated Diagnoses Date/Ti me REPLACEMENT AORTIC VALVE, BYPASS WITH PROSTHETIC VALVE Aortic valve stenosis 06/04/2023 7:00 AM EDT Health Maintenance Due Date Last Done Comments DISCUSS TOBACCO CESSATION (REFER TO SMARTSET #5279) 1960 COVID-19 Vaccine (#1) 03/11/1961 DIABETES-EYE EXAM [...] filedocumented as of this encounter Care Teams Senior Relationship Manager Relationship Specialty Start Date End Date Luciana Leung DO [address] [facility] [place] [address] PCP - General Family Medicine 10/02/16 documented as of this encounter
--- OUTSIDE RECORDS SUMMARY | 2023-07-02 09:10 | External Medical Summary | Summary of Care ---
Author Name Unknown Organization [facility] Address [address] [facility] [place] [address] Phone [phone] Care Team Providers Care Talent Agent Name Role Phone Luciana Leung DO Primary Care Provider [phone] Reason for Visit * Reason Comments eRx-Medication Refill Encounter Details Date Type Department Care Team Description 05/24/2023 Refill Cardiology, [facility] [address] [place] [address] Hero Monique DO [address] [place] [address] HTN, goal below 140/90 Allergies Active Allergy Reactions Severity Noted Date Comments Simvastatin 11/01/2018 Elevated liver functions documented as of this encounter (statuses as of 05/24/2023) Medications Medication Sig Dispensed Refills Start Date [...] TABLET DAILY 90 Tablet 3 05/24/2023 Active Lisinopril 20 MG Oral Tablet (Prinivil)Indica tions:HTN, goal below 140/90 TAKE 1 TABLET DAILY 90 Tablet 3 05/27/2022 3 Discontinued documented as of this encounter (statuses as of 05/24/2023) Active Problems Problem Noted Date 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 09/24/2021 Carpal tunnel syndrome 08/25/2021 Coronary vasospasm 08/25/2021 Dyslipidemia, goal LDL below 70 08/07/20 21 Coronary artery disease invo lving [place] coronary artery of [place] heart without angina pectoris 08/07/2021 COVID-19 vaccination [...] as of this encounter (statuses as of 05/24/2023) Resolved Problems Problem Noted Date Resolved Date Acute pancreatitis 11/01/2018 01/26/2019 Bicuspid aortic valve 10/03/2016 01/26/2019 Need for hepatitis C screening test 10/03/2016 08/02/2017 documented as of this encounter (statuses as of 05/24/2023) Immunizations Name Administration Dates Next Due PPD [...] encounter Miscellaneous Notes * Telephone Encounter - Hero Monique DO - 05/24/2023 12:47 PM EDTSigned Prescriptions: Disp Refills Lisinopril 20 MG Oral Tablet (Prinivil) 90 Tab*3 Sig: TAKE 1 TABLET DAILY Authorizing Provider: HERO MONIQUE * Telephone Encounter - Rashmi Lloyd CMA - 05/24/2023 11:16 AM EDTPending Prescriptions: Disp Refills Lisinopril 20 MG Oral Tablet [Pharmacy Med*90 Tab*3 Sig: TAKE 1 TABLET DAILY * Telephone Encounter - Rashmi Lloyd CMA - 05/24/2023 11:15 AM EDT Did you pend patient's preferred pharmacy and medication before forwarding?yes Pharmacy: [facility] Pending Prescriptions: Disp Refills Lisinopril 20 MG Oral Tablet (Prinivil) [*90 Tab*3 Sig: TAKE 1 TABLET DAILY Last Visit: 05/10/2023 (in office), Visit date not found (telemedicine) Next Visit: 07/12/2023 If no future appointments scheduled, and last appointment is greater than a year ago, please schedule patient for a follow-up appointment Last date the medication was ordered: Is this request for a controlled substance?No Urine Drug Screen:No results found for this or any previous visit. Patient Phone Numbers Labs: Lab Results Component Value Date/Time CREAT 1.0 05/06/2023 12:55 PM CREAT 1.2 05/09/2020 08:25 AM POTASSIUM 4.5 05/06/2023 12:55 PM POTASSIUM 5.0 05/09/2020 08:25 AM TSH 1.40 05/06/2023 12:55 PM TSH 0.15 (A) 08/05/2022 12:00 AM TSH 1.14 05/09/2020 08:25 AM LDLCALC 106 06/01/2022 07:37 AM LDLCALC 124 05/09/2020 08:25 AM LDLDIRECT NOT APPLICABLE 05/09/2020 08:25 AM ALT 44 05/06/2023 12:55 PM ALT 38 05/09/2020 08:25 AM HGBA1C 6.3 (H) 05/06/2023 12:55 PM HGBA1C 6.6 (H) 05/09/2020 08:25 AM documented in this encounter Plan of Treatment Upcoming Encounters Date Type Specialty Care Team Description 06/07/2023 Hospital Encounter Surgery Kayode Parnell MD [address] [place] [address] 06/07/2023 Anesthesia Event Surgery Anshul Araujo CRNP [address] [place] [address] 06/07/2023 Surgery Surgery Kayode Parnell MD [address] [place] [address] REPLACEMENT AORTIC VALVE, BYPASS WITH PROSTHETIC VALVE 07/12/2023 Office Visit Cardiology Joan Portillo PA-C [address] [place] [address] 09/21/2023 Office Visit Cardiology eHro Monique DO [address] [place] [address] Scheduled Procedures Name Priority Associated Diagnoses Date/Ti me REPLACEMENT AORTIC VALVE, BYPASS WITH PROSTHETIC VALVE Aortic valve stenosis 06/07/2023 7:00 AM EDT Health Maintenance Due Date Last Done Comments DISCUSS TOBACCO CESSATION (REFER TO SMARTSET #2754) 1960 COVID-19 Vaccine (#1) 03/11/1961 DIABETES-EYE EXAM [...] Not on filedocumented as of this encounter Visit Diagnoses Diagnosis HTN, goal below 140/90 Unspecified essential hypertension Aortic valve stenosis Aortic valve disorders documented in this encounter Care Teams Talent Agent Relationship Specialty Start Date End Date Luciana Leung DO [address] [facility] [place] [address] PCP - General Family Medicine 10/02/16 documented as of this encounter
--- OUTSIDE RECORDS SUMMARY | 2023-07-02 09:11 | External Medical Summary | Summary of Care ---
Author Name Unknown Organization [facility] Address [address] [place] [address] Phone [phone] Care Team Providers Care Supervisor Pyrotechnic Loading Name Role Phone Luciana Leung DO Primary Care Provider [phone] Encounter Details Date Type Department Care Team Description 05/11/2023 Documentation Oral Maxillofacial Surgery, [place] [address] [place] [address] Sherice Prado, TECH Allergies Active Allergy Reactions Severity Noted Date Comments Simvastatin 11/01/2018 Elevated liver functions documented as of this encounter (statuses as of 05/11/2023) Medications Medication Sig Dispensed Refills Start Date [...] as of this encounter (statuses as of 05/11/2023) Active Problems Problem Noted Date 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 09/24/2021 Carpal tunnel syndrome 08/25/2021 Coronary vasospasm 08/25/2021 Dyslipidemia, goal LDL below 70 08/07/20 21 Coronary artery disease invo lving [place] coronary artery of [place] heart without angina pectoris 08/07/2021 COVID-19 vaccination [...] as of this encounter (statuses as of 05/11/2023) Resolved Problems Problem Noted Date Resolved Date Acute pancreatitis 11/01/2018 01/26/2019 Bicuspid aortic valve 10/03/2016 01/26/2019 Need for hepatitis C screening test 10/03/2016 08/02/2017 documented as of this encounter (statuses as of 05/11/2023) Immunizations Name Administration Dates Next Due PPD [...] on file documented as of this encounter Nursing Notes * DEB Spicer - 05/11/2023 9:10 AM EDT Called and left a message for patient regarding when the last day he took Plavix. Per Dr. Rocha as long as it has been 4 days since the Plavix was taken he can have hygiene appt tomorrow . documented in this encounter Plan of Treatment Upcoming Encounters Date Type Specialty Care Team Description 05/12/2023 Office Visit Dentistry Brianne Webster, RDH [address] [facility], [place] [phone] 06/04/2023 Hospital Encounter Surgery Kayode Parnell MD [address] [place] [address] 06/04/2023 Anesthesia Event Surgery Anshul Araujo CRNP [address] [facility], [place] [id number] 06/04/2023 Surgery Surgery Kayode Parnell MD [address] [place] [facility] [address] REPLACEMENT AORTIC VALVE, BYPASS WITH PROSTHETIC VALVE 07/12/2023 Office Visit Cardiology Joan Portillo PA-C [address] [place] [address] 09/21/2023 Office Visit Cardiology Hero Monique DO [address] [place] [address] Scheduled Procedures Name Priority Associated Diagnoses Date/Ti me REPLACEMENT AORTIC VALVE, BYPASS WITH PROSTHETIC VALVE Aortic valve stenosis 06/04/2023 7:00 AM EDT Health Maintenance Due Date Last Done Comments DISCUSS TOBACCO CESSATION (REFER TO SMARTSET #8518) 1960 COVID-19 Vaccine (#1) 03/11/1961 DIABETES-EYE EXAM [...] filedocumented as of this encounter Care Teams Supervisor Pyrotechnic Loading Relationship Specialty Start Date End Date Luciana Leung, [address] [facility] [place] [address] PCP - General Family Medicine 10/02/16 documented as of this encounter
--- OUTSIDE RECORDS SUMMARY | 2023-07-02 09:11 | External Medical Summary | Summary of Care ---
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 Name Role Phone Luciana Leung Ezekieltabitha Primary Care Provider [phone] Reason for Referral * Evaluate & Treat - Unlimited Visits (Within 10 days (routine)) - Pending Review Specialty Diagnoses / Procedures Referred By Etta gill Referred To Contact Oral/Maxillofacial Surgery / Dentistry Diagnoses Nonrheumatic aortic valve stenosis Aortic stenosis due to bicuspid aortic valve Need for prophylactic vaccination and inoculation against influenza Kayode Parnell MD [address] [place] [address] Referral ID Status Reason Start Date Expiration Date Visits Requested Visits Authorized [id number] Pending Review Specialty Services Required 05/06/[id number] Question Answer Referral Priority Within 10 days (routine) Comments Patient is scheduled for AVR by Dr. Parnell on 06/04/2023. He has not seen a dentist in years, no obvious concerns at this time. Can you please evaluate and treat as needed prior to surgery? Thank you. * (Within 3 days (urgent)) Specialty Diagnoses / Procedures Referred By Etta gill Referred To Contact Amy Peterson PA-C [address] [place] [address] Referral ID Status Reason Start Date Expiration Date Visits Re quested Visits Authorized Question Answer Referral Priority Within 3 days (urgent) Reason for Visit * Reason Onset Date Comments NEW PATIENT Medication Administration 05/06/2023 Flu an d/or Pneumo Inj * Evaluate & Treat - Unlimited Visits (Within 10 days (routine)) - Pending Review Specialty Diagnoses / Procedures Referred By Contact Referred To Contact Cardiovascular Surgery / Cardiothoracic Surgery Diagnoses Aortic stenosis due to bicuspid aortic valve Dilated aortic root (HCC) Coronary artery disease involving tanana coronary artery of tanana heart without angina pectoris Hero Monique, DO [address] [place] [address] Referral ID Status Reason Start Date Expiration Date Visits Requested Visits Authorized [id number] Pending Review Specialty Services Required 04/29/[phone] Encounter Details Date Type Department Care Team Description 05/06/2023 Office Visit Cardiothoracic Surg [facility] [address] [place] [address] Kayode Parnell MD [address], [place] [id number] Aortic stenosis due to bicuspid aortic valve*; Nonrheumatic aortic valve stenosis; Need for prophylactic vaccination and inoculation against influenza Allergies Active Allergy Reactions Severity Noted Date Comments Simvastatin 11/01/2018 Elevated liver functions documented as of this encounter (statuses as of 05/09/2023) Medications Medication Sig Dispensed Refills Start Date [...] Tablet Extended Release 24 Hour (toPROL XL)Indications:NSTE NH (non-ST elevation myocardial infarction) (HCC) Take 1 [...] as of this encounter (statuses as of 05/09/2023) Active Problems Problem Noted Date 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 09/24/2021 Carpal tunnel syndrome 08/25/2021 Coronary vasospasm 08/25/2021 Dyslipidemia, goal LDL below 70 08/07/20 21 Coronary artery disease invo lving tanana coronary artery of tanana heart without angina pectoris 08/07/2021 COVID-19 vaccination [...] as of this encounter (statuses as of 05/09/2023) Resolved Problems Problem Noted Date Resolved Date Acute pancreatitis 11/01/2018 01/26/2019 Bicuspid aortic valve 10/03/2016 01/26/2019 Need for hepatitis C screening test 10/03/2016 08/02/2017 documented as of this encounter (statuses as of 05/09/2023) Immunizations Name Administration Dates Next Due PPD [...] Sign Reading Time Taken Comments Blood Pressure 140/84 05/06/2023 8:38 AM EDT Pulse 63 05/06/2023 8:37 AM EDT Temperature - - Respiratory Rate - - Oxygen Saturation 98% 05/06/2023 8:37 AM EDT Inhaled Oxygen Concentration - - Weight 95.8 kg (211 lb 4.8 oz) 05/06/2023 8:37 A M EDT Height 177.8 cm (5' 10") 05/06/2023 8:37 AM EDT Body Mass Index 30.32 05/06/2023 8:37 AM EDT documented in this encounter Patient Instructions * Patient Instructions* Sonya Virgen RN - 05/06/2023 9:25 AM EDT -Hold Plavix and multivitamin 7 days before surgery -Hold Lisinopril 3 days before surgery -Continue 81mg aspirin daily -Nothing to eat or drink after midnight the night before surgery for all FMLA or other paperwork documented in this encounter Progress Notes * ANIA Alvarado - 05/06/2023 9:53 AM EDT PRE - ADMINISTRATION DOCUMENTATION Are you experiencing any cold symptoms or fever? No Have you had Guillain-Mcbrides Syndrome (an illness that causes paralysis) within the last 6 weeks? No Have you had the flu shot in the past? YES Have you ever had a reaction to the flu shot? No ROBERT DAHL RMA, 05/06/2023 9:53 AM Immunization Administration Documentation Time Out Procedure Performed: Yes Patient Identified (Ask Name/Date of ): Yes Does the patient have a fever greater than 101 degrees today? No Patient allergic to latex? No VFC Stock: No Injection(s) verified: Yes, Injection Name: flu Verified Side and Site: Yes Verified Shot(s) with Parent(s)/Patient: Yes * Sonya Virgen RN - 05/06/2023 9:20 AM EDT Patient was given preoperative Cardiac Surgery booklet. Chlorhexidine wash provided and instructions given to include if staph screen is positive bactroban will be prescribed and patient will need towash with chlorhexidine 5 days prior to surgery . All questions answered at this time. Patient was instructed to avoid the following medications and foods one week prior to surgery to decrease risk for bleeding: Multivitamins, Vit E, Herbal teas and supplements, olive oil and garlic, Dovray 3s and NSAIDs. Patient instructed to hold lisinopril for 3 days before surgery and hold Plavix for 7 days before surgery per Dr. Parnell. Patient has not seen a dentist in years, no obvious concerns at this time. He does not have a dentist, Dental Medicine referral placed. Sonya Virgen RN 05/06/2023 9:20 AM * Kayode Parnell MD - 05/06/2023 9:03 AM EDT CARDIAC SURGERY I have seen and examined the patient with Amy. I am seeing Tobi Sanchez as an evaluation for aortic stenosis, referred by Dr. Monique. Tobi reports no symptoms, but admits that he gets more winded with activity this year than previously. He also notes occasional chest pressure with activity. He was hospitalized in December for NH (chestpain). There was question in 06/2021 on [...] with tissue valve, in line with the 2021 ACC/AHA guidelines. 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 All questions were answered. The patient expressed understanding, provided consent, and signed the permit. 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 Associate, Thoracic and Cardiac Surgery [place] [address] [place] [address] Office [phone] * Jonah Chacon PA-C - 05/06/2023 8:30 AM EDT HISTORY AND PHYSICAL EXAMINATION - [facility] Name: Tobi Sanchez Date: 05/06/2023 Time: 8:30AM REFERRING PHYSICIAN: Hero Monique DO PCP: Luciana Leung DO DIRECTOR OF VOLUNTEER SERVICES: Hero Monique DO Preference for return visit: [facility] Follow up with telephone or video visit at one week. HPI: Tobi Sanchez is a 62 year old male who presents with progressive aortic valve disease /stenosis with bicuspid aortic valve and non obstructive CAD. He denies any shortness of breath, chest pains, palpitations, or syncope. He admits to vertigo for several years that was evaluated by ENT. 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 He states that he had an NSTEMI in December, hospitalized at [facility], and at that time was started on Plavix. He had episode of substernal chest pain radiating to the left shoulder with no other symptoms. He had no significantCAD on cath. He states that he is not taking his amlodipine since December. He reports that he only has a right kidney, but normal kidney functions. Patient has PMH of: aortic stenosis,smoking,DLD,htn [place] Heart Failure Classification: Class II (Mild) Current [...] History of premature CAD: yes. Mother had NH in 30's. REVIEW OF SYSTEMS: Constitutional: denies [...] Pediatric and Adult Congenital Cardiac Surgery 05/06/2023 documented in this encounter Plan of Treatment Upcoming Encounters Date Type Specialty Care Team Description 05/10/2023 Office Visit Cardiology Hero Monique DO [address] [place] [address] 05/12/2023 Office Visit Dentistry Brianne Webster, RDH [address] [place] [address] 06/04/2023 Hospital Encounter Surgery Kayode Parnell MD [address] [place] [address] 06/04/2023 Anesthesia Event Surgery Anshul Araujo CRNP [address] [place] [address] 06/04/2023 Surgery Surgery Kayode Parnell MD [address] [place] [address] REPLACEMENT AORTIC VALVE, BYPASS WITH PROSTHETIC VALVE 09/21/2023 Office Visit Cardiology Hero Monique DO [address] [place] [address] Scheduled Orders Name Type Priority Associated Diagnoses Orde r Schedule PREPARE PACKED RED BLOOD CELLS Blood Bank - Prepare Product Routine Nonrheumatic aortic valve stenosis Ordered: 05/06/2023 EKG EKG Routine Nonrheumatic aortic valve stenosis Expected: 05/06/2023, Expires: 06/05/2024 Scheduled Procedures Name Priority Associated Diagnoses Date/Ti me REPLACEMENT AORTIC VALVE, BYPASS WITH PROSTHETIC VALVE Aortic valve stenosis 06/04/2023 7:00 AM EDT Scheduled Referrals Name Type Priority Associated Diagnoses Orde r Schedule BLOOD MANAGEMENT REFERRAL Referral Within 3 days (urgent) Nonrheumatic aortic valve stenosis Ordered: 05/06/2023 DENTAL MEDICINE & SURG REFERRAL OP Referral Within 10 days (routine) Nonrheumatic aortic valve stenosis Aortic stenosis due to bicuspid aortic valve Need for prophylactic vaccination and inoculation against influenza Ordered: 05/06/2023 Health Maintenance Due Date Last Done Comments DISCUSS TOBACCO CESSATION (REFER TO SMARTSET #9011) 1960 COVID-19 Vaccine (#1) 03/11/1961 DIABETES-EYE EXAM [...] Not on filedocumented as of this encounter Procedures Procedure Name Priority Date/Time Associated Diagnosis Comments STAPH AUREUS PCR Routine 05/06/2023 10:4 7 AM EDT Nonrheumatic aortic valve stenosis documented in this encounter Results * VASC DUPLEX CAROTID BILAT (05/06/2023 1:57 PM EDT) Anatomical Region Laterality Modality Neck, Vascular Ultrasound Narrative 05/06/2023 3:27 PM EDT VASCULAR LAB RESULTS DATE OF EXAM: 05/06/23 PRESENTING CONDITIONS: PreOp PHYSICIAN REPORT Carotid Artery Duplex Examination Immediately before proceeding with the vascular lab procedure reported below, the identity of the patient, the correct exam and the correct procedural site were verified. Weston scale and color flow Doppler imaging was performed for evaluation of the right carotid artery. Duplex examination of the right carotid artery identifies atherosclerotic plaque at the carotid bifurcation. The plaque is echogenic and appears to have a smooth surface. Color Doppler imaging was performed for evaluation of the right carotid bifurcation. Spectral analysis of the right internal carotid artery demonstrates peak systolic velocities of 90 cm/sec. Maximum end diastolic velocities are 27 cm/sec.. Peak right common carotid velocity is 80 cm/sec. The right internal carotid to common carotid ratio is 1.1. The right external carotid artery has a peak velocity of 99 centimeters per second. Weston scale and color flow Doppler imaging was performed for the evaluation of the left carotid artery. Duplex examination of the left carotid artery identifies atherosclerotic plaque at the carotid bifurcation. The plaque is echogenic and appears to have a smooth surface. Color Doppler imaging was performed for the evaluation of the left carotid bifurcation. Spectral analysis of the left internal carotid artery demonstrates peak systolic velocities of 81 cm/sec. Maximum end diastolic velocities are 24 cm/sec. Peak left common carotid velocity is 68 cm/sec. The left internal carotid to common carotid ratio is 1.2. The left external carotid artery has a peak velocity of 117 centimeters per second. The right vertebral artery demonstrates antegrade flow. The left vertebral artery demonstrates antegrade flow. Impression: Right carotid artery duplex examination indicates evidence of less than 50% stenosis of the internal carotid artery. Left carotid artery duplex examination indicates evidence of less than 50% stenosis of the internal carotid artery. Amy Peterson PA-C RAD VASCUL AR * URINALYSIS, REFLEX TO MICROSCOPIC (05/06/2023 1:15 PM EDT) Color, Urine Light Yellow Colorless, Light Yellow, Yellow, Dark Yellow 05/06/2023 1:42 PM EDT LABORATORY [facility] Clarity, Urine Clear Clear 05/06/2023 1:42 PM EDT LABORATORY C Glucose, Urine Negative Negative mg/dL 05/06/2023 1:42 PM EDT LABORATORY C Bilirubin, Urine Negative Negative 05/06/2023 1:42 PM EDT LABORATORY C Ketone, Urine Negative Negative mg/dL 05/06/2023 1:42 PM EDT LABORATORY C Specific [place], Urine 1.021 1.003 - 1.030 05/06/2023 1:42 PM EDT LABORATORY C Blood, Urine Negative Negative 05/06/2023 1:42 PM EDT LABORATORY C pH, Urine 6.0 5.0 - 7.5 Units 05/06/2023 1:42 PM EDT LABORATORY C Protein, Urine Negative Negative mg/dL 05/06/2023 1:42 PM EDT LABORATORY C Urobilinogen, Urine Normal Normal mg/dL 05/06/2023 1:42 PM EDT LABORATORY C Nitrite, Urine Negative Negative 05/06/2023 1:42 PM EDT LABORATORY C Esterase, Urine Negative Negative 1:42 PM EDT LABORATORY [facility] Comment, Urine 05/06/2023 1:42 PM EDT LABORATORY C Comment:Screen negative - Mi croscopic not performed. Urine Non-blood Collection / Unknown 05/06/2023 1:15 PM EDT 05/06/2023 1:21 PM EDT Amy Peterson PA-C LAB URINE ORDERABLES Performing Organization Address City/State/[facility] Co de Phone Number LABORATORY [facility] [address] [place] [address] * CULTURE, URINE, QUANTITATIVE (05/06/2023 1:15 PM EDT) Pathologist [facility] Culture Growth No significant growth 05/07/2023 9:23 AM EDT LABORATORY [facility] Urine Urine specimen obtained by clean catch procedure / Unknown Non-blood Collection / Unknown 05/06/2023 1:15 PM EDT 05/06/2023 1:38 PM EDT Amy Peterson PA-C LAB MICRO - GENERAL ORDERABLES Performing Organization Address [facility] Co de Phone Number LABORATORY [facility] [address] [place] [address] * ABO/RH (05/06/2023 1:05 PM EDT) ABO AB 05/06/2023 3:58 PM EDT LABORATORY [facility] BLOOD BANK Rh Positive 05/06/2023 3:58 PM EDT LABORATORY [facility] BLOOD BANK Blood Venous blood specimen / Unknown Venipuncture / Unknown 05/06/2023 1:05 PM EDT 05/06/2023 2:54 PM EDT Amy Peterson PA-C LAB BLOOD BANK TEST ORDERABLES Performing Organization Address [facility] Co de Phone Number LABORATORY [facility] BLOOD BANK [address] [place] [address] * TSH (05/06/2023 12:55 PM EDT) TSH 1.40 0.27 - 4.20 uIU/mL 05/06/2023 2:44 PM EDT LABORATORY [facility] Blood Venous blood specimen / Unknown Venipuncture / Unknown 05/06/2023 12:55 PM EDT 05/06/2023 1:38 PM EDT Amy Helena Shadle PA-C LAB BLOOD ORDERABLES Performing Organization Address City/[facility]/ZIP Co de Phone Number LABORATORY [facility] [address] [place] [address] * TYPE AND SCREEN (05/06/2023 12:55 PM EDT) Pathologist [facility] ABO AB 05/06/2023 2:53 PM EDT LABORATORY [facility] BLOOD BANK Rh Positive 05/06/2023 2:53 PM EDT LABORATORY [facility] BLOOD BANK Red Blood Cell Antibody Screen Negative 05/06/2023 2:53 PM EDT LABORATORY [facility] BLOOD BANK Specimen Expiration Date 06/07/2023 23:59 05/06/2023 2:53 PM EDT LABORATORY [facility] BLOOD BANK Blood Venous blood specimen / Unknown Venipuncture / Unknown 05/06/2023 12:55 PM EDT 05/06/2023 1:21 PM EDT Amy Peterson PA-C LAB BLOOD BANK TEST ORDERABLES Performing Organization Address [facility] Co de Phone Number LABORATORY [facility] BLOOD BANK [address] [place] [address] * IRON SCREEN, INCLUDING TIBC (05/06/2023 12:55 PM EDT) [facility] Iron 82 45 - 176 ug/dL 05/06/2023 2:08 PM EDT LABORATORY [facility] Iron Binding Capacity 323 250 - 425 ug/dL 05/06/2023 2:08 PM EDT LABORATORY [facility] Transferrin Saturation Percent 25 15 - 55 % 05/06/2023 2:08 PM EDT LABORATORY [facility] Blood Venous blood specimen / Unknown Venipuncture / Unknown 05/06/2023 12:55 PM EDT 05/06/2023 1:38 PM EDT Amy Peterson PA-C LAB BLOOD ORDERABLES Performing Organization Address City/[facility]/ZIP Co de Phone Number LABORATORY [facility] [address] [place] [address] * HEPATIC FUNCTION PANEL (05/06/2023 12:55 PM EDT) [facility] Albumin 4.1 3.8 - 5.0 g/dL 05/06/2023 2:08 PM EDT LABORATORY [facility] AST 31 10 - 50 U/L 05/06/2023 2:08 PM EDT LABORATORY [facility] Comment:Result may be falsel y elevated due to hemolysis. Alkaline Phosphatase 113 35 - 130 U/L 05/06/2023 2:08 PM EDT LABORATORY [facility] ALT 44 10 - 50 U/L 05/06/2023 2:08 PM EDT LABORATORY [facility] Bilirubin, Total 0.3 <=1.2 mg/dL 05/06/2023 2:08 PM EDT LABORATORY [facility] Bilirubin, Direct <0.2 0.0 - 0.3 mg/dL 05/06/2023 2:08 PM EDT LABORATORY [facility] Comment:Result may be falsel y decreased due to hemolysis. Protein 6.6 6.0 - 8.3 g/dL 05/06/2023 2:08 PM EDT LABORATORY [facility] Blood Venous blood specimen / Unknown Venipuncture / Unknown 05/06/2023 12:55 PM EDT 05/06/2023 1:38 PM EDT Amy Peterson PA-C LAB BLOOD ORDERABLES LABORATORY [facility] [address] [place] [address] * (ABNORMAL) HEMOGLOBIN A1C (05/06/2023 12:55 PM EDT) Hemoglobin A1C 6.3(H) 4.0 - 5.6 % 05/06/2023 2:05 PM EDT LABORATORY [facility] Comment:The use of HbA1c to monitor glycemic status is based on normal hemoglobin and HbA composition. This test should not be used in patients with abnormal hemoglobin that affects the half life of the red blood cell or the in vivo glycation rates. Estimated Average Glucose 134(H) <126 mg/dL 05/06/2023 2:05 PM EDT LABORATORY [facility] Blood Venous blood specimen / Unknown Venipuncture / Unknown 05/06/2023 12:55 PM EDT 05/06/2023 1:38 PM EDT Amy Peterson PA-C LAB BLOOD ORDERABLES LABORATORY [facility] [address] [place] [address] * BASIC METABOLIC PANEL (05/06/2023 12:55 PM EDT) BUN 17 6 - 20 mg/dL 05/06/2023 2:08 PM EDT LABORATORY [facility] Creatinine 1.0 0.6 - 1.2 mg/dL 05/06/2023 2:08 PM EDT LABORATORY [facility] Estimated Glomerular Filtration Rate 82 >=60 mL/min 05/06/2023 2:08 PM EDT LABORATORY [facility] Comment:eGFR is calculated b ased on the CKD-EPI 2020 equation Sodium 141 135 - 146 mmol/L 05/06/2023 2:08 PM EDT LABORATORY [facility] Potassium 4.5 3.5 - 5.1 mmol/L 05/06/2023 2:08 PM EDT LABORATORY C Chloride 107 98 - 107 mmol/L 05/06/2023 2:08 PM EDT LABORATORY C CO2 24 22 - 32 mmol/L 05/06/2023 2:08 PM EDT LABORATORY C Anion Gap 10 7 - 15 mmol/L 05/06/2023 2:08 PM EDT LABORATORY [facility] Glucose 95 70 - 120 mg/dL 05/06/2023 2:08 PM EDT LABORATORY [facility] Calcium 9.7 8.4 - 10.2 mg/dL 05/06/2023 2:08 PM EDT LABORATORY [facility] Blood Venous blood specimen / Unknown Venipuncture / Unknown 05/06/2023 12:55 PM EDT 05/06/2023 1:38 PM EDT Amy Peterson PA-C LAB BLOOD ORDERABLES LABORATORY [facility] [address] [place] [address] * PT INR (05/06/2023 12:55 PM EDT) Prothrombin Time 12.4 11.6 - 15.2 seconds 05/06/2023 2:00 PM EDT LABORATORY [facility] INR 0.9 0.8 - 1.2 05/06/2023 2:00 PM EDT LABORATORY [facility] Blood Venous blood specimen / Unknown Venipuncture / Unknown 05/06/2023 12:55 PM EDT 05/06/2023 1:38 PM EDT Narrative LABORATORY [facility] - 05/06/2023 2:00 PM EDT Warfarin Therapy INR: 2.0-3.0 conventional anticoagulation INR: 2.5-3.5 high intensity anticoagulation Amy Peterson PA-C LAB BLOOD ORDERABLES Performing Organization Address [facility] Co de Phone Number LABORATORY [address] [address] * APTT (05/06/2023 12:55 PM EDT) aPTT 26 21 - 38 seconds 05/06/2023 2:01 PM EDT LABORATORY [facility] Blood Venous blood specimen / Unknown Venipuncture / Unknown 05/06/2023 12:55 PM EDT 05/06/2023 1:38 PM EDT [facility] LABORATORY [facility] - 05/06/2023 2:01 PM EDT Anticoagulation may affect testing. Refer to [employer] Test Catalog for a list of effects. Amy Peterson PA-C LAB BLOOD ORDERABLES Performing Organization Address [facility] Co de Phone Number LABORATORY [address] [address] * (ABNORMAL) RETICULOCYTE PANEL (05/06/2023 12:55 PM EDT) Reticulocyte Percent 1.99(H) 0.80 - 1.90 % 05/06/2023 1:51 PM EDT LABORATORY [facility] Absolute Reticulocyte 92.7 31.3 - 100.1 K/uL 05/06/2023 1:51 PM EDT LABORATORY [facility] Immature Reticuloctye Fraction 21.1(H) 2.5 - 20.6 % 05/06/2023 1:51 PM EDT LABORATORY [facility] Reticulocyte Hemoglobin 33.9 29.7 - 37.4 pg 05/06/2023 1:51 PM EDT LABORATORY [facility] Blood Venous blood specimen / Unknown Venipuncture / Unknown 05/06/2023 12:55 PM EDT 05/06/2023 1:39 PM EDT Amy SEGOVIA-C LAB BLOOD ORDERABLES Performing Organization Address City/[facility] Co de Phone Number LABORATORY [facility] [address] [place] [address] * FERRITIN (05/06/2023 12:55 PM EDT) Pathologist [facility] Ferritin 128 30 - 400 ng/mL 05/06/2023 2:44 PM EDT LABORATORY [facility] Blood Venous blood specimen / Unknown Venipuncture / Unknown 05/06/2023 12:55 PM EDT 05/06/2023 1:38 PM EDT Amy SEGOVIA-C LAB BLOOD ORDERABLES Performing Organization Address [facility] de Phone Number LABORATORY [facility] [address] [place] [address] * (ABNORMAL) BLOOD GAS, ARTERIAL (05/06/2023 12:00 PM EDT) Temperature 37.0 C 05/06/2023 12:19 PM EDT LABORATORY [facility] pH, Arterial 7.411 7.350 - 7.450 units 05/06/2023 12:19 PM EDT LABORATORY [facility] pCO2, Arterial 37.3 35.0 - 45.0 mmHg 05/06/2023 12:19 PM EDT LAB[facility]ATORY [facility] pO2, Arterial 93.6 75.0 - 100.0 mmHg 05/06/2023 12:19 PM EDT LAB[facility]ORY [facility] Base Excess, Arterial -0.6 -2.0 - 2.0 mmol/L 05/06/2023 12:19 PM EDT LABORATORY [facility] Hemoglobin, Whole Blood 13.9(L) 14.0 - 16.8 g/dL 05/06/2023 12:19 PM EDT LAB[facility]ATORY [facility] Oxyhemoglobin, Arterial 94.9 94.0 - 99.0 % total Hgb 05/06/2023 12:19 PM EDT LAB[facility]ATORY [facility] Carboxyhemoglob in, Whole Blood 0.1 <=1.5 % total Hgb 05/06/2023 12:19 PM EDT LAB[facility]ATORY [facility] Comment:Smokers: 0-9.0 % Methemoglobin, Whole Blood 0.4 <=1.5 % total Hgb 05/06/2023 12:19 PM EDT LAB[facility]ORY [facility] Reduced Hemoglobin, Arterial 4.6 0.0 - 5.0 % total Hgb 05/06/2023 12:19 PM EDT LAB[facility]ORY [facility] O2 Content, Arterial 18.6 15.0 - 24.0 %vol 05/06/2023 12:19 PM EDT LABORATORY [facility] FiO2 Not Provided % 05/06/2023 12:19 PM EDT LAB[facility]ATORY [facility] O2 Flow, Arterial Not Provided L/min 05/06/2023 12:19 PM EDT LAB[facility]ORY [facility] Bicarbonate, Whole Blood 23.2 23.0 - 31.0 mmol/L 05/06/2023 12:19 PM EDT LABORATORY [facility] Blood Arterial blood specimen / Unknown Arterial Puncture / Unknown 05/06/2023 12:00 PM EDT 05/06/2023 12:15 PM EDT Amy Peterson PA-C LAB BLOOD ORDERABLES Performing Organization Address City/State/[facility] Co de Phone Number LABORATORY [facility] [address] [place] [address] * BASIC SPIROMETRY (05/06/2023 11:46 AM EDT) FVC Actual Pre 4.02 L GEISI NGER BREEZE FVC Actual Pre %Predict 87 % [facility] FEV1 Actual Pre 3.07 L TIFFANIE BLANQUITA BREEZE FEV1 Actual Pre %Predict 86 % [facility] FEV1/FVC Actual Pre 76 % [facility] FEF 25-75% Actual Pre 2.57 L/sec [facility] FEF 25-75% Actual Pre %Predict 87 % [facility] 05/06/2023 11:4 6 AM EDT Narrative [facility] - 05/06/2023 11:46 AM EDT Normal spirometry. An arterial blood gas test measured at rest revealed pH 7.41, pCO2 37, PO2 94 mL Hg, indicative of normal acid-base status and normal oxygenation.This interpretation has been electronically signed: MASHA HUSAIN MD 05/06/2023 04:40:16 PM Amy Peterson PA-C MEDICINE [place] * (ABNORMAL) [facility] PCR (05/06/2023 10:47 AM EDT) MRSA PCR Result Indetermina te. Repeat testing recommended .(A) Negative 05/06/2023 3:13 PM EDT LABORATORY [facility] MSSA PCR Result Indetermina te. Repeat testing recommended .(A) Negative 05/06/2023 3:13 PM EDT LABORATORY [facility] Upper Respiratory (Nares, Bilateral) Non-blood Collection / Unknown 05/06/2023 10:47 AM EDT 05/06/2023 12:44 PM EDT Amy Peterson PA-C LAB MICRO - GENERAL ORDERABLES LABORATORY [facility] [address] [facility] [place] [address] documented in this encounter Visit Diagnoses Diagnosis Aortic stenosis due to bicuspid aortic valve- Primary Nonrheumatic aortic valve stenosis Aortic valve disorders Need for prophylactic vaccination and inoculation against influenza Nonrheumatic aortic valve stenosis Aortic valve disorders Nonrheumatic aortic valve stenosis- Primary Aortic valve disorders Aortic valve stenosis Aortic valve disorders documented in this encounter Care Teams Hat Blocking Machine Operator Relationship Specialty Start Date End Date Luciana Leung DO [address] [facility] [place] [address] PCP - General Family Medicine 10/02/16 documented as of this encounter
--- OUTSIDE RECORDS SUMMARY | 2023-07-02 09:11 | External Medical Summary | Summary of Care ---
Author Name Unknown Organization [facility] Address [address] [place] [address] Phone [phone] Care Team Providers Care Brass Instrument Repair Technician Name Role Phone Luciana Leung DO Primary Care Provider [phone] Reason for Visit * Reason Comments Evaluation Encounter Details Date Type Department Care Team Description 05/07/2023 Office Visit Dental Medicine, [place] [address] [place] [address] Hero Rocha, DMD [address], [place] [id number] Encounter for dental examination* Allergies Active Allergy Reactions Severity Noted Date Comments Simvastatin 11/01/2018 Elevated liver functions documented as of this encounter (statuses as of 05/07/2023) Medications Medication Sig Dispensed Refills Start Date [...] Tablet Extended Release 24 Hour (toPROL XL)Indications:NSTE [place] (non-ST elevation myocardial infarction) (HCC) Take 1 [...] as of this encounter (statuses as of 05/07/2023) Active Problems Problem Noted Date 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 09/24/2021 Carpal tunnel syndrome 08/25/2021 Coronary vasospasm 08/25/2021 Dyslipidemia, goal LDL below 70 08/07/20 21 Coronary artery disease invo lving [place] coronary artery of [place] heart without angina pectoris 08/07/2021 COVID-19 vaccination [...] as of this encounter (statuses as of 05/07/2023) Resolved Problems Problem Noted Date Resolved Date Acute pancreatitis 11/01/2018 01/26/2019 Bicuspid aortic valve 10/03/2016 01/26/2019 Need for hepatitis C screening test 10/03/2016 08/02/2017 documented as of this encounter (statuses as of 05/07/2023) Immunizations Name Administration Dates Next Due PPD [...] as of this encounter Progress Notes * Hero Rocha, CATHLEEN - 05/07/2023 8:45 AM EDT Pt presents for a dental exam and recommendations prior to AVR scheduled on 06/04/2023. Initial exam ; [place]. Pt has generalized subgingival calculus. No other dental needs. I recommend pt to have a full mouth debridement to reduce the the possibility of gingival plaque and calculus contribution to possible bacteremia. Messaged Dr Parnell who agrees that pt D/C plavix 5 days prior to dental appt. Messaged Sherice to schedule hygiene and let pt know 5 days prior. Sent Rx for peridex. Pt made aware of the future need of routine and regular dental appts. Hero Rocha D.M.D. documented in this encounter Nursing Notes * DEB Butterfield - 05/07/2023 8:21 AM EDT Reviewed medical history with patient. Medical changes noted, see updated questionnaire. Asked patient status before taking x-ray N/A RETURN EDUCATION SCREENING Today's Date: 05/07/2023 Understands Current Diagnosis: Yes Understands Current Treatment: Yes Recheck Education Screening for Patient Barrier to Learning: Unchanged Learning Need: POI Person Taught: Patient Method: Lecture Outcome: State/Describe/Explain Comments: none TIME OUT. Patient was identified by two methods. Procedure was identified, verified and reviewed with patient. documented in this encounter Miscellaneous Notes * Addendum Note - Hero Rocha DMD - 05/07/2023 8:55 AM EDTAddended by: HERO ROCHA on: 05/07/2023 08:55 AM Modules accepted: Orders documented in this encounter Plan of Treatment Upcoming Encounters Date Type Specialty Care Team Description 05/10/2023 Office Visit Cardiology Hero Monique DO [address] [place] [address] 05/12/2023 Office Visit Dentistry Brianne Webster, RD [address] [place] [address] 06/04/2023 Hospital Encounter Surgery Kayode Parnell MD [address] [place] [address] 06/04/2023 Anesthesia Event Surgery Anshul Araujo CRNP [address], [place] [id number] 06/04/2023 Surgery Surgery Kayode Parnell MD [address], [place] [id number] REPLACEMENT AORTIC VALVE, BYPASS WITH PROSTHETIC VALVE 09/21/2023 Office Visit Cardiology Hero Monique DO [address] [place] [address] Scheduled Procedures Name Priority Associated Diagnoses Date/Ti me REPLACEMENT AORTIC VALVE, BYPASS WITH PROSTHETIC VALVE Aortic valve stenosis 06/04/2023 7:00 AM EDT Health Maintenance Due Date Last Done Comments DISCUSS TOBACCO CESSATION (REFER TO SMARTSET #[id number]) 1960 COVID-19 Vaccine (#1) 03/11/1962 DIABETES-EYE EXAM [...] as of this encounter Visit Diagnoses Diagnosis Encounter for dental examination- Primary Dental examination Aortic valve stenosis Aortic valve disorders documented in this encounter Care Teams Brass Instrument Repair Technician Relationship Specialty Start Date End Date Luciana Leung, [address] [facility] [place] [address] PCP - General Family Medicine 10/02/16 documented as of this encounter
--- OUTSIDE RECORDS SUMMARY | 2023-07-02 09:11 | External Medical Summary | Summary of Care ---
Author Name Unknown Organization [facility] Address [address] [place] [address] Phone [phone] Care Team Providers Care Thread Drawer Name Role Phone Luciana Leung DO Primary Care Provider [phone] [phone] Reason for Visit * Reason Comments Hygiene Encounter Details Date Type Department Care Team Description 05/12/2023 Office Visit Dental Hygiene, [place] [address], [place] [phone] Brianne Webster, [facility] [address], [place] [phone] Encounter for dental examination* Allergies Active Allergy Reactions Severity Noted Date Comments Simvastatin 11/01/2018 Elevated liver functions documented as of this encounter (statuses as of 05/12/2023) Medications Medication Sig Dispensed Refills Start Date [...] Tablet Extended Release 24 Hour (toPROL XL)Indications:NSTE [place] (non-ST elevation myocardial infarction) (HCC) Take 1 [...] as of this encounter (statuses as of 05/12/2023) Active Problems Problem Noted Date 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 09/24/2021 Carpal tunnel syndrome 08/25/2021 Coronary vasospasm 08/25/2021 Dyslipidemia, goal LDL below 70 08/07/20 21 Coronary artery disease invo lving [place] coronary artery of [place] heart without angina pectoris 08/07/2021 COVID-19 vaccination [...] as of this encounter (statuses as of 05/12/2023) Resolved Problems Problem Noted Date Resolved Date Acute pancreatitis 11/01/2018 01/26/2019 Bicuspid aortic valve 10/03/2016 01/26/2019 Need for hepatitis C screening test 10/03/2016 08/02/2017 documented as of this encounter (statuses as of 05/12/2023) Immunizations Name Administration Dates Next Due PPD [...] as of this encounter Progress Notes * Brianne Webster, [facility] - 05/12/2023 12:10 PM EDT Informed parent of risk of COVID-19 infection with potential serious consequences from the coronavirus and parent verbalized understanding and opted to proceed with dental evaluation. Parent denies any recent exposures for the family to coronavirus positive individuals, negative fever, negative sore throat, negative coughing, negative diarrhea, loss of taste or smell, or GI issues reported. Screening was also completed and informed parent if they were to develop coronavirus they would be at risk for complications and counseling was provided to the parent and parent verbalized understanding. High speed evacuation, N95 masks, face shield use, and other preventative measures utilized to prevent the spread of COVID-19. Prior to this appointment, this patient was identified by two methods. The procedures of dental radiographs (if appropriate), dental examination and dental hygiene were explained, verified and accepted by the patient. Reviewed Medical History: No changes. 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 Patient Active Problem List Diagnosis Code Familial hypercholesterolemia E78.01 HTN, goal below 140/90 I10 Unequal pupils H57.02 Aortic stenosis due to bicuspid aortic valve Q23.0, Q23.1 Overweight (BMI 25.0-29.9) E66.3 Absent kidney, congenital Q60.2 Benign neoplasm of adrenal gland D35.00 Cervical disc herniation M50.20 H/O cervical spine surgery Z98.890 Tobacco use disorder F17.200 Chews tobacco Z72.0 Bradley's esophagus with dysplasia K22.719 Dilated aortic root (HCC) I77.810 Bone cyst of right femur M85.651 Trochanteric bursitis of left hip M70.62 Diabetes mellitus without complication (HCC) E11.9 COVID-19 vaccination refused Z28.21 Dyslipidemia, goal LDL below 70 E78.5 Coronary artery disease involving [place] coronary artery of [place] heart without angina pectoris I25.10 Carpal tunnel syndrome G56.00 Coronary vasospasm (HCC) I20.1 Type 2 diabetes mellitus with diabetic neuropathy (HCC) E11.40 Review of patient's allergies indicates: Allergen Reactions Simvastatin Elevated liver functions Current Outpatient Medications Medication Sig Dispense Refill aspirin enteric coated 81 MG TBEC Take 1 Tablet by mouth in the morning. metronidazole (METROGEL) 0.75 % gel Apply topically to affected area 2 times a day. Apply to affected area 45 g 11 Lisinopril 20 MG Oral Tablet (Prinivil) TAKE 1 TABLET DAILY 90 Tablet 3 amLODIPine Besylate 2.5 MG Oral Tablet (Norvasc) TAKE 1 TABLET DAILY 90 Tablet 3 Pantoprazole Sodium 40 MG Oral Tablet Delayed Release (Protonix) TAKE 1 TABLET DAILY 90 Tablet 3 Multi-Vitamin Daily Oral Tablet Take 1 Tablet by mouth in the morning. Metoprolol Succinate ER 25 MG Oral Tablet Extended Release 24 Hour (toPROL XL) Take 1 Tablet by mouth in the morning. In the morning.. 90 Tablet 4 Atorvastatin Calcium 40 MG Oral Tablet (Lipitor) TAKE 1 TABLET IN THE MORNING 90 Tablet 1 Chlorhexidine Gluconate 0.12 % Mouth/Throat Solution (Periogard) Use 2 times a day Use 1/2 oz. after brushing and flossing. Swish for 30 seconds and spit. 473 mL 6 Clopidogrel Bisulfate 75 MG Oral Tablet (pLAVix) Take 1 Tablet by mouth in the morning. 100 Tablet 6 No current facility-administered medications for this visit. Past Surgical History: Procedure Laterality Date DRAIN SKIN ABSCESS, SIMPLE/SINGLE LASIK SURGERY REMOVE TONSILS & ADENOIDS, UNDER 12 VASECTOMY PCP: Ruth Gracia Reviewed medical history; examination; oral exam. Radiographs: none Hygiene Procedures: Scale, Singaporean, Review of Oral Hygiene, and NO exam was done today Findings: moderate to heavy calculus - location braulio ant and max molars, slight plaque - location gingival margins, and anterior crowding Discussed: maintenance, oral hygiene, brushing reviewed, and flossing reviewed Prescriptions given: none Dispensed: TB and Floss Additional comments: pt to have heart surgery 06/04/2023- prophy needed prior to surgery Next hygiene visit: Discharge. Next visit: PREric Webster RDH 05/12/2023 12:10 PM documented in this encounter Nursing Notes * Brianne Webster RDH - 05/12/2023 12:09 PM EDT Reviewed medical history with patient. No changes noted. Asked patient status before taking x-ray N/A RETURN EDUCATION SCREENING Today's Date: 05/12/2023 Understands Current Diagnosis: Yes Understands Current Treatment: Yes Recheck Education Screening for Patient Barrier to Learning: Unchanged Learning Need: POI Person Taught: Patient Method: Lecture Outcome: State/Describe/Explain Comments: none TIME OUT. Patient was identified by two methods. Procedure was identified, verified and reviewed with patient. documented in this encounter Plan of Treatment Upcoming Encounters Date Type Specialty Care Team Description 06/04/2023 Hospital Encounter Surgery Kayode Parnell MD [address] [place], [place] [phone] 06/04/2023 Anesthesia Event Surgery Anshul Araujo CRNP [address] [place] [address] 06/04/2023 Surgery Surgery Kayode Parnell MD [address] [place] [address] REPLACEMENT AORTIC VALVE, BYPASS WITH PROSTHETIC VALVE 07/12/2023 Office Visit Cardiology Joan Portillo PA-C [address] [place] [address] 09/21/2023 Office Visit Cardiology Hero Monique DO [address] [place] [address] Scheduled Procedures Name Priority Associated Diagnoses Date/Ti me REPLACEMENT AORTIC VALVE, BYPASS WITH PROSTHETIC VALVE Aortic valve stenosis 06/04/2023 7:00 AM EDT Health Maintenance Due Date Last Done Comments DISCUSS TOBACCO CESSATION (REFER TO SMARTSET #7531) 1960 COVID-19 Vaccine (#1) 03/11/1962 DIABETES-EYE EXAM [...] disorders documented in this encounter Care Teams Thread Drawer Relationship Specialty Start Date End Date Luciana Leung DO [address] [facility] [place] [address] PCP - General Family Medicine 10/02/16 documented as of this encounter
--- OUTSIDE RECORDS SUMMARY | 2023-07-02 09:11 | External Medical Summary | Summary of Care ---
Author Name Unknown Organization [facility] Address [address] [place] [address] Phone [phone] Care Team Providers Care Jacquard Card Lacer Name Role Phone Luciana Leung DO Primary Care Provider [phone] Reason for Visit * Reason Onset Date Comments Insurance 05/10/2023 Encounter Details Date Type Department Care Team Description 05/10/2023 Telephone Dental Medicine, [place] [address] [place] [address] Services, [facility] [address] [place] [address] Insurance Allergies Active Allergy Reactions Severity Noted Date Comments Simvastatin 11/01/2018 Elevated liver functions documented as of this encounter (statuses as of 05/10/2023) Medications Medication Sig Dispensed Refills Start Date [...] Tablet Extended Release 24 Hour (toPROL XL)Indications:NSTE [place] (non-ST elevation myocardial infarction) (HCC) Take 1 [...] as of this encounter (statuses as of 05/10/2023) Active Problems Problem Noted Date 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 09/24/2021 Carpal tunnel syndrome 08/25/2021 Coronary vasospasm 08/25/2021 Dyslipidemia, goal LDL below 70 08/07/20 21 Coronary artery disease invo lving [place] coronary artery of [place] heart without angina pectoris 08/07/2021 COVID-19 vaccination [...] as of this encounter (statuses as of 05/10/2023) Resolved Problems Problem Noted Date Resolved Date Acute pancreatitis 11/01/2018 01/26/2019 Bicuspid aortic valve 10/03/2016 01/26/2019 Need for hepatitis C screening test 10/03/2016 08/02/2017 documented as of this encounter (statuses as of 05/10/2023) Immunizations Name Administration Dates Next Due PPD [...] Miscellaneous Notes * Telephone Encounter - KELSIE Junior - 05/10/2023 1:48 PM EDT Patient has appt 05/12/23 for hygiene and needs fees for appt no dental insurance patient works 2nd shift please call between 7am-12pm documented in this encounter Plan of Treatment Upcoming Encounters Date Type Specialty Care Team Description 05/12/2023 Office Visit Dentistry Brianne Webster, RDH [address] [facility] [place] [address] 06/04/2023 Hospital Encounter Surgery Kayode Parnell MD [address] [place] [address] 06/04/2023 Anesthesia Event Surgery Anshul Araujo CRNP [address] [facility], [place] [phone] 06/04/2023 Surgery Surgery Kayode Parnell MD [address] [place] [address] REPLACEMENT AORTIC VALVE, BYPASS WITH PROSTHETIC VALVE 07/12/2023 Office Visit Cardiology Joan Portillo PA-C [address] [place] [address] 09/21/2023 Office Visit Cardiology Hero Monique DO [address] [place] [address] Scheduled Procedures Name Priority Associated Diagnoses Date/Ti me REPLACEMENT AORTIC VALVE, BYPASS WITH PROSTHETIC VALVE Aortic valve stenosis 06/04/2023 7:00 AM EDT Health Maintenance Due Date Last Done Comments DISCUSS TOBACCO CESSATION (REFER TO SMARTSET #6002) 1960 COVID-19 Vaccine (#1) 03/11/1962 DIABETES-EYE EXAM [...] filedocumented as of this encounter Care Teams Jacquard Card Lacer Relationship Specialty Start Date End Date Luciana Leung, [address] [facility] [place] [address] PCP - General Family Medicine 10/02/16 documented as of this encounter
--- OUTSIDE RECORDS SUMMARY | 2023-07-02 09:11 | External Medical Summary | Summary of Care ---
Author Name Unknown Organization [facility] Address [address] [facility] [place] [address] Phone [phone] Care Team Providers Care Shipyard Painter Name Role Phone Luciana Leung DO Primary Care Provider [phone] [phone] Reason for Visit * Reason Comments eRx-Medication Refill Encounter Details Date Type Department Care Team Description 05/07/2023 Refill Family Practice [facility] [place] [address] [facility] [place] [address] Luciana Leung DO [address] [facility] [place] [address] Well adult exam; Familial hypercholesterolemia; HTN, goal below 140/90; Unequal pupils; Bicuspid aortic valve; Aortic stenosis due to bicuspid aortic valve; Overweight (BMI 25.0-29.9) Allergies Active Allergy Reactions Severity Noted Date [...] 08/07/20 21 Coronary artery disease invo lving [place] coronary artery of [place] heart without angina pectoris 08/07/2021 COVID-19 vaccination [...] encounter Miscellaneous Notes * Telephone Encounter - Arpan Ruiz, [facility] - 05/09/2023 3:26 PM EDT Refused Prescriptions: Disp Refills Atorvastatin Calcium 20 MG Oral Tablet (Li*90 Tab*3 Sig: TAKE 1TABLET DAILYRefused By: ARPAN RUIZ for Refusal: Too soon documented in this encounter Plan of Treatment Upcoming Encounters Date Type Specialty Care Team Description 05/10/2023 Office Visit Cardiology Hero Monique DO [address] [place] [address] 05/12/2023 Office Visit Dentistry Brianne Webster, [facility] [address] [place] [address] 06/04/2023 Hospital Encounter Surgery Kayode Parnell MD [address] [place] [address] 06/04/2023 Anesthesia Event Surgery Anshul Araujo CRNP [address] [place] [address] 06/04/2023 Surgery Surgery Kayode Parnell MD [address] [place] [address] REPLACEMENT AORTIC VALVE, BYPASS WITH PROSTHETIC VALVE 09/21/2023 Office Visit Cardiology Hero Monique DO [address] [place] [address] Scheduled Procedures Name Priority Associated Diagnoses Date/Ti me REPLACEMENT AORTIC VALVE, BYPASS WITH PROSTHETIC VALVE Aortic valve stenosis 06/04/2023 7:00 AM EDT Health Maintenance Due Date Last Done Comments DISCUSS TOBACCO CESSATION (REFER TO SMARTSET #9890) 1960 COVID-19 Vaccine (#1) 03/11/1962 DIABETES-EYE EXAM [...] as of this encounter Visit Diagnoses Diagnosis Well adult exam Routine general medical examination at a health care facility Familial hypercholesterolemia Pure hypercholesterolemia HTN, goal below 140/90 Unspecified essential hypertension Unequal pupils Anisocoria Bicuspid aortic valve Congenital insufficiency of aortic valve Aortic stenosis due to bicuspid aortic valve Overweight (BMI 25.0-29.9) Overweight Aortic valve stenosis Aortic valve disorders documented in this encounter Care Teams Shipyard Painter Relationship Specialty Start Date End Date Luciana Leung DO [address] [facility] [place] [address] PCP - General Family Medicine 10/02/16 documented as of this encounter
--- OUTSIDE RECORDS SUMMARY | 2023-07-02 09:11 | External Medical Summary | Summary of Care ---
Author Name Unknown Organization [facility] Address [address] [place] [address] Phone [phone] Care Team Providers Care Gre Instructor Name Role Phone Luciana Leung DO Primary Care Provider [phone] Encounter Details Date Type Department Care Team Description 05/06/2023 Hospital Encounter Vascular Lab [facility] [address] [place] [address] Arrived Allergies Active Allergy Reactions Severity Noted Date [...] Tablet Extended Release 24 Hour (toPROL XL)Indications:NSTE [place] (non-ST elevation myocardial infarction) (HCC) Take 1 [...] 08/07/20 21 Coronary artery disease invo lving [place] coronary artery of [place] heart without angina pectoris 08/07/2021 COVID-19 vaccination [...] on file documented as of this encounter Plan of Treatment Upcoming Encounters Date Type Specialty Care Team Description 05/10/2023 Office Visit Cardiology Hero Monique O, DO [address] [place] [address] 05/12/2023 Office Visit Dentistry Brianne Webster, [facility] [address] [place] [address] 06/04/2023 Hospital Encounter Surgery Kayode Parnell MD [address] [place] [address] 06/04/2023 Anesthesia Event Surgery Anshul Araujo CRNP [address] [place] [address] 06/04/2023 Surgery Surgery Kayode Parnell MD [address] [facility] [place] [address] REPLACEMENT AORTIC VALVE, BYPASS WITH PROSTHETIC VALVE 09/21/2023 Office Visit Cardiology Hero Monique, DO [address] [place] [address] Scheduled Procedures Name Priority Associated Diagnoses Date/Ti me REPLACEMENT AORTIC VALVE, BYPASS WITH PROSTHETIC VALVE Aortic valve stenosis 06/04/2023 7:00 AM EDT Health Maintenance Due Date Last Done Comments DISCUSS TOBACCO CESSATION (REFER TO SMARTSET #3008) 1960 COVID-19 Vaccine (#1) 03/11/1962 DIABETES-EYE EXAM [...] Procedure Name Priority Date/Time Associated Diagnosis Comments [facility] DUPLEX CAROTID BILAT Routine 05/06/2023 1:57 PM EDT Nonrheumatic aortic valve stenosis documented in [...] artery. Amy Peterson PA-C RAD VASCUL AR documented in this encounter Visit Diagnoses Diagnosis Nonrheumatic aortic valve stenosis Aortic valve disorders Aortic valve stenosis Aortic valve disorders documented in this encounter Care Teams Gre Instructor Relationship Specialty Start Date End Date Luciana Leung, [address] [facility] [place] [address] PCP - General Family Medicine 10/02/16 documented as of this encounter
--- OUTSIDE RECORDS SUMMARY | 2023-07-02 09:11 | External Medical Summary | Summary of Care ---
Author Name Unknown Organization [facility] Address [address] [facility] [place] [address] Phone [phone] Care Team Providers Care Propulsion Generator Repairer Name Role Phone Luciana Leung DO Primary Care Provider [phone] Reason for Visit * Reason Comments Follow Up Encounter Details Date Type Department Care Team Description 05/10/2023 Office Visit Cardiology, [facility] [address] [place] [address] Hero Monique DO [address] [place] [address] Aortic stenosis due to bicuspid aortic valve*; Coronary artery disease involving wrangell coronary artery of wrangell heart without angina pectoris; HTN, goal below 140/90; Tobacco use disorder; Coronary vasospasm (HCC); Dyslipidemia, goal LDL below 70 Allergies Active Allergy Reactions Severity Noted Date [...] Tablet Extended Release 24 Hour (toPROL XL)Indications:NSTE MN (non-ST elevation myocardial infarction) (HCC) Take 1 [...] 08/07/20 21 Coronary artery disease invo lving wrangell coronary artery of wrangell heart without angina pectoris 08/07/2021 COVID-19 vaccination [...] Current Chew Tobacco Cessation:Ready to Q uit: No; Counseling Given: Yes Comments:1 cigarette a day x 20 years; [...] Sign Reading Time Taken Comments Blood Pressure 140/80 05/10/2023 10:26 AM EDT Pulse 64 05/10/2023 10:26 AM EDT Temperature - - Respiratory Rate 14 05/10/2023 10:26 AM EDT Oxygen Saturation - - Inhaled Oxygen Concentration - - Weight 95.7 kg (211 lb) 05/10/2023 10:26 AM EDT Height - - Body Mass Index 30.28 05/06/2023 8:37 AM EDT documented in this encounter Progress Notes * Hero Monique, - 05/10/2023 10:44 AM EDT SUBJECTIVE: Patient returns for follow-up of recent echocardiogram suggesting severe aortic valve stenosis. History of moderate nonobstructive CAD, bicuspid aortic, hypertension, and familial dyslipidemia. Hospitalized December 2022 due to NSTEMI. Cardiac catheterization performed with evidence of nonobstructive coronary disease. Repeat echocardiogram demonstrating stable moderate aortic valve stenosis. A repeat echocardiogram performed on April 27 demonstrates progression to severe aortic stenosis. Patient evaluated by cardiothoracic surgery. He is scheduled for aortic valve replacement on . Today, feeling well from a cardiovascular perspective. Playing golf regularly. Denies recurrent exertional chest pain or unusual shortness of breath. Admits to noncompliance with amlodipine. Recentlyrestarted medication. Blood pressure borderline elevated. Tolerating other medications listed below. Requesting [facility] paperwork. Cardiac catheterization report January 01, 2023: Nonobstructive coronary artery disease. No significant change compared to prior angiogram 07/16/2021. Right dominant coronary anatomy. The left main is a large vessel which bifurcates into the left anterior descending and left circumflex arteries. The left anterior descending artery is a type III vessel which wraps around left ventricular apex. There is mild, 20% stenosis in the proximal segment. Mild luminal irregularities, 10% noted in the mid segment. The apical segment is small, less than 1 mm with HOWARD II flow. No discrete obstruction visualized however the vessel is diffusely disease and small caliber. The LAD gives rise to 2 large caliber diagonal branch vessels that are free of obstructive disease. The left circumflex is a large nondominant vessel giving rise to a small first obtuse marginal, large second obtuse marginal, 3rd small obtuse marginal,moderate caliber left posterior lateral branch artery, and a second small posterior lateral branch artery. The right coronary artery is a large dominant vessel giving rise to acute marginal and posterior descending artery. There is a 30% proximal RCA stenosis. The posterior descending artery tapers down to a small, 1 mm vessel near the apex. There are mild luminal irregularities in the mid to distal vessel with 10% stenosis. The JR4 catheter was removed due to deep engagement. No significant epicardial coronary artery stenosis amenable to PCI, however, apical perfusion may be compromised due to coronary vasospasm and small caliber of the distal LAD and distal posterior descending artery. Hemodynamics Rest Ao:124/69/92 Final Ao:135/74/99 Cardiac Cath report reviewed dated 07/16/21 at [facility]: Right dominant coronary anatomy. The left main is a large vessel which bifurcates into the left anterior descending and left circumflex arteries. The left anterior descending artery is a type III vessel which wraps around left ventricular apex. There is mild, 10% stenosis in the proximal segment. Mild luminal irregularities, 10% noted in the mid segment. The apical segment is small, less than 1 mm with HOWARD II flow. No discrete obstruction visualized however the vessel is diffusely disease and small caliber. Coronary vasospasmstill suspected. The LAD gives rise to 2 large caliber diagonal branch vessels that are free of obstructive disease. The left circumflex is a large nondominant vessel giving rise to a small first obtuse marginal, large second obtuse marginal, moderate caliber left posterior lateral branch artery, and a second small posterior lateral branch artery. The right coronary artery is a large dominant vessel giving rise to acute marginal and posterior descending artery. The posterior descending artery tapers down to a small, 1 mm vessel near the apex. There are mild to moderate luminal irregularities in the mid to distal vessel with 20-10% stenosis. The JR4 catheter was removed due to deep engagement and vasospasm with damping of the arterial waveform. There does not appear to be significant epicardial coronary artery stenosis amenable to PCI, however, apical perfusion may be compromised due to coronary vasospasm and small caliber of the distal LADand distal posterior descending artery. Consider addition of vasodilator therapy. 2D echocardiogram report April 27, 2023: The qualitative LV ejection fraction is 60-64% [...] follows: Severe aortic valve stenosis now present. 2D echocardiogram report June 23, 2022: The qualitative LV ejection fraction is 55-59% (normal). The LV wall thickness is moderately increased (concentric). The right ventricular systolic function is normal as assessed by tricuspid annular plane systolic excursion (TAPSE) (normal >1.7cm). The left atrium is normal sized (< 35 ml/m^2). The left ventricular diastolic function is mildly abnormal (grade I). The aortic valve is congenitally bicuspid. The aortic valve is moderately calcified. There is no significant aortic regurgitation. Moderate aortic valve stenosis is present. The aortic root and proximal ascending aorta are mildly enlarged. Mild mitral regurgitation is present. Mild tricuspid regurgitation is present. 2D echocardiogram report July 10, 2021: The LV wall thickness is moderately increased (concentric). The left ventricular wall motion is normal. The qualitative LV ejection fraction is 55-59% (normal). The left ventricular diastolic function is moderately abnormal (grade II). The aortic valve is congenitally bicuspid. The aortic valve is moderately calcified. Moderate aortic valve stenosis is present. Mild mitral regurgitation is present. Mild tricuspid regurgitation is present. There is no evidence of pulmonary hypertension. The aortic root is mildly dilated (4.2 cm). The proximal ascending aorta is mildl dilated (3.9 cm). Compared to the prior study performed 07/02/20, the severity of the aortic valve stenosis has progressed to a subtle degree. The aortic root and proximal ascending aorta diameters are relatively unchanged. 2D echocardiogram report reviewed, 06/2020: Preserved LV systolic function. Moderately calcified bicuspid aortic valve. Moderate to borderline severe aortic stenosis, peak velocity 3.2 m/sec. Calculated LYLA 0.9cm2 Mild aortic root enlargement, 4.1 cm. Exercise Stress Echo report reviewed, dated 05/2019: Interpretation Summary The primary indication after review was deemed appropriate and the examination was performed. The stress echo is negative for inducible ischemia. No arrhythmias. Hypertensive BP response to exercise. Average exercise tolerance. 2D echocardiogram report May 23, 2019: The left ventricular cavity size is normal. The LV wall thickness is mildly increased (concentric). The left ventricular wall motion is normal. Qualitative LV ejection Fraction = 60%. The left ventricular diastolic function is mildly abnormal (grade I). The aortic valve is congenitally bicuspid. The aortic valve is moderately calcified. Peak instantaneous pressure gradient across the aortic valve is approximately 40 mHg, with mean gradient 22 mmHg, and calculated aortic valve orifice area of 0.9 cm2. Compared to previous study dated 06/23/2017, severity of aortic valve stenosis has increased. 2D echo report dated 10/21/18 at [facility], per report scanned into Epic: Normal ejection fraction, 55%. Grade 1 diastolic dysfunction. Normal right ventricular systolic function. Normal left atrium. Functional bicuspid aortic valve. There is trace aortic regurgitation and moderate aortic stenosis. The aortic valve is thickened and calcified. Mild to moderate mitral regurgitation. The mitral valve is thickened. Mild TR. Aortic root is enlarged at 4.1 cm. Ascending aorta measurements at 3.8 cm 2D echocardiogram report June 23, 2017: The qualitative LV ejection fraction is 55-59% (normal). The LV wall thickness is mildly increased (concentric). The aortic valve is congenitally bicuspid. The aortic valve is moderately calcified. Mild aortic valve stenosis is present. Mild aortic valve regurgitation is present. Mild mitral regurgitation is present. Trace tricuspid regurgitation No pericardial effusion is noted. The aortic root and proximal ascending aorta are normal sized. ROS: All others negative other than those noted in the HPI. Patient Active Problem List Diagnosis Code Familial [...] below 70 E78.5 Coronary artery disease involving wrangell coronary artery of wrangell heart without angina pectoris I25.10 Carpal tunnel syndrome G56.00 Coronary vasospasm (HCC) I20.1 Type 2 diabetes mellitus with diabetic neuropathy (HCC) E11.40 Social History Tobacco Use Smoking status: Current Some Day Smoker Types: Cigarettes Smokeless tobacco: Former User Types: Chew Substance Use Topics Alcohol use: Yes Comment: occ Drug use: No Review of patient's allergies indicates: Allergen Reactions [...] No current facility-administered medications for this visit. OBJECTIVE/PHYSICAL EXAMINATION: BP 140/80 (BP Site: Left Arm, BP Position: Sitting, BP Cuff Size: Large) | Pulse 64 | Resp 14 | Wt 95.7 kg (211 lb) | BMI 30.28 kg/m | BSA 2.17 m General: NAD, AAO x3, well nourished. HEENT: Normocephalic. Atraumatic. Conjunctiva pink, no scleral icterus. No carotid bruits, the carotid upstrokes are brisk. No JVD. No HJR Heart: Regular normal S-1 and S-2 no S-3 or S-4 gallop. 2/6 low-pitched mid-late peaking systolic ejection murmur heard best at the right 2nd intercostal space with radiation to the base of the carotid arteries bilaterally. PMI is not displaced. No RV heave. Lungs: Clear bilateral without rales , rhonchi, or wheeze. Abdomen: Normal bowel sounds. Soft. Nontender. No masses or organomegaly. No abdominal bruits. Extremities: No clubbing, cyanosis, or edema. Pulses: radial=2/4, Dorsalis pedis =2/4, posterior tibial=2/4. Neuro: No focal deficits. ASSESSMENT: 1. Bicuspid aortic valve with severe aortic stenosis and mild aortic insufficiency. 2. Moderate nonobstructive coronary artery disease with small distal vessels and evidence of coronary vasospasm. -stable CAD per most recent catheterization 12/2022 -intolerant of long-acting nitrates -non compliant with calcium channel arnoldo therapy 3. Mild aortic root and ascending aortic enlargement 4. Familial dyslipidemia - uncontrolled; most recent LDL 106mg/dL 06/01/2022 5. HTN - controlled 6. Tobacco use - snuff and smoking approximately 2 cigarettes per day 7. Erectile dysfunction PLAN: Natural history and pathophysiology of bicuspid aortic valve and aortic stenosis discussed. Patientscheduled for aortic valve replacement with Dr. Parnell 06/04/2023. Proceed with dental evaluation as scheduled. Results of most recent lab studies reviewed. Continue current cardiovascular medications as listed above including amlodipine, atorvastatin, lisinopril, aspirin, and clopidogrel. Importance of compliance reviewed. Recommend abstinence from all tobacco products. All questions answered to patient's satisfaction. He is agreeable to the current plan, however, will report any change or decline in clinical status. Follow Up: Return in about 2 months (around 07/10/2023). Hero Monique DO, [facility] - [place] documented in this encounter Nursing Notes * Sherice Diaz RN - 05/10/2023 10:29 AM EDT Examination Room: 13 Name: Tobi Sanchez Date of : (1960). Reason for Visit: Follow up Interim Hospitalization(s): No Problems/Concerns: Scheduled for aortic valve replacement 06/04/23; Dr. Parnell. Holding plavix currently for dental procedure. Would like to discuss FMLA paperwork. Chest Pain/SOB: Denies [facility] Discussed: Not applicable [facility] is a way you can talk to your provider online through e-mail. Would you like to sign up? I can activate it for you? ALREADY ACTIVE Patient was instructed to not get up on the exam table until directed and assisted by their provider; patient is to remain seated in the chair/ wheelchair/ exam table for fall prevention and safety reasons. Patient is aware to have assistance to step down off exam table with personnel. Patient voiced full comprehension of instructions. documented in this encounter Plan of Treatment Upcoming Encounters Date Type Specialty Care Team Description 05/12/2023 Office Visit Dentistry Brianne Webster, [facility] [address] [place] [address] 06/04/2023 Hospital Encounter Surgery Kayode Parnell MD [address] [place] [address] 06/04/2023 Anesthesia Event Surgery Anshul Araujo CRNP [address] [place] [address] 06/04/2023 Surgery Surgery Kayode Parnell MD [address] [place] [address] REPLACEMENT AORTIC VALVE, BYPASS WITH PROSTHETIC VALVE 07/12/2023 Office Visit Cardiology Joan Portillo PA-C [address] [place] [address] 09/21/2023 Office Visit Cardiology Hero Monique DO [address] [place] [address] Scheduled Procedures Name Priority Associated Diagnoses Date/Ti me REPLACEMENT AORTIC VALVE, BYPASS WITH PROSTHETIC VALVE Aortic valve stenosis 06/04/2023 7:00 AM EDT Health Maintenance Due Date Last Done Comments DISCUSS TOBACCO CESSATION (REFER TO SMARTSET #8512) 1960 COVID-19 Vaccine (#1) 03/11/1962 DIABETES-EYE EXAM [...] as of this encounter Visit Diagnoses Diagnosis Aortic stenosis due to bicuspid aortic valve- Primary Coronary artery disease involving wrangell coronary artery of wrangell heart without angina pectoris HTN, goal below 140/90 Unspecified essential hypertension Tobacco use disorder Coronary vasospasm (HCC) Prinzmetal angina Dyslipidemia, goal LDL below 70 Other and unspecified hyperlipidemia Aortic valve stenosis Aortic valve disorders documented in this encounter Care Teams Propulsion Generator Repairer Relationship Specialty Start [place] [address] [facility], [place]) [place] [address] PCP - General Family Medicine 10/02/16 documented as of this encounter"
--- OUTSIDE RECORDS SUMMARY | 2023-07-02 09:12 | External Medical Summary | Summary of Care ---
Author Name Unknown Organization [facility] Address [address] [place] [address] Phone [phone] Care Team Providers Care Advertising Vice President Name Role Phone Luciana Leung DO Primary Care Provider [phone] Reason for Visit * Reason Comments Pulmonary Function Test Encounter Details Date Type Department Care Team Description 05/06/2023 PulmDiagnostic Pulmonary Function Lab, [place] [address] [place], [place] [id number] 2, Pft Room [address], [place] [id number] Nonrheumatic aortic valve stenosis* Allergies Active Allergy Reactions Severity Noted Date Comments Simvastatin 11/01/2018 Elevated liver functions documented as of this encounter (statuses as of 05/06/2023) Medications Medication Sig Dispensed Refills Start Date [...] Tablet Extended Release 24 Hour (toPROL XL)Indications:NSTE DC (non-ST elevation myocardial infarction) (HCC) Take 1 [...] as of this encounter (statuses as of 05/06/2023) Active Problems Problem Noted Date 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 09/24/2021 Carpal tunnel syndrome 08/25/2021 Coronary vasospasm 08/25/2021 Dyslipidemia, goal LDL below 70 08/07/20 21 Coronary artery disease invo lving [place] coronary artery of [place] heart without angina pectoris 08/07/2021 COVID-19 vaccination [...] as of this encounter (statuses as of 05/06/2023) Resolved Problems Problem Noted Date Resolved Date Acute pancreatitis 11/01/2018 01/26/2019 Bicuspid aortic valve 10/03/2016 01/26/2019 Need for hepatitis C screening test 10/03/2016 08/02/2017 documented as of this encounter (statuses as of 05/06/2023) Immunizations Name Administration Dates Next Due PPD [...] Used Date Smoking Tobacco: Every Day Cigarettes Smokeless Tobacco: Current Chew Comments:1 cigarette a day Alcohol Use Standard Drinks/Week Comments Yes 0 [...] as of this encounter Nursing Notes * Bethany Strange RRT-NPS - 05/06/2023 12:09 PM EDT Patient identified by name and date of . Abg with direct O2 saturation drawn from left radial artery. Positive carley test. Spirometry performed. documented in this encounter Plan of Treatment Upcoming Encounters Date Type Specialty Care Team Description 05/06/2023 Pre-Admission Testing PreSurgery Arash [place] [address] [facility] [place] [address] 05/10/2023 Office Visit Cardiology Hero Monique DO [address] [place] [address] 06/04/2023 Hospital Encounter Surgery Kayode Parnell MD [address] [place], [place] [id number] 06/04/2023 Surgery Surgery Kayode Parnell MD [address] [place], [place] [id number] REPLACEMENT AORTIC VALVE, BYPASS WITH PROSTHETIC VALVE 09/21/2023 Office Visit Cardiology Hero Monique DO [address] [place] [address] Pending Results Name Type Priority Associated Diagnoses Date /Time BLOOD GAS, ARTERIAL Lab Routine Nonrheumatic aortic valve stenosis 05/06/2023 12:00 PM EDT BASIC SPIROMETRY Procedures Routine Nonrheumatic aortic valve stenosis 05/06/2023 11:46 AM EDT Scheduled Procedures Name Priority Associated Diagnoses Date/Ti me REPLACEMENT AORTIC VALVE, BYPASS WITH PROSTHETIC VALVE Aortic valve stenosis 06/04/2023 7:00 AM EDT Health Maintenance Due Date Last Done Comments DISCUSS TOBACCO CESSATION (REFER TO SMARTSET #[id number]) 1960 COVID-19 Vaccine (#1) 03/11/1961 DIABETES-EYE EXAM 1979 Diabetic Foot Exam 1979 Cologuard 2006 Fecal Occult Blood Test 2006 Sigmoidoscopy 2006 Zoster Vaccines (2 of 2) 07/04/2020 05/09/2020 Depression Screening 05/09/2021 05/09/2020 Pneumococcal Vaccine: Pediatrics (0 to 5 Years) and At-Risk Patients (6 to 64 Years) (2 - PCV) 05/09/2021 05/09/2020 HbA1c 11/30/2022 06/01/2022, 06/23, 05/09/2020, Additional history exists Albumin/Creatinine Ratio 06/01/2023 06/01/2022, 06/23 GFR 02/10/2024 02/09/2023, 05/23, 07/04/2021, Additional history exists DTaP,Tdap,and Td Vaccines (2 [...] Procedure Name Priority Date/Time Associated Diagnosis Comments BASIC SPIROMETRY Routine 05/06/2023 11:46 AM EDT Nonrheumatic aortic valve stenosis documented in this encounter Visit Diagnoses Diagnosis Nonrheumatic aortic valve stenosis- Primary Aortic valve disorders Aortic valve stenosis Aortic valve disorders documented in this encounter Care Teams Advertising Vice President Relationship Specialty Start Date End Date Luciana Leung DO [address] [facility] [place] [address] PCP - General Family Medicine 10/02/16 documented as of this encounter
--- OUTSIDE RECORDS SUMMARY | 2023-07-02 09:12 | External Medical Summary ---
Author Name Unknown Address Unknown Organization [id number][place] [facility] [place] [address] [place] [address] Laboratory Report Ordering Provider Test Date Status ZELALEM CABRALES 05/06/2023 12:55:42 Final Warfarin Therapy
INR: 2 .0-3.0 conventional anticoagulation
INR: 2.5- 3.5 high intensity anticoagulation Observation Date Value Abnormality Reference (Units ) Status PT 05/06/2023 12:55:42 12.4 11.6-15.2 (seconds) Final INR 05/06/2023 12:55:42 0.9 0.8-1.2 Final Performing Location [facility] [place] [address] [place] [address]
--- OUTSIDE RECORDS SUMMARY | 2023-07-02 09:12 | External Medical Summary ---
Author Name Unknown Address Unknown Organization [id number]:[facility] [place] [address] [place] [address] Laboratory Report Ordering Provider Test Date Status ZELALEM CABRALES 05/06/2023 13:15:12 Final Observation Date Value Abnormality Reference (Units) Status Bacteria identified in Specimen by Culture 05/06/2023 13:15:12 No significant growth Final Test: Culture, Urine, Quanti tative
Specimen Source: Urine, Clean Catch
Specimen Type: Urine
Specimen Date: 05/06/2023 1:15 PM
Result Date: 05/07/2023 9:23 AM
Result Status: Final result
Resulting Lab: [facility] [place]
[address]
[facility] [address]

CULTURE

No significant growth

null Performing Location [facility] [place] [address] [place] [id number]
--- OUTSIDE RECORDS SUMMARY | 2023-07-02 09:12 | External Medical Summary ---
Author Name Unknown Address Unknown Organization [id number]:[facility] [place] [address] [place] [address] Laboratory Report Ordering Provider Test Date Status ZELALEM CABRALES 05/06/2023 13:05:26 Final Observation Date Value Abnormality Reference (Units ) Status ABO 05/06/2023 13:05:26 AB Final RH 05/06/2023 13:05:26 Positive Final Performing Location [facility] [address] [facility] [address]
--- OUTSIDE RECORDS SUMMARY | 2023-07-02 09:12 | External Medical Summary ---
Author Name Unknown Address Unknown Organization [id number]:[facility] [place] [address] [facility] [address] Laboratory Report Ordering Provider Test Date Status ZELALEM CABRALES 05/06/2023 12:55:42 Final Observation Date Value Abnormality Reference (Units ) Status Iron 05/06/2023 12:55:42 82 45-176 (ug /dL) Final Iron-binding capacity 05/06/2023 12:55:42 323 250-425 (ug/dL) Final Transferrin Sat % 05/06/2023 12:55:42 25 15 -55 (%) Final Performing Location [facility] [place] [facility] [address] [facility] [address]
--- OUTSIDE RECORDS SUMMARY | 2023-07-02 09:12 | External Medical Summary ---
Author Name Unknown Address Unknown Organization [id number]:[facility] [place] [address] [facility] [place] [id number] Laboratory Report Ordering Provider Test Date Status ZELALEM CABRALES 05/06/2023 13:15:12 Final Observation Date Value Abnormality Reference (Units ) Status Color of Urine by Auto 05/06/2023 13:15:12 Light Yellow Colorless, Light Yellow, Yellow, Dark Yellow Final Clarity, Urine 05/06/2023 13:15:12 Clear Clear Final Glucose [Mass/volume] in Urine by Automated test strip 05/06/2023 13:15:12 Negative Negative (mg/dL) Final Bilirubin.total [Presence] in Urine by Automated test strip 05/06/2023 13:15:12 Negative Negative Final Ketones [Mass/volume] in Urine by Automated test strip 05/06/2023 13:15:12 Negative Negative (mg/dL) Final Specific gravity, Urine 05/06/2023 13:15:12 1.021 1.003-1.030 Final Hemoglobin [Presence] in Urine by Automated test strip 05/06/2023 13:15:12 Negative Negative Final pH, Urine 05/06/2023 13:15:12 6.0 5.0-7.5 (Units) Final Protein [Mass/volume] in Urine by Automated test strip 05/06/2023 13:15:12 Negative Negative (mg/dL) Final Urobilinogen [Mass/volume] in Urine by Automated test strip 05/06/2023 13:15:12 Normal Normal (mg/dL) Final Nitrite [Presence] in Urine by Automated test strip 05/06/2023 13:15:12 Negative Negative Final Leukocyte esterase [Presence] in Urine by Automated test strip 05/06/2023 13:15:12 Negative Negative Final Annotation Comment 05/06/2023 13:15:12 Final Screen negative - Microscopi c not performed. Performing Location [facility] - [address] [facility] [place] [id number]
--- OUTSIDE RECORDS SUMMARY | 2023-07-02 09:12 | External Medical Summary | Summary of Care ---
Author Name Unknown Organization [facility] Address [address] [place] [address] Phone [phone] Care Team Providers Care Barrel Cutter Name Role Phone Luciana Leung DO Primary Care Provider [phone] Reason for Visit * Reason Onset Date Comments Pre-Op Testing 05/06/2023 Encounter Details Date Type Department Care Team Description 05/06/2023 Pre-Admission Testing Pre Surgery [facility] [address], [place] [id number] [facility] [address] [place] [address] Pre-operative examination*; Nonrheumatic aortic valve stenosis Allergies Active Allergy Reactions Severity Noted Date [...] Tablet Extended Release 24 Hour (toPROL XL)Indications:NSTE ME (non-ST elevation myocardial infarction) (HCC) Take 1 [...] (Shingrix) 05/09/2020 documented as of this encounter Anesthesia Record Procedure Summary Procedure Name Responsible Anesthesiologist Anesthesia Start Time Anesthesia Stop Time REPLACEMENT AORTIC VALVE, BYPASS WITH PROSTHETIC VALVE Events No events on file. Meds * Agents No agents on file. * Blood No blood administrations on file. Lines, Drains, and Airways No LDAs on file. documented in this encounter Social History Tobacco Use Types [...] on file documented as of this encounter Patient Instructions * Patient Instructions* JOSSUE Worley - 05/06/2023 12:53 PM EDT [facility]: Contact # [phone] Directions to Surgical Suite in from the [place] Entrance The Surgical Waiting Room can be found in the Lobby of [facility]. Enter through Main Lobby Entrance and the Waiting Room is directly in front of you. Proceed to check in and give them your name. Directions to Surgical Suite from the East Entrance Enter the East entrance and follow the hallway to the J elevator. Take the J elevator up to Level 1. Continue down the long hallway to the main [facility] Lobby. The Surgical Waiting Room will be on your Right. Proceed to check in and give them your Name. Directions to Surgical Suite from the Parking Garage Enter the [facility] lobby and proceed down the martin to the left. At the end of the martin, turn right. Continue down the long hallway to the main [facility] Lobby. The Surgical Waiting Room will be on your Right. Proceed to check in and give them your Name. THANK YOU FOR CHOOSING [facility]! PRE-OP PATIENT INFORMATION AND EDUCATION: Please bring your CPAP mask/tubing with you the day of surgery. MEDICATION INSTRUCTIONS: The day of surgery/procedure, you may TAKE the following medications with a sip of water up to 2 hours prior to your arrival time: -Amlodipine -Lipitor -Metoprolol/Toprol -Protonix You may continue taking your Aspirin per your surgeon's instructions. STOP taking the following medications the noted number of days prior to surgery/procedure unless otherwise specified by your surgeon: -STOP taking your Lisinopril 3 days prior to surgery, per your surgeon's instructions. -STOP taking your Plavix 7 days prior to surgery, per your surgeon's instructions. -STOP taking your Multivitamin 10 days prior to surgery. Please follow surgeon's instructions regarding use of Aspirin, Coumadin, Plavix, Eliquis, and any other blood thinner including NSAIDs (non-steroidal anti- inflammatory drugs, eg, Advil, Ibuprofen, Motrin, Aleve, Naproxen). 10 days prior to surgery/procedure Stop all Herbal supplements, Green Tea, Turmeric, Melatonin, CBD, THC, etc. Stop all Vitamins (including Vitamin E) 24 hours prior to surgery/procedure DO NOT consume any alcohol. DO NOT use medical marijuana. DO NOT smoke or use tobacco products of any kind after midnight prior to surgery. *Using any of these products may increase your risks of procedural complications. IF IT IS LESS THAN RECOMMENDED STOPPAGE TIME PLEASE STOP AT TIME OF NOTIFICATION. FASTING RECOMMENDATIONS: To reduce risk, it is important for all elective surgery patients to follow the specific fasting guidelines listed below. DO NOT EAT after midnight on the night prior to your surgery date. You are allowed to drink clear liquids up to two hours prior to arrival time to the hospital or surgery center. Examples of clear liquids include water, clear fruit juice without pulp, clear carbonated beverages, clear tea, and black coffee. Any drinks given by your surgical service take as directed. THE DAY BEFORE YOUR SURGERY: -Drink plenty of fluid the day before your surgery. Contact your surgeon's office if you develop any of the following within 2 weeks of surgery: A cold Infection Fever Shingles Chicken pox or exposure to chicken pox Open areas such as scrapes, cuts, mcknight or other skin conditions Rashes GENERAL INSTRUCTIONS FOR PREPARING FOR SURGERY: BATHING INSTRUCTIONS: Bathe the evening prior to and the morning of surgery/procedure. Cleanse your body using ONLY anti-bacterial soap (eg, Dial, Safeguard) or any specific soap/cleansers and instructions provided by your surgeon (eg, Chlorhexidine). -You should brush your teeth the morning of surgery. Do NOT apply any lotions, powders, sprays, creams, oils, make-up, or deodorants after bathing. No hairspray, or nail pashto on fingers or toes. Day of surgery/procedure do not use tampons. If you wear contacts wear your eyeglasses if available otherwise bring your contact supplies with you to remove them prior to your surgery/procedure. If you wear glasses or dentures, please bring cases in which you can store them during your surgery. Please remove all piercings and jewelry and leave them at home. Wear comfortable and loose clothing. -Please leave all valuables at home. -If you use a CPAP and are staying overnight, please bring your mask. -If you use an assistive mobility device (walker, cane, etc), please label it with your name and bring to hospital. -An escort interstate bus driver is required if you are being discharged the same day of the surgery. You should have a responsible adult over the age of 18 [address] drive you home. This person should be present with youin the hospital at the time of discharge and for the first 24 hours after the surgery to support your needs. If you are taking a taxi home, you must have your responsible green party accompany you in the taxi ride home at the time of discharge. OR times subject to change. Please check voicemail messages the day/evening before your surgery forany updates. PRE-OP: You will be taken to the pre-op area where your vital signs (blood pressure, pulse and temperature)will be taken. Any preparations that need to be done will be done there. When it is time for your surgery, you will be taken to the operating room. PARENTS OF PEDIATRIC PATIENTS WILL BE ALLOWED TO STAY WITH THEIR CHILDREN UNTIL THEY ARE ESCORTED TO THE OPERATING ROOM OUTPATIENT SURGERY PATIENTS: After your surgery you will be taken to the Same Day Surgery Unit when you are awake and will go home from there. You will get instructions about your home care before you leave. Arrange to have someone drive you home from the hospital. You may not drive for 24 hours after anesthesia. You must havean adult stay with you at home for 24 hours after your operation. This is very important. If you are not able to comply with these guidelines, your Short Stay surgery cannot be done. ADMISSION PATIENTS: After your stay in the recovery area, you will be taken to your room. Your family may visit you in your room based on current visitation policy. If a next day discharge is expected, it is important to make arrangements for a interstate bus driver to take you home. Please be aware our visitation policies are subject to change Professionals, attendants, caregivers or family members are allowable visitors for patients with intellectual, developmental or cognitive disabilities, communication barriers or behavioral concerns. Because patients' and families' needs vary, they will be taken into account when applying visitation restrictions. ANESTHESIA INFORMATION This information has been prepared to help you and your family better understand the process of anesthesia, so that you may help make well-informed decisions about your care. This information is alsoprovided to guide your completion of the [facility] consent form which addresses real, but infrequent, problems associated with anesthesia. IMPORTANT INFORMATION TO PREVENT YOUR SURGERY FROM BEING CANCELLED/ RESCHEDULED: --You are required to have a interstate bus driver to take you home whether you are admitted to the hospital following your surgery or not --You are required to have a responsible adult with you for the first 24 hours after surgery to support your needs Types of Anesthesia: Local Anesthesia Local anesthetic drugs (numbing drugs) are usually injected into the tissues to numb just the specific location of your body requiring minor surgery, such as an area of your hand or foot. Regional Anesthesia -Regional anesthesia involves the use of local anesthetics (numbing drugs) to numb larger areas of your body by blocking nerves to those areas. This is commonly referred to as a nerve block. Another way of performing regional anesthesia is by blocking nerves of the spinal cord by injecting numbing m edicines with great exactness around those nerves. This is called spinal or epidural anesthesia depending on exactly where the medication is injected. The type of regional anesthesia selected dependson the type of surgery and whether regional anesthesia is being done to help with pain after surgery or as a part of the anesthesia for surgery. You may remain awake, be sedated, or be given a general anesthetic depending on the type of surgery and the type of regional anesthesia performed Monitored Anesthesia Care (MAC) -Describes a range of sedation that can be given to a patient undergoing a procedure. The level of sedation usually depends on what is needed for the procedure being performed. A patient could be awake and aware of the procedure being performed but be relaxed and able to follow instructions as needed or may be unaware of what is happening and only rouse to significant stimulation. A patient may be able to speak, hear things around them, and answer questions and follow commands but is not in pain or anxious. A patient may experience varying depths of sedation during the procedure. The use of general anesthesia could result if this type of anesthesia is ineffective. General Anesthesia - Occurs by using a combination of medications to put a patient into a deep, sleep-like, unresponsive state for surgery. This is required for many surgical procedures. Under general anesthesia, a patient does not feel pain and is unaware of what is happening during the procedure. Systems in the body may not function normally while a patient is under general anesthesia. They are monitored by the anesthesia provider and may need to be assisted while a patient is under general anesthesia. For example, a breathing device may need to be placed in the airway to assist breathing and medications may need to be given to ensure that your blood pressure and heart rate remain normal. Risks of Anesthesia: Regional/Local/Nerve Blocks -Include but are not limited to, , cardiac or respiratory arrest, permanent complete paralysis, permanent nerve injury, seizure, spinal headache, backache, pain in buttocks and legs, infection, bleeding, leakage of spinal fluid, inadequate pain relief, bowel or bladder dysfunction, prolonged numbness or pain, temporary drop in blood pressure, or allergic reaction to the medications. Monitored Anesthesia Care (MAC) -Common risks include temporary dizziness, light-headedness, nausea and/or vomiting, and leakage ofintravenous fluid into the tissues with swelling or discoloration of the area or residual pain. Less common risks include, but are not limited to, , heart attack, permanent brain damage, stroke,pneumonia, blood clots, awareness, nerve stretch injury of your arm, neck or leg, permanent liver damage and allergic reaction to the medications. General Anesthesia -More common risks include temporary sore throat, pain in the neck or other muscles, dizziness, light-headedness, nausea and/or vomiting, and leakage of intravenous fluid into the tissues with swelling or discoloration of the area or residual pain. Less common risks include, but are not limited to,, heart attack, permanent brain damage, stroke, pneumonia, blood clots, irritation of the cornea of your eye, vision loss, loosened or broken teeth, or other oral injuries, awareness, nerve stretch injury of the arm, neck or leg, hoarseness, laryngospasm, permanent liver damage and allergic reaction to the medications. History of anesthesia complications: If you or a family member have had a complication related to anesthesia such as difficulty with placement of a breathing tube or a serious reaction to a medication administered for anesthesia, pleasetell your anesthesia provider. Having this information will help keep you safe while under anesthesia Nausea: A common side effect of anesthesia is nausea, but some patients do experience both nausea and vomiting. If you have experienced nausea or vomiting after anesthesia in the past, be sure to tell your anesthesia provider so medication can be given to help prevent it from happening again. Patient safety/consenting process: All surgical procedures and anesthetics have some small risks. They are dependent upon many factorsincluding the type of surgery and your medical condition. That is why it is important to know aboutany underlying medical problems, how they are treated and how they can be managed to reduce the risks of anesthesia and surgery. Thus, it is important for your anesthesia provider to ask detailed questions about your medical history, and to know what prescription medications you are taking, including dosages and schedules, as well as any over the counter or herbal medicines and supplements. You must notify the doctor of any of the following: -if you are or possibly -if you have any sensitivity to medications -present mental and physical condition -if recently consumed alcohol or non-clear liquids -if you are presently on psychiatric mood-altering drugs or other medications If you are a female of child-bearing age and you use any form of hormone-based contraception, please continue to use it and, in addition, use an alternative form of contraception, such as condoms andspermicide for a month after discharge from the hospital. This is because during the hospitalization you might receive one or more medications that may render hormone-based contraceptives ineffective for several days or weeks. The affected contraceptives include, but are not limited to, the usual contraceptive pills, most types of intrauterine devices, Depo-Provera shots, hormonal patches, and hormonal vaginal rings. If you are not sure, contact your primary care physician, your command center officer, or your surgeon to check if this warning applies to you. You may need to have invasive monitoring, which includes the insertion of catheters into your veinsand arteries. This is done to measure pressures, to take blood samples, and may be used in emergentsituations for intravenous access. This monitoring has risks including, but not limited to, injury to your arteries, lung collapse, bleeding, nerve injury as well as the risks related to anesthesia. An esophageal probe may be used to monitor your heart, this monitor has risks which include sore throat, hoarseness, difficulty with swallowing, loosened or broken teeth and esophageal injury. Major complications are rare but could include , respiratory distress, an abnormal heartbeat, infection, and bleeding. As part of the consent to administer anesthesia authorization you will discuss the following with the anesthesia doctor and his/her associates: -your present condition and diagnosis as it pertains to anesthesia or sedation administration -a description of the proposed anesthetic/sedation technique or procedure to be used -significant risks and benefits of the proposed anesthetic/sedation technique or procedure -any applicable alternatives, including their risks and benefits -if applicable, use of back-up method of contraception for 30 days after discharge -if applicable, the option of having no treatment and the potential results of this -if your procedure is in an outpatient surgery setting-the risk associated with having this procedure in this type of setting should be discussed as well as the potential need for transfer to the hospital if necessary Please be sure to have all questions that you have answered prior to signing the consent to administer anesthesia. You can make your care safer by being an active, informed patient. It is important that you are involved in your health care. Being a good patient does not mean being a silent one. If you have questions, problems, safety concerns or unmet needs, please let us know if you would like further clarification of the "Patient Rights and Responsibilities" as they pertain to you, or would like more information regarding our complaint and for grievance process, please call the site where you receive care and request to speak withthe patient advocate line. documented in this encounter Progress Notes * JOSSUE Worley - 05/06/2023 12:34 PM EDT ~SEE ANESTHESIA EVENT FOR PRE-OP ANESTHESIA ASSESSMENT~ ~~~~~~~~~~~~~~~~~~~~~~~~~~~~~~~~~~~~~~~~~~~~~~~~~~~~ Patient identified by name/birthdate Optime case procedure confirmed with surgical consent Laterality confirmed as N/a Surgery date at time of Pre-Surgery Center Encounter: 06/04/2023 What procedure is patient having? AVR (tissue) for aortic valve stenosis Anesthesia Consent pool notified: N/A In an emergency, is patient willing to accept blood products or blood transfusion? Yes Does Blood Bank order need placed? Yes; order(s) placed by surgeon. Anesthesia evaluation requested per case documentation. No Preop Eval Requested? No PATIENT EDUCATION SCREENING Education Screening: Patient Preoperative bathing instructions were reviewed with patient. Motivation Level: Asks Questions and Eager to Learn Language Barrier: No Physical Barrier: N/A Patient Preferred Learning Methods: Reading and Lecture LEARNING NEED: Printed Patient Education Given: Preop Information: Adult Persons present for education: Patient METHOD: One to One OUTCOME: State / Describe / Explain PATIENT INSTRUCTIONS GIVEN: General Preoperative Instructions Reviewed Medication Instructions Reviewed NPO Instructions Reviewed Verbalizes understanding of education: Yes COVID-19/Coronavirus Screening: Informant: Patient Have you been experiencing any symptoms of viral infection of the upper respiratory system (fever, cough, shortness of breath, myalgia, fatigue) in the last 16 days? No Symptoms started N/a Symptoms include none Symptom severity is N/a Additional details include: N/A In the last month, have you been in contact with someone who was confirmed or suspected to have Coronavirus/ COVID-19? No In the last month, have you been in contact with someone who was experiencing upper respiratory symptoms of viral infection? No Have you been diagnosed with COVID-19/Coronavirus? No If so, when were you given this diagnosis? N/a Are you currently experiencing any residual symptoms? When did your symptoms resolve? No, N/a Has patient undergone Infectious Disease consultation for Coronavirus/ COVID-19? No Does patient require Infectious Disease consultation/referral? No Pre-Anesthesia Review of Systems, Health History and Education completed Signature: JOSSUE Peguero 05/06/2023 documented in this encounter Nursing Notes * KARLA Sparrow - 05/06/2023 1:05 PM EDT Patient identified by: name/birthdate Current Lab work: Lab work drawn from right arm and median antecubital vein. ABO drawn from right arm and median antecubital vein. Previous Lab work: N/A EKG obtained: done today - 05/06/2023 Other Studies: UA Call grajeda in reach. Patient was instructed to not get up on the exam table/exam chair until directed and assisted by their provider; patient is to remain seated in the chair/ wheelchair/ exam table/ exam chair for fall prevention and safety reasons. Patient is aware to have assistance to step down off exam table/exam chair with personnel. Patient voiced full comprehension of instructions. documented in this encounter Plan of Treatment Upcoming Encounters Date Type Specialty Care Team Description 05/10/2023 Office Visit Cardiology Hero Monique DO [address] [place] [id number] 06/04/2023 Hospital Encounter Surgery Kayode Parnell MD [address] [place] [address] 06/04/2023 Anesthesia Event Surgery Anshul Araujo CRNP [address] [place] [address] 06/04/2023 Surgery Surgery Kayode Parnell MD [address] [place] [address] REPLACEMENT AORTIC VALVE, BYPASS WITH PROSTHETIC VALVE 09/21/2023 Office Visit Cardiology Hero Monique, DO [address] [place] [id number] Pending Results Name Type Priority Associated Diagnoses Date /Time TYPE AND SCREEN Lab Routine Nonrheumatic aortic valve stenosis 05/06/2023 12:55 PM EDT URINALYSIS, REFLEX TO MICROSCOPIC Lab Today Nonrheumatic aortic valve stenosis 05/06/2023 1:15 PM EDT Scheduled Orders Name Type Priority Associated Diagnoses Orde r Schedule ANEMIA CBC Lab Routine Nonrheumatic aortic valve stenosis Ordered: 05/06/2023 DIFFERENTIAL, AUTOMATED Lab Routine Nonrheumatic aortic valve stenosis Ordered: 05/06/2023 ANEMIA REFLEX CHEMISTRY HOLD Lab Routine Nonrheumatic aortic valve stenosis Ordered: 05/06/2023 Scheduled Procedures Name Priority Associated Diagnoses Date/Ti me REPLACEMENT AORTIC VALVE, BYPASS WITH PROSTHETIC VALVE Aortic valve stenosis 06/04/2023 7:00 AM EDT Health Maintenance Due Date Last Done Comments DISCUSS TOBACCO CESSATION (REFER TO SMARTSET #[id number]) 1960 COVID-19 Vaccine (#1) 03/11/1961 DIABETES-EYE EXAM [...] as of this encounter Visit Diagnoses Diagnosis Pre-operative examination- Primary Preoperative examination, unspecified Nonrheumatic aortic valve stenosis Aortic valve disorders Aortic valve stenosis Aortic valve disorders documented in this encounter Care Teams Barrel Cutter Relationship Specialty Start Date End Date Luciana Leung DO [address] [facility] [place] [id number] PCP - General Family Medicine 10/02/16 documented as of this encounter
--- OUTSIDE RECORDS SUMMARY | 2023-07-02 09:12 | External Medical Summary | Summary of Care ---
Author Name Unknown Organization [facility] Address [address] [place] [address] Phone [phone] Care Team Providers Care Creative Writing English Professor Name Role Phone Luciana Leung DO Primary Care Provider [phone] Reason for Visit * Reason Comments Pulmonary Function Test Encounter Details Date Type Department Care Team Description 05/06/2023 PulmDiagnostic Pulmonary Function Lab, [place] [address] [place], [place] [id number] 2, Pft Room [address] [place], [place] [id number] Nonrheumatic aortic valve stenosis* Allergies Active Allergy [...] Tablet Extended Release 24 Hour (toPROL XL)Indications:NSTE [place] (non-ST elevation myocardial infarction) (HCC) Take 1 [...] 08/07/20 21 Coronary artery disease invo lving [place] coronary artery of [place] heart without angina pectoris 08/07/2021 COVID-19 vaccination [...] Team Description 05/06/2023 Pre-Admission Testing PreSurgery Arash Mendes [address] [facility] [place] [address] Nonrheumatic aortic valve stenosis 05/10/2023 Office Visit Cardiology Hero Monique, DO [address] [place] [address] 06/04/2023 Hospital Encounter Surgery Kayode Parnell MD [address] [place] [address] 06/04/2023 Surgery Surgery Kayode Parnell MD [address] [place] [address] REPLACEMENT AORTIC VALVE, BYPASS WITH PROSTHETIC VALVE 09/21/2023 Office Visit Cardiology Hero Monique, DO [address] [place] [address] Pending Results Name Type Priority Associated Diagnoses Date /Time BASIC SPIROMETRY Procedures Routine Nonrheumatic aortic valve stenosis 05/06/2023 11:46 AM EDT Scheduled Procedures Name Priority Associated Diagnoses Date/Ti me REPLACEMENT AORTIC VALVE, BYPASS WITH PROSTHETIC VALVE Aortic valve stenosis 06/04/2023 7:00 AM EDT Health Maintenance Due Date Last Done Comments DISCUSS TOBACCO CESSATION (REFER TO SMARTSET #3295) 1960 COVID-19 Vaccine (#1) 03/11/1962 DIABETES-EYE EXAM [...] Procedure Name Priority Date/Time Associated Diagnosis Comments BLOOD GAS, ARTERIAL Routine 05/06/2023 1 2:00 PM EDT Nonrheumatic aortic valve stenosis BASIC SPIROMETRY Routine 05/06/2023 11:4 6 AM EDT Nonrheumatic aortic valve stenosis documented in this encounter Results * (ABNORMAL) BLOOD GAS, ARTERIAL (05/06/2023 12:00 [...] Amy Peterson PA-C LAB BLOOD ORDERABLES [facility] [address] [facility] [place] [address] documented in this encounter Visit Diagnoses Diagnosis Nonrheumatic aortic valve stenosis Aortic valve disorders Nonrheumatic aortic valve stenosis- Primary Aortic valve disorders Aortic valve stenosis Aortic valve disorders documented in this encounter Care Teams Creative Writing English Professor Relationship Specialty Start Date End Date Luciana Leung DO [address] [facility] [place] [address] PCP - General Family Medicine 10/02/16 documented as of this encounter
--- OUTSIDE RECORDS SUMMARY | 2023-07-02 09:12 | External Medical Summary ---
Author Name Unknown Address Unknown Organization [id number]:LABORATORY [facility] [place] - [address] [facility] [place] [address] Laboratory Report Ordering Provider Test Date Status ZELALEM CABRALES 05/06/2023 12:55:42 Final Anticoagulation may affect t esting. Refer to [email or web address] Test Catalog for a list of effects. Observation Date Value Abnormality Reference (Units ) Status aPTT panel - Platelet poor plasma 05/06/2023 12:55:42 26 21-38 (seconds) Final Performing Location LABORATORY [facility] [place] - [address] [place] [address]
--- OUTSIDE RECORDS SUMMARY | 2023-07-02 09:12 | External Medical Summary ---
Author Name Unknown Address Unknown Organization [id number]:LABORATORY [facility] [place] - [address] [facility] [address] [facility] [address] Laboratory Report Ordering Provider Test Date Status ZELALEM CABRALES 05/06/2023 12:55:42 Final Observation Date Value Abnormality Reference (Units ) Status HbA1C 05/06/2023 12:55:42 6.3 Above high normal 4. 0-5.6 (%) Final The use of HbA1c to monitor glycemic status is based on normal hemoglobin and HbA composition. This test should not be used in patients with abnormal hemoglobin that affects the half life of the red blood cell or the in vivo glycation rates. Glucose, estimated average 05/06/2023 12:55:42 134 Above high normal <126 (mg/dL) Rudolph joyce Performing Location LABORATORY [facility] [place] - [address] [facility] [address]
--- OUTSIDE RECORDS SUMMARY | 2023-07-02 09:12 | External Medical Summary ---
Author Name Unknown Address Unknown Organization [id number]:[facility]ORY [facility] [place] - [address] [facility] [address] [facility] [address] Laboratory Report Ordering Provider Test Date Status ZELALEM CABRALES 05/06/2023 12:55:42 Final Observation Date Value Abnormality Reference (Units ) Status BUN 05/06/2023 12:55:42 17 6-20 (mg/dL) Final Creatinine 05/06/2023 12:55:42 1.0 0.6-1.2 (mg/dL) Final Glomerular filtration rate/1.73 sq M.predicted [Volume Rate/Area] in Serum, Plasma or Blood by Creatinine-based formula (CKD-EPI) 05/06/2023 12:55:42 82 >=60 (mL/min) Final eGFR is calculated based on the CKD-EPI 2020 equation SODIUM 05/06/2023 12:55:42 141 135-146 (m mol/L) Final Potassium 05/06/2023 12:55:42 4.5 3.5-5.1 (m mol/L) Final Cl 05/06/2023 12:55:42 107 98-107 (mm ol/L) Final CO2 05/06/2023 12:55:42 24 22-32 (mmo l/L) Final Anion gap 05/06/2023 12:55:42 10 7-15 (mmol /L) Final Glucose 05/06/2023 12:55:42 95 70-120 (mg /dL) Final Calcium 05/06/2023 12:55:42 9.7 8.4-10.2 ( mg/dL) Final Performing Location LABORATORY [facility] [place] - [address] [place] [address]
--- OUTSIDE RECORDS SUMMARY | 2023-07-02 09:12 | External Medical Summary ---
Author Name Unknown Address Unknown Organization K01:LABORATORY [facility] [place] - [address] [facility] [address] Laboratory Report Ordering Provider Test Date Status SAMRAIAIN MARTINESLASHONDA 05/06/2023 12:55:42 Final Observation Date Value Abnormality Reference (Units ) Status SYNC LEUKOCYTES IN BLOOD BY AUTOMATED COUNT 05/06/2023 12:55:42 8.87 4.00-10.80 (K/uL) Final Segs 05/06/2023 12:55:42 57.9 40.0-75.0 (%) Final Lymphs % 05/06/2023 12:55:42 28.2 18.0-42.0 (%) Final Monos 05/06/2023 12:55:42 9.0 1.0-11.0 (%) Final Eosinophils 05/06/2023 12:55:42 3.6 0.0-6.0 (%) Final Basos 05/06/2023 12:55:42 0.8 0.0-2.0 (%) Final Immature Granulocyte, Percent 05/06/2023 12:55:42 0.5 0.0-2.0 (%) Final Absolute Segs 05/06/2023 12:55:42 5.14 1.80-7.70 (K/uL) Final Lymphs, absolute 05/06/2023 12:55:42 2.50 1.00-4.80 (K/ul) Final Monos, Abs 05/06/2023 12:55:42 0.80 0.00-1.10 (K/uL) Final Eos, Abs 05/06/2023 12:55:42 0.32 0.00-0.70 (K/uL) Final Basos, Abs 05/06/2023 12:55:42 0.07 0.00-0.20 (K/uL) Final Immature Granulocytes, Number 05/06/2023 12:55:42 0.04 0.00-0.20 (K/uL) Final Performing Location LABORATORY [facility] [place] - [address] [facility] [address]
--- OUTSIDE RECORDS SUMMARY | 2023-07-02 09:12 | External Medical Summary ---
Author Name Unknown Address Unknown Organization K01:LABORATORY [facility] [place] - [address] [facility] [address] [facility] [address] Laboratory Report Ordering Provider Test Date Status IAIN CABRALESLASHONDA 05/06/2023 12:55:42 Final Observation Date Value Abnormality Reference (Units ) Status Retic, % (auto) 05/06/2023 12:55:42 1.99 Above high normal 0.80-1.90 (%) Final Reticulocytes, Absolute 05/06/2023 12:55:42 92.7 31.3-100.1 (K/uL) Final Reticulocyte fraction, immature 05/06/2023 12:55:42 21.1 Above high normal 2.5-20.6 (%) Final Reticulocyte HGB 05/06/2023 12:55:42 33.9 29.7-37.4 (pg) Final Performing Location LABORATORY [facility] [place] - [address] [facility] [address]
--- OUTSIDE RECORDS SUMMARY | 2023-07-02 09:12 | External Medical Summary ---
Author Name Unknown Address Unknown Organization K01:LABORATORY [facility] [place] - [address] [facility] [address] Laboratory Report Ordering Provider Test Date Status ZELALEM CABRALES 05/06/2023 12:55:42 Final Observation Date Value Abnormality Reference (Units ) Status Albumin 05/06/2023 12:55:42 4.1 3.8-5.0 (g/dL) Final AST (Aspartate aminotransferase) 05/06/2023 12:55:42 31 10-50 (U/L) Final Result may be falsely elevat ed due to hemolysis. Alk Phos 05/06/2023 12:55:42 113 35-130 (U/ L) Final ALT (Alanine aminotransferase) 05/06/2023 12:55:42 44 10-50 (U/L) Final Bilirubin, Total 05/06/2023 12:55:42 0.3 <=1 .2 (mg/dL) Final Bilirubin, Direct 05/06/2023 12:55:42 <0.2 0. 0-0.3 (mg/dL) Final Result may be falsely decrea sed due to hemolysis. Protein 05/06/2023 12:55:42 6.6 6.0-8.3 (g /dL) Final Performing Location LABORATORY [facility] [place] - [address] [facility] [address]
--- OUTSIDE RECORDS SUMMARY | 2023-07-02 09:12 | External Medical Summary ---
Author Name Unknown Address Unknown Organization K01:LABORATORY [facility] [place] - [address] [place] [address] Laboratory Report Ordering Provider Test Date Status ZELALEM CABRALES 05/06/2023 12:55:42 Final Observation Date Value Abnormality Reference (Units ) Status WBC, Total 05/06/2023 12:55:42 8.87 4.00-10.8 0 (K/uL) Final RBC 05/06/2023 12:55:42 4.66 4.50-5.25 (M/uL) Final Hemoglobin 05/06/2023 12:55:42 13.9 Below low normal 14 .0-16.8 (g/dL) Final Anemia reflex testing trigge rs on a HGB < 12.0 for Females and HGB < 13.0 for Males in accordance with the WHO Anemia Guidelines
Anemia reflex testing triggers on a HGB < 12.0 for Females and HGB < 13.0 for Males in accordance with the WHO Anemia Guidelines HCT 05/06/2023 12:55:42 43.3 40.0-48.4 (%) Final MCV 05/06/2023 12:55:42 92.9 82.0-99.5 (fL) Final MCH 05/06/2023 12:55:42 29.8 27.0-34.0 (pg) Final MCHC 05/06/2023 12:55:42 32.1 32.0-36.0 (g/dL) Final RDW 05/06/2023 12:55:42 13.4 11.5-15.5 (%) Final Platelets 05/06/2023 12:55:42 271 140-400 (K /uL) Final MPV 05/06/2023 12:55:42 10.0 6.6-11.1 ( fL) Final Nucleated erythrocytes/100 leukocytes [Ratio] in Blood by Automated count 05/06/2023 12:55:42 0 <=0 (/100 WBCs) Fi [facility] Performing Location LAB[facility]AT[facility] - [address] [facility] [address]
--- OUTSIDE RECORDS SUMMARY | 2023-07-02 09:12 | External Medical Summary ---
Author Name Unknown Address Unknown Organization K01:[place] [place] [address] [facility] [address] Laboratory Report Ordering Provider Test Date Status ZELALEM CABRALES 05/06/2023 12:00:00 Final Observation Date Value Abnormality Reference (Units ) Status Body temperature 05/06/2023 12:00:00 37.0 (C) Final pH of Arterial blood 05/06/2023 12:00:00 7.411 7.350-7.450 (units) Final Carbon dioxide [Partial pressure] in Arterial blood 05/06/2023 12:00:00 37.3 35.0-45.0 (mmHg) Final Oxygen [Partial pressure] in Arterial blood 05/06/2023 12:00:00 93.6 75.0-100.0 (mmHg) Final Base excess, Arterial 05/06/2023 12:00:00 -0.6 -2.0-2.0 (mmol/L) Final Hemoglobin [Mass/volume] in Blood by Oximetry 05/06/2023 12:00:00 13.9 Below low normal 14.0-16.8 (g/dL) Final Oxyhemoglobin, Arterial (FO2HB) 05/06/2023 12:00:00 94.9 94.0-99.0 (% total Hgb) Final Carboxyhemoglobin 05/06/2023 12:00:00 0.1 <=1.5 (% total Hgb) Final Smokers: 0-9.0 % Methemoglobin 05/06/2023 12:00:00 0.4 <= 1.5 (% total Hgb) Final Deoxyhemoglobin/Hemoglobin .total in Arterial blood 05/06/2023 12:00:00 4.6 0.0 -5.0 (% total Hgb) Final Oxygen content in Arterial blood 05/06/2023 12:00:00 18.6 15.0-24.0 (%vol) Kath l Oxygen/Total gas setting [Volume Fraction] Ventilator 05/06/2023 12:00:00 Not Provided (%) Final O2 FLOW, ARTERIAL - [facility] 05/06/2023 12:00:00 Not Provided (L/min) Final Bicarbonate, Venous, POC (i-STAT) 05/06/2023 12:00:00 23.2 23.0-31.0 (mmol/L) Fi nal Performing Location [facility] [facility] [place] [facility] [place] [address]
--- OUTSIDE RECORDS SUMMARY | 2023-07-02 09:12 | External Medical Summary ---
Author Name Unknown Address Unknown Organization K01:LABORATORY [facility] [place] - [address] [facility] [address] [facility] [address] Laboratory Report Ordering Provider Test Date Status ZELALEM CABRALES 05/06/2023 10:47:28 Final Observation Date Value Abnormality Reference (Units ) Status Staphylococcus aureus methicillin resistance SCCmec [Presence] in Nose by LIZ with probe detection 05/06/2023 10:47:28 Indeterminate. Repeat testing recommended. Abnormal Negative Final Methicillin susceptible Staphylococcus aureus DNA [Presence] in Specimen by LIZ with probe detection 05/06/2023 10:47:28 Indeterminate. Repeat testing recommended. Abnormal Negative Final Performing Location LABORATORY [facility] [place] - [address] [facility] [address]
--- OUTSIDE RECORDS SUMMARY | 2023-07-02 09:12 | External Medical Summary ---
Author Name Unknown Address Unknown Organization K01:LABORATORY [facility] [place] - [address] [facility] [address] Laboratory Report Ordering Provider Test Date Status ZELALEM CABRALES 05/06/2023 12:55:42 Final Observation Date Value Abnormality Reference (Units ) Status TSH 05/06/2023 12:55:42 1.40 0.27-4.20 (uIU/mL) Final Performing Location LAB[facility]AT[facility] - [address] [facility] [address]
--- OUTSIDE RECORDS SUMMARY | 2023-07-02 09:13 | External Medical Summary | Summary of Care ---
Author Name Unknown Organization [facility] Address [address] [place] [address] Phone [phone] Care Team Providers Care Peer Tutor Name Role Phone Luciana Leung DO Primary Care Provider [phone] Reason for Visit * Reason Comments eRx-Medication Refill Encounter Details Date Type Department Care Team Description 02/11/2023 Refill Family [facility] [place] [address] [facility] [place] [address] Luciana Leung DO [address] [place] [address] Well adult exam; Familial hypercholesterolemia; HTN, goal below 140/90; Unequal pupils; Bicuspid aortic valve; Aortic stenosis due to bicuspid aortic valve; Overweight (BMI 25.0-29.9) Allergies Active Allergy Reactions Severity Noted Date Comments Simvastatin 11/01/2018 Elevated liver functions documented as of this encounter (statuses as of 02/12/2023) Medications Medication Sig Dispensed Refills Start Date End Date Status aspirin enteric coated 81 MG TBEC Take 1 Tablet by mouth in the morning. 0 Active metronidazole (METROGEL) 0.75 % gel Apply topically to affected area 2 times a day. Apply to affected area 45 g 11 11/07/2019 Active Lisinopril 20 MG Oral Tablet (Prinivil)Indica [...] THE MORNING 90 Tablet 1 02/12/2023 Active Atorvastatin Calcium 40 MG Oral Tablet (Lipitor)Indicat ions:Well adult exam,Familial hypercholesterol emia,HTN, goal below 140/90,Unequal pupils,Bicuspid aortic valve,Aortic stenosis due to bicuspid aortic valve,Overweight (BMI 25.0-29.9) TAKE 1 TABLET IN THE MORNING 90 Tablet 0 11/13/2022 3 Discontinued documented as of this encounter (statuses as of 02/12/2023) Active Problems Problem Noted Date 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 09/24/2021 Carpal tunnel syndrome 08/25/2021 Coronary vasospasm 08/25/2021 Dyslipidemia, goal LDL below 70 08/07/20 21 Coronary artery disease invo lving [place] coronary artery of [place] heart without angina pectoris 08/07/2021 COVID-19 vaccination [...] as of this encounter (statuses as of 02/12/2023) Resolved Problems Problem Noted Date Resolved Date Acute pancreatitis 11/01/2018 01/26/2019 Bicuspid aortic valve 10/03/2016 01/26/2019 Need for hepatitis C screening test 10/03/2016 08/02/2017 documented as of this encounter (statuses as of 02/12/2023) Immunizations Name Administration Dates Next Due PPD 10/17/2018 Pneumococcal Polysaccharide PPV23 (Pneumovax) 05/09/2020 Seasonal Influenza, Quadriva lent, No Preserve, 6 Mons & Above, IM 05/24/2021,05/09/2020 Seasonal Influenza, Quadriva lent, No Preserve, [...] true 12/07/2019 Sex Assigned at Date Recorded Not on file Job Start Date Occupation Industry Not on file Not on file Not on file documented as of this encounter Miscellaneous Notes * Telephone Encounter - Darvin Padron RPh - 02/12/2023 6:22 AM EDTSigned Prescriptions: Disp Refills Atorvastatin Calcium 40 MG Oral Tablet (Li*90 Tab*1 Sig: TAKE 1 TABLET IN THE MORNINGAuthorizing Provider: LUCIANA ELUNG User: ARVIN, DARVIN L-------- documented in this encounter Plan of Treatment Upcoming Encounters Date Type Specialty Care Team Description 03/01/2023 Office Visit Family Medicine Shaun Torres PA-C [address] [facility] [place] [address] 03/03/2023 Office Visit Cardiology Joan Portillo PA-C [address] [place] [address] 04/27/2023 Cardiac Studies Cardiac Studies 09/21/2023 Office Visit Cardiology Hero Monique DO [address] [place] [address] Health Maintenance Due Date Last Done Comments DISCUSS TOBACCO CESSATION (REFER TO SMARTSET #4818) 1960 COVID-19 Vaccine (#1) 03/11/1962 DIABETES-EYE EXAM 1979 DIABETES-FOOT EXAM 1979 Cologuard 2006 Fecal Occult Blood Test 2006 Sigmoidoscopy 2006 Zoster Vaccines (2 of 2) 07/04/2020 05/09/2020 Depression Screening, Annual for Pts 12 and Over 05/09/2021 05/09/2020 Pneumococcal Vaccine: Pediatrics (0 to 5 Years) and At-Risk Patients (6 to 64 Years) (2 - PCV) 05/09/2021 05/09/2020 HbA1c 11/30/2022 06/01/2022, 06/23, 05/09/2020, Additional history exists Influenza Vaccine (FLU shot) (Season Ended) 2023 05/24/2021, 05/09/2020, 05/26/2019, Additional history exists Albumin/Creatinine Ratio 06/01/2023 06/01/2022, 06/23 GFR 02/10/2024 02/09/2023, 05/23, 07/04/2021, Additional history exists DTaP,Tdap,and Td Vaccines (2 - Td or Tdap) 06/12/2025 06/12/2015 Colonoscopy 10/21/2028 10/21/2018, 06/26/2015 Colorectal Cancer Screening 10/21/2028 GARDASIL-HPV IMMUNIZATION SERIES Aged Out No longer [...] bicuspid aortic valve Overweight (BMI 25.0-29.9) Overweight documented in this encounter Care Teams Peer Tutor Relationship Specialty Start Date End Date Luciana Leung DO [address] [facility] [place] [address] PCP - General Family Medicine 10/02/16 documented as of this encounter
--- OUTSIDE RECORDS SUMMARY | 2023-07-02 09:13 | External Medical Summary | Summary of Care ---
Author Name Unknown Organization [facility] Address [address] [facility] [place] [address] Phone [phone] Care Team Providers Care Brazer Induction Name Role Phone Luciana Leung Ezekieltabitha Primary Care Provider [phone] Encounter Details Date Type Department Care Team Description 02/15/2023 Telephone Cardiology, [facility] [address] [place] [id number] Hero Monique DO [address] [place] [address] Allergies Active Allergy Reactions Severity Noted Date Comments Simvastatin 11/01/2018 Elevated liver functions documented as of this encounter (statuses as of 02/15/2023) Medications Medication Sig Dispensed Refills Start Date [...] Tablet Extended Release 24 Hour (toPROL XL)Indications:NSTE [place] (non-ST elevation myocardial infarction) (HCC) Take 1 [...] as of this encounter (statuses as of 02/15/2023) Active Problems Problem Noted Date 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 09/24/2021 Carpal tunnel syndrome 08/25/2021 Coronary vasospasm 08/25/2021 Dyslipidemia, goal LDL below 70 08/07/20 21 Coronary artery disease invo lving [place] coronary artery of [place] heart without angina pectoris 08/07/2021 COVID-19 vaccination [...] as of this encounter (statuses as of 02/15/2023) Resolved Problems Problem Noted Date Resolved Date Acute pancreatitis 11/01/2018 01/26/2019 Bicuspid aortic valve 10/03/2016 01/26/2019 Need for hepatitis C screening test 10/03/2016 08/02/2017 documented as of this encounter (statuses as of 02/15/2023) Immunizations Name Administration Dates Next Due PPD [...] encounter Miscellaneous Notes * Telephone Encounter - Shelli Galicia LPN - 02/15/2023 9:22 AM EDT Letter sent * Telephone Encounter - Shelli Galicia LPN - 02/15/2023 9:22 AM EDT ----- Message from Hero Monique DO sent at 02/15/2023 8:32 AM EDT ----- Mild aortic root enlargement, 4.4 cm. No medication changes at this time. documented in this encounter Plan of Treatment Upcoming Encounters Date Type Specialty Care Team Description 03/01/2023 Office Visit Family Medicine Shaun Torres PA-C [address] [facility] [place] [address] 03/03/2023 Office Visit Cardiology Joan Portillo PA-C [address] [place] [address] 04/27/2023 Cardiac Studies Cardiac Studies 09/21/2023 Office Visit Cardiology Hero Monique DO [address] [place] [address] Health Maintenance Due Date Last Done Comments DISCUSS TOBACCO CESSATION (REFER TO SMARTSET #9294) 1960 COVID-19 Vaccine (#1) 03/11/1962 DIABETES-EYE EXAM [...] filedocumented as of this encounter Care Teams Brazer Induction Relationship Specialty Start Date End Date Luciana Leung DO [address] [facility] [place] [address] PCP - General Family Medicine 10/02/16 documented as of this encounter
--- OUTSIDE RECORDS SUMMARY | 2023-07-02 09:13 | External Medical Summary | Summary of Care ---
Author Name Unknown Organization [facility] Address [address] [facility] [place] [address] Phone [phone] Care Team Providers Care Custom Bookbinder Name Role Phone Luciana Leung Primary Care Provider [phone] [phone] Reason for Referral * Evaluate & Treat - Unlimited Visits (Within 10 days (routine)) - Pending Review Specialty Diagnoses / Procedures Referred By Contact Referred To Contact Cardiovascular Surgery / Cardiothoracic Surgery Diagnoses Aortic stenosis due to bicuspid aortic valve Dilated aortic root (HCC) Coronary artery disease involving [place] coronary artery of [place] heart without angina pectoris Hero Monique DO [address] [place] [address] Referral ID Status Reason Start Date Expiration Date Visits Requested Visits Authorized [id number] Pending Review Specialty Services Required 04/29/[phone] Question Answer Referral Priority Within 10 days (routine) Comments Severe aortic stenosis with bicuspid AV. CAD, most recent cath 12/2022 [facility] with no targets for intervention. Reason for Visit * Reason Onset Date Comments Order Request 04/29/2023 Appointment 04/29/2023 Encounter Details Date Type Department Care Team Description 04/29/2023 Telephone Cardiology, [facility] [address] [place] [address] Hero Monique DO [address] [place] [id number] Order Request; Appointment Allergies Active Allergy Reactions Severity Noted Date Comments Simvastatin 11/01/2018 Elevated liver functions documented as of this encounter (statuses as of 04/30/2023) Medications Medication Sig Dispensed Refills Start Date [...] Tablet Extended Release 24 Hour (toPROL XL)Indications:NSTE [place] (non-ST elevation myocardial infarction) (HCC) Take 1 [...] as of this encounter (statuses as of 04/30/2023) Active Problems Problem Noted Date 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 09/24/2021 Carpal tunnel syndrome 08/25/2021 Coronary vasospasm 08/25/2021 Dyslipidemia, goal LDL below 70 08/07/20 21 Coronary artery disease invo lving [place] coronary artery of [place] heart without angina pectoris 08/07/2021 COVID-19 vaccination [...] as of this encounter (statuses as of 04/30/2023) Resolved Problems Problem Noted Date Resolved Date Acute pancreatitis 11/01/2018 01/26/2019 Bicuspid aortic valve 10/03/2016 01/26/2019 Need for hepatitis C screening test 10/03/2016 08/02/2017 documented as of this encounter (statuses as of 04/30/2023) Immunizations Name Administration Dates Next Due PPD [...] Miscellaneous Notes * Telephone Encounter - KELSIE Smith - 04/30/2023 9:00 AM EDT Pt is scheduled and aware of the appt d/t Thank you KELSIE Smith * Telephone Encounter - KELSIE Ramirez - 04/29/2023 1:34 PM EDT Need order for CT surgery eval per Dr Monique note. Pt called to schedule documented in this encounter Plan of Treatment Upcoming Encounters Date Type Specialty Care Team Description 05/06/2023 Office Visit [facility]oracic Surgery [facility] [address] [facility] [address] 09/21/2023 Office Visit Cardiology Hero Monique, DO [address] [place] [address] Scheduled Referrals Name Type Priority Associated Diagnoses Order Schedule CARDIOVASCULAR SURGERY REFERRAL OP Referral Within 10 days (routine) Aortic stenosis due to bicuspid aortic valve Dilated aortic root (HCC) Coronary artery disease involving [place] coronary artery of [place] heart without angina pectoris Ordered: 04/29/2023 Health Maintenance Due Date Last Done Comments DISCUSS TOBACCO CESSATION (REFER TO SMARTSET #3291) [...] Additional history exists Influenza Vaccine (FLU shot) (#1) 2023 05/24/2021, 05/09/2020, 05/26/2019, Additional history exists [...] stenosis due to bicuspid aortic valve- Primary Dilated aortic root (HCC) Thoracic aortic ectasia Coronary artery disease involving [place] coronary artery of [place] heart without angina pectoris documented in this encounter Care Teams Custom Bookbinder Relationship Specialty Start Date End Date Luciana Leung DO [address] [facility] [place] [address] PCP - General Family Medicine 10/02/16 documented as of this encounter
--- OUTSIDE RECORDS SUMMARY | 2023-07-02 09:13 | External Medical Summary | Summary of Care ---
Author Name Unknown Organization [facility] Address [address] [facility] [place] [address] Phone [phone] Care Team Providers Care Greeting Card Editor Name Role Phone Luciana Leung Primary Care Provider [phone] Reason for Visit * Reason Comments Outpatient Testing Encounter Details Date Type Department Care Team Description 02/09/2023 Laboratory Laboratory [facility] [place] [address] [facility] [place] [address] [facility] [address] [facility] [place] [address] HTN, goal below 140/90 Allergies Active Allergy Reactions Severity Noted Date Comments Simvastatin 11/01/2018 Elevated liver functions documented as of this encounter (statuses as of 02/09/2023) Medications Medication Sig Dispensed Refills Start Date [...] by mouth in the morning. 0 Active Atorvastatin Calcium 40 MG Oral Tablet (Lipitor)Indication s:Well adult exam,Familial hypercholesterolemi a,HTN, goal below 140/90,Unequal pupils,Bicuspid aortic valve,Aortic stenosis due to bicuspid aortic valve,Overweight (BMI 25.0-29.9) TAKE 1 TABLET IN THE MORNING 90 Tablet 0 11/13/2022 Active Clopidogrel Bisulfate 75 MG Oral Tablet (pLAVix) Take 1 Tablet by mouth in the morning. 100 Tablet 6 01/11/2023 Active Metoprolol Succinate ER 25 MG Oral Tablet Extended Release 24 Hour (toPROL XL)Indications:NSTE [place] (non-ST elevation myocardial infarction) (HCC) Take 1 Tablet by mouth in the morning. In the morning.. 90 Tablet 4 01/12/2023 Active documented as of this encounter (statuses as of 02/09/2023) Active Problems Problem Noted Date 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 09/24/2021 Carpal tunnel syndrome 08/25/2021 Coronary vasospasm 08/25/2021 Dyslipidemia, goal LDL below 70 08/07/20 21 Coronary artery disease invo lving [place] coronary artery of [place] heart without angina pectoris 08/07/2021 COVID-19 vaccination [...] as of this encounter (statuses as of 02/09/2023) Resolved Problems Problem Noted Date Resolved Date Acute pancreatitis 11/01/2018 01/26/2019 Bicuspid aortic valve 10/03/2016 01/26/2019 Need for hepatitis C screening test 10/03/2016 08/02/2017 documented as of this encounter (statuses as of 02/09/2023) Immunizations Name Administration Dates Next Due PPD [...] Encounters Date Type Specialty Care Team Description 02/10/2023 Imaging Radiology 03/01/2023 Office Visit Family Medicine Shaun Torres PA-C [address] [facility] [place] [address] 03/03/2023 Office Visit Cardiology Joan Portillo PA-C [address] [place] [address] 04/27/2023 Cardiac Studies Cardiac Studies 09/21/2023 Office Visit Cardiology Hero Monique DO [address] [place] [address] Pending Results Name Type Priority Associated Diagnoses Date /Time CREATININE Lab Routine HTN, goal below 140/90 02/09/2023 2:35 PM EDT Health Maintenance Due Date Last Done Comments DISCUSS TOBACCO CESSATION (REFER TO SMARTSET #9894) 1960 COVID-19 Vaccine (#1) 03/11/1961 DIABETES-EYE EXAM [...] exists Albumin/Creatinine Ratio 06/01/2023 06/01/2022, 06/23 GFR 06/01/2023 06/01/2022, 06/23, 05/09/2020, Additional history exists DTaP,Tdap,and Td Vaccines (2 [...] HTN, goal below 140/90 Unspecified essential hypertension documented in this encounter Care Teams Greeting Card Editor Relationship Specialty Start Date End Date Luciana Leung DO [address] [facility] [place] [address] PCP - General Family Medicine 10/02/16 documented as of this encounter
--- OUTSIDE RECORDS SUMMARY | 2023-07-02 09:13 | External Medical Summary | Summary of Care ---
Author Name Unknown Organization [facility] Address [address] [facility] [place] [address] Phone [phone] Care Team Providers Care Needle Grinder Name Role Phone Leung, Luciana Ezekieltabitha Primary Care Provider [phone] [phone] Reason for Visit * Reason Onset Date Comments Test Results 04/30/2023 Encounter Details Date Type Department Care Team Description 04/30/2023 Telephone Cardiology, [facility] [address] [place] [address] Hero Monique DO [address] [place] [id number] Test Results Allergies Active Allergy Reactions Severity Noted Date [...] Tablet Extended Release 24 Hour (toPROL XL)Indications:NSTE [place] (non-ST elevation myocardial infarction) (HCC) Take 1 [...] 08/07/20 21 Coronary artery disease invo lving [place] coronary artery of [place] heart without angina pectoris 08/07/2021 COVID-19 vaccination [...] Miscellaneous Notes * Telephone Encounter - KELSIE Vazquez - 04/30/2023 3:17 PM EDT LMOM. * Telephone Encounter - Jason Bell LPN - 04/30/2023 2:46 PM EDT Scheduling please assist with follow up appointment with Dr. Monique. CT appointment already scheduled. ----- Message from Hero Monique DO sent at 04/29/2023 10:44 AM EDT ----- Echocardiogram demonstrates severe aortic valve stenosis. Results personally discussed with patientover telephone. Recommend CT surgery evaluation for AVR. Recent cardiac catheterization performed January 01, 2023 at [facility]. Contact hospital to have images transferred to [employer] and copy on disc. Patient agreeable to CT surgery evaluation. Please schedule within the next 1 to 2 weeks. Schedule outpatient cardiology follow-up with me after CT surgery evaluation. documented in this encounter Plan of Treatment Upcoming Encounters Date Type Specialty Care Team Description 05/06/2023 Office Visit Cardiothoracic Surgery Kayode Parnell MD [address] [place] [address] 09/21/2023 Office Visit Cardiology Hero Monique, DO [address] [place] [address] Health Maintenance Due Date Last Done Comments DISCUSS TOBACCO CESSATION (REFER TO SMARTSET #0003) 1960 COVID-19 Vaccine (#1) 03/11/1962 DIABETES-EYE EXAM [...] as of this encounter Visit Diagnoses Diagnosis Severe aortic valve regurgitation- Primary Aortic valve disorders Aortic valve stenosis Aortic valve disorders documented in this encounter Care Teams Needle Grinder Relationship Specialty Start Date End Date Luciana Leung, [address] [facility] [place] [address] PCP - General Family Medicine 10/02/16 documented as of this encounter
--- OUTSIDE RECORDS SUMMARY | 2023-07-02 09:13 | External Medical Summary | Summary of Care ---
Author Name Unknown Organization [facility] Address [address] [facility] [place] [address] Phone [phone] Care Team Providers Care Advertising Agent Name Role Phone Luciana Leung DO Primary Care Provider [phone] Reason for Visit * Reason Onset Date Comments Test Results 04/30/2023 Encounter Details Date Type Department Care Team Description 04/30/2023 Telephone Cardiology, [facility] [address] [place] [address] Hero Monique DO [address] [place] [address] Test Results Allergies Active Allergy Reactions Severity Noted Date Comments Simvastatin 11/01/2018 Elevated liver functions documented as of this encounter (statuses as of 05/03/2023) Medications Medication Sig Dispensed Refills Start Date [...] Tablet Extended Release 24 Hour (toPROL XL)Indications:NSTE [place] (non-ST elevation myocardial infarction) (HCC) Take 1 [...] as of this encounter (statuses as of 05/03/2023) Active Problems Problem Noted Date 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 09/24/2021 Carpal tunnel syndrome 08/25/2021 Coronary vasospasm 08/25/2021 Dyslipidemia, goal LDL below 70 08/07/20 21 Coronary artery disease invo lving [place] coronary artery of [place] heart without angina pectoris 08/07/2021 COVID-19 vaccination [...] as of this encounter (statuses as of 05/03/2023) Resolved Problems Problem Noted Date Resolved Date Acute pancreatitis 11/01/2018 01/26/2019 Bicuspid aortic valve 10/03/2016 01/26/2019 Need for hepatitis C screening test 10/03/2016 08/02/2017 documented as of this encounter (statuses as of 05/03/2023) Immunizations Name Administration Dates Next Due PPD [...] * Telephone Encounter - KELSIE Vazquez - 05/03/2023 8:25 AM EDT Spoke with pt. Pt is scheduled 06/09/[address] Monique. * Telephone Encounter - KELSIE Vazquez - [...] cardiac catheterization performed January 01, 2023 at [facility]. Contact hospital to have images transferred to [employer] and copy on disc. Patient agreeable to CT surgery evaluation. Please schedule within the next 1 to 2 weeks. Schedule outpatient cardiology follow-up with me after CT surgery evaluation. documented in this encounter Plan of Treatment Upcoming Encounters Date Type Specialty Care Team Description 05/06/2023 Office Visit [facility]othoracic Surgery [facility] [address] [facility] [address] 05/10/2023 Office Visit Cardiology Hero Monique DO [address] [place] [address] 09/21/2023 Office Visit Cardiology Hero Monique DO [address] [place] [address] Health Maintenance Due Date Last Done Comments DISCUSS TOBACCO CESSATION (REFER TO SMARTSET #1046) 1960 COVID-19 Vaccine (#1) 03/11/1962 DIABETES-EYE EXAM [...] documented in this encounter Care Teams Advertising Agent Relationship Specialty Start Date End Date Luciana Leung DO [address] [facility] [place] [address] PCP - General Family Medicine 10/02/16 documented as of this encounter
--- OUTSIDE RECORDS SUMMARY | 2023-07-02 09:13 | External Medical Summary | Summary of Care ---
Author Name Unknown Organization [facility] Address [address] [facility] [place] [address] Phone [phone] Care Team Providers Care Tourist Information Assistant Name Role Phone Leung, Luciana Ezekieltabitha Primary Care Provider [phone] Reason for Visit * Reason Onset Date Comments Test Results 04/30/2023 Encounter Details Date Type Department Care Team Description 04/30/2023 Telephone Cardiology, [facility] [address] [place] [address] Hero Monique DO [address] [place] [id number] Test Results Allergies Active Allergy Reactions Severity [...] Tablet Extended Release 24 Hour (toPROL XL)Indications:NSTE [place] (non-ST elevation myocardial infarction) (HCC) Take 1 [...] 08/07/20 21 Coronary artery disease invo lving [place] coronary artery of [place] heart without angina pectoris 08/07/2021 COVID-19 vaccination [...] encounter Miscellaneous Notes * Telephone Encounter - Jason Bell LPN [...] cardiac catheterization performed January 01, 2023 at [facility]. Contact hospital to have images transferred to [employer] and copy on disc. Patient agreeable to CT surgery evaluation. Please schedule within the next 1 to 2 weeks. Schedule outpatient cardiology follow-up with me after CT surgery evaluation. documented in this encounter Plan of Treatment Upcoming Encounters Date Type Specialty Care Team Description 05/06/2023 Office Visit Cardiothoracic Surgery Kayode Parnell MD [address] [place] [address] 09/21/2023 Office Visit Cardiology Hero Monique, DO [address] [place] [address] Health Maintenance Due Date Last Done Comments DISCUSS TOBACCO CESSATION (REFER TO SMARTSET #3299) 1960 COVID-19 Vaccine (#1) 03/11/1962 DIABETES-EYE EXAM [...] disorders documented in this encounter Care Teams Tourist Information Assistant Relationship Specialty Start Date End Date Luciana Leung DO [address] [facility] [place] [address] PCP - General Family Medicine 10/02/16 documented as of this encounter
--- OUTSIDE RECORDS SUMMARY | 2023-07-02 09:14 | External Medical Summary | Summary of Care ---
Author Name Unknown Organization [facility] Address [address] [place] [address] Phone [phone] Care Team Providers Care Telephone Repairer Name Role Phone Luciana Leung DO Primary Care Provider [phone] [phone] Encounter Details Date Type Department Care Team Description 02/09/2023 Telephone Family Practice [facility] [place] [address] [place] [address] Luciana Leung DO [address] [place] [address] Allergies Active Allergy Reactions Severity Noted Date [...] 08/07/20 21 Coronary artery disease invo lving [place] coronary artery of [place] heart without angina pectoris 08/07/2021 COVID-19 vaccination [...] encounter Miscellaneous Notes * Telephone Encounter - Ashanti Temple LPN - 02/09/2023 2:25 PM EDT Pt in clinic for labs, work excuse created documented in this encounter Plan of Treatment Upcoming Encounters Date Type Specialty Care Team Description 02/10/2023 Imaging Radiology 03/01/2023 Office Visit Family Medicine Shaun Torres PA-C [address] [facility] [place] [address] 03/03/2023 Office Visit Cardiology Joan Portillo PA-C [address] [place] [address] 04/27/2023 Cardiac Studies Cardiac Studies 09/21/2023 Office Visit Cardiology Hero Monique O, DO [address] [place] [address] Health Maintenance Due Date Last Done Comments DISCUSS TOBACCO CESSATION (REFER TO SMARTSET #5028) 1960 COVID-19 Vaccine (#1) 03/11/1962 DIABETES-EYE EXAM [...] of this encounter Visit Diagnoses Diagnosis Encounter to obtain excuse from work- Primary documented in this encounter Care Teams Telephone Repairer Relationship Specialty Start Date End Date Luciana Leung, [address] [facility] [place] [address] PCP - General Family Medicine 10/02/16 documented as of this encounter
--- OUTSIDE RECORDS SUMMARY | 2023-07-02 09:14 | External Medical Summary ---
Author Name Unknown Address Unknown Organization K01:[facility] [place] [facility] [place] [address] Laboratory Report Ordering Provider Test Date Status VINNY COHN 02/09/2023 14:35:40 Final Observation Date Value Abnormality Reference (Units ) Status Creatinine 02/09/2023 14:35:40 1.2 0.6-1.2 (mg/dL) Final Glomerular filtration rate/1.73 sq M.predicted [Volume Rate/Area] in Serum, Plasma or Blood by Creatinine-based formula (CKD-EPI) 02/09/2023 14:35:40 70 >=60 (mL/min) Final eGFR is calculated based on the CKD-EPI 2020 equation Performing Location [facility] [place] [facility] [address] [place] [address]
--- OUTSIDE RECORDS SUMMARY | 2023-07-02 09:14 | External Medical Summary | Summary of Care ---
Author Name Unknown Organization [facility] Address [address] [place] [address] Phone [phone] Care Team Providers Care Embedded Developer Name Role Phone Luciana Leung Primary Care Provider [phone] [phone] Encounter Details Date Type Department Care Team Description 01/01/2023 Result Scan Unspecified Department <No scans attached> Allergies Active Allergy Reactions Severity Noted Date Comments Simvastatin 11/01/2018 Elevated liver functions documented as of this encounter (statuses as of 01/12/2023) Medications Medication Sig Dispensed Refills Start Date End Date Status aspirin enteric coated 81 MG TBEC Take 1 Tablet by mouth in the morning. 0 Active metronidazole (METROGEL) 0.75 % gel Apply topically to affected area 2 times a day. Apply to affected area 45 g 11 11/07/2019 Active Lisinopril 20 MG Oral Tablet (Prinivil)Indication s:HTN, goal below 140/90 TAKE 1 TABLET DAILY 90 Tablet 3 05/27/2022 Active amLODIPine Besylate 2.5 MG Oral Tablet (Norvasc) TAKE 1 TABLET DAILY 90 Tablet 3 09/14/2022 Active Pantoprazole Sodium 40 MG Oral Tablet Delayed Release (Protonix)Indication s:Bradley's esophagus with dysplasia TAKE 1 TABLET DAILY 90 Tablet 3 09/21/2022 Active Multi-Vitamin Daily Oral Tablet Take 1 Tablet by mouth in the morning. 0 Active Atorvastatin Calcium 40 MG Oral Tablet (Lipitor)Indications :Well adult exam,Familial hypercholesterolemia ,HTN, goal below 140/90,Unequal pupils,Bicuspid aortic valve,Aortic stenosis due to bicuspid aortic valve,Overweight (BMI 25.0-29.9) TAKE 1 TABLET IN THE MORNING 90 Tablet 0 11/13/2022 Active documented as of this encounter (statuses as of 01/12/2023) Active Problems Problem Noted Date 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 09/24/2021 Carpal tunnel syndrome 08/25/2021 Coronary vasospasm 08/25/2021 Dyslipidemia, goal LDL below 70 08/07/20 21 Coronary artery disease invo lving [place] coronary artery of [place] heart without angina pectoris 08/07/2021 COVID-19 vaccination [...] as of this encounter (statuses as of 01/12/2023) Resolved Problems Problem Noted Date Resolved Date Acute pancreatitis 11/01/2018 01/26/2019 Bicuspid aortic valve 10/03/2016 01/26/2019 Need for hepatitis C screening test 10/03/2016 08/02/2017 documented as of this encounter (statuses as of 01/12/2023) Immunizations Name Administration Dates Next Due PPD [...] Office Visit Family Medicine Shaun Torres PA-C [address] [facility] [place] [address] 03/03/2023 Office Visit Cardiology Joan Portillo PA-C [address] [place] [address] 04/27/2023 Cardiac Studies Cardiac Studies 09/21/2023 Office Visit Cardiology Hero Monique DO [address] [place] [address] Health Maintenance Due Date Last Done Comments DISCUSS TOBACCO CESSATION (REFER TO SMARTSET #1410) 1960 COVID-19 Vaccine (#1) 03/11/1962 DIABETES-EYE EXAM [...] Procedure Name Priority Date/Time Associated Diagnosis Comments CARDIAC CATH SCANNED RESULT 01/01/2023 documented in this encounter Results * CARDIAC CATH SCANNED RESULT (01/01/2023) 01/01/2023 No Physician Data Unknown CARD CATH documented in this encounter Care Teams Embedded Developer Relationship Specialty Start Date End Date Luciana Leung DO [address] [facility] [place] [address] PCP - General Family Medicine 10/02/16 documented as of this encounter
--- OUTSIDE RECORDS SUMMARY | 2023-07-02 09:14 | External Medical Summary | Summary of Care ---
Author Name Unknown Organization [facility] Address [address] [facility] [address] Phone [phone] Care Team Providers Care Porcelain Enamel Sprayer Name Role Phone Luciana Leung Ezekieltabitha Primary Care Provider [phone] Reason for Visit * Reason Onset Date Comments Medication Refill 01/12/2023 Encounter Details Date Type Department Care Team Description 01/11/2023 Refill Cardiology, [facility] [address] [place] [id number] Hero Casillas DO [address] [place] [address] NSTEMI (non-ST elevation myocardial infarction) (HCC)* Allergies Active Allergy Reactions Severity Noted Date [...] the morning.. 90 Tablet 4 01/12/2023 Active Metoprolol Succinate ER 25 MG Oral Tablet Extended Release 24 Hour (toPROL XL) Take 1 Tablet by mouth in the morning. In the morning.. 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 Authorizing Provider: HERO CASILLAS Metoprolol Succinate ER 25 MG Oral Tablet *90 Tab*4 Sig: Take 1 Tablet by mouth in the morning. In the morning.. Authorizing Provider: HERO CASILLAS * Telephone Encounter - Lidia Haq LPN - 01/11/2023 12:40 PM EDT Order pended * Telephone Encounter - Hero Casillas DO - 01/11/2023 12:30 PM EDT Prescription for clopidogrel sent as requested. Please clarify dose of metoprolol and pend refill for signing. * Telephone Encounter - KELSIE Vazquez - 01/11/2023 11:30 AM EDT Spoke with pt. Pt is scheduled 03/03/23 with Joan. Offered 02/11/23 but pt declined due to a meeting. No other openings. Pt states he was prescribed 30 day supply of Metoprolol and Plavix while in the hospital and will need a refill prior to f/u appt. Pt is requesting scripts be sent to [facility]. * Telephone Encounter - KELSIE Ann - 01/11/2023 11:15 AM EDT Patient needs a 1 month HD with you, nothing avail Patient is seen in [place] documented in this encounter Plan of Treatment Upcoming Encounters Date Type Specialty Care Team Description 02/10/2023 Imaging Radiology 03/01/2023 Office Visit Family Medicine Shaun Torres PA-C [address] [place] [id number] 03/03/2023 Office Visit Cardiology Joan Portillo PA-C [address] [place] [address] 04/27/2023 Cardiac Studies Cardiac Studies 09/21/2023 Office Visit Cardiology Hero Casillas DO [address] [place] [address] Health Maintenance Due Date Last Done Comments DISCUSS TOBACCO CESSATION (REFER TO SMARTSET #[id number]) 1960 COVID-19 Vaccine (#1) 03/11/1962 DIABETES-EYE EXAM [...] as of this encounter Visit Diagnoses Diagnosis NSTEMI (non-ST elevation myocardial infarction) (HCC)- Primary Acute myocardial infarction, subendocardial infarction, episode of care unspecified documented in this encounter Care Teams Porcelain Enamel Sprayer Relationship Specialty Start Date End Date Luciana Leung DO [address] [facility] [place] [address] PCP - General Family Medicine 10/02/16 documented as of this encounter
== END 2023-07-01 14:17 | disposition home or self-care (01) | DRG 308 ==
LOC: ED 07:57 → 2S 10:34 → SUATTDRO 10:34 → 2S 14:24